=== PATIENT | male | born 1950 | race Two or more races ===

== ENCOUNTER → 2016-05-18 | Outpatient (CLI) | payer OTHER ==
[2016-05-18 12:36] LABS: Basophils # (auto) 0 uL; Basophils % (auto) 0.4 % (0.0-2.0); Eosinophils # (auto) 0.2 uL; Eosinophils % (auto) 3.2 % (0.0-7.0); Hemoglobin 15.7 g/dL (13.5-17.5); Lymphocytes # (auto) 1.6 uL; Lymphocytes % (auto) 21.7 % (10.0-50.0); Mean Corpuscular Hgb Conc. 32.8 g/dL (32.0-36.0); Mean Corpuscular Volume 88.5 fL (80.0-100.0); Mean Platelet Volume 8.4 fL (7.4-10.4); Monocytes # (auto) 0.5 uL; Monocytes % (auto) 6.5 % (0.0-12.0); Neutrophils # (auto) 4.9 uL; Neutrophils % (auto) 68.2 % (37.0-80.0); Platelet Count (auto) 224 10^3/uL (140-450); White Blood Cell 7.2 10^3/uL (4.4-10.8)
[2016-05-18 12:53] LABS: BUN/Creatinine Ratio 19.1; Bilirubin, Total 0.4 mg/dL (0.2-1.0); Calcium 9.1 mg/dL (8.5-10.1); Potassium 3.7 mmol/L (3.5-5.1); Total Protein 8.1 g/dL (6.4-8.2)
== END | disposition home or self-care (01) ==
LOC: LAB 11:40
PROVIDERS: ATTEND Internal Medicine
DX: E11.51 Type 2 diabetes mellitus with diabetic peripheral angiopathy without gangrene (principal); I10 Essential (primary) hypertension
CPT/HCPCS: 36415; 80053; 82607; 83036; 84153; 85025; G0434

== ENCOUNTER → 2017-03-15 | Outpatient (CLI) | payer OTHER ==
[2017-03-15 09:45] LABS: Basophils # (auto) 0.1 uL; Basophils % (auto) 1.4 % (0.0-2.0); Eosinophils # (auto) 0.2 uL; Eosinophils % (auto) 3.6 % (0.0-7.0); Hematocrit 49.3 % (41.0-53.0); Hemoglobin 17.1 g/dL (13.5-17.5); Lymphocytes # (auto) 1.4 uL; Lymphocytes % (auto) 24.3 % (10.0-50.0); Mean Corpuscular Hemoglobin 30.7 pg (28.0-32.0); Mean Corpuscular Hgb Conc. 34.8 g/dL (32.0-36.0); Mean Corpuscular Volume 88.2 fL (80.0-100.0); Monocytes # (auto) 0.4 uL; Monocytes % (auto) 7.9 % (0.0-12.0); Neutrophils # (auto) 3.5 uL; Neutrophils % (auto) 62.8 % (37.0-80.0); Nucleated Red Blood Cells % 0.1 %; Platelet Count (auto) 192 10^3/uL (140-450); Red Blood Cells 5.59 10^6/uL (4.5-5.90); White Blood Cell 5.6 10^3/uL (4.4-10.8)
[2017-03-15 10:09] LABS: Albumin 4.1 g/dL (3.4-5.0); BUN/Creatinine Ratio 22.2; Bilirubin, Total 0.5 mg/dL (0.2-1.0); CRP High Sensitivity 0.3 mg/dL (< 0.3); Calcium 9.2 mg/dL (8.5-10.1); Potassium 3.5 mmol/L (3.5-5.1); Total Protein 8.5 g/dL (6.4-8.2)
== END | disposition home or self-care (01) ==
LOC: LAB 09:23
PROVIDERS: ATTEND Internal Medicine
DX: E11.40 Type 2 diabetes mellitus with diabetic neuropathy, unspecified (principal)
CPT/HCPCS: 36415; 80053; 80061; 83036; 84439; 84443; 85025; 85652; 86141

== ENCOUNTER → 2017-06-11 | Outpatient (CLI) | payer OTHER ==
[~2017-06-11] MED LIST: AMLO5TAB2 PO; ASPI81TA27 PO; ATOR40TA52 PO; CILO100T PO; CLON0.1T PO; GABA300C10 PO; INSLISPI SC; INSU1INJ5 SC; LISI-285 PO
== END | disposition home or self-care (01) ==
LOC: LAB 08:51
PROVIDERS: ATTEND Internal Medicine
DX: I73.9 Peripheral vascular disease, unspecified (principal)
CPT/HCPCS: 36415; 82565; 84520

== ENCOUNTER → 2017-07-24 | Outpatient (CLI) | payer OTHER ==
[~2017-07-24] VITALS: Ht 152.4 cm; Wt 90.7 kg
[~2017-07-24] MED LIST changes: +ADENOSINE 76 MG in GIVE UN-DILUTED 0 ML IV ONE
[2017-07-24 10:20] VITALS: BP 173/90
== END | disposition home or self-care (01) ==
LOC: NM WEST 08:10
PROVIDERS: ATTEND Internal Medicine
DX: I73.9 Peripheral vascular disease, unspecified (principal)
CPT/HCPCS: 78452; 93017; A9500; J0153

== ENCOUNTER → 2017-07-31 | Outpatient (CLI) | payer OTHER | END | disposition home or self-care (01) | LOC: XYW 08:39 | PROVIDERS: ATTEND Internal Medicine | DX: I73.9 Peripheral vascular disease, unspecified (principal) | CPT/HCPCS: 93306 ==

== ENCOUNTER → 2017-08-16 | Outpatient (CLI) | payer OTHER ==
[~2017-08-16] MED LIST changes: -ADENOSINE 76 MG in GIVE UN-DILUTED 0 ML IV ONE
[2017-08-16 10:42] LABS: Basophils # (auto) 0.1 uL; Basophils % (auto) 1.3 % (0.0-2.0); Eosinophils # (auto) 0.3 uL; Eosinophils % (auto) 3.8 % (0.0-7.0); Hematocrit 46.6 % (41.0-53.0); Hemoglobin 15.9 g/dL (13.5-17.5); Lymphocytes # (auto) 1.5 uL; Lymphocytes % (auto) 20.6 % (10.0-50.0); Mean Corpuscular Hemoglobin 30.7 pg (28.0-32.0); Mean Corpuscular Hgb Conc. 34.2 g/dL (32.0-36.0); Mean Corpuscular Volume 89.8 fL (80.0-100.0); Monocytes # (auto) 0.5 uL; Monocytes % (auto) 7.5 % (0.0-12.0); Neutrophils # (auto) 4.8 uL; Neutrophils % (auto) 66.8 % (37.0-80.0); Nucleated Red Blood Cells % 0.1 %; Platelet Count (auto) 219 10^3/uL (140-450); Red Blood Cells 5.19 10^6/uL (4.5-5.90); Red Cell Distribution Width 14.4 % (11.8-14.3); White Blood Cell 7.2 10^3/uL (4.4-10.8)
[2017-08-16 11:45] LABS: INR 0.91 (0.9-1.15); Prothrombin Time 9.9 sec (9.37-12.3)
[2017-08-16 12:13] LABS: Albumin 4.3 g/dL (3.4-5.0); BUN/Creatinine Ratio 18.7; Bilirubin, Total 0.4 mg/dL (0.2-1.0); Calcium 9.4 mg/dL (8.5-10.1); Potassium 4.3 mmol/L (3.5-5.1); Total Protein 8.2 g/dL (6.4-8.2)
== END | disposition home or self-care (01) ==
LOC: LAB 09:58
PROVIDERS: ATTEND Internal Medicine
DX: Z01.812 Encounter for preprocedural laboratory examination (principal); R07.89 Other chest pain; E11.9 Type 2 diabetes mellitus without complications; I10 Essential (primary) hypertension; E78.5 Hyperlipidemia, unspecified
CPT/HCPCS: 36415; 80053; 85025; 85610; 85730

== ENCOUNTER → 2017-09-19 | Outpatient (CLI) | payer OTHER ==
[~2017-09-19] MED LIST changes: +AMI200T PO; +AMLO10TA2 PO; -AMLO5TAB2 PO; -CLON0.1T PO; +DOCU100C8 PO; +FURO40TA4 PO; +GLIP-115 PO; -INSLISPI SC; +INSU100I2 SC; -LISI-285 PO; +MET25T PO; +METF500T PO; +PEN400T PO; +POTA20TA53 PO; +TRAM50TA2 PO
[2017-09-19 13:40] LABS: Basophils # (auto) 0.1 uL; Basophils % (auto) 1.1 % (0.0-2.0); Eosinophils # (auto) 0.4 uL; Eosinophils % (auto) 5.4 % (0.0-7.0); Hematocrit 35.9 % (41.0-53.0); Lymphocytes # (auto) 1.2 uL; Lymphocytes % (auto) 14.9 % (10.0-50.0); Mean Corpuscular Hemoglobin 30.1 pg (28.0-32.0); Mean Corpuscular Hgb Conc. 33.4 g/dL (32.0-36.0); Mean Corpuscular Volume 90.1 fL (80.0-100.0); Monocytes # (auto) 0.8 uL; Monocytes % (auto) 9.6 % (0.0-12.0); Neutrophils # (auto) 5.4 uL; Platelet Count (auto) 214 10^3/uL (140-450); Red Blood Cells 3.98 10^6/uL (4.5-5.90); Red Cell Distribution Width 14.9 % (11.8-14.3); White Blood Cell 7.9 10^3/uL (4.4-10.8)
[2017-09-19 14:10] LABS: Albumin 3.6 g/dL (3.4-5.0); BUN/Creatinine Ratio 19.5; Bilirubin, Total 0.2 mg/dL (0.2-1.0); Calcium 8.8 mg/dL (8.5-10.1); Potassium 3.7 mmol/L (3.5-5.1); Total Protein 7.6 g/dL (6.4-8.2)
== END | disposition home or self-care (01) ==
LOC: LAB 13:23
PROVIDERS: ATTEND Thoracic Surgery (Cardiothoracic Vascular Surgery)
DX: I25.10 Atherosclerotic heart disease of native coronary artery without angina pectoris (principal); E11.22 Type 2 diabetes mellitus with diabetic chronic kidney disease; I12.9 Hypertensive chronic kidney disease with stage 1 through stage 4 chronic kidney disease, or unspecified chronic kidney disease; N18.2 Chronic kidney disease, stage 2 (mild); Z95.1 Presence of aortocoronary bypass graft
CPT/HCPCS: 36415; 80053; 85025

== ENCOUNTER → 2018-06-20 | Outpatient (CLI) | payer OTHER ==
[~2018-06-20] MED LIST changes: +AMLO10TA12 PO; -AMLO10TA2 PO; -FURO40TA4 PO
[2018-06-20 10:26] LABS: Basophils # (auto) 0.1 uL; Eosinophils # (auto) 0.2 uL; Eosinophils % (auto) 3.7 % (0.0-7.0); Hematocrit 47.8 % (41.0-53.0); Hemoglobin 16.5 g/dL (13.5-17.5); Lymphocytes # (auto) 1.4 uL; Lymphocytes % (auto) 21.8 % (10.0-50.0); Mean Corpuscular Hemoglobin 30.1 pg (28.0-32.0); Mean Corpuscular Hgb Conc. 34.5 g/dL (32.0-36.0); Monocytes # (auto) 0.5 uL; Monocytes % (auto) 7.7 % (0.0-12.0); Neutrophils # (auto) 4.2 uL; Neutrophils % (auto) 65.8 % (37.0-80.0); Platelet Count (auto) 194 10^3/uL (140-450); Red Blood Cells 5.49 10^6/uL (4.5-5.90); Red Cell Distribution Width 14.3 % (11.8-14.3); White Blood Cell 6.4 10^3/uL (4.4-10.8)
[2018-06-20 11:20] LABS: Calcium 8.8 mg/dL (8.5-10.1); Potassium 3.6 mmol/L (3.5-5.1)
[2018-06-20 11:25] LABS: Albumin 3.7 g/dL (3.4-5.0); BUN/Creatinine Ratio 17.8; Bilirubin, Total 0.5 mg/dL (0.2-1.0); Total Protein 7.9 g/dL (6.4-8.2)
[2018-06-20 13:17] LABS: Free T4 (Free Thyroxine) 1.35 ng/dL (0.89-1.76); Prostate Specific Antigen 0.81 ng/mL (0.0-4.0)
== END | disposition home or self-care (01) ==
LOC: LAB 08:45
PROVIDERS: ATTEND Internal Medicine
DX: N40.0 Benign prostatic hyperplasia without lower urinary tract symptoms (principal); E11.21 Type 2 diabetes mellitus with diabetic nephropathy; D64.9 Anemia, unspecified
CPT/HCPCS: 36415; 80053; 82270; 82607; 83036; 83540; 84153; 84439; 84443; 85025

== ENCOUNTER → 2018-06-24 | Outpatient (CLI) | payer OTHER ==
[~2018-06-24] MED LIST changes: +AMIO200T33 PO; +GLIP-116 PO; +LISI-646 PO
[2018-06-24 10:15] LABS: Basophils # (auto) 0 uL; Basophils % (auto) 0.6 % (0.0-2.0); Eosinophils # (auto) 0.2 uL; Eosinophils % (auto) 3.9 % (0.0-7.0); Hematocrit 48.2 % (41.0-53.0); Hemoglobin 16.4 g/dL (13.5-17.5); Lymphocytes % (auto) 16.7 % (10.0-50.0); Mean Corpuscular Volume 88.3 fL (80.0-100.0); Monocytes # (auto) 0.4 uL; Monocytes % (auto) 6.6 % (0.0-12.0); Neutrophils # (auto) 4.2 uL; Neutrophils % (auto) 72.2 % (37.0-80.0); Platelet Count (auto) 192 10^3/uL (140-450); Red Blood Cells 5.46 10^6/uL (4.5-5.90); Red Cell Distribution Width 14.2 % (11.8-14.3); White Blood Cell 5.9 10^3/uL (4.4-10.8)
[2018-06-24 10:28] LABS: INR 0.93 (0.9-1.15); Partial Thromboplastin Time 26.4 sec (23.78-33.04)
[2018-06-24 11:19] LABS: Albumin 3.8 g/dL (3.4-5.0); BUN/Creatinine Ratio 17.9; Bilirubin, Total 0.5 mg/dL (0.2-1.0); Calcium 9.2 mg/dL (8.5-10.1); Total Protein 7.8 g/dL (6.4-8.2)
== END | disposition home or self-care (01) ==
LOC: LAB 09:53
PROVIDERS: ATTEND Internal Medicine
DX: Z01.812 Encounter for preprocedural laboratory examination (principal)
CPT/HCPCS: 36415; 80053; 85025; 85610; 85730

== ENCOUNTER 2018-06-27 07:54 | Inpatient (IN) | payer OTHER ==
[~2018-06-27] VITALS: Ht 177.8 cm; Wt 82.7 kg
[~2018-06-27 07:54] MED LIST changes: -AMI200T PO; -AMLO10TA12 PO; -CILO100T PO; -DOCU100C8 PO; -GLIP-115 PO; -INSU100I2 SC; -INSU1INJ5 SC; -MET25T PO; -PEN400T PO; -POTA20TA53 PO; -TRAM50TA2 PO
[2018-06-27] MEDS ORDERED: ANGIOMAX 250 MG VIAL IV ONE ×4 (08:12→13:45)
[2018-06-27] MEDS ORDERED: fentaNYL CITRATE 100 MCG/2 ML VL ONE ×2 (08:13→09:46)
[2018-06-27] MEDS ORDERED: MIDAZOLAM HCL 1MG/1ML-2 ML VIAL ONE ×2 (08:13→09:46)
[2018-06-27] MEDS ORDERED: SODIUM CHL 0.9% 50 ML ONE ×4 (08:13→13:45)
[2018-06-27] MEDS ORDERED: IOHEXOL 350 MG/ML 100ML IJ ONE ×3 (08:15→09:11)
[2018-06-27] MEDS ORDERED: LIDOCAINE 2%HCL (LOCAL ANESTH.) INJ 20ML MDV ONE ×2 (08:16→11:40)
[2018-06-27] MEDS ORDERED: hydrALAZINE HCL 20 MG/ML VL ONE (11:06)
[2018-06-27] MEDS ORDERED: IODIXANOL 320MG/ML 100ML BTL IV ONE (11:44)
[2018-06-27] MEDS ORDERED: HYDROmorphone HCL 2 MG/ML VL ONE (11:57)
[2018-06-27] MEDS ORDERED: VERAPAMIL 2.5MG/ML INJ 2ML VIAL IV ONE (11:59)
[2018-06-27] MEDS ORDERED: CLOPIDOGREL 300 MG TAB ONE (13:43)
[2018-06-27] MEDS ORDERED: ASPirin 81 mg TAB ONE (13:43)
[2018-06-27] MEDS ORDERED: ONDANSETRON HCL 4 MG/2 ML VIAL ONE (14:25)
[2018-06-27] MEDS ORDERED: DEXTROSE (50%) 50ML SYRG IV PRN (15:30)
[2018-06-27] MEDS ORDERED: ACETAMINOPHEN 500 MG TAB PO PRN (15:30)
[2018-06-27] MEDS ORDERED: HYDROcodone-ACET 5/325MG TAB PO PRN (15:30)
[2018-06-27] MEDS ORDERED: ONDANSETRON HCL 4 MG/2 ML VIAL IV PRN (15:30)
--- NOTE | 2018-06-27 15:47 | NUR ---
Received report from Flight Data Technician that patient is allowed to sit up when patient is transferred to Room [facility], allowed to stand up and walk as toletated at 6:30 pm today. Addendum: 06/27/18 at 1715 by Raven Kirkland RN as tolerated
[2018-06-27 16:00] VITALS: BP 162/79
[2018-06-27 16:20] VITALS: BP 162/79
--- NOTE | 2018-06-27 16:20 | NUR ---
Med Surg admit from Technical Solutions Consultant PHILIPCHILO VALERA admitted to Med Surg unit after SBAR received. Patient oriented to Raven Jefferson RN, unit, room, bed, and unit policies regarding patient care and visiting hours.Patient placed on standby bedside oxygen, weighed by bed scale and encouraged to call if he needs something. All questions and concerns addressed, patient verbalized understanding. Family member at bedside. Note: Surgical site on right groin clean, dry and intact. Dressing covered with gauze and self-adherent wrap on left ankle clean, dry and intact. Technical Solutions Consultant EL Palencia said if left ankle gets soaked with blood, changed the dressing but not too tight, patient is allowed to sit up and eat.
[2018-06-27] MEDS: ACCU-CHEK COMFORT CURVE STRIP VI SCH ×2 (17:29→21:38)
[2018-06-27] MEDS: InsuLIN REG 1unit/0.01ml Soln (100units/ml) SC SCH ×2 (17:30→21:38)
[2018-06-27] MEDS: glipiZIDE 5 MG TAB PO SCH (17:43)
--- NOTE | 2018-06-27 17:45 | NUR ---
Patient stated he had a little bit of nausea. Patient refused Zofran, stated he's okay. Zofran wasted at the medication room.
--- NOTE | 2018-06-27 18:34 | NUR ---
Dr. Pandya came over, made aware that patient has elevated BP = 162/79, Heart Rate = 83. Dr. Pandya ordered Catapres 0.2 mg Q4 PRN SBP >160.
[2018-06-27] MEDS ORDERED: cloNIDine HCL 0.1 MG TAB PO PRN (18:45)
--- NOTE | 2018-06-27 20:00 | NUR ---
OPENING NOTE RECEIVED REPORT FROM DAYSHIFT RN. ASSUMING ROLE OF CARE OF PATIENT AT THIS TIME. PATIENT SHOWING NO SIGN OF DISTRESS, SHORTNESS OF BREATH, AND PATIENT DENIES ANY PAIN AT THIS TIME. PATIENT'S DRESSINGS INSPECTED AND SHOWING NO DRAINAGE. DRESSING AROUND ANKLE SHOWED NO SIGNS OF SWELLING AT THIS TIME. PATIENT ORIENTED TO PLAN OF CARE FOR THE NIGHT. PATIENT VERBALIZED UNDERSTANDING. BED LOWERED, CALL LIGHT WITHIN REACH, AND PATIENT WILL BE ROUNDED ON EVERY HOUR AND NEEDED.
[2018-06-27] MEDS: GABAPENTIN 300 MG CAP PO SCH (21:37)
[2018-06-27 22:00] VITALS: BP 150/77
[2018-06-27] MEDS ORDERED: ATORVASTATIN 20 MG TAB PO SCH (22:00)
[2018-06-28 05:00] VITALS: BP 137/49
[2018-06-28] MEDS: GABAPENTIN 300 MG CAP PO SCH ×2 (06:01→13:52)
[2018-06-28] MEDS: glipiZIDE 5 MG TAB PO SCH ×2 (06:02→17:35)
[2018-06-28] MEDS: ACCU-CHEK COMFORT CURVE STRIP VI SCH ×3 (06:07→17:00)
[2018-06-28] MEDS: InsuLIN REG 1unit/0.01ml Soln (100units/ml) SC SCH ×3 (06:08→17:00)
--- NOTE | 2018-06-28 08:00 | NUR ---
Patient sitting in bed, awake, oriented x4. No acute distress noted.
[2018-06-28 09:00] VITALS: BP 157/77
[2018-06-28] MEDS ORDERED: AMIODARONE HCL 200 MG TAB PO SCH (10:00)
[2018-06-28] MEDS ORDERED: LISINOPRIL 20 MG TAB PO SCH (10:00)
[2018-06-28] MEDS ORDERED: ASPirin-EC 81 mg tab PO SCH (10:00)
[2018-06-28] MEDS ORDERED: CLOPIDOGREL BISULFATE 75 MG TAB PO SCH (10:00)
--- NOTE | 2018-06-28 10:20 | NUR ---
Dr. Trejo came over. made aware that patient had lower extremity angiography yesterday as per Dr. Pandya.
[2018-06-28 12:31] VITALS: BP 166/83
--- NOTE | 2018-06-28 12:45 | NUR ---
BP = 166/83, Heart Rate = 85. Catapres 0.2 mg PO PRN given as ordered for SBP>160.
--- NOTE | 2018-06-28 13:20 | NUR ---
Dr. Pandya (for Cardiology) called. ordered patient okay to go home, resume home medications. Dr. Pandya made aware Dr. Trejo said she will see the patient.
--- NOTE | 2018-06-28 13:26 | NUR ---
Paged Dr. Trejo.
--- NOTE | 2018-06-28 13:28 | NUR ---
Dr. Trejo called back. made aware Dr. Pandya called that patient is okay to go home today. Dr. Trejo said she will come over to see the patient and she will put in discharge orders. Patient made aware.
--- NOTE | 2018-06-28 13:50 | NUR ---
BP = 135/72, Heart rate = 78.
--- NOTE | 2018-06-28 16:43 | NUR ---
Dr. Trejo at bedside. to discharge the patient on Plavix, hold the Metformin for the next 48 hours.
[2018-06-28 17:17] VITALS: BP 153/91
--- NOTE | 2018-06-28 17:50 | NUR ---
Dr. Trejo called back. ordered to discharge the patient.
--- NOTE | 2018-06-28 18:05 | NUR ---
Discharge instructions given as ordered. Encourage to follow up with PMD as instructed. All questions and concerns addressed. Patient verbalized understanding. Medication reconciliation form completed and copy given to patient. IV removed with catheter intact, pressure dressing applied. Patient taken to vehicle via wheelchair with all personal belongings, accompanied by staff and family member. No distress noted at time of departure.
== END 2018-06-28 18:05 | disposition home or self-care (01) | DRG 253 ==
LOC: CATH 07:54 → EAST 17:03
PROVIDERS: ADMIT Internal Medicine; ATTEND Internal Medicine
PROC: 047L36Z Dilation of Left Femoral Artery with Three Drug-eluting Intraluminal Devices, Percutaneous Approach (ICD-10-PCS; principal; 2018-06-27)
PROC: B41G1ZZ Fluoroscopy of Left Lower Extremity Arteries using Low Osmolar Contrast (ICD-10-PCS; 2018-06-27)
PROC: B41F1ZZ Fluoroscopy of Right Lower Extremity Arteries using Low Osmolar Contrast (ICD-10-PCS; 2018-06-27)
DX: E11.51 Type 2 diabetes mellitus with diabetic peripheral angiopathy without gangrene (principal); I70.92 Chronic total occlusion of artery of the extremities; I70.202 Unspecified atherosclerosis of native arteries of extremities, left leg; Z87.891 Personal history of nicotine dependence; Z82.49 Family history of ischemic heart disease and other diseases of the circulatory system; Z95.1 Presence of aortocoronary bypass graft; I10 Essential (primary) hypertension
CPT/HCPCS: 37226; 75716; 82962; 99152; A6257; C1781; G0378; J1815; J2250; J2405; Q9967

== ENCOUNTER → 2018-08-12 | Outpatient (CLI) | payer OTHER ==
[~2018-08-12] MED LIST changes: -AMIO200T33 PO; +AMLO5TAB13 PO; +CLOP75TA41 PO
[2018-08-12 11:46] LABS: Basophils # (auto) 0 uL; Basophils % (auto) 0.7 % (0.0-2.0); Eosinophils # (auto) 0.2 uL; Eosinophils % (auto) 3.8 % (0.0-7.0); Hematocrit 45.5 % (41.0-53.0); Hemoglobin 15.1 g/dL (13.5-17.5); Lymphocytes # (auto) 1.2 uL; Lymphocytes % (auto) 19.5 % (10.0-50.0); Mean Corpuscular Hemoglobin 29.5 pg (28.0-32.0); Mean Corpuscular Hgb Conc. 33.3 g/dL (32.0-36.0); Mean Corpuscular Volume 88.8 fL (80.0-100.0); Monocytes # (auto) 0.4 uL; Monocytes % (auto) 6.3 % (0.0-12.0); Neutrophils # (auto) 4.3 uL; Neutrophils % (auto) 69.7 % (37.0-80.0); Nucleated Red Blood Cells % 0.1 %; Platelet Count (auto) 208 10^3/uL (140-450); Red Blood Cells 5.12 10^6/uL (4.5-5.90); White Blood Cell 6.1 10^3/uL (4.4-10.8)
[2018-08-12 12:02] LABS: INR 0.92 (0.9-1.15); Partial Thromboplastin Time 26.2 sec (23.78-33.04); Prothrombin Time 9.9 sec (9.27-12.13)
[2018-08-12 13:01] LABS: Albumin 3.6 g/dL (3.4-5.0); BUN/Creatinine Ratio 21.7; Calcium 9.1 mg/dL (8.5-10.1); Potassium 4.2 mmol/L (3.5-5.1)
[2018-08-12 13:04] LABS: Bilirubin, Total 0.4 mg/dL (0.2-1.0); Total Protein 7.7 g/dL (6.4-8.2)
== END | disposition home or self-care (01) ==
LOC: LAB 11:11
PROVIDERS: ATTEND Internal Medicine
DX: Z01.812 Encounter for preprocedural laboratory examination (principal)
CPT/HCPCS: 36415; 80053; 85025; 85610; 85730

== ENCOUNTER 2018-08-15 07:50 | Day surgery (SDC) | payer OTHER ==
[~2018-08-15] VITALS: Ht 177.8 cm; Wt 86.2 kg
[2018-08-15] MEDS ORDERED: IOHEXOL 350 MG/ML 100ML IJ ONE (08:08)
[2018-08-15] MEDS ORDERED: LIDOCAINE 2%HCL (LOCAL ANESTH.) INJ 20ML MDV ONE ×2 (08:08→09:44)
[2018-08-15] MEDS ORDERED: ANGIOMAX 250 MG VIAL IV ONE ×2 (09:15→10:03)
[2018-08-15] MEDS ORDERED: VERAPAMIL 2.5MG/ML INJ 2ML VIAL IV ONE (09:15)
[2018-08-15] MEDS ORDERED: diphenhdrAMINE HCL 50 MG/1 ML VL ONE (09:15)
[2018-08-15] MEDS ORDERED: fentaNYL CITRATE 100 MCG/2 ML VL ONE ×2 (09:16→09:48)
[2018-08-15] MEDS ORDERED: ONDANSETRON HCL 4 MG/2 ML VIAL ONE ×2 (09:16→11:15)
[2018-08-15] MEDS ORDERED: SODIUM CHL 0.9% 50 ML ONE ×2 (09:16→10:03)
[2018-08-15] MEDS ORDERED: MIDAZOLAM HCL 1MG/1ML-2 ML VIAL ONE ×2 (09:16→09:48)
[2018-08-15] MEDS ORDERED: cloNIDine HCL 0.1 MG TAB ONE ×2 (09:27→09:52)
[2018-08-15] MEDS ORDERED: hydrALAZINE HCL 20 MG/ML VL ONE (09:59)
[2018-08-15] MEDS ORDERED: PROMETHAZINE HCL 25 MG/ML 1ML ONE (11:37)
[2018-08-15] MEDS ORDERED: PROMETHAZINE HCL 25 MG/ML 1ML IV ONE (11:45)
== END 2018-08-15 13:50 | disposition home or self-care (01) ==
LOC: CATH 07:50
PROVIDERS: ATTEND Internal Medicine
DX: I70.92 Chronic total occlusion of artery of the extremities (principal); E11.51 Type 2 diabetes mellitus with diabetic peripheral angiopathy without gangrene; I10 Essential (primary) hypertension; E78.1 Pure hyperglyceridemia; Z68.27 Body mass index [BMI] 27.0-27.9, adult; Z79.82 Long term (current) use of aspirin; Z79.84 Long term (current) use of oral hypoglycemic drugs; Z79.899 Other long term (current) drug therapy; Z87.891 Personal history of nicotine dependence; Z82.49 Family history of ischemic heart disease and other diseases of the circulatory system; Z95.1 Presence of aortocoronary bypass graft
CPT/HCPCS: 36247; 75716; A6257; C1760; C1769; C1887; C1894; J0360; J0583; J1200; J1644; J2250; J2405; J2550; J3010; J7030; Q9967; 99152; 99153

== ENCOUNTER → 2018-09-18 | Outpatient (CLI) | payer OTHER ==
[2018-09-18 10:34] LABS: Cholesterol 185 mg/dL (< 200); HDL Cholesterol 42 mg/dL (40-59); LDL Cholesterol 128 mg/dL (< 100); Triglycerides 136 mg/dL (< 150)
== END | disposition home or self-care (01) ==
LOC: LAB 09:20
PROVIDERS: ATTEND Internal Medicine
DX: E11.9 Type 2 diabetes mellitus without complications (principal); E78.5 Hyperlipidemia, unspecified
CPT/HCPCS: 36415; 80061; 83036

== ENCOUNTER → 2018-12-23 | Outpatient (CLI) | payer OTHER ==
[~2018-12-23] MED LIST changes: -AMLO5TAB13 PO; +AMLO5TAB15 PO; +ASPI-404 PO; -ASPI81TA27 PO; -GLIP-116 PO; +GLIP10TA9 PO
== END | disposition home or self-care (01) ==
LOC: LAB 10:26
PROVIDERS: ATTEND Internal Medicine
DX: E78.5 Hyperlipidemia, unspecified (principal); E11.22 Type 2 diabetes mellitus with diabetic chronic kidney disease; N18.9 Chronic kidney disease, unspecified
CPT/HCPCS: 36415; 83036; 83721

== ENCOUNTER → 2019-03-06 | Outpatient (CLI) | payer OTHER ==
[2019-03-06 11:48] LABS: Basophils # (auto) 0.1 uL; Basophils % (auto) 0.9 % (0.0-2.0); Eosinophils # (auto) 0.3 uL; Eosinophils % (auto) 4.2 % (0.0-7.0); Hematocrit 41.1 % (41.0-53.0); Hemoglobin 13.9 g/dL (13.5-17.5); Lymphocytes # (auto) 1.1 uL; Lymphocytes % (auto) 14.6 % (10.0-50.0); Mean Corpuscular Hgb Conc. 33.7 g/dL (32.0-36.0); Monocytes # (auto) 0.5 uL; Monocytes % (auto) 7.2 % (0.0-12.0); Neutrophils # (auto) 5.3 uL; Neutrophils % (auto) 73.1 % (37.0-80.0); Nucleated Red Blood Cells % 0.1 %; Platelet Count (auto) 219 10^3/uL (140-450); Red Blood Cells 4.62 10^6/uL (4.5-5.90); Red Cell Distribution Width 14.8 % (11.8-14.3); White Blood Cell 7.2 10^3/uL (4.4-10.8)
[2019-03-06 12:44] LABS: Albumin 4.2 g/dL (3.4-5.0); BUN/Creatinine Ratio 24.7; CRP High Sensitivity 0.12 mg/dL (< 0.3); Calcium 8.4 mg/dL (8.5-10.1); Potassium 3.7 mmol/L (3.5-5.1)
[2019-03-06 12:46] LABS: Bilirubin, Total 0.6 mg/dL (0.2-1.0); Total Protein 7.8 g/dL (6.4-8.2)
== END | disposition home or self-care (01) ==
LOC: LAB 11:32
PROVIDERS: ATTEND Internal Medicine
DX: E11.9 Type 2 diabetes mellitus without complications (principal); M86.9 Osteomyelitis, unspecified
CPT/HCPCS: 36415; 80053; 85025; 85652; 86141

== ENCOUNTER → 2019-04-02 | Outpatient (CLI) | payer OTHER ==
[~2019-04-02] MED LIST changes: +IOHEXOL 350 MG/ML 100ML IJ ONE
== END | disposition home or self-care (01) ==
LOC: LAB 10:48
PROVIDERS: ATTEND Surgery
DX: R09.89 Other specified symptoms and signs involving the circulatory and respiratory systems (principal)
CPT/HCPCS: 36415; 82565; 84520; Q9967

== ENCOUNTER → 2019-04-20 | Outpatient (CLI) | payer OTHER ==
[~2019-04-20] MED LIST changes: +CILO100T PO; -IOHEXOL 350 MG/ML 100ML IJ ONE
[2019-04-20 08:13] LABS: Basophils # (auto) 0.1 uL; Basophils % (auto) 0.9 % (0.0-2.0); Eosinophils # (auto) 0.4 uL; Eosinophils % (auto) 5.3 % (0.0-7.0); Hematocrit 39.2 % (41.0-53.0); Hemoglobin 13.3 g/dL (13.5-17.5); Lymphocytes # (auto) 1.1 uL; Lymphocytes % (auto) 16.4 % (10.0-50.0); Mean Corpuscular Hemoglobin 30.5 pg (28.0-32.0); Mean Corpuscular Volume 89.6 fL (80.0-100.0); Monocytes # (auto) 0.5 uL; Monocytes % (auto) 7.4 % (0.0-12.0); Neutrophils # (auto) 4.8 uL; Platelet Count (auto) 223 10^3/uL (140-450); Red Blood Cells 4.38 10^6/uL (4.5-5.90); Red Cell Distribution Width 14.7 % (11.8-14.3); White Blood Cell 6.9 10^3/uL (4.4-10.8)
[2019-04-20 08:41] LABS: INR 0.96 (0.9-1.15); Partial Thromboplastin Time 26.5 sec (23.64-32.05)
[2019-04-20 11:09] LABS: Potassium 4.4 mmol/L (3.5-5.1)
[2019-04-20 11:24] LABS: Albumin 3.9 g/dL (3.4-5.0); BUN/Creatinine Ratio 21.1; Bilirubin, Total 0.3 mg/dL (0.2-1.0); Calcium 8.8 mg/dL (8.5-10.1); Total Protein 7.2 g/dL (6.4-8.2)
== END | disposition home or self-care (01) ==
LOC: LAB 07:38
PROVIDERS: ATTEND Internal Medicine
DX: Z01.818 Encounter for other preprocedural examination (principal); E11.22 Type 2 diabetes mellitus with diabetic chronic kidney disease; I12.9 Hypertensive chronic kidney disease with stage 1 through stage 4 chronic kidney disease, or unspecified chronic kidney disease; N18.9 Chronic kidney disease, unspecified
CPT/HCPCS: 36415; 80053; 83036; 83721; 85025; 85610; 85730

== ENCOUNTER 2019-04-21 06:52 | Inpatient (IN) | payer OTHER ==
[~2019-04-21] VITALS: Ht 177.8 cm; Wt 85.3 kg
[~2019-04-21 06:52] MED LIST changes: -CILO100T PO
[2019-04-21] MEDS ORDERED: SODIUM CHL 0.9% 50 ML ONE ×4 (09:14→14:44)
[2019-04-21] MEDS ORDERED: ANGIOMAX 250 MG VIAL IV ONE ×4 (09:14→14:44)
[2019-04-21] MEDS ORDERED: MIDAZOLAM HCL 1MG/1ML-2 ML VIAL ONE ×2 (09:14→11:54)
[2019-04-21] MEDS ORDERED: fentaNYL CITRATE 100 MCG/2 ML VL ONE ×4 (09:14→14:42)
[2019-04-21] MEDS ORDERED: IOHEXOL 350 MG/ML 100ML IJ ONE (09:15)
[2019-04-21] MEDS ORDERED: LIDOCAINE 2%HCL (LOCAL ANESTH.) INJ 20ML MDV ONE ×2 (09:15→09:46)
[2019-04-21] MEDS ORDERED: IODIXANOL 320MG/ML 100ML BTL IV ONE ×3 (09:28→14:27)
[2019-04-21] MEDS ORDERED: diphenhdrAMINE HCL 50 MG/1 ML VL ONE (09:55)
[2019-04-21] MEDS ORDERED: hydrALAZINE HCL 20 MG/ML VL ONE (10:49)
[2019-04-21] MEDS ORDERED: ONDANSETRON HCL 4 MG/2 ML VIAL ONE (14:56)
[2019-04-21] MEDS ORDERED: DEXTROSE (50%) 50ML SYRG IV PRN (15:30)
[2019-04-21] MEDS ORDERED: HYDROmorphone HCL 2 MG/ML VL IV PRN (15:30)
[2019-04-21] MEDS ORDERED: ONDANSETRON HCL 4 MG/2 ML VIAL IV PRN (15:30)
[2019-04-21] MEDS ORDERED: NITROGLYCERIN 0.4 MG SL TAB SL PRN (15:30)
[2019-04-21] MEDS ORDERED: MORPHINE SULF INJ 2 MG/ML SYRINGE 1ML IV PRN (15:30)
[2019-04-21] MEDS: SODIUM CHLORIDE 0.9% 1,000 ML IV SCH (15:58)
[2019-04-21] MEDS: InsuLIN REG 1unit/0.01ml Soln (100units/ml) SC SCH ×2 (16:54→21:45)
[2019-04-21] MEDS: ACCU-CHEK COMFORT CURVE STRIP VI SCH ×2 (16:55→21:45)
[2019-04-21 17:00] VITALS: BP 142/76
--- NOTE | 2019-04-21 17:30 | NUR ---
Received reports from Kaila GALLEGOS Office Clinician, S/P RLE Angiogram performed by Dr. Coleman under moderate sedation. Patient is alert and oriented, not in respiratory distress, no complaints of pain. Oriented to floor policy. Bed alarm on and side rails up x2. Patient maintained on bedrest. Urinal at bedside. Will continue to monitor.
[2019-04-21 18:00] VITALS: BP 142/76
[2019-04-21] MEDS ORDERED: amLODIPine BESYLATE 5 MG TAB PO SCH (18:00)
--- NOTE | 2019-04-21 20:00 | NUR ---
Opening Shift Note Assumed care of patient, awake and alert. No S/S of distress/SOB or pain. Patient's incisions inspected and assessed. Patient's dressing is clean dry and intact. Instructed on POC and to call for assist PRN, will continue to monitor for changes Q1hr and PRN.
[2019-04-21] MEDS ORDERED: CILO100T PO (20:21)
[2019-04-21] MEDS ORDERED: AMLO5TAB15 PO (20:21)
[2019-04-21] MEDS: LISINOPRIL 20 MG TAB PO SCH (21:44)
[2019-04-21] MEDS: GABAPENTIN 300 MG CAP PO SCH (21:44)
[2019-04-21 22:00] VITALS: BP 118/67
[2019-04-22] MEDS: SODIUM CHLORIDE 0.9% 1,000 ML IV SCH (01:30)
[2019-04-22] MEDS: GABAPENTIN 300 MG CAP PO SCH ×2 (05:21→13:57)
[2019-04-22 05:25] VITALS: BP 162/77
[2019-04-22 05:48] VITALS: BP 156/81
--- NOTE | 2019-04-22 05:48 | NUR ---
BP rechecked INITIAL BP WAS 162/77. BP RETAKEN AND SHOWS A BP OF 156/81. PATIENT SHOWING NO SIGN OF DISTRESS, SHORTNESS OF BREATH, AND PATIENT DENIES ANY PAIN AT THIS TIME.
[2019-04-22 06:22] LABS: Basophils # (auto) 0.1 uL; Basophils % (auto) 0.7 % (0.0-2.0); Eosinophils # (auto) 0.1 uL; Eosinophils % (auto) 1.6 % (0.0-7.0); Hematocrit 36.6 % (41.0-53.0); Hemoglobin 12.6 g/dL (13.5-17.5); Lymphocytes # (auto) 1.1 uL; Lymphocytes % (auto) 13.1 % (10.0-50.0); Mean Corpuscular Hgb Conc. 34.5 g/dL (32.0-36.0); Mean Corpuscular Volume 89.9 fL (80.0-100.0); Monocytes # (auto) 0.7 uL; Monocytes % (auto) 8.5 % (0.0-12.0); Neutrophils # (auto) 6.4 uL; Neutrophils % (auto) 76.1 % (37.0-80.0); Platelet Count (auto) 214 10^3/uL (140-450); Red Blood Cells 4.07 10^6/uL (4.5-5.90); Red Cell Distribution Width 15.1 % (11.8-14.3); White Blood Cell 8.4 10^3/uL (4.4-10.8)
[2019-04-22] MEDS: ACCU-CHEK COMFORT CURVE STRIP VI SCH ×2 (06:51→11:25)
[2019-04-22] MEDS: InsuLIN REG 1unit/0.01ml Soln (100units/ml) SC SCH ×2 (06:51→11:26)
--- NOTE | 2019-04-22 08:00 | NUR ---
Opening Shift Note Assumed care of patient, awake and alert. No S/S of distress/SOB or pain. Instructed on POC and to call for assist PRN, will continue to monitor for changes Q1hr and PRN.
[2019-04-22 09:00] VITALS: BP 162/81
[2019-04-22] MEDS: LISINOPRIL 20 MG TAB PO SCH (09:40)
[2019-04-22] MEDS ORDERED: CLOPIDOGREL BISULFATE 75 MG TAB PO SCH (10:00)
[2019-04-22] MEDS ORDERED: ASPirin-EC 81 mg tab PO SCH (10:00)
[2019-04-22] MEDS ORDERED: ATORVASTATIN 20 MG TAB PO SCH (10:00)
[2019-04-22 12:52] LABS: BUN/Creatinine Ratio 16.5; Calcium 8.6 mg/dL (8.5-10.1); Potassium 4.4 mmol/L (3.5-5.1)
[2019-04-22 14:47] VITALS: BP 150/75
--- NOTE | 2019-04-22 15:12 | NUR ---
Discharge instructions given as ordered. Encourage to follow up with PMD Dr. Trejo on 04-24-19 at 3:45pm as instructed. All questions and concerns addressed. Patient verbalized understanding. Medication reconciliation form completed and copy given to patient. IV removed with catheter intact, pressure dressing applied. Telemetry unit returned to ICU. Patient taken to vehicle via wheelchair with all personal belongings, accompanied by staff and family member. No distress noted at time of departure.
== END 2019-04-22 13:10 | disposition home or self-care (01) | DRG 253 ==
LOC: CATH 06:52 → TELE-CENTR 17:27
PROVIDERS: ADMIT Radiology Diagnostic Radiology; ATTEND Internal Medicine
PROC: B41F1ZZ Fluoroscopy of Right Lower Extremity Arteries using Low Osmolar Contrast (ICD-10-PCS; principal; 2019-04-21)
PROC: 047K3DZ Dilation of Right Femoral Artery with Intraluminal Device, Percutaneous Approach (ICD-10-PCS; 2019-04-21)
PROC: 047M3ZZ Dilation of Right Popliteal Artery, Percutaneous Approach (ICD-10-PCS; 2019-04-21)
DX: E11.51 Type 2 diabetes mellitus with diabetic peripheral angiopathy without gangrene (principal); I70.92 Chronic total occlusion of artery of the extremities; I70.201 Unspecified atherosclerosis of native arteries of extremities, right leg; I25.10 Atherosclerotic heart disease of native coronary artery without angina pectoris; E66.9 Obesity, unspecified; I12.9 Hypertensive chronic kidney disease with stage 1 through stage 4 chronic kidney disease, or unspecified chronic kidney disease; N18.9 Chronic kidney disease, unspecified; E11.22 Type 2 diabetes mellitus with diabetic chronic kidney disease; E78.5 Hyperlipidemia, unspecified; E11.40 Type 2 diabetes mellitus with diabetic neuropathy, unspecified; Z79.02 Long term (current) use of antithrombotics/antiplatelets; Z95.1 Presence of aortocoronary bypass graft; Z68.27 Body mass index [BMI] 27.0-27.9, adult; Z98.62 Peripheral vascular angioplasty status; Z79.84 Long term (current) use of oral hypoglycemic drugs; Z79.899 Other long term (current) drug therapy
CPT/HCPCS: 36415; 37224; 37226; 71045; 75710; 76942; 80048; 82962; 83036; 84702; 85025; 93005; 99152; 99153; A4565; C1725; C1781; G0378; J1815; J2250; J2405; Q9967

== ENCOUNTER → 2019-04-28 | Outpatient (CLI) | payer OTHER ==
[~2019-04-28] MED LIST changes: +CILO100T PO
[2019-05-04 10:06] LABS: Potassium 3.6 mmol/L (3.5-5.1)
== END | disposition home or self-care (01) ==
LOC: LAB 10:35
PROVIDERS: ATTEND Internal Medicine
DX: E11.22 Type 2 diabetes mellitus with diabetic chronic kidney disease (principal); E11.51 Type 2 diabetes mellitus with diabetic peripheral angiopathy without gangrene; N18.3 Chronic kidney disease, stage 3 (moderate)
CPT/HCPCS: 36415; 80048

== ENCOUNTER → 2019-09-14 | Outpatient (CLI) | payer OTHER ==
[~2019-09-14] MED LIST changes: -ASPI-404 PO; +ASPI-543 PO
[2019-09-14 08:50] LABS: Cholesterol 188 mg/dL (< 200); HDL Cholesterol 32 mg/dL (40-59); LDL Cholesterol 125 mg/dL (< 100); Triglycerides 151 mg/dL (< 150)
== END | disposition home or self-care (01) ==
LOC: LAB 07:16
PROVIDERS: ATTEND Internal Medicine
DX: E11.21 Type 2 diabetes mellitus with diabetic nephropathy (principal); E78.5 Hyperlipidemia, unspecified
CPT/HCPCS: 36415; 80061; 82043; 83036

== ENCOUNTER → 2019-11-12 | Outpatient (CLI) | payer OTHER ==
[2019-11-12 12:45] LABS: Basophils # (auto) 0.1 10 ^3/uL (0-0.2); Basophils % (auto) 1.1 % (0.0-2.0); Eosinophils # (auto) 0.4 10 ^3/uL (0-0.8); Eosinophils % (auto) 6.1 % (0.0-7.0); Hematocrit 37.9 % (41.0-53.0); Hemoglobin 12.8 g/dL (13.5-17.5); Lymphocytes # (auto) 0.9 10 ^3/uL (0.4-5.4); Lymphocytes % (auto) 15.6 % (10.0-50.0); Mean Corpuscular Hemoglobin 30.5 pg (28.0-32.0); Mean Corpuscular Hgb Conc. 33.7 g/dL (32.0-36.0); Mean Corpuscular Volume 90.6 fL (80.0-100.0); Monocytes # (auto) 0.5 10 ^3/uL (0-1.3); Monocytes % (auto) 8.3 % (0.0-12.0); Neutrophils # (auto) 4.2 10 ^3/uL (1.6-8.6); Neutrophils % (auto) 68.9 % (37.0-80.0); Platelet Count (auto) 222 10^3/uL (140-450); Red Blood Cells 4.19 10^6/uL (4.5-5.90); Red Cell Distribution Width 15.4 % (11.8-14.3); White Blood Cell 6.1 10^3/uL (4.4-10.8)
[2019-11-12 14:26] LABS: Albumin 3.6 g/dL (3.4-5.0); Calcium 8.7 mg/dL (8.5-10.1); Magnesium 2.6 mg/dL (1.6-2.6); Potassium 4.3 mmol/L (3.5-5.1)
[2019-11-12 14:31] LABS: BUN/Creatinine Ratio 23.2; Bilirubin, Total 0.2 mg/dL (0.2-1.0); Total Protein 7.5 g/dL (6.4-8.2); Uric Acid 7.5 mg/dL (3.5-7.2)
== END | disposition home or self-care (01) ==
LOC: LAB 12:11
PROVIDERS: ATTEND Internal Medicine
DX: E11.51 Type 2 diabetes mellitus with diabetic peripheral angiopathy without gangrene (principal); R25.2 Cramp and spasm
CPT/HCPCS: 36415; 80053; 82550; 83036; 83735; 84550; 85025; 85652

== ENCOUNTER → 2020-03-02 | Outpatient (CLI) | payer OTHER ==
[2020-03-02 07:59] LABS: Basophils # (auto) 0.1 10 ^3/uL (0-0.2); Basophils % (auto) 0.8 % (0.0-2.0); Eosinophils # (auto) 0.3 10 ^3/uL (0-0.8); Eosinophils % (auto) 4.9 % (0.0-7.0); Hematocrit 42.9 % (41.0-53.0); Hemoglobin 14.6 g/dL (13.5-17.5); Lymphocytes # (auto) 1.2 10 ^3/uL (0.4-5.4); Mean Corpuscular Hemoglobin 30.5 pg (28.0-32.0); Mean Corpuscular Hgb Conc. 33.9 g/dL (32.0-36.0); Mean Corpuscular Volume 89.8 fL (80.0-100.0); Monocytes # (auto) 0.6 10 ^3/uL (0-1.3); Monocytes % (auto) 8.7 % (0.0-12.0); Neutrophils # (auto) 4.8 10 ^3/uL (1.6-8.6); Neutrophils % (auto) 68.6 % (37.0-80.0); Platelet Count (auto) 239 10^3/uL (140-450); Red Blood Cells 4.78 10^6/uL (4.5-5.90); Red Cell Distribution Width 14.5 % (11.8-14.3)
[2020-03-02 08:00] LABS: Urine Bacteria NONE SEEN /hpf (None Seen); Urine Blood TRACE /uL (Negative); Urine Hyaline Cast FEW /lpf (0 - 2); Urine Specific Gravity 1.014 (1.001-1.035); Urine WBC 1 /hpf (0 - 3)
[2020-03-02 08:24] LABS: Calcium 9.3 mg/dL (8.5-10.1); Potassium 4.5 mmol/L (3.5-5.1)
[2020-03-02 08:28] LABS: BUN/Creatinine Ratio 21.8; Bilirubin, Total 0.5 mg/dL (0.2-1.0); Total Protein 7.8 g/dL (6.4-8.2)
[2020-03-02 08:32] LABS: Free T4 (Free Thyroxine) 1.02 ng/dL (0.89-1.76); Prostate Specific Antigen 1.17 ng/mL (0.0-4.0)
== END | disposition home or self-care (01) ==
LOC: LAB 07:21
PROVIDERS: ATTEND Internal Medicine
DX: I10 Essential (primary) hypertension (principal); E11.59 Type 2 diabetes mellitus with other circulatory complications; R35.1 Nocturia
CPT/HCPCS: 36415; 80053; 80061; 81001; 82043; 82607; 83036; 84153; 84439; 84443; 85025; 85652

== ENCOUNTER → 2020-05-05 | Outpatient (CLI) | payer OTHER | END | disposition home or self-care (01) | LOC: LAB 10:23 | PROVIDERS: ATTEND Nurse Practitioner Family | DX: U07.1 COVID-19 (principal) | CPT/HCPCS: C9803; U0003 ==

== ENCOUNTER → 2020-10-14 | Outpatient (CLI) | payer OTHER ==
[~2020-10-14] MED LIST changes: +AMLO-489 PO; -AMLO5TAB15 PO; -CLOP75TA41 PO; +CLOP75TA70 PO; -LISI-646 PO; +LISI20TA28 PO
[2020-10-14 09:00] LABS: Albumin 3.7 g/dL (3.4-5.0); Calcium 9.3 mg/dL (8.5-10.1); Potassium 4.3 mmol/L (3.5-5.1)
[2020-10-14 09:03] LABS: BUN/Creatinine Ratio 22.6; Bilirubin, Total 0.3 mg/dL (0.2-1.0); Total Protein 7.7 g/dL (6.4-8.2)
== END | disposition home or self-care (01) ==
LOC: LAB 08:21
PROVIDERS: ATTEND Internal Medicine
DX: I10 Essential (primary) hypertension (principal); I73.9 Peripheral vascular disease, unspecified; I25.10 Atherosclerotic heart disease of native coronary artery without angina pectoris; E11.9 Type 2 diabetes mellitus without complications
CPT/HCPCS: 36415; 80053; 80061; 82270; 83036

== ENCOUNTER → 2021-02-03 | Outpatient (CLI) | payer OTHER ==
[2021-02-03 13:46] LABS: Basophils # (auto) 0 10 ^3/uL (0-0.2); Basophils % (auto) 0.3 % (0.0-2.0); Eosinophils # (auto) 0 10 ^3/uL (0-0.8); Eosinophils % (auto) 0.1 % (0.0-7.0); Hematocrit 40.9 % (41.0-53.0); Hemoglobin 13.9 g/dL (13.5-17.5); Lymphocytes # (auto) 0.8 10 ^3/uL (0.4-5.4); Mean Corpuscular Hemoglobin 30.4 pg (28.0-32.0); Mean Corpuscular Volume 89.4 fL (80.0-100.0); Monocytes # (auto) 1.3 10 ^3/uL (0-1.3); Monocytes % (auto) 8.3 % (0.0-12.0); Neutrophils # (auto) 13.2 10 ^3/uL (1.6-8.6); Neutrophils % (auto) 86.3 % (37.0-80.0); Red Blood Cells 4.57 10^6/uL (4.5-5.90); Red Cell Distribution Width 14.4 % (11.8-14.3); White Blood Cell 15.3 10^3/uL (4.4-10.8)
[2021-02-03 15:16] LABS: Albumin 3.7 g/dL (3.4-5.0); Calcium 9.8 mg/dL (8.5-10.1); Potassium 4.3 mmol/L (3.5-5.1)
[2021-02-03 15:20] LABS: BUN/Creatinine Ratio 18.3; Bilirubin, Total 0.7 mg/dL (0.2-1.0); Total Protein 8.4 g/dL (6.4-8.2)
== END | disposition home or self-care (01) ==
LOC: LAB 13:21
PROVIDERS: ATTEND Internal Medicine
DX: N41.9 Inflammatory disease of prostate, unspecified (principal)
CPT/HCPCS: 36415; 80053; 85025; 85652; 87086

== ENCOUNTER → 2021-07-19 | Outpatient (CLI) | payer OTHER ==
[2021-07-19 11:27] LABS: Potassium 4.4 mmol/L (3.5-5.1)
[2021-07-19 11:36] LABS: Albumin 3.6 g/dL (3.4-5.0); BUN/Creatinine Ratio 25.8; Bilirubin, Total 0.3 mg/dL (0.2-1.0); Total Protein 7.5 g/dL (6.4-8.2)
== END | disposition home or self-care (01) ==
LOC: LAB 09:26
PROVIDERS: ATTEND Internal Medicine
DX: E11.9 Type 2 diabetes mellitus without complications (principal); I10 Essential (primary) hypertension
CPT/HCPCS: 36415; 80053; 82043; 83036; 83721

== ENCOUNTER → 2021-07-25 | Outpatient (CLI) | payer OTHER | END | disposition home or self-care (01) | LOC: XY 09:36 | PROVIDERS: ATTEND Internal Medicine | DX: I25.118 Atherosclerotic heart disease of native coronary artery with other forms of angina pectoris (principal); I65.29 Occlusion and stenosis of unspecified carotid artery | CPT/HCPCS: 93886 ==

== ENCOUNTER → 2022-02-12 | Outpatient (CLI) | payer OTHER ==
[2022-02-12 11:52] LABS: Basophils # (auto) 0.1 10 ^3/uL (0-0.2); Basophils % (auto) 0.9 % (0.0-2.0); Eosinophils # (auto) 0.4 10 ^3/uL (0-0.8); Eosinophils % (auto) 5.9 % (0.0-7.0); Hematocrit 41.3 % (41.0-53.0); Hemoglobin 13.7 g/dL (13.5-17.5); Lymphocytes # (auto) 1.2 10 ^3/uL (0.4-5.4); Lymphocytes % (auto) 19.8 % (10.0-50.0); Mean Corpuscular Hemoglobin 29.1 pg (28.0-32.0); Mean Corpuscular Hgb Conc. 33.1 g/dL (32.0-36.0); Mean Corpuscular Volume 88.1 fL (80.0-100.0); Monocytes # (auto) 0.5 10 ^3/uL (0-1.3); Monocytes % (auto) 7.7 % (0.0-12.0); Neutrophils % (auto) 65.7 % (37.0-80.0); Red Blood Cells 4.69 10^6/uL (4.5-5.90); Red Cell Distribution Width 13.9 % (11.8-14.3); White Blood Cell 6.2 10^3/uL (4.4-10.8)
[2022-02-12 12:14] LABS: Urine Bacteria NONE SEEN /hpf (None Seen); Urine Blood TRACE /uL (Negative); Urine Specific Gravity 1.017 (1.001-1.035); Urine WBC 1 /hpf (0 - 3)
[2022-02-12 12:35] LABS: Albumin 3.8 g/dL (3.4-5.0); BUN/Creatinine Ratio 24.2; Potassium 4.6 mmol/L (3.5-5.1); Uric Acid 5.8 mg/dL (3.5-7.2)
[2022-02-12 12:41] LABS: Bilirubin, Total 0.4 mg/dL (0.2-1.0); Total Protein 7.2 g/dL (6.4-8.2)
[2022-02-12 12:51] LABS: Free T4 (Free Thyroxine) 1.11 ng/dL (0.89-1.76); Prostate Specific Antigen 2.14 ng/mL (0.0-4.0)
== END | disposition home or self-care (01) ==
LOC: LAB 11:23
PROVIDERS: ATTEND Internal Medicine
DX: E11.9 Type 2 diabetes mellitus without complications (principal); I10 Essential (primary) hypertension; I73.9 Peripheral vascular disease, unspecified
CPT/HCPCS: 36415; 80053; 80061; 81001; 82043; 82570; 82607; 83036; 83970; 84153; 84439; 84443; 84550; 85025; 85652

== ENCOUNTER → 2022-04-30 | Outpatient (CLI) | payer OTHER | END | disposition home or self-care (01) | LOC: LAB 08:36 | PROVIDERS: ATTEND Internal Medicine | DX: Z12.11 Encounter for screening for malignant neoplasm of colon (principal) | CPT/HCPCS: 82270 ==

== ENCOUNTER → 2022-08-20 | Outpatient (CLI) | payer OTHER | END | disposition home or self-care (01) | LOC: XYW 09:36 | DX: I08.3 Combined rheumatic disorders of mitral, aortic and tricuspid valves (principal); I25.810 Atherosclerosis of coronary artery bypass graft(s) without angina pectoris | CPT/HCPCS: 93306 ==

== ENCOUNTER → 2022-09-03 | Outpatient (CLI) | payer OTHER ==
[~2022-09-03] MED LIST changes: +REGADENOSON 0.4 MG/5 ML SYRG IV ONE
[2022-09-03 09:53] VITALS: BP 155/85
== END | disposition home or self-care (01) ==
LOC: XYW 09:05
DX: I25.810 Atherosclerosis of coronary artery bypass graft(s) without angina pectoris (principal); I73.9 Peripheral vascular disease, unspecified; D68.69 Other thrombophilia; E11.42 Type 2 diabetes mellitus with diabetic polyneuropathy; Z95.1 Presence of aortocoronary bypass graft; Z95.5 Presence of coronary angioplasty implant and graft; Z95.820 Peripheral vascular angioplasty status with implants and grafts
CPT/HCPCS: 78452; 93017; A9500; J2785

== ENCOUNTER → 2022-10-05 | Outpatient (CLI) | payer OTHER ==
[~2022-10-05] MED LIST changes: -REGADENOSON 0.4 MG/5 ML SYRG IV ONE
[2022-10-05 11:01] LABS: Basophils # (auto) 0.1 10 ^3/uL (0-0.2); Basophils % (auto) 1.4 % (0.0-2.0); Eosinophils # (auto) 0.3 10 ^3/uL (0-0.8); Eosinophils % (auto) 5.1 % (0.0-7.0); Hematocrit 40.1 % (41.0-53.0); Hemoglobin 13.2 g/dL (13.5-17.5); Lymphocytes # (auto) 1.3 10 ^3/uL (0.4-5.4); Lymphocytes % (auto) 20.3 % (10.0-50.0); Mean Corpuscular Hemoglobin 29.3 pg (28.0-32.0); Mean Corpuscular Hgb Conc. 32.9 g/dL (32.0-36.0); Mean Corpuscular Volume 89.1 fL (80.0-100.0); Monocytes # (auto) 0.5 10 ^3/uL (0-1.3); Monocytes % (auto) 7.7 % (0.0-12.0); Neutrophils # (auto) 4.2 10 ^3/uL (1.6-8.6); Neutrophils % (auto) 65.5 % (37.0-80.0); Nucleated Red Blood Cells % 0.1 %; Red Cell Distribution Width 14.9 % (11.8-14.3); White Blood Cell 6.3 10^3/uL (4.4-10.8)
[2022-10-05 11:25] LABS: INR 0.95 (0.9-1.15); Partial Thromboplastin Time 27.3 sec (24.6-33.4)
[2022-10-05 11:31] LABS: Albumin 3.9 g/dL (3.4-5.0); Calcium 8.7 mg/dL (8.5-10.1); Potassium 4.1 mmol/L (3.5-5.1); Uric Acid 6.3 mg/dL (3.5-7.2)
[2022-10-05 11:36] LABS: BUN/Creatinine Ratio 21.2 (10.0-20.0); Bilirubin, Total 0.4 mg/dL (0.2-1.0); Total Protein 7.6 g/dL (6.4-8.2)
== END | disposition home or self-care (01) ==
LOC: LAB 10:50
PROVIDERS: ATTEND Internal Medicine
DX: I12.9 Hypertensive chronic kidney disease with stage 1 through stage 4 chronic kidney disease, or unspecified chronic kidney disease (principal); E11.22 Type 2 diabetes mellitus with diabetic chronic kidney disease; N18.30 Chronic kidney disease, stage 3 unspecified
CPT/HCPCS: 36415; 80053; 80061; 83036; 84550; 85025; 85610; 85730

== ENCOUNTER → 2023-05-03 | Outpatient (CLI) | payer OTHER ==
[~2023-05-03] MED LIST changes: -AMLO-489 PO; +AMLO1TAB22 PO; +CHLO25TA2 PO; -CILO100T PO; +GABA-1250 PO; -GABA300C10 PO; +HYDR-4297 PO; -LISI20TA28 PO; +LISI20TA56 PO; +LISI40TA16 PO; +METF-371 PO; -METF500T PO; +METO-289 PO; +PROM1SOL2 PO; +TAMS0.4C36 PO
[2023-05-03 07:51] LABS: Basophils # (auto) 0.1 10 ^3/uL (0-0.2); Basophils % (auto) 1.1 % (0.0-2.0); Eosinophils # (auto) 0.3 10 ^3/uL (0-0.8); Eosinophils % (auto) 4.3 % (0.0-7.0); Hematocrit 37.8 % (41.0-53.0); Hemoglobin 12.5 g/dL (13.5-17.5); Lymphocytes % (auto) 15.3 % (10.0-50.0); Mean Corpuscular Hemoglobin 29.9 pg (28.0-32.0); Mean Corpuscular Volume 90.5 fL (80.0-100.0); Monocytes # (auto) 0.5 10 ^3/uL (0-1.3); Monocytes % (auto) 7.5 % (0.0-12.0); Neutrophils # (auto) 4.8 10 ^3/uL (1.6-8.6); Neutrophils % (auto) 71.8 % (37.0-80.0); Nucleated Red Blood Cells % 0.1 %; Red Blood Cells 4.17 10^6/uL (4.5-5.90); Red Cell Distribution Width 14.4 % (11.8-14.3); White Blood Cell 6.7 10^3/uL (4.4-10.8)
[2023-05-03 08:16] LABS: Chloride 109 mmol/L (98-107); Potassium 4.7 mmol/L (3.5-5.1); Sodium 141 mmol/L (136-145)
[2023-05-03 08:17] LABS: Anion Gap 10 (5-15); Carbon Dioxide 22 mmol/L (20-30)
[2023-05-03 08:18] LABS: Calcium 9.3 mg/dL (8.5-10.1)
[2023-05-03 08:22] LABS: BUN/Creatinine Ratio 13.1 (10.0-20.0); Blood Urea Nitrogen 20 mg/dL (9-23); Glucose 181 mg/dL (74-106)
[2023-05-03 08:53] LABS: Prostate Specific Antigen 0.91 ng/mL (0.0-4.0)
[2023-05-03 08:59] LABS: Free T4 (Free Thyroxine) 0.95 ng/dL (0.89-1.76)
== END | disposition home or self-care (01) ==
LOC: LAB 07:35
PROVIDERS: ATTEND Internal Medicine
DX: I12.9 Hypertensive chronic kidney disease with stage 1 through stage 4 chronic kidney disease, or unspecified chronic kidney disease (principal); E11.22 Type 2 diabetes mellitus with diabetic chronic kidney disease; N18.30 Chronic kidney disease, stage 3 unspecified
CPT/HCPCS: 36415; 80048; 82088; 82384; 82607; 83036; 84153; 84439; 84443; 85025

== ENCOUNTER → 2023-07-25 | Outpatient (CLI) | payer OTHER ==
[2023-07-25 10:22] LABS: Basophils # (auto) 0.1 10 ^3/uL (0-0.2); Basophils % (auto) 0.8 % (0.0-2.0); Eosinophils # (auto) 0.2 10 ^3/uL (0-0.8); Eosinophils % (auto) 3.7 % (0.0-7.0); Hematocrit 37.1 % (41.0-53.0); Hemoglobin 12.4 g/dL (13.5-17.5); Lymphocytes % (auto) 14.9 % (10.0-50.0); Mean Corpuscular Hemoglobin 29.2 pg (28.0-32.0); Mean Corpuscular Hgb Conc. 33.3 g/dL (32.0-36.0); Mean Corpuscular Volume 87.7 fL (80.0-100.0); Monocytes # (auto) 0.5 10 ^3/uL (0-1.3); Monocytes % (auto) 7.9 % (0.0-12.0); Neutrophils # (auto) 4.8 10 ^3/uL (1.6-8.6); Neutrophils % (auto) 72.7 % (37.0-80.0); Nucleated Red Blood Cells % 0.1 %; Red Blood Cells 4.23 10^6/uL (4.5-5.90); Red Cell Distribution Width 14.8 % (11.8-14.3); White Blood Cell 6.6 10^3/uL (4.4-10.8)
[2023-07-25 10:51] LABS: Alanine Aminotransferase 20 U/L (7-40); Albumin 4.4 g/dL (3.2-4.8); Alkaline Phosphatase 81 U/L (46-116); Anion Gap 7 (5-15); Aspartate Aminotransferase 16 U/L (13-40); BUN/Creatinine Ratio 16.7 (10.0-20.0); Bilirubin, Total 0.4 mg/dL (0.2-1.0); Blood Urea Nitrogen 25 mg/dL (9-23); Calcium 9.4 mg/dL (8.5-10.1); Carbon Dioxide 24 mmol/L (20-30); Chloride 109 mmol/L (98-107); Cholesterol 110 mg/dL (< 200); Glucose 144 mg/dL (74-106); HDL Cholesterol 29 mg/dL (40-59); LDL Cholesterol 66 mg/dL (< 100); Potassium 4.7 mmol/L (3.5-5.1); Sodium 140 mmol/L (136-145); Total Protein 6.8 g/dL (5.7-8.2); Triglycerides 87 mg/dL (< 150)
[2023-07-25 11:02] LABS: % Iron Saturation 16.6 % (20-55)
[2023-07-25 11:31] LABS: Uric Acid 6.4 mg/dL (3.7-9.2)
== END | disposition home or self-care (01) ==
LOC: LAB 09:42
PROVIDERS: ATTEND Internal Medicine
DX: E13.40 Other specified diabetes mellitus with diabetic neuropathy, unspecified (principal); I10 Essential (primary) hypertension
CPT/HCPCS: 36415; 80053; 80061; 83036; 83540; 83550; 83970; 84550; 85025

== ENCOUNTER 2024-04-16 19:58 | Inpatient (IN) | payer OTHER ==
[~2024-04-16] VITALS: Ht 177.8 cm; Wt 73.1 kg
[2024-04-16] MEDS: HEPARIN DRIP/D5W 100UNITS/ML 250 ML IV SCH (00:42)
[2024-04-16] MEDS: HEPARIN SODIUM (PORCINE) 5000 UNITS/ML 1ML VIAL IV ONE (00:45)
[2024-04-16] MEDS: SODIUM CHLORIDE 0.9% 1,000 ML IV SCH (00:45)
[~2024-04-16 19:58] MED LIST changes: +AMLO1TAB23 PO; +ATOR80TA PO; -HYDR-4297 PO; +HYDR100T10 PO; +HYDR50TA47 PO; -TAMS0.4C36 PO; +TAMS0.4C39 PO
[2024-04-16] MEDS: ALBUTEROL SULF 2.5 MG/0.5ML(0.5%) NEB SOLN NEB ONE (20:49)
[2024-04-16] MEDS: IPRATROPIUM BROM 0.5 MG/2.5ML INH SOL NEB ONE (20:49)
[2024-04-16 21:12] LABS: Basophils # (auto) 0.1 10 ^3/uL (0-0.2); Basophils % (auto) 0.5 % (0.0-2.0); Eosinophils # (auto) 0 10 ^3/uL (0-0.8); Eosinophils % (auto) 0.1 % (0.0-7.0); Hematocrit 34.7 % (41.0-53.0); Hemoglobin 11.2 g/dL (13.5-17.5); Lymphocytes # (auto) 0.3 10 ^3/uL (0.4-5.4); Lymphocytes % (auto) 3.1 % (10.0-50.0); Mean Corpuscular Hemoglobin 29.7 pg (28.0-32.0); Mean Corpuscular Hgb Conc. 32.2 g/dL (32.0-36.0); Mean Corpuscular Volume 92.2 fL (80.0-100.0); Monocytes # (auto) 0.5 10 ^3/uL (0-1.3); Monocytes % (auto) 4.3 % (0.0-12.0); Neutrophils # (auto) 10.3 10 ^3/uL (1.6-8.6); Platelet Count (auto) 237 10^3/uL (140-450); Red Blood Cells 3.76 10^6/uL (4.5-5.90); Red Cell Distribution Width 14.8 % (11.8-14.3); White Blood Cell 11.2 10^3/uL (4.4-10.8)
[2024-04-16 21:32] LABS: Alanine Aminotransferase 23 U/L (7-40); Albumin 4.6 g/dL (3.2-4.8); Alkaline Phosphatase 96 U/L (46-116); Anion Gap 16 (5-15); BUN/Creatinine Ratio 21.5 (10.0-20.0); Bilirubin, Total 0.6 mg/dL (0.2-1.0); Calcium 9.6 mg/dL (8.7-10.4); Potassium 4.3 mmol/L (3.5-5.1); Sodium 142 mmol/L (136-145)
--- NOTE | 2024-04-16 21:32 | ED.PDOC ---
SOB-HPI HPI Comments 74-year-old male who came to ER for shortness of breath. Patient states for the past 3 days he has been having flu-like symptoms including, runny nose, dry nonproductive cough, generalized weakness, fatigability and shortness of breath. Noted also to be nauseated. Denies any acute chest pains. Patient was given Z ofran and albuterol Atrovent nebulization by EMS prior to coming to the ER. Patient was said to be saturating 83% on room air and was 95% on 6 lpm canula. He does have history of hypertension, diabetes, status post CABG 2017 Chief Complaint: Shortness of Breath Time Seen by MD: 21:32 Reviewed notes: Nurses Notes Information Source: Patient Mode of Arrival: Ambulatory Severity: Moderate Timing: Hours Duration: Since onset Context: At Rest PE Risk Factors: None History of: None Prehospital treatment: Breathing Tx, Treatment Modifying Factors: Nothing Associated Signs and Symptoms: Cough, Nasal Congestion Quality: Tightness If cough with SOB: Non-Productive Review of Systems: REVIEW OF SYSTEMS: No fever, (+)chills, or fatigue HEENT: No sore throat, no earache, no congestion, no neck pain. Cardiac: No chest pain. No palpitations. Lungs: (+)shortness of breath and cough. GI: No nausea, no vomiting, no diarrhea, no constipation, no abdominal pain : No dysuria, frequency, or urgency. No hematuria. Musculoskeletal: No joint pain , no joint swelling, no extremity edema. Skin: No rash, no itching. Neuro: No headache, no dizziness, (+) weakness Vital Signs Vital Signs Date Time Temp Pulse Resp B/P (MAP) Pulse Ox O2 Delivery O2 Flow Rate FiO2 04/16/24 20:50 16 97 Nasal Cannula* 4 36 04/16/24 20:25 106 04/16/24 19:58 98.0 168/110 (129) Physical Exam General: Awake, alert and oriented. No acute distress. Skin: Skin in warm, dry and intact. Appropriate color for ethnicity. Nailbeds pink with no cyanosis. HEENT: Nasal cannula in place. The head is normocephalic and atraumatic. Conjunctivae are clear without exudates or hemorrhage. Sclera is non-icteric. EOM are intact. No signs of nystagmus. Eyelids are normal in appearance without swelling or lesions. Oral mucosa is pink and moist Neck: The neck is supple with normal range of motion. No JVD. Cardiac: Heart rate and rhythm are normal. No murmurs, gallops, or rubs are auscultated. Respiratory: No signs of respiratory distress. Lung sounds are clear in all lobes bilaterally without rales, ronchi, or wheezes. Abdominal: Abdomen is soft, non-tender without distention. Bowel sounds are present and normoactive in all four quadrants. Extremities: Upper and lower extremities are atraumatic in appearance without deformity or edema. Neurological: The patient is awake, alert and oriented to person, place, and time with normal speech. Speech is clear. There is no facial asymmetry. Psychiatric: Appropriate mood and affect. Good judgement and insight. No visual or auditory hallucinations. Past Medical History PAST MEDICAL HISTORY: DM, High Lipids, HTN Surgical History: CABG Family History Family History: Reviewed,noncontributory to illness Social History Smoker: Cigarettes, Less Than 1 Pack/Day Alcohol: Denies ETOH Use Drugs: Denies Drug Use Lives In: Home EKG EKG : Pulse Rate (adult): 118 Cardiac Rhythm: ST Hypertrophy: LVH ST: Ant Comments Anterior ST Elevation, Prolonged QT interval, no STEMI EKG EKG : Pulse Rate (adult): 106 Cardiac Rhythm: Afib Hypertrophy: LVH Comments , no STEMI Was a procedure done? Was a procedure done?: No Differential Dx Differential Diagnosis: Asthma, Bronchitis, CHF, COPD, Myocardial infarction, Pneumonia, Respiratory Distress, URI X-Ray, Labs, Meds, VS Vital Signs Date Time Temp Pulse Resp B/P (MAP) Pulse Ox O2 Delivery O2 Flow Rate FiO2 04/16/24 20:50 16 97 Nasal Cannula* 4 36 04/16/24 20:25 106 04/16/24 19:58 98.0 117 20 168/110 (129) 96 Lab Test 04/16/24 23:46 04/16/24 21:31 04/16/24 20:50 Range/Units Troponin I High Sensitivity 2181 *H 718 *H 414 *H </=54 ng/L White Blood Count 11.2 H 4.4-10.8 10^3/uL Red Blood Count 3.76 L 4.5-5.90 10^6/uL Hemoglobin 11.2 L 13.5-17.5 g/dL Hematocrit 34.7 L 41.0-53.0 % Mean Corpuscular Volume 92.2 80.0-100.0 fL Mean Corpuscular Hemoglobin 29.7 28.0-32.0 pg Mean Corpuscular Hemoglobin Concent 32.2 32.0-36.0 g/dL Red Cell Distribution Width 14.8 H 11.8-14.3 % Platelet Count 237 140-450 10^3/uL Mean Platelet Volume 8.2 6.9-10.8 fL Neutrophils (%) (Auto) 92.0 H 37.0-80.0 % Lymphocytes (%) (Auto) 3.1 L 10.0-50.0 % Monocytes (%) (Auto) 4.3 0.0-12.0 % Eosinophils (%) (Auto) 0.1 0.0-7.0 % Basophils (%) (Auto) 0.5 0.0-2.0 % Neutrophils # (Auto) 10.3 H 1.6-8.6 10 ^3/uL Lymphocytes # (Auto) 0.3 L 0.4-5.4 10 ^3/uL Monocytes # (Auto) 0.5 0-1.3 10 ^3/uL Eosinophils # (Auto) 0 0-0.8 10 ^3/uL Basophils # (Auto) 0.1 0-0.2 10 ^3/uL Nucleated Red Blood Cells 0.0 % Prothrombin Time 11.0 9.3-11.8 sec Prothrombin Time INR 1.04 0.9-1.15 Activated Partial Thromboplast Time 26.6 24.5-34.5 SEC Sodium Level 142 136-145 mmol/L Potassium Level 4.3 3.5-5.1 mmol/L Chloride Level 110 H 98-107 mmol/L Carbon Dioxide Level 16 L 20-31 mmol/L Anion Gap 16 H 5-15 Blood Urea Nitrogen 38 H 9-23 mg/dL Creatinine 1.77 H 0.700-1.30 mg/dL Glomerular Filtration Rate Calc 40 >90 mL/min BUN/Creatinine Ratio 21.5 H 10.0-20.0 Serum Glucose 308 H 74-106 mg/dL Calcium Level 9.6 8.7-10.4 mg/dL Total Bilirubin 0.6 0.2-1.0 mg/dL Aspartate Amino Transferase (AST) 12 L 13-40 U/L Alanine Aminotransferase (ALT) 23 7-40 U/L Alkaline Phosphatase 96 46-116 U/L B-Type Natriuretic Peptide 643.24 0-100 pg/mL Total Protein 7.6 5.7-8.2 g/dL Albumin 4.6 3.2-4.8 g/dL Current Medications Medications (Trade) Dose Ordered Sig/Lulu Route Start Time Stop Time Status Last Admin Albuterol (Ventolin Medneb) 2.5 mg ONCE ONCE NEB 04/16/24 20:30 04/16/24 20:31 DC 04/16/24 20:49 Ipratropium [place] (Atrovent Medneb) 0.5 mg ONCE ONCE NEB 04/16/24 20:30 04/16/24 20:31 DC 04/16/24 20:49 Heparin Sodium (Porcine) 4,000 units ONCE ONCE IV 04/16/24 22:30 04/16/24 22:31 DC 04/16/24 00:45 Heparin Sodium/ Dextrose 250 ml @ 10.08 mls/ hr Q24H IV 04/16/24 22:30 04/16/24 00:42 Aspirin 324 mg ONCE ONCE PO 04/16/24 22:30 04/16/24 22:31 DC 04/17/24 01:22 Sodium Chloride 1,000 ml @ 60 mls/hr [id number] IV 04/16/24 23:45 04/16/24 00:45 Time of 1ST Reevaluation: 21:25 Reevaluation 1ST: Unchanged Patient Education/Counseling: Diagnosis, Treatment Family Education/Counseling: No Family Present Departure 1 Departure Time of Disposition: 02:54 Impression: Primary Impression: NSTEMI (non-ST elevated myocardial infarction) Additional Impressions: Dyspnea Hyperglycemia CHF (congestive heart failure) Disposition: ADMITTED INPATIENT Condition: Stable Comments 74-year-old male with history of CABG presented with severe shortness of breath. Troponins elevated and increasing. EKG showed nonspecific ST changes, no ST elevations concerning for STEMI. Case was discussed with cardiology who recommended no cardiac catheterization at this time. Patient was started on heparin, heparin drip, aspirin. He remained stable during the ED observation. Patient admitted for further treatment, evaluation and monitoring. Extensive evaluation was performed to identify or rule out: (See differential diagnosis section) The following tests were ordered, and results were reviewed by me: (See diagnostic results section) The following test were independently interpreted by me: EKG, chest [id number] congestion I reviewed and agreed with the following test results read by other providers: Chest x-ray I reviewed the following notes from the pt's past medical encounters: (None available at this time) Additional information was gathered from interviewing the following independent historians: N/A Discussion of management or test interpretation with external physician/other qualified health health care analyst: at 00:55, EKG interpretation is no STEMI. He recommends no emergent cardiac catheterization at this time. Addressed one or more chronic illnesses with severe exacerbation, progression, or side effects of treatment: Coronary artery disease, diabetes mellitus acute hyperglycemia, an acute or chronic illness that poses a threat to life or bodily function: Acute coronary syndrome, hypoxia Decision regarding hospitalization or escalation of hospital level of care: Risk and benefits of admission for further treatment of patient's condition was considered. Due to patient's current clinical condition, high risk of decline and poor outcome if discharged and need for further inpatient management and monitoring, patient will be admitted to the hospital. Drug therapy requiring intensive monitoring for toxicity: IV insulin Decision regarding elective major surgery with identified patient or procedure risk factors: Emergent cardiac catheterization was considered however patient does not meet criteria at this time per cardiology Critical Care Note Critical Care Time?: Yes (35 min-critical care time only) Critical care comment: Hyperglycemia, NSTEMI, dyspnea with hypoxia Total critical care time: Approximately 35 minutes Due to a high probability of clinically significant, life threatening deterioration, the patient required my highest level of preparedness to intervene emergently and I personally spent this critical care time directly and personally managing the patient. This critical care time included obtaining a history; examining the patient; pulse oximetry; ordering and review of studies; arranging urgent treatment with development of a management plan; evaluation of patient's response to treatment; frequent reassessment; and, discussions with other providers. This critical care time was performed to assess and manage the high probability of imminent, life-threatening deterioration that could result in multi-organ failure. It was exclusive of separately billable procedures and treating other patients and teaching time. Please see my other sections and the rest of the note for further information on patient assessment and treatment. Stability Stability form required: No Heart Score Heart Score: Heart Score Response (Comments) Value History Moderate Suspicious 1 EKG Repolarization Disturb 1 Age >65 2 Risk Factors >3 or Hx ASHD 2 Troponin >3 x's Normal limit 2 Total 8 I personally scribed for DIANNE REHMAN MD ([email or web address]) on 04/16/24 at 21:32. Electronically submitted by Tarun Jackson ([email or web address]). I personally scribed for DIANNE REHMAN MD ([email or web address]) on 04/16/24 at 21:33. Electronically submitted by Tarun Jackson ([email or web address]). I personally scribed for DIANNE REHMAN MD ([email or web address]) on 04/16/24 at 21:44. Electronically submitted by Tarun Jackson ([email or web address]). I personally scribed for DIANNE REHMAN MD (DVMINCH) on 04/17/24 at 00:12. Electronically submitted by Tarun Jackson ([email or web address]). I personally scribed for DIANNE REHMAN MD ([email or web address]) on 04/17/24 at 00:14. Electronically submitted by Tarun Jackson ([email or web address]). I personally scribed for DIANNE REHMAN MD (DVMINCH) on 04/17/24 at 00:53. Electronically submitted by Tarun Jackson ([email or web address]). I personally scribed for DIANNE REHMAN MD (DVMINCH) on 04/17/24 at 00:54. Electronically submitted by Tarun Jackson ([email or web address]). DIANNE REHMAN MD Apr 16, 2024 21:32
[2024-04-16 21:33] LABS: Aspartate Aminotransferase 12 U/L (13-40); Blood Urea Nitrogen 38 mg/dL (9-23); Carbon Dioxide 16 mmol/L (20-31); Chloride 110 mmol/L (98-107); Glucose 308 mg/dL (74-106); Total Protein 7.6 g/dL (5.7-8.2)
[2024-04-16 23:12] LABS: INR 1.04 (0.9-1.15); Partial Thromboplastin Time 26.6 SEC (24.5-34.5)
[2024-04-16] MEDS ORDERED: ACETAMINOPHEN 325 MG TAB PO PRN (23:45)
[2024-04-16] MEDS ORDERED: MORPHINE SULFATE INJ 2 MG/ml SYRG IV PRN (23:45)
[2024-04-16] MEDS ORDERED: NITROGLYCERIN 0.4 MG SL TAB SL PRN (23:45)
--- NOTE | 2024-04-16 23:51 | DVH ---
CHEST RADIOGRAPH Indication: cp Technique: Single frontal view of the chest was obtained COMPARISON: CHEST PORTABLE on DOS: 04/21/19 FINDINGS: Lines and Tubes: None Lungs: Clear Pleura: No effusion. No pneumothorax. Cardiomediastinal contours: Unremarkable Bones: Unremarkable IMPRESSION: 1. No acute disease.
[2024-04-17] VITALS (12 sets, daily range): BP systolic 140–150; BP diastolic 79–84; PULSE 90–133; RESP 11–48; TEMP 97.7–98.8; O2SAT 6–98
[2024-04-17 01:08] LABS: Base Excess -8.1 mmol/L (-2.0-3.0)
[2024-04-17] MEDS: FUROSEMIDE 40 MG/4 ML VIAL IV ONE ×2 (01:21→14:45)
[2024-04-17] MEDS: ASPirin 81 mg TAB PO ONE (01:22)
[2024-04-17] MEDS: InsuLIN REG 1unit/0.01ml Soln (100units/ml) IV ONE (01:22)
[2024-04-17] MEDS: IOHEXOL 350 MG/ML 100ML IJ ONE (02:17)
--- NOTE | 2024-04-17 02:17 | DVHHPRES ---
History of Present Illness Resident Creating Document: NOE HORVATH RESIDENT Reason for Visit: Shortness of breath History of Present Illness 74-year-old male patient with past medical history of coronary artery disease status post CABG in 2019, diabetes mellitus, hypertension, chronic kidney disease, hyperlipidemia and tobacco and marijuana use. The patient presented to the hospital with 3 day history of worsening shortness of breath associated with flu-like symptoms, including a runny nose, dry nonproductive cough, generalized weakness, fatigue nausea and vomiting. He denies chest pain but reports that the shortness of breaths is exacerbated by physical activity and lying flat. Upon arrival at the emergency department, the patient was hypoxemic with oxygen saturation of 82% on room air, which improved with supplemental oxygen. He was mildly tachycardic heart rate on 110 beats per minute and hyperglycemic glucose 308 mg/dL. Initial evaluation showed an elevated troponin level 414 that trended up significantly to 2181, consistent with non ST elevation myocardial infarction. CBC revealed mild leukocytosis , and creatinine elevation at 1.77 indicating acute on chronic kidney dysfunction. Chest x-ray was unremarkable, EKG showed no acute ST segment elevation or ischemic changes. The patient received initial management with albuterol, Atrovent nebulization and ondansetron for nausea. Review of Systems Review of Systems Constitutional: Patient reports generalized weakness, shortness of breath and fatigue over the past 3 days. He denies fever or chills at this moment Eyes: No: Pain, Vision change, Conjunctivae inflammation, Eyelid inflammation, Other, Redness ENT: No: Ear pain, Ear discharge, Nose pain, Nose discharge, Nose congestion, Mouth pain, Mouth swelling, Throat pain, Throat swelling, Other Respiratory: Reports shortness of breaths, worse with activity and lying flat. Cardiovascular: Patient denies chest pain, palpitations, or syncope. tachycardia noted in the emergency room Gastrointestinal: Reports nausea and episode of vomiting but no Abdominal Pain, Diarrhea, Constipation, Melena, Hematochezia, Other Musculoskeletal: No: other, neck pain, shoulder pain, arm pain, back pain, hand pain, leg pain, foot pain Neurological:; No: Weakness, Numbness, Incoordination, Change in speech, Confusion, Seizures Allergies: Coded Allergies: NO KNOWN ALLERGIES (Unverified , 04/17/19) Medications Current Medications Medications Dose Ordered Sig/Lulu Route Start Time Stop Time Status Last Admin Dose Admin Heparin Sodium/ Dextrose 250 ml @ 10.08 mls/ hr Q24H IV 04/16/24 22:30 04/16/24 00:42 10.08 MLS/HR Sodium Chloride 1,000 ml @ 60 mls/hr [id number] IV 04/16/24 23:45 04/16/24 00:45 60 MLS/HR Acetaminophen 650 mg Q6HP PRN PO 04/16/24 23:45 Morphine Sulfate 2 mg Q4HPRN PRN IV 04/16/24 23:45 Nitroglycerin 0.4 mg Q5MINP PRN SL 04/16/24 23:45 Morphine Sulfate 2 mg Q30M PRN IV 04/16/24 23:45 Exam Vital Signs Vital Signs Date Time Temp Pulse Resp B/P (MAP) Pulse Ox O2 Delivery O2 Flow Rate FiO2 04/17/24 01:21 117/57 04/17/24 01:13 121 11 93 Nasal Cannula* 3 32 04/17/24 00:50 98.9 98.9 Exam Examination General Appearance: Alert but appeared fatigued and mildly dyspneic Respiratory: Wheezing bilaterally and crackles bilaterally Cardiovascular: Regular rate and rhythm no murmurs, rubs or gallops. Peripheral pulses present and symmetric Abdominal: Normal bowel sounds Extremities: No cyanosis, No edema, Normal pulses, No tenderness/swelling Skin: No rashes, No breakdown Neuro: Normal gait, Normal speech, Strength at 5/5 X4 ext, Normal tone, Sensation intact, Cranial nerves 3-12 NL, Reflexes 2+ Psych/Mental Status: Mental status NL, Mood NL Labs/Xrays Labs Test 04/17/24 01:00 04/17/24 00:59 04/16/24 23:46 04/16/24 20:50 Range/Units Blood Gas Specimen Type Arterial Blood Gas Sample Site Right radial Blood Gas Patient Temperature 37.0 Arterial Blood Date Drawn [id number] Arterial Blood pH 7.382 7.350-7.450 Arterial Blood Partial Pressure CO2 26.9 L 35.0-48.0 mmHg Arterial Blood Partial Pressure O2 61.5 L 83.0-108.0 mmHg Arterial Blood HCO3 15.6 L 21.0-28.0 mmol/L Arterial Blood Oxygen Saturation 91.3 L 94.0-98.0 % Arterial Blood Base Excess -8.1 L -2.0-3.0 mmol/L Arterial Blood Oxyhemoglobin 90.3 L 94.0-98.0 % Arterial Blood Carboxyhemoglobin 0.7 0.5-1.5 % Arterial Blood Methemoglobin 0.4 0.0-1.5 % Rui Test Yes Blood Gas Total Hemoglobin 11.10 L 13.5-17.5 g/dL Blood Gas Liter Flow 3.00 Blood Gas Modality Nasal cannula FiO2 % 32.0 POC Glucose 302 H 70-106 mg/dl Troponin I High Sensitivity 2181 *H </=54 ng/L White Blood Count 11.2 H 4.4-10.8 10^3/uL Red Blood Count 3.76 L 4.5-5.90 10^6/uL Hemoglobin 11.2 L 13.5-17.5 g/dL Hematocrit 34.7 L 41.0-53.0 % Mean Corpuscular Volume 92.2 80.0-100.0 fL Mean Corpuscular Hemoglobin 29.7 28.0-32.0 pg Mean Corpuscular Hemoglobin Concent 32.2 32.0-36.0 g/dL Red Cell Distribution Width 14.8 H 11.8-14.3 % Platelet Count 237 140-450 10^3/uL Mean Platelet Volume 8.2 6.9-10.8 fL Neutrophils (%) (Auto) 92.0 H 37.0-80.0 % Lymphocytes (%) (Auto) 3.1 L 10.0-50.0 % Monocytes (%) (Auto) 4.3 0.0-12.0 % Eosinophils (%) (Auto) 0.1 0.0-7.0 % Basophils (%) (Auto) 0.5 0.0-2.0 % Neutrophils # (Auto) 10.3 H 1.6-8.6 10 ^3/uL Lymphocytes # (Auto) 0.3 L 0.4-5.4 10 ^3/uL Monocytes # (Auto) 0.5 0-1.3 10 ^3/uL Eosinophils # (Auto) 0 0-0.8 10 ^3/uL Basophils # (Auto) 0.1 0-0.2 10 ^3/uL Nucleated Red Blood Cells 0.0 % Prothrombin Time 11.0 9.3-11.8 sec Prothrombin Time INR 1.04 0.9-1.15 Activated Partial Thromboplast Time 26.6 24.5-34.5 SEC Sodium Level 142 136-145 mmol/L Potassium Level 4.3 3.5-5.1 mmol/L Chloride Level 110 H 98-107 mmol/L Carbon Dioxide Level 16 L 20-31 mmol/L Anion Gap 16 H 5-15 Blood Urea Nitrogen 38 H 9-23 mg/dL Creatinine 1.77 H 0.700-1.30 mg/dL Glomerular Filtration Rate Calc 40 >90 mL/min BUN/Creatinine Ratio 21.5 H 10.0-20.0 Serum Glucose 308 H 74-106 mg/dL Calcium Level 9.6 8.7-10.4 mg/dL Total Bilirubin 0.6 0.2-1.0 mg/dL Aspartate Amino Transferase (AST) 12 L 13-40 U/L Alanine Aminotransferase (ALT) 23 7-40 U/L Alkaline Phosphatase 96 46-116 U/L B-Type Natriuretic Peptide 643.24 0-100 pg/mL Total Protein 7.6 5.7-8.2 g/dL Albumin 4.6 3.2-4.8 g/dL Assessment/Plan Assessment/Plan #Non ST-elevation myocardial infarction based on clinical presentation and troponin elevation likely due to possible supply demand mismatch secondary to acute hypoxemic respiratory failure/or infection -Admitted to telemetry -Supplemental oxygen -Aspirin -Heparin -Nitroglycerin --High-intensity statin -Cardiology consult -Consider empiric antibiotics -COVID -Influenza #Acute hypoxemic respiratory failure likely multifactorial due to pulmonary embolism/ COPD exacerbation ? Viral/bacterial(Gram-positive/Gram-negative) Pneumonia ? #Right lower lobe segmental pulmonary embolism. #Small bilateral pleural effusions and Pulmonary edema likely CHF exacerbation #Mediastinal lymphadenopathy likely due to pneumonia? -Echocardiogram -Cardiology consult --Med neb inhaled -Empiric antibiotics with azithromycin and ceftriaxone -PT /PTT -Thromboplastin time -DVT bilateral lower extremities ultrasound #Prerenal Acute kidney injury likely due to VMN -Monitor renal function -normal saline 0.9% IV #Type 2 diabetes with hyperglycemia -Hemoglobin A1c #Tobacco abuse #Marijuana abuse -Counseling for smoking cessation -Offer nicotine patches Case discussed with Dr. Guzman Goals of care discussed with the patient for 42 minutes Code status: Full code Plan discussed with: Patient My Orders Orders - NOE HORVATH RESIDENT Procedure Category Date Status Time Admit ADMIT 04/16/24 Transmitted 23:44 Allergies CHRISTINE 04/16/24 In Process 23:44 Code Status CODE 04/16/24 Transmitted 23:44 Sodium Chloride 0.9% PHA 04/16/24 In Process 23:45 Oxygen Per Hour RT 04/16/24 Transmitted 23:44 Complete Blood Count LAB 04/17/24 Logged 04:00 Comprehensive LAB 04/17/24 Logged Metabolic Panel 04:00 Npo (Nothing By DIET 04/17/24 Transmitted Mouth) Diet Breakfast Echo 2d Mode Cardiac US 04/16/24 Logged DOP 23:44 Acetaminophen Tablet PHA 04/16/24 In Process (Tylenol Tablet) 23:45 Morphine Sulfate PHA 04/16/24 In Process Injection 23:45 Nitroglycerin PHA 04/16/24 In Process Sublingual (Ntrostat 23:45 Morphine Sulfate PHA 04/16/24 In Process Injection 23:45 Oxygen By Nasal RT 04/16/24 Transmitted Cannula 23:44 Notify Md Of Changes [facility] 04/16/24 In Process From Base 23:44 Caving Guide For [facility] 04/16/24 In Process 24 Hours 23:44 Emergency Dysrhythmia [facility] 04/16/24 In Process Protocol 23:44 Rhythm Strips Once [facility] 04/16/24 In Process Every Shift 23:44 Thyroid Stimulating LAB 04/16/24 Logged Hormone 23:53 Hemoglobin A1c LAB 04/16/24 Logged 23:53 Drug Screen LAB 04/17/24 Logged 00:06 Lipid Panel LAB 04/17/24 Logged 04:00 Date of Service: Apr 17, 2024 Billing Provider: CLARA GUZMAN MD Common Visit Codes: 57121-IBIFZOQ INP/OBS CARE (HIGH) Secondary Visit Codes: 84232-[id number] CARE PLAN 30 MINUTES NOE HORVATH RESIDENT Apr 17, 2024 02:17 CLARA GUZMAN MD Apr 17, 2024 19:34
[2024-04-17] MEDS: SODIUM CHLORIDE 0.9% 1,000 ML IV ONE (03:45)
[2024-04-17] MEDS: dilTIAZem 25 MG/5 ML VIAL IV ONE (04:13)
--- NOTE | 2024-04-17 04:15 | DVH ---
INDICATION: CP r/o TECHNIQUE: Multidetector CTA of the chest was performed of the chest with 100 cc of intravenous contr ast. PULMONARY ANGIOGRAPHY PROTOCOL was utilized using a bolus-tracking technique centered on the kary n pulmonary artery. Coronal and sagittal multiplanar and MIP reformats were performed. Radiation Dose Information: CT Dose: CTDI volume is 24.2 mGy. Dose-length product is 982.6 mGy*cm The dose indicators for CT are the volume Computed Tomography (CT) Dose Index (CTDIvol) and the Dose Length Product (DLP), and are measured in units of mGy and mGy-cm, respectively. These indicators are not patient dose, but values generated from the CT scanner acquisition factors. The report includes radiation exposure data for exposures received during this examination. Comparison: Chest radiograph performed on 04/16/2024. Findings: Pulmonary artery: Normal caliber of the pulmonary artery. There is a filling defect in a right lowe r lobe segmental branch of the pulmonary artery consistent with pulmonary embolism. Lower neck: Normal thyroid. Lungs: Bilateral interlobular septal thickening. Diffuse bilateral opacities. Pleura: Small bilateral pleural effusions. No pneumothorax. Central airways: Patent. Heart/Vascular Structures: Cardiomegaly. No pericardial effusion. There are coronary artery calcific ations.. RV to LV ratio measures 0.8. Normal caliber and enhancement of the aorta. Lymph Nodes: Multiple mediastinal lymph nodes measuring up to 1.5 cm. Musculoskeletal: No acute osseous abnormality. Upper abdomen: Limited portions of the upper abdomen are unremarkable. IMPRESSION: 1. Right lower lobe segmental pulmonary embolism. No CT evidence of right heart strain. 2. Small bilateral pleural effusions. Pulmonary edema. Cardiomegaly. Correlation for congestive hear t failure is recommended. 3. Mediastinal lymphadenopathy which may be reactive.
[2024-04-17 05:15] LABS: Basophils # (auto) 0.1 10 ^3/uL (0-0.2); Basophils % (auto) 0.5 % (0.0-2.0); Eosinophils # (auto) 0 10 ^3/uL (0-0.8); Eosinophils % (auto) 0.1 % (0.0-7.0); Hematocrit 32.3 % (41.0-53.0); Hemoglobin 10.6 g/dL (13.5-17.5); Lymphocytes # (auto) 0.5 10 ^3/uL (0.4-5.4); Lymphocytes % (auto) 5.2 % (10.0-50.0); Mean Corpuscular Hemoglobin 30.2 pg (28.0-32.0); Mean Corpuscular Hgb Conc. 32.7 g/dL (32.0-36.0); Mean Corpuscular Volume 92.2 fL (80.0-100.0); Monocytes % (auto) 9.2 % (0.0-12.0); Platelet Count (auto) 214 10^3/uL (140-450); Red Cell Distribution Width 14.9 % (11.8-14.3); White Blood Cell 10.5 10^3/uL (4.4-10.8)
[2024-04-17 05:32] LABS: Alanine Aminotransferase 21 U/L (7-40); Albumin 4.4 g/dL (3.2-4.8); Alkaline Phosphatase 89 U/L (46-116); Anion Gap 13 (5-15); Aspartate Aminotransferase 35 U/L (13-40); BUN/Creatinine Ratio 18.4 (10.0-20.0); Calcium 9.2 mg/dL (8.7-10.4); Cholesterol 124 mg/dL (< 200); LDL Cholesterol 72 mg/dL (< 100); Potassium 4.4 mmol/L (3.5-5.1); Sodium 140 mmol/L (136-145); Triglycerides 141 mg/dL (< 150)
[2024-04-17 05:33] LABS: Bilirubin, Total 0.5 mg/dL (0.2-1.0); Total Protein 7.2 g/dL (5.7-8.2)
[2024-04-17 05:33] LABS: COVID19 ANTIGEN SOFIA FIA NEGATIVE (NEGATIVE); Rapid Influenza A Negative (Negative); Rapid Influenza B Negative (Negative)
[2024-04-17] MEDS: ATORVASTATIN 20 MG TAB PO ONE (05:45)
[2024-04-17] MEDS: cefTRIAXone 1GM/50ML D5W 50 ML IV ONE (05:47)
[2024-04-17 05:57] LABS: Blood Urea Nitrogen 36 mg/dL (9-23); Carbon Dioxide 16 mmol/L (20-31); Chloride 111 mmol/L (98-107); Glucose 228 mg/dL (74-106); HDL Cholesterol 32 mg/dL (40-59)
[2024-04-17] MEDS: AZITHROMYCIN 500MG/ 250ML 250 ML IV ONE (06:37)
--- NOTE | 2024-04-17 09:16 | DVH ---
Bilateral lower extremity venous duplex Clinical History: PULMONARY EMBOLISM Comparison: None Technique: Duplex Doppler evaluation of the deep venous systems of both lower extremities from the common femora l veins to the popliteal veins including color Doppler and spectral/pulsed waveform analysis was perf ormed. Findings: RIGHT SIDE: The common femoral vein demonstrates appropriate compressibility and waveform variability. There is compressibility/patency of the great saphenous vein at the proximal thigh. The femoral vein demonstrates appropriate compressibility and waveform variability. The deep femoral vein demonstrates appropriate compressibility and waveform variability. The popliteal vein demonstrates appropriate compressibility and waveform variability. There is normal compressibility at the tibioperoneal trunk. LEFT SIDE: The common femoral vein demonstrates appropriate compressibility and waveform variability. There is compressibility/patency of the great saphenous vein at the proximal thigh. The femoral vein demonstrates appropriate compressibility and waveform variability. The deep femoral vein demonstrates appropriate compressibility and waveform variability. The popliteal vein demonstrates appropriate compressibility and waveform variability. There is normal compressibility at the tibioperoneal trunk. Impression: No right or left femoropopliteal venous thrombosis.
[2024-04-17 11:29] LABS: INR 1.06 (0.9-1.15); Partial Thromboplastin Time 38.2 SEC (24.5-34.5); Prothrombin Time 11.2 sec (9.3-11.8)
[2024-04-17] MEDS: HEPARIN DRIP/D5W 100UNITS/ML 250 ML IV SCH (11:35)
[2024-04-17] MEDS: MORPHINE SULFATE INJ 2 MG/ml SYRG IV PRN (12:14)
--- NOTE | 2024-04-17 12:41 | ECG ---
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
--- NOTE | 2024-04-17 13:16 | ECG ---
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
--- NOTE | 2024-04-17 13:16 | ECG ---
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
--- NOTE | 2024-04-17 14:56 | DVHINCON2 ---
Date Seen: Apr 17, 2024 Referring Physician MD Chet Reason for Consultation Heart palpitations History of Present Illness This is a 74-year-old male who presented to the emergency room via EMS with a chief complaint of shortness of breath for three days. Patient and at bedside reports progressive shortness of breath associated with PND, PADGETT, a nonproductive cough, and cardiac palpitations. Denies chest pain, dizziness, or syncopal events. He was found with an oxygen saturation level of 83% on room air for which he was placed on O2 via NC at 6 liters/minute and administered a breathing treatment en route to the hospital. Further emergency room workup revealed a right lower lobe segmental pulmonary embolism with no evidence of right heart strain for which the patient was initiated on a heparin drip per PE protocol. A 12 lead electrocardiogram revealed a sinus tachycardia rhythm with nonspecific inferolateral ST changes and suggestive of left ventricular hypertrophy. Troponin levels are trending up with latest >2,000 ng/L. Denies following up with a primary pilot boat operator in the outpatient setting. Significant medical history includes severe coronary artery disease with high-grade left main stenosis status post triple-vessel coronary artery bypass graft on 08/26/2017, peripheral vascular disease status post CARDIOLOGY CLINICAL CONSULTANT including one ELLIOT to the left SFA on 06/27/2018 and attempted aperture of the right SFA, hypertension, dyslipidemia, peripheral neuropathy, benign prostatic hyperplasia, chronic kidney disease, and current tobacco use. Of note, the patient underwent a cardiac catheterization and coronary angiogram without catheter based intervention given patent grafts on 10/25/2022. Past Medical History Past medical history reviewed. No other significant than mentioned above. Past Surgical History Status post triple-vessel coronary artery bypass graft on 08/26/2017 Status post [employer]OR [employer] including one ELLIOT to the left SFA on 06/27/2018 Family History: Ischemic heart disease Family History Family history reviewed. Social History Denies the use of illicit drugs & alcohol. Admits to tobacco use. Allergies: Coded Allergies: NO KNOWN ALLERGIES (Unverified , 04/17/19) Home Meds Reported Medications Tamsulosin Hcl (Tamsulosin Hcl) 0.4 Mg Cap, 0.4 MG PO QPM 10/23/22 Metoprolol Succinate (Metoprolol Succinate Er) 50 Mg Tab, 50 MG PO DAILY 10/23/22 Promethazine-Dm (Promethazine Hydrochlorid 6.25-15 mg/5Ml) 1 Allison Allison, 5 ML PO Q6HP, ML 10/23/22 Chlorthalidone (Chlorthalidone) 25 Mg Tab, 25 MG PO DAILY 10/23/22 Hydralazine Hcl (Hydralazine Hcl) 50 Mg Tab, 50 MG PO TID 10/23/22 Metformin Hydrochloride (Metformin Hcl) 850 Mg Tab, 850 MG PO BID 10/23/22 Lisinopril (Lisinopril) 40 Mg Tab, 40 MG PO DAILY@BREAKFAST 10/23/22 Amlodipine Besylate (Amlodipine Besylate) 5 Mg Tab, 10 MG PO DAILY for 30 Days, MG 04/21/19 Clopidogrel Bisulfate (CLOPIDOGREL) 75 Mg Tab, 75 MG PO DAILY for 30 Days, MG 08/12/18 Lisinopril (Lisinopril) 20 Mg Tab, 20 MG PO HS for 30 Days, MG 06/24/18 Glipizide (Glipizide) 10 Mg Tab, 10 MG PO BID for 30 Days, MG 06/24/18 Gabapentin (Gabapentin) 300 Mg Cap, 300 MG PO TID for 30 Days, MG 08/16/17 Atorvastatin Calcium (ATORVASTATIN CALCIUM) 40 Mg Tab, 2 TAB PO DAILY, #30 TAB 5 Refills 08/16/17 Aspirin (Aspir-Low) 81 Mg Tab, 81 MG PO DAILY for 30 Days, MG 08/16/17 Home Meds Home medications reviewed. Current Medications Current Medications Medications (Trade) Dose Ordered Sig/Lulu Route PRN Reason Start Time Stop Time Status Last Admin Heparin Sodium/ Dextrose 250 ml @ 10.08 mls/ hr Q24H IV 04/16/24 22:30 04/17/24 11:38 DC 04/16/24 00:42 Sodium Chloride 1,000 ml @ 60 mls/hr [id number] IV 04/16/24 23:45 04/17/24 05:39 DC 04/16/24 00:45 Acetaminophen (Tylenol Tablet) 650 mg Q6HP PRN PO PAIN SCALE 1-3 OR TEMP>100.4 04/16/24 23:45 Morphine Sulfate 2 mg Q4HPRN PRN IV SEVERE PAIN (7-10 PAIN SCALE) 04/16/24 23:45 04/17/24 12:14 Nitroglycerin (Ntrostat Sublingual) 0.4 mg Q5MINP PRN SL FOR CHEST PAIN 04/16/24 23:45 Morphine Sulfate 2 mg Q30M PRN IV FOR CHEST PAIN 04/16/24 23:45 Atorvastatin Calcium (Lipitor) 80 mg HS PO 04/17/24 22:00 Azithromycin 250 ml @ 125 mls/hr DAILY IV 04/18/24 10:00 Ceftriaxone Sodium 50 ml @ 100 mls/hr DAILY@09 IV 04/18/24 09:00 Tamsulosin HCl (Flomax) 0.4 mg QPM PO 04/17/24 18:00 Heparin Sodium/ Dextrose 250 ml @ 12 mls/hr [id number] IV 04/17/24 11:45 04/17/24 11:35 Review of Systems Constitutional: No symptom reported Ears, Nose, & Throat: No symptom reported Eyes: No symptom reported Neurological: No symptoms reported Pulmonary/Respiratory: SOB, PADGETT, PND, orthopnea Cardiovascular: No symptom reported Gastrointestinal: No symptom reported Genitourinary: No symptom reported Musculoskeletal: No symptom reported Skin: No symptom reported Psychiatric: No symptom reported Endocrine: No symptom reported Hemotologic/Lymphatic: No symptom reported Vital Signs Vital Signs Date Time Temp Pulse Resp B/P (MAP) Pulse Ox O2 Delivery O2 Flow Rate FiO2 04/17/24 12:44 122 22 133/79 04/17/24 12:00 91 04/17/24 08:00 98.8 98.8 04/17/24 08:00 Nasal Cannula* 4 36 Physical Exam General Appearance: Found on tripod position. O2 via simple mask. Vaqfnrxi-wc-kleqag distress with associated shortness of breath Head Exam: Normal inspection Neck Exam: Normal inspection. Non-tender. Normal alignment Pulmonary/Respiratory: Chest non-tender. Severe crackles to bilateral breath sounds Cardiovascular/Chest: Regular rate and rhythm. S1, S2. Sinus rhythm with nonspecific inferolateral ST segment changes suggestive of LVH. No murmurs. No JVD. Peripheral Pulses: 2+ Radial (R). 2+ Radial (L). 2+ Pedal (R). 2+ Pedal (L) Abdominal Exam: Normal bowel sounds. Soft. Nontender. No hepatospenomegaly. No masses Ankle Exam: Positive ankle edema Lower extremities: Positive lower extremity edema Neuro/Mental Status: A&O x3. Coherent Thoughts/Psych: Normal thought pattern. Fatigue Appearance: Otwpioyb-zt-xlrwdt distress with a associated shortness of breath Skin Exam: Normal inspection. Normal color. Warm. Dry Labs/Diagnostic Data Labs Test 04/17/24 10:03 04/17/24 04:54 04/17/24 01:00 04/17/24 00:59 Range/Units Prothrombin Time 11.2 9.3-11.8 sec Prothrombin Time INR 1.06 0.9-1.15 Activated Partial Thromboplast Time 38.2 H 24.5-34.5 SEC D-Dimer, Quantitative 0.50 H 0.0-0.49 mg/L FEU White Blood Count 10.5 4.4-10.8 10^3/uL Red Blood Count 3.50 L 4.5-5.90 10^6/uL Hemoglobin 10.6 L 13.5-17.5 g/dL Hematocrit 32.3 L 41.0-53.0 % Mean Corpuscular Volume 92.2 80.0-100.0 fL Mean Corpuscular Hemoglobin 30.2 28.0-32.0 pg Mean Corpuscular Hemoglobin Concent 32.7 32.0-36.0 g/dL Red Cell Distribution Width 14.9 H 11.8-14.3 % Platelet Count 214 140-450 10^3/uL Mean Platelet Volume 8.2 6.9-10.8 fL Neutrophils (%) (Auto) 85.0 H 37.0-80.0 % Lymphocytes (%) (Auto) 5.2 L 10.0-50.0 % Monocytes (%) (Auto) 9.2 0.0-12.0 % Eosinophils (%) (Auto) 0.1 0.0-7.0 % Basophils (%) (Auto) 0.5 0.0-2.0 % Neutrophils # (Auto) 9.0 H 1.6-8.6 10 ^3/uL Lymphocytes # (Auto) 0.5 0.4-5.4 10 ^3/uL Monocytes # (Auto) 1.0 0-1.3 10 ^3/uL Eosinophils # (Auto) 0 0-0.8 10 ^3/uL Basophils # (Auto) 0.1 0-0.2 10 ^3/uL Nucleated Red Blood Cells 0.0 % Sodium Level 140 136-145 mmol/L Potassium Level 4.4 3.5-5.1 mmol/L Chloride Level 111 H 98-107 mmol/L Carbon Dioxide Level 16 L 20-31 mmol/L Anion Gap 13 5-15 Blood Urea Nitrogen 36 H 9-23 mg/dL Creatinine 1.96 H 0.700-1.30 mg/dL Glomerular Filtration Rate Calc 36 >90 mL/min BUN/Creatinine Ratio 18.4 10.0-20.0 Serum Glucose 228 H 74-106 mg/dL Hemoglobin A1c 7.1 H <5.7 % A1C Calcium Level 9.2 8.7-10.4 mg/dL Total Bilirubin 0.5 0.2-1.0 mg/dL Aspartate Amino Transferase (AST) 35 13-40 U/L Alanine Aminotransferase (ALT) 21 7-40 U/L Alkaline Phosphatase 89 46-116 U/L Total Protein 7.2 5.7-8.2 g/dL Albumin 4.4 3.2-4.8 g/dL Triglycerides Level 141 < 150 mg/dL Cholesterol Level 124 < 200 mg/dL LDL Cholesterol 72 < 100 mg/dL HDL Cholesterol 32 L 40-59 mg/dL Thyroid Stimulating Hormone (TSH) 2.11 0.55-4.78 uIU/mL Blood Gas Specimen Type Arterial Blood Gas Sample Site Right radial Blood Gas Patient Temperature 37.0 Arterial Blood Date Drawn Arterial Blood pH 7.382 7.350-7.450 Arterial Blood Partial Pressure CO2 26.9 L 35.0-48.0 mmHg Arterial Blood Partial Pressure O2 61.5 L 83.0-108.0 mmHg Arterial Blood HCO3 15.6 L 21.0-28.0 mmol/L Arterial Blood Oxygen Saturation 91.3 L 94.0-98.0 % Arterial Blood Base Excess -8.1 L -2.0-3.0 mmol/L Arterial Blood Oxyhemoglobin 90.3 L 94.0-98.0 % Arterial Blood Carboxyhemoglobin 0.7 0.5-1.5 % Arterial Blood Methemoglobin 0.4 0.0-1.5 % Rui Test Yes Blood Gas Total Hemoglobin 11.10 L 13.5-17.5 g/dL Blood Gas Liter Flow 3.00 Blood Gas Modality Nasal cannula FiO2 % 32.0 POC Glucose 302 H 70-106 mg/dl Test 04/16/24 23:46 04/16/24 20:50 04/16/24 03:45 Range/Units Troponin I High Sensitivity 2181 *H </=54 ng/L B-Type Natriuretic Peptide 643.24 0-100 pg/mL Influenza Type A Antigen Negative Negative Influenza Type B Antigen Negative Negative SARS-CoV-2 Antigen (Rapid) Negative NEGATIVE Assessment Non ST elevation myocardial infarction Acute on chronic decompensated HFrEF, NYHA Class IV, newly diagnosed RLL segmental pulmonary embolism with no evidence of right-heart strain Severe coronary artery disease status post triple-vessel CABG, 2017 Rule out progressive coronary artery disease Bilateral pleural effusions, small Lower extremity DVT ruled out Severe PVD status post left SFA ELLIOT x 1 Hypertension Dyslipidemia Vhr-mkwwgtx-tflnkyazq diabetes mellitus Acute kidney injury Tobacco use Plan/Recommendation We will continue the following plan/recommendations (Dr. Esparza): * Echocardiogram revealed EF 25% * There is anterior anteroseptal anteroapical inferolateral wall severe hypokinesia. Normal right ventricular size and dimension. Normal right ventricular systolic function. Moderately elevated right ventricular systolic pressure 49 mm of mercury. Moderately dilated right and left atria. Aortic valve is thickened and sclerotic. No significant stenosis but mild regurgitation was noted. Mitral valve is thickened there is sfkw-bh-bhccbwih mitral valve regurgitation. There is mild tricuspid valve regurgitation. The pulmonary valve is grossly normal. No pericardial effusion. * Continue heparin drip per pharmacy protocol * Preload and afterload reduction. Initiate Lasix drip * Strict I&Os. Daily weight. Maintain fluid restrictions * GDMT for CHF as tolerated. BB for now given ANDREA * Single-antiplatelet therapy (Plavix) and lipid-lowering agent * Pulmonology and Nephrology consultations * Serial troponin and BNP levels The patient with a newly diagnosed cardiomyopathy including a severely diminished LV function compared to previous transthoracic echocardiogram revealing LVEF of 65% on 2022 may qualify for a cardiac catheterization once clinically stable and with optimal renal function. In the meantime, continue oxygen support as well a preload reduction. He does not qualify for a pulmonary thrombectomy at this time. Most of his clinical presentation is secondary to an acute CHF exacerbation. We will continue to monitor closely. Thank you for allowing us to participate in this patient's care. Please call if you have any questions or concerns. Critical care time: 50 min. This medical document was created using an electronic medical record system with voice recognition software and computerized dictation system. Although this document has been carefully reviewed, there might still be some phonetic and typographical errors. Occ asional wrong-word or ``sound-alike substitutions may have occurred due to the inherent limitations of voice recognition software. These areas are purely typographical due to imperfections of the software programs and do not reflect any compromise in the patient's medical care. Please read the chart carefully and recognize, using context, where these substitutions have occurred. Plan discussed with: Patient, Other NYHA Physical activity limitations: Class4(Severe)discomfort Date of Service: Apr 17, 2024 Billing Provider: PAVEL ESPARZA MD Cardiology Common Codes: 96081-[id number] CARE 30-74 MIN GEN [facility] Apr 17, 2024 14:56
--- NOTE | 2024-04-17 16:22 | DVHSR ---
APPROVED REPORT EXAM: Two-dimensional and M-mode echocardiogram with Doppler and color Doppler. Blood Pressure: 115/70 mmHg INDICATION Cardiac delineation RISK FACTORS Height: 70, Weight: 185 DIMENSIONS LVDd5.5 (3.8-5.7cm)LA (2D)4.5 (1.9-4.0cm)Aortic Root3.6 (2.0-3.7cm) LVDs4.9 (2.5-4.0cm)LA (MM) (1.9-4.0cm)Aortic Cusp Exc0.7 (1.5-2.0cm) EF (%) 25.0 (55-70%)Rt. Atrium (1.9-4.0cm)Asc. Aorta cm IVSd1.1 (0.7-1.1cm)RV (D) (1.8-2.4cm) PWd1.3 (0.7-1.1cm) Mitral Valve MitralMitral Stenosis E wave1.15m/sMV Mean GR.3mmHg A wavem/sMV Peak GR.98mmHg E/A ratio0.02D MVAcm2 Aortic Valve Aortic ValveAortic Stenosis V10.62m/Naina Mean GR.4mmHg V21.56m/Naina Peak GR.10mmHg LVOT Diameter2.5 (1.8-2.4cm)Doppler AVA1.95cm2 Pulmonic Valve V20.84m/s Tricuspid Valve TR Velocity2.99m/s [id number] Other Information Technically limited study due to body habitus. Patient sitting straight up due to beathing. Conclusion Severely dilated left ventricle. Severely reduced left ventricular systolic function with estimated ejection fraction 25%. There is anterior anteroseptal anteroapical inferolateral wall severe hypokin esia. Normal right ventricular size and dimension. Normal right ventricular systolic function. Moderately elevated right ventricular systolic pressure 49 mm of mercury. Moderately dilated right and left atria. Aortic valve is thickened and sclerotic. No significant stenosis but mild regurgitation was noted. Mitral valve is thickened there is lvtp-ej-yoarpdic mitral valve regurgitation. There is mild tricuspid valve regurgitation. The pulmonary valve is grossly normal. No pericardial effusion. But there is biatrial pleural effusion.
[2024-04-17 16:32] LABS: Base Excess -8.7 mmol/L (-2.0-3.0)
[2024-04-17] MEDS: FUROSEMIDE INJECTION 100 MG in SODIUM CHL 0.9% 100 ML IV SCH (16:50)
[2024-04-17] MEDS: TAMSULOSIN HYDROCHLORIDE 0.4 MG CAP PO SCH (17:58)
[2024-04-17] MEDS: CLOPIDOGREL BISULFATE 75 MG TAB PO ONE (17:58)
[2024-04-17] MEDS: hydrALAZINE HCL 20 MG/ML VL IV PRN (18:09)
[2024-04-17] MEDS ORDERED: DEXTROSE (50%) 50ML SYRG IV PRN (18:30)
[2024-04-17] MEDS ORDERED: LABETALOL HCL 20 MG/4 ML VL IV PRN (18:30)
--- NOTE | 2024-04-17 18:33 | DVHPN2 ---
Subjective Seen and examined at bedside, patient is short of breath, needing BIPAP. EF 25%. Changes from previous H/P or p: No Changes Objective Vitals Vital Signs Date Time Temp Pulse Resp B/P (MAP) Pulse Ox O2 Delivery O2 Flow Rate FiO2 04/17/24 18:09 152/92 04/17/24 15:10 127 93 Facial BiPAP Mask 45 04/17/24 14:40 97.7 17 97.7 04/17/24 14:03 6 Intake/Output Intake and Output 04/17/24 07:00 Intake Total 260 ml Balance 260 ml Intake IV Total 260 ml Exam Gen: in bed in mild distress Cvs: Tachycardic Resp: Creps Abd: Soft, NT, BS+ Healthcare Interpreter: AAO x 4 Medications Current Medications Medications Dose Ordered Sig/Lulu Route Start Time Stop Time Status Last Admin Dose Admin Acetaminophen 650 mg Q6HP PRN PO 04/16/24 23:45 Morphine Sulfate 2 mg Q4HPRN PRN IV 04/16/24 23:45 04/17/24 12:14 2 MG Nitroglycerin 0.4 mg Q5MINP PRN SL 04/16/24 23:45 Morphine Sulfate 2 mg Q30M PRN IV 04/16/24 23:45 Atorvastatin Calcium 80 mg HS PO 04/17/24 22:00 Azithromycin 250 ml @ 125 mls/hr DAILY IV 04/18/24 10:00 Ceftriaxone Sodium 50 ml @ 100 mls/hr DAILY@09 IV 04/18/24 09:00 Tamsulosin HCl 0.4 mg QPM PO 04/17/24 18:00 04/17/24 17:58 0.4 MG Heparin Sodium/ Dextrose 250 ml @ 12 mls/hr [id number] IV 04/17/24 11:45 04/17/24 11:35 12 MLS/HR Furosemide 100 mg/ Sodium Chloride 110 ml @ 11 mls/hr Q10H IV 04/17/24 15:00 04/17/24 16:50 11 MLS/HR Carvedilol 3.125 mg Q12HR PO 04/17/24 22:00 Clopidogrel Bisulfate 75 mg DAILY PO 04/18/24 10:00 Labetalol HCl 10 mg Q2HPRN PRN IV 04/17/24 18:30 UNV Albuterol 2.5 mg Q6HPRN PRN NEB 04/17/24 18:30 UNV Levalbuterol HCl 1.25 mg Q6HR NEB 04/18/24 00:00 UNV Diagnostic Test (Pha) 1 strip ACHS 04/17/24 22:00 UNV Insulin Human Regular ACHS SC 04/17/24 22:00 UNV Dextrose 50 ml UD PRN IV 04/17/24 18:30 UNV Laboratory Results Laboratory Tests 04/17/24 04:54 Chemistry Test 04/16/24 20:50 04/17/24 04:54 Albumin 4.6 g/dL (3.2-4.8) 4.4 g/dL (3.2-4.8) Calcium Level 9.6 mg/dL (8.7-10.4) 9.2 mg/dL (8.7-10.4) Total Protein 7.6 g/dL (5.7-8.2) 7.2 g/dL (5.7-8.2) Coagulation Test 04/16/24 20:50 04/17/24 10:03 Prothrombin Time 11.0 sec (9.3-11.8) 11.2 sec (9.3-11.8) Prothrombin Time INR 1.04 (0.9-1.15) 1.06 (0.9-1.15) Activated Partial Thromboplast Time 26.6 SEC (24.5-34.5) 38.2 SEC (24.5-34.5) H D-Dimer, Quantitative 0.50 mg/L FEU (0.0-0.49) H Lipid panel Test 04/17/24 04:54 Cholesterol Level 124 mg/dL (< 200) HDL Cholesterol 32 mg/dL (40-59) L Triglycerides Level 141 mg/dL (< 150) Cardiac Markers Test 04/16/24 20:50 B-Type Natriuretic Peptide 643.24 pg/mL (0-100) LFT Test 04/16/24 20:50 04/17/24 04:54 Alanine Aminotransferase (ALT) 23 U/L (7-40) 21 U/L (7-40) Alkaline Phosphatase 96 U/L (46-116) 89 U/L (46-116) Aspartate Amino Transferase (AST) 12 U/L (13-40) L 35 U/L (13-40) Total Bilirubin 0.6 mg/dL (0.2-1.0) 0.5 mg/dL (0.2-1.0) HgA1c, TSH Test 04/17/24 04:54 Hemoglobin A1c 7.1 % A1C (<5.7) H Thyroid Stimulating Hormone (TSH) 2.11 uIU/mL (0.55-4.78) Blood Gas Results Test 04/17/24 01:00 04/17/24 16:18 Arterial Blood pH 7.382 (7.350-7.450) 7.377 (7.350-7.450) FiO2 % 32.0 45.0 Assessment/Plan Assessment/Plan Non ST elevation myocardial infarction Acute on chronic decompensated HFrEF, NYHA Class IV, newly diagnosed RLL segmental pulmonary embolism with no evidence of right-heart strain Severe coronary artery disease status post triple-vessel CABG, 2017 Rule out progressive coronary artery disease Bilateral pleural effusions, small Lower extremity DVT ruled out Severe PVD status post left SFA ELLIOT x 1 Hypertension Dyslipidemia Jsj-zfekaug-koxxpoiza diabetes mellitus A1c 7.1 Acute kidney injury due to ATN Tobacco use Plan: Lasix IV Drip BIPAP Duoneb Inh Abx Critical care time 90 mins. d/w Spouse updated on the patients poor condition Plan discussed with: Patient, Daughter My Orders Orders - CLARA GUZMAN MD Procedure Category Date Status Time Labetalol Hcl PHA 04/17/24 Logged (Labetalol Hcl) 18:30 Albuterol Medneb PHA 04/17/24 Logged (Ventolin Medneb) 18:30 Levalbuterol Hcl PHA 04/18/24 Logged (Xopenex Medneb) 00:00 Glucose Blood PHA 04/17/24 Logged (Accu-Chek Comfort 22:00 Insulin R (Human) PHA 04/17/24 Logged (Insulin R) 22:00 Dextrose 50% Syringe PHA 04/17/24 Logged 18:30 Urinalysis LAB 04/17/24 Transmitted 18:29 Urine Sodium LAB 04/17/24 Transmitted 18:29 Urine Creatinine LAB 04/17/24 Transmitted 18:29 Osmolality Urine LAB 04/17/24 Transmitted 18:29 Insert Baumann Catheter CHRISTINE 04/17/24 Transmitted 18:29 Date of Service: Apr 17, 2024 Billing Provider: CLARA GUZMAN MD Common Visit Codes: [id number] CARE 30-74 MIN CLARA GUZMAN MD Apr 17, 2024 18:33
[2024-04-17 20:08] LABS: INR 1.05 (0.9-1.15); Partial Thromboplastin Time 45.8 SEC (24.5-34.5); Prothrombin Time 11.1 sec (9.3-11.8)
[2024-04-17] MEDS: ATORVASTATIN 20 MG TAB PO SCH (22:00)
[2024-04-17] MEDS: CARVEDILOL 3.125 MG TAB PO SCH (22:00)
[2024-04-17] MEDS: ACCU-CHEK COMFORT CURVE STRIP VI SCH (22:15)
[2024-04-17] MEDS: InsuLIN REG 1unit/0.01ml Soln (100units/ml) SC SCH (22:19)
[2024-04-18] VITALS (109 sets, daily range): BP systolic 66–128; BP diastolic 37–103; PULSE 63–130; RESP 18–43; TEMP 98.2–99.5; O2SAT 89–100
[2024-04-18 00:06] LABS: Base Excess -11.6 mmol/L (-2.0-3.0)
[2024-04-18] MEDS: LEVALBUTEROL HCL 1.25 MG/3 ML NEB NEB SCH (00:07)
[2024-04-18 00:08] LABS: Urine Bacteria None Seen /hpf (None Seen)
[2024-04-18] MEDS: FUROSEMIDE INJECTION 100 MG in SODIUM CHL 0.9% 100 ML IV SCH (00:15)
[2024-04-18] MEDS: ROCURONIUM 10MG/ML 10ML VIAL IV ONE ×2 (00:31→00:56)
[2024-04-18] MEDS: ETOMIDATE (2MG/ML) 20ML VIAL IV ONE ×2 (00:31→01:13)
[2024-04-18] MEDS: PROPOFOL 100 ML IV ONE (00:38)
[2024-04-18] MEDS: NOREPINEPHRINE 8 MG/250ML KIT 250 ML IV ONE (00:38)
[2024-04-18] MEDS: fentaNYL Drip 2500mCg/250mlNS 250 ML IV ONE (00:38)
[2024-04-18] MEDS ORDERED: ROCURONIUM 10MG/ML 10ML VIAL IV ONE (00:45)
[2024-04-18 00:55] LABS: Urine Blood 3+ /uL (Negative); Urine Budding Yeast OCCASIONAL /hpf (None Seen); Urine Clarity Turbid (Clear); Urine Color Yellow (Yellow); Urine Protein, UAD 2+ (Negative); Urine Specific Gravity 1.037 (1.001-1.035); Urine Squamous Epithelial Cell FEW /hpf (<5); Urine Urobilinogen Normal (Negative); Urine WBC 12 /hpf (0 - 3); Urine pH 5.5 (5.0-9.0)
[2024-04-18] MEDS: PROPOFOL 100 ML IV SCH (01:00)
[2024-04-18] MEDS: fentaNYL Drip 2500mCg/250mlNS 250 ML IV SCH (01:00)
[2024-04-18 01:29] LABS: Amphetamine Screen, Urine Neg (NEGATIVE); Barbiturate Scree,Urine Neg (NEGATIVE); Benzodiazephine Screen, Urine Neg (NEGATIVE); Cocaine Screen, Urine Neg (NEGATIVE)
[2024-04-18 01:30] LABS: Cannabinoid Screen, Urine Pos (NEGATIVE); Opiate Scree,Urine Neg (NEGATIVE); Phencyclidine Screen, Urine Neg (NEGATIVE)
[2024-04-18] MEDS: NOREPINEPHRINE 8 MG/250ML KIT 250 ML IV SCH (01:30)
[2024-04-18 01:31] LABS: Creatinine, Urine 158.36 mg/dL (30.0-125.0)
[2024-04-18 02:08] LABS: INR 1.07 (0.9-1.15); Partial Thromboplastin Time 31.4 SEC (24.5-34.5); Prothrombin Time 11.3 sec (9.3-11.8)
--- NOTE | 2024-04-18 02:39 | DVHNC2 ---
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) Indication: Hypotension Room prepared for procedure: Yes Miner Operator performed hand hygien: Yes Maximal sterile barrier precau: Mask/Eye shield, Sterile gown, Cap, Sterlie gloves, Large sterlie drape Skin Preparation: Chlorhexidine gluconate Skin preparation completely dr: Yes Insertion site: Right, Internal jugular Central line catheter type: Nfh-jolutdls-lqd dialysis Number of lumens: 3 Post Assessment: Chest X-Ray, Proper placement Intubation Indication: Respiratory Insufficiency Prep: Preoxygenation (with BIPAP) Medicated with: Other (etomidate and succinylcholine) Intubation Approach: Orotracheal Intubation size: cm (8) Notes NORM ENCISO RESIDENT NICOLASA DONIS MD Date of Service: Apr 18, 2024 Billing Provider: NICOLASA DONIS MD Common Visit Codes: PROCEDURE ONLY Procedure Codes: [id number], [id number] NON-TUNNEL CV CATH NORM ENCISO RESIDENT Apr 18, 2024 02:39
[2024-04-18 03:17] LABS: Base Excess -8.8 mmol/L (-2.0-3.0)
[2024-04-18 03:55] LABS: Anion Gap 12 (5-15); Basophils # (auto) 0 10 ^3/uL (0-0.2); Basophils % (auto) 0.1 % (0.0-2.0); Carbon Dioxide 20 mmol/L (20-31); Eosinophils # (auto) 0 10 ^3/uL (0-0.8); Hematocrit 28.8 % (41.0-53.0); Hemoglobin 9.5 g/dL (13.5-17.5); Lymphocytes # (auto) 0.6 10 ^3/uL (0.4-5.4); Lymphocytes % (auto) 4.6 % (10.0-50.0); Mean Corpuscular Hgb Conc. 32.8 g/dL (32.0-36.0); Mean Corpuscular Volume 91.5 fL (80.0-100.0); Monocytes # (auto) 1.4 10 ^3/uL (0-1.3); Monocytes % (auto) 10.9 % (0.0-12.0); Neutrophils # (auto) 11.2 10 ^3/uL (1.6-8.6); Neutrophils % (auto) 84.4 % (37.0-80.0); Platelet Count (auto) 238 10^3/uL (140-450); Potassium 4.9 mmol/L (3.5-5.1); Red Blood Cells 3.15 10^6/uL (4.5-5.90); Red Cell Distribution Width 14.8 % (11.8-14.3); Sodium 140 mmol/L (136-145); White Blood Cell 13.3 10^3/uL (4.4-10.8)
[2024-04-18 03:56] LABS: Calcium 9.1 mg/dL (8.7-10.4)
[2024-04-18 04:01] LABS: BUN/Creatinine Ratio 16.3 (10.0-20.0); Magnesium 2.4 mg/dL (1.6-2.6)
[2024-04-18 04:14] LABS: Blood Urea Nitrogen 60 mg/dL (9-23); Chloride 108 mmol/L (98-107); Glucose 292 mg/dL (74-106)
--- NOTE | 2024-04-18 04:22 | DVH ---
CHEST RADIOGRAPH Indication: INTUBATION Technique: Single frontal view of the chest was obtained Comparison: XY CHEST XRAY 1 VIEW on DOS: 04/16/24, CHEST PORTABLE on DOS: 04/21/19 IMPRESSION: The cardiomediastinal silhouette is enlarged, similar to prior examination, with median sternotomy wi res. Endotracheal tube has been placed with tip at the level of the clavicles approximately 5 cm from the mark. Right IJ catheter tip in the region of the superior vena cava. Moderate bilateral patchy interstitial and alveolar airspace opacities have increased. Possible small bilateral pleural effusions. No pneumothorax.
[2024-04-18] MEDS: HEPARIN SODIUM (PORCINE) 5000 UNITS/ML 1ML VIAL IV ONE (06:38)
[2024-04-18 08:33] LABS: Base Excess -8.1 mmol/L (-2.0-3.0)
[2024-04-18] MEDS: AZITHROMYCIN 500MG/ 250ML 250 ML IV SCH (09:02)
[2024-04-18] MEDS: cefTRIAXone 1GM/50ML D5W 50 ML IV SCH (09:02)
[2024-04-18] MEDS: CLOPIDOGREL BISULFATE 75 MG TAB PO SCH (09:03)
--- NOTE | 2024-04-18 09:51 | DVHPN2 ---
Consult Progress Note Subjective Other Systems: Currently intubated and sedated Objective vital signs Vital Sign Date Time Temp Pulse Resp B/P (MAP) Pulse Ox O2 Delivery O2 Flow Rate FiO2 04/18/24 09:37 40 04/18/24 09:09 80 103/50 04/18/24 09:05 24 100 04/18/24 06:00 Mechanical Ventilator+ 04/17/24 21:00 98.8 98.8 04/17/24 14:03 6 Total Intake and Output 04/17/24 04/17/24 04/18/24 14:59 22:59 06:59 Intake Total 324 ml 11 ml 252.296 ml Output Total 400 ml 50 ml Balance 324 ml -389 ml 202.296 ml medications Current Medications Medications Dose Ordered Sig/Lulu Route Start Time Stop Time Status Last Admin Dose Admin Acetaminophen 650 mg Q6HP PRN PO 04/16/24 23:45 Morphine Sulfate 2 mg Q4HPRN PRN IV 04/16/24 23:45 04/17/24 12:14 2 MG Nitroglycerin 0.4 mg Q5MINP PRN SL 04/16/24 23:45 Morphine Sulfate 2 mg Q30M PRN IV 04/16/24 23:45 Atorvastatin Calcium 80 mg HS PO 04/17/24 22:00 Azithromycin 250 ml @ 125 mls/hr DAILY IV 04/18/24 10:00 04/18/24 09:02 125 MLS/HR Ceftriaxone Sodium 50 ml @ 100 mls/hr DAILY@09 IV 04/18/24 09:00 04/18/24 09:02 100 MLS/HR Tamsulosin HCl 0.4 mg QPM PO 04/17/24 18:00 04/17/24 17:58 0.4 MG Heparin Sodium/ Dextrose 250 ml @ 14 mls/hr [id number] IV 04/17/24 11:45 04/18/24 01:00 14 MLS/HR Carvedilol 3.125 mg Q12HR PO 04/17/24 22:00 04/18/24 09:09 3.125 MG Clopidogrel Bisulfate 75 mg DAILY PO 04/18/24 10:00 04/18/24 09:03 75 MG Labetalol HCl 10 mg Q2HPRN PRN IV 04/17/24 18:30 Albuterol 2.5 mg Q6HPRN PRN NEB 04/17/24 18:30 Levalbuterol HCl 1.25 mg Q6HR NEB 04/18/24 00:00 04/18/24 06:00 1.25 MG Diagnostic Test (Pha) 1 strip ACHS 04/17/24 22:00 04/18/24 06:41 1 STRIP Insulin Human Regular ACHS SC 04/17/24 22:00 04/18/24 06:44 6 UNITS Dextrose 50 ml UD PRN IV 04/17/24 18:30 Furosemide 100 mg/ Sodium Chloride 110 ml @ 11 mls/hr Q10H IV 04/18/24 00:15 Propofol 100 ml @ 2.568 mls/ hr Q24H IV 04/18/24 00:45 04/18/24 06:20 20.544 MLS/HR Fentanyl Citrate 250 ml @ 2.5 mls/hr Q24H IV 04/18/24 00:45 04/18/24 01:00 2.5 MLS/HR Norepinephrine Bitartrate 250 ml @ 3.75 mls/hr Q24H IV 04/18/24 00:45 04/18/24 01:30 3.75 MLS/HR Examination: LUNGS:Abnormal (rales, rhonchi), CVS:Abnormal (Repeat EKG reviewed and shows sinus rhythm at 76 bpm, PACs, lateral ST and T wave abnormality unchagned from previous EKG.), NEURO:Abnormal (sedated) laboratory and microbiology Laboratory Tests 04/18/24 03:22 Test 04/18/24 03:22 Range/Units Serum Glucose 292 H 74-106 mg/dL Problem List/Assessment/Plan Problem List/Assessment/Plan Assessment Non ST elevation myocardial infarction Acute on chronic decompensated HFrEF, NYHA Class IV, newly diagnosed RLL segmental pulmonary embolism with no evidence of right-heart strain Severe coronary artery disease status post triple-vessel CABG, 2018 Rule out progressive coronary artery disease Bilateral pleural effusions, small Lower extremity DVT ruled out Severe PVD status post left SFA ELLIOT x 1 Hypertension Dyslipidemia [id number] diabetes mellitus Acute kidney injury Tobacco use Plan/Recommendation We will continue the following plan/recommendations (Dr. Huitron): * Echocardiogram revealed EF 25% * There is anterior anteroseptal anteroapical inferolateral wall severe hypokinesia. Normal right ventricular size and dimension. Normal right ventricular systolic function. Moderately elevated right ventricular systolic pressure 49 mm of mercury. Moderately dilated right and left atria. Aortic valve is thickened and sclerotic. No significant stenosis but mild regurgitation was noted. Mitral valve is thickened there is [id number] mitral valve regurgitation. There is mild tricuspid valve regurgitation. The pulmonary valve is grossly normal. No pericardial effusion. * Continue heparin drip per pharmacy protocol * Preload and afterload reduction. Lasix drip never started, Diuresis per nephrology. * Strict I&Os. Daily weight. Maintain fluid restrictions * GDMT for CHF as tolerated. BB for now given ANDREA * Single-antiplatelet therapy (Plavix) and lipid-lowering agent * Pulmonology and Nephrology consultations * Serial troponin and BNP levels The patient with a newly diagnosed cardiomyopathy including a severely diminished LV function compared to previous transthoracic echocardiogram revealing LVEF of 65% on 2022 may qualify for a cardiac catheterization once clinically stable and with optimal renal function. He does not qualify for a pulmonary thrombectomy at this time. Most of his clinical presentation is secondary to an acute CHF exacerbation. Appreciate nephrology input for diuresis. Patient continues to be on Levophed for blood pressure support. [place] [id number] this morning. Follow-up EKG negative for acute ST abnormality or changes. Continue with medical management. Condition remains critical We will continue to monitor closely. Thank you for allowing us to participate in this patient's care. Please call if you have any questions or concerns. Critical care time: 45 min. This medical document was created using an electronic medical record system with voice recognition software and computerized dictation system. Although this document has been carefully reviewed, there might still be some phonetic and typographical errors. Occasional wrong-word or ``sound-alike substitutions may have occurred due to the inherent limitations of voice recognition software. These areas are purely typographical due to imperfections of the software programs and do not reflect any compromise in the patient's medical care. Please read the chart carefully and recognize, using context, where these substitutions have occurred. Plan discussed with: Patient, Other (EL Barton at bedside) Date of Service: Apr 18, 2024 Billing Provider: PAVEL HUITRON MD Common Visit Codes: [id number] INP/OBS CARE(HIGH), [id number] CARE 30-74 MIN ASHLYN PORRAS [facility] Apr 18, 2024 09:51
[2024-04-18 10:38] LABS: Base Excess -8.2 mmol/L (-2.0-3.0)
[2024-04-18] MEDS: VASOPRESSIN 20 UNITS in SODIUM CHL 0.9% 99 ML IV SCH (11:45)
[2024-04-18] MEDS: PHENYLEPHRINE IV 250 ML IV SCH (11:45)
--- NOTE | 2024-04-18 13:04 | DVHINCON2 ---
Date of service: Apr 18, 2024 Referring Physician Jayleen CALVILLO Reason for Consultation ANDREA History of Present Illness Mr. Lakhani is a 74-year-old male with known history of chronic kidney disease, baseline creatinine the mid 1 range, diabetes, hypertension, coronary artery disease who presented for several day history of progressive shortness of breath. His clinical course has been notable for diagnosis of acute pulmonary embolism. He has been treated with systemic anticoagulation. He has required intubation, mechanical ventilation for respiratory failure and is seen in the intensive care unit. Urine volumes have been oliguric. Serum creatinine has trended to the 3 range. All the history was obtained to the chart. Past Medical History CKD stage IIIb Diabetes Hypertension Coronary artery disease Past Surgical History coronary artery bypass graft Allergies: Coded Allergies: NO KNOWN ALLERGIES (Unverified , 04/17/19) Home Meds Reported Medications Tamsulosin Hcl (Tamsulosin Hcl) 0.4 Mg Cap, 0.4 MG PO QPM 10/23/22 Metoprolol Succinate (Metoprolol Succinate Er) 50 Mg Tab, 50 MG PO DAILY 10/23/22 Promethazine-Dm (Promethazine Hydrochlorid 6.25-15 mg/5Ml) 1 Allison Allison, 5 ML PO Q6HP, ML 10/23/22 Chlorthalidone (Chlorthalidone) 25 Mg Tab, 25 MG PO DAILY 10/23/22 Hydralazine Hcl (Hydralazine Hcl) 50 Mg Tab, 50 MG PO TID 10/23/22 Metformin Hydrochloride (Metformin Hcl) 850 Mg Tab, 850 MG PO BID 10/23/22 Lisinopril (Lisinopril) 40 Mg Tab, 40 MG PO DAILY@BREAKFAST 10/23/22 Amlodipine Besylate (Amlodipine Besylate) 5 Mg Tab, 10 MG PO DAILY for 30 Days, MG 04/21/19 Clopidogrel Bisulfate (CLOPIDOGREL) 75 Mg Tab, 75 MG PO DAILY for 30 Days, MG 08/12/18 Lisinopril (Lisinopril) 20 Mg Tab, 20 MG PO HS for 30 Days, MG 06/24/18 Glipizide (Glipizide) 10 Mg Tab, 10 MG PO BID for 30 Days, MG 06/24/18 Gabapentin (Gabapentin) 300 Mg Cap, 300 MG PO TID for 30 Days, MG 08/16/17 Atorvastatin Calcium (ATORVASTATIN CALCIUM) 40 Mg Tab, 2 TAB PO DAILY, #30 TAB 5 Refills 08/16/17 Aspirin (Aspir-Low) 81 Mg Tab, 81 MG PO DAILY for 30 Days, MG 08/16/17 Current Medications Current Medications Medications (Trade) Dose Ordered Sig/Lulu Route PRN Reason Start Time Stop Time Status Last Admin Atorvastatin Calcium (Lipitor) 80 mg HS PO 04/17/24 22:00 Azithromycin 250 ml @ 125 mls/hr DAILY IV 04/18/24 10:00 04/18/24 09:02 Ceftriaxone Sodium 50 ml @ 100 mls/hr DAILY@09 IV 04/18/24 09:00 04/18/24 09:02 Tamsulosin HCl (Flomax) 0.4 mg QPM PO 04/17/24 18:00 04/17/24 17:58 Furosemide 100 mg/ Sodium Chloride 110 ml @ 11 mls/hr Q10H IV 04/17/24 15:00 04/18/24 00:03 DC 04/17/24 16:50 Carvedilol (Coreg Tablet) 3.125 mg Q12HR PO 04/17/24 22:00 04/18/24 09:09 Hydralazine HCl (Apresoline Injection) 10 mg Q6HP PRN IV SBP>150 04/17/24 15:00 04/17/24 18:29 DC 04/17/24 18:09 Clopidogrel Bisulfate (Plavix) 75 mg DAILY PO 04/18/24 10:00 04/18/24 09:03 Labetalol HCl (Labetalol HCl) 10 mg Q2HPRN PRN IV SBP>150 04/17/24 18:30 Albuterol (Ventolin Medneb) 2.5 mg Q6HPRN PRN NEB SHORTNESS OF BREATH 04/17/24 18:30 Levalbuterol HCl (Xopenex Medneb) 1.25 mg Q6HR NEB 04/18/24 00:00 04/18/24 06:00 Diagnostic Test (Pha) (Accu-Chek Comfort Curve T) 1 strip ACHS 04/17/24 22:00 04/18/24 11:06 Insulin Human Regular (InsuLIN R) ACHS SC 04/17/24 22:00 04/18/24 11:07 Dextrose 50 ml UD PRN IV Blood Sugar LESS THAN 60 04/17/24 18:30 Furosemide 100 mg/ Sodium Chloride 110 ml @ 11 mls/hr Q10H IV 04/18/24 00:15 Propofol 100 ml @ 2.568 mls/ hr Q24H IV 04/18/24 00:45 04/18/24 10:00 Fentanyl Citrate 250 ml @ 2.5 mls/hr Q24H IV 04/18/24 00:45 04/18/24 01:00 Norepinephrine Bitartrate 250 ml @ 3.75 mls/hr Q24H IV 04/18/24 00:45 04/18/24 10:00 Methylprednisolone Sodium Succinate (Solu Medrol) 125 mg Q8HR IV 04/18/24 14:00 04/20/24 06:01 Phenylephrine HCl 250 ml @ 30 mls/hr Q8H20M IV 04/18/24 11:45 Vasopressin 20 units/Sodium Chloride 100 ml @ 9 mls/hr Q11H7M IV 04/18/24 11:45 Norepinephrine Bitartrate 32 mg/ Sodium Chloride 250 ml @ 0.938 mls/ hr Q24H IV 04/18/24 11:45 Family History: Ischemic heart disease Review of Systems unable to be obtained due to patient's critical status H&P Exam Vital Signs/I&O Vital Sign Date Time Temp Pulse Resp B/P (MAP) Pulse Ox O2 Delivery O2 Flow Rate FiO2 04/18/24 12:15 70 24 98/52 (67) 99 04/18/24 12:00 Mechanical Ventilator+ 40 40 04/18/24 12:00 99.1 99.1 04/18/24 08:00 40 Intake and Output 04/17/24 04/18/24 19:00 07:00 Intake Total 314 ml 330.840 ml Output Total 400 ml 50 ml Balance -86 ml 280.840 ml Intake Oral 0 ml IV Total 314 ml 330.840 ml Output Urine Total 400 ml 50 ml Physical Exam gen: intubated heent: + ett, nc lungs: occasional rhonchi cvs: no rub abd: soft ext: trace dependent edema skin: no rash neuro: sedated Labs/Diagnostic Data Labs/Diagnostic Data Laboratory Tests Test 04/18/24 11:00 04/18/24 10:28 04/18/24 08:04 04/18/24 06:42 Range/Units POC Glucose 188 H 262 H 70-106 mg/dl Blood Gas Specimen Type Arterial Arterial Blood Gas Sample Site Right radial Right radial Blood Gas Patient Temperature 37.0 37.0 Arterial Blood Date Drawn [id number] Arterial Blood pH 7.291 L 7.323 L 7.350-7.450 Arterial Blood Partial Pressure CO2 37.5 33.5 L 35.0-48.0 mmHg Arterial Blood Partial Pressure O2 70.7 L 127.8 H 83.0-108.0 mmHg Arterial Blood HCO3 17.7 L 17.0 L 21.0-28.0 mmol/L Arterial Blood Oxygen Saturation 92.4 L 98.0 94.0-98.0 % Arterial Blood Base Excess -8.2 L -8.1 L -2.0-3.0 mmol/L Arterial Blood Oxyhemoglobin 91.8 L 97.4 94.0-98.0 % Arterial Blood Carboxyhemoglobin 0.3 L 0.3 L 0.5-1.5 % Arterial Blood Methemoglobin 0.4 0.3 0.0-1.5 % Rui Test Modified Modified Blood Gas Total Hemoglobin 10.40 L 11.50 L 13.5-17.5 g/dL Blood Gas Set Respiration Rate 24.0 24.0 Blood Gas Modality Vent - ac Vent - ac Blood Gas Spontaneous Rate 24 24 FiO2 % 40.0 70.0 Blood Gas Tidal Volume 550.0 550.0 Blood Gas Inspiratory Pressure 32.0 32.0 Blood Gas PEEP or CPAP 6.0 6.0 Bl Gas Inspiratory/Expiratory Ratio 1:1.7 1:1.7 Specimen Drawn By rosa zhang Test 04/18/24 03:22 04/18/24 02:14 04/18/24 01:42 04/17/24 23:49 Range/Units White Blood Count 13.3 #H 4.4-10.8 10^3/uL Red Blood Count 3.15 L 4.5-5.90 10^6/uL Hemoglobin 9.5 L 13.5-17.5 g/dL Hematocrit 28.8 #L 41.0-53.0 % Mean Corpuscular Volume 91.5 80.0-100.0 fL Mean Corpuscular Hemoglobin 30.0 28.0-32.0 pg Mean Corpuscular Hemoglobin Concent 32.8 32.0-36.0 g/dL Red Cell Distribution Width 14.8 H 11.8-14.3 % Platelet Count 238 140-450 10^3/uL Mean Platelet Volume 8.2 6.9-10.8 fL Neutrophils (%) (Auto) 84.4 H 37.0-80.0 % Lymphocytes (%) (Auto) 4.6 L 10.0-50.0 % Monocytes (%) (Auto) 10.9 0.0-12.0 % Eosinophils (%) (Auto) 0.0 0.0-7.0 % Basophils (%) (Auto) 0.1 0.0-2.0 % Neutrophils # (Auto) 11.2 H 1.6-8.6 10 ^3/uL Lymphocytes # (Auto) 0.6 0.4-5.4 10 ^3/uL Monocytes # (Auto) 1.4 H 0-1.3 10 ^3/uL Eosinophils # (Auto) 0 0-0.8 10 ^3/uL Basophils # (Auto) 0 0-0.2 10 ^3/uL Nucleated Red Blood Cells 0.0 % Sodium Level 140 136-145 mmol/L Potassium Level 4.9 3.5-5.1 mmol/L Chloride Level 108 H 98-107 mmol/L Carbon Dioxide Level 20 20-31 mmol/L Anion Gap 12 5-15 Blood Urea Nitrogen 60 #H 9-23 mg/dL Creatinine 3.67 H 0.700-1.30 mg/dL Glomerular Filtration Rate Calc 17 >90 mL/min BUN/Creatinine Ratio 16.3 10.0-20.0 Serum Glucose 292 H 74-106 mg/dL Calcium Level 9.1 8.7-10.4 mg/dL Magnesium Level 2.4 1.6-2.6 mg/dL Troponin I High Sensitivity > 06041 *H </=54 ng/L B-Type Natriuretic Peptide 2214.26 0-100 pg/mL Blood Gas Specimen Type Arterial Blood Gas Sample Site Left radial Blood Gas Patient Temperature 37.0 Arterial Blood Date Drawn Arterial Blood pH 7.288 L 7.350-7.450 Arterial Blood Partial Pressure CO2 36.3 35.0-48.0 mmHg Arterial Blood Partial Pressure O2 122.7 H 83.0-108.0 mmHg Arterial Blood HCO3 17.0 L 21.0-28.0 mmol/L Arterial Blood Oxygen Saturation 97.5 94.0-98.0 % Arterial Blood Base Excess -8.8 L -2.0-3.0 mmol/L Arterial Blood Oxyhemoglobin 96.9 94.0-98.0 % Arterial Blood Carboxyhemoglobin 0.2 L 0.5-1.5 % Arterial Blood Methemoglobin 0.4 0.0-1.5 % Rui Test Modified Blood Gas Total Hemoglobin 10.30 L 13.5-17.5 g/dL Blood Gas Set Respiration Rate 24.0 Blood Gas Modality Vent - ac Blood Gas Spontaneous Rate 24 FiO2 % 100.0 Blood Gas Tidal Volume 550.0 Blood Gas PEEP or CPAP 6.0 Prothrombin Time 11.3 9.3-11.8 sec Prothrombin Time INR 1.07 0.9-1.15 Activated Partial Thromboplast Time 31.4 24.5-34.5 SEC Urine Color Yellow Yellow Urine Clarity Turbid H Clear Urine pH 5.5 5.0-9.0 Urine Specific [place] 1.037 H 1.001-1.035 Urine Protein 2+ H Negative Urine Ketones Trace Negative Urine Blood 3+ H Negative /uL Urine Nitrite Negative Negative Urine Bilirubin Negative Negative Urine Urobilinogen Normal Negative mg/dL Urine Leukocyte Esterase Negative Negative /uL Urine RBC 138 0 - 3 /hpf Urine WBC 12 0 - 3 /hpf Urine Squamous Epithelial Cells Few <5 /hpf Urine Bacteria None seen None Seen /hpf Urine Yeast (Budding) Occasional None Seen /hpf Urine Osmolality 380 mOsm/kg Urine Creatinine 158.36 H 30.0-125.0 mg/dL Urine Sodium 34 L 40-220 mmol/L Urine Glucose 1+ H Normal mg/dL Urine Opiates Screen Neg NEGATIVE Urine Fentanyl Screen Neg NEGATIVE Urine Barbiturates Screen Neg NEGATIVE Urine Phencyclidine Screen Neg NEGATIVE Urine Amphetamines Screen Neg NEGATIVE Urine Benzodiazepines Screen Neg NEGATIVE Urine Cocaine Screen Neg NEGATIVE Urine Cannabinoids Screen Pos NEGATIVE Test 04/17/24 22:40 04/17/24 22:13 04/17/24 18:24 04/17/24 16:18 Range/Units Blood Gas Specimen Type Arterial Arterial Blood Gas Sample Site Left radial Right radial Blood Gas Patient Temperature 37.0 37.0 Arterial Blood Date Drawn [id number] Arterial Blood pH 7.301 L 7.377 7.350-7.450 Arterial Blood Partial Pressure CO2 27.7 L 26.2 L 35.0-48.0 mmHg Arterial Blood Partial Pressure O2 75.3 L 65.4 L 83.0-108.0 mmHg Arterial Blood HCO3 13.4 L 15.0 L 21.0-28.0 mmol/L Arterial Blood Oxygen Saturation 92.3 L 91.4 L 94.0-98.0 % Arterial Blood Base Excess -11.6 L -8.7 L -2.0-3.0 mmol/L Arterial Blood Oxyhemoglobin 91.7 L 90.6 L 94.0-98.0 % Arterial Blood Carboxyhemoglobin 0.5 0.6 0.5-1.5 % Arterial Blood Methemoglobin 0.2 0.3 0.0-1.5 % Rui Test Modified Yes Blood Gas Total Hemoglobin 11.10 L 10.80 L 13.5-17.5 g/dL Blood Gas Set Respiration Rate 12.0 12.0 Blood Gas Modality Mask - bipap Mask - bipap Blood Gas Spontaneous Rate 42 FiO2 % 100.0 45.0 Blood Gas EPAP 8 8 Blood Gas IPAP 16 16 POC Glucose 351 H 70-106 mg/dl Prothrombin Time 11.1 9.3-11.8 sec Prothrombin Time INR 1.05 0.9-1.15 Activated Partial Thromboplast Time 45.8 H 24.5-34.5 SEC Test 04/17/24 10:03 04/17/24 04:54 04/17/24 01:00 04/17/24 00:59 Range/Units Prothrombin Time 11.2 9.3-11.8 sec Prothrombin Time INR 1.06 0.9-1.15 Activated Partial Thromboplast Time 38.2 H 24.5-34.5 SEC D-Dimer, Quantitative 0.50 H 0.0-0.49 mg/L FEU White Blood Count 10.5 4.4-10.8 10^3/uL Red Blood Count 3.50 L 4.5-5.90 10^6/uL Hemoglobin 10.6 L 13.5-17.5 g/dL Hematocrit 32.3 L 41.0-53.0 % Mean Corpuscular Volume 92.2 80.0-100.0 fL Mean Corpuscular Hemoglobin 30.2 28.0-32.0 pg Mean Corpuscular Hemoglobin Concent 32.7 32.0-36.0 g/dL Red Cell Distribution Width 14.9 H 11.8-14.3 % Platelet Count 214 140-450 10^3/uL Mean Platelet Volume 8.2 6.9-10.8 fL Neutrophils (%) (Auto) 85.0 H 37.0-80.0 % Lymphocytes (%) (Auto) 5.2 L 10.0-50.0 % Monocytes (%) (Auto) 9.2 0.0-12.0 % Eosinophils (%) (Auto) 0.1 0.0-7.0 % Basophils (%) (Auto) 0.5 0.0-2.0 % Neutrophils # (Auto) 9.0 H 1.6-8.6 10 ^3/uL Lymphocytes # (Auto) 0.5 0.4-5.4 10 ^3/uL Monocytes # (Auto) 1.0 0-1.3 10 ^3/uL Eosinophils # (Auto) 0 0-0.8 10 ^3/uL Basophils # (Auto) 0.1 0-0.2 10 ^3/uL Nucleated Red Blood Cells 0.0 % Sodium Level 140 136-145 mmol/L Potassium Level 4.4 3.5-5.1 mmol/L Chloride Level 111 H 98-107 mmol/L Carbon Dioxide Level 16 L 20-31 mmol/L Anion Gap 13 5-15 Blood Urea Nitrogen 36 H 9-23 mg/dL Creatinine 1.96 H 0.700-1.30 mg/dL Glomerular Filtration Rate Calc 36 >90 mL/min BUN/Creatinine Ratio 18.4 10.0-20.0 Serum Glucose 228 H 74-106 mg/dL Hemoglobin A1c 7.1 H <5.7 % A1C Calcium Level 9.2 8.7-10.4 mg/dL Total Bilirubin 0.5 0.2-1.0 mg/dL Aspartate Amino Transferase (AST) 35 13-40 U/L Alanine Aminotransferase (ALT) 21 7-40 U/L Alkaline Phosphatase 89 46-116 U/L Total Protein 7.2 5.7-8.2 g/dL Albumin 4.4 3.2-4.8 g/dL Triglycerides Level 141 < 150 mg/dL Cholesterol Level 124 < 200 mg/dL LDL Cholesterol 72 < 100 mg/dL HDL Cholesterol 32 L 40-59 mg/dL Thyroid Stimulating Hormone (TSH) 2.11 0.55-4.78 uIU/mL Blood Gas Specimen Type Arterial Blood Gas Sample Site Right radial Blood Gas Patient Temperature 37.0 Arterial Blood Date Drawn Arterial Blood pH 7.382 7.350-7.450 Arterial Blood Partial Pressure CO2 26.9 L 35.0-48.0 mmHg Arterial Blood Partial Pressure O2 61.5 L 83.0-108.0 mmHg Arterial Blood HCO3 15.6 L 21.0-28.0 mmol/L Arterial Blood Oxygen Saturation 91.3 L 94.0-98.0 % Arterial Blood Base Excess -8.1 L -2.0-3.0 mmol/L Arterial Blood Oxyhemoglobin 90.3 L 94.0-98.0 % Arterial Blood Carboxyhemoglobin 0.7 0.5-1.5 % Arterial Blood Methemoglobin 0.4 0.0-1.5 % Rui Test Yes Blood Gas Total Hemoglobin 11.10 L 13.5-17.5 g/dL Blood Gas Liter Flow 3.00 Blood Gas Modality Nasal cannula FiO2 % 32.0 POC Glucose 302 H 70-106 mg/dl Test 04/16/24 23:46 04/16/24 21:31 04/16/24 20:50 04/16/24 03:45 Range/Units Troponin I High Sensitivity 2181 *H 718 *H 414 *H </=54 ng/L White Blood Count 11.2 H 4.4-10.8 10^3/uL Red Blood Count 3.76 L 4.5-5.90 10^6/uL Hemoglobin 11.2 L 13.5-17.5 g/dL Hematocrit 34.7 L 41.0-53.0 % Mean Corpuscular Volume 92.2 80.0-100.0 fL Mean Corpuscular Hemoglobin 29.7 28.0-32.0 pg Mean Corpuscular Hemoglobin Concent 32.2 32.0-36.0 g/dL Red Cell Distribution Width 14.8 H 11.8-14.3 % Platelet Count 237 140-450 10^3/uL Mean Platelet Volume 8.2 6.9-10.8 fL Neutrophils (%) (Auto) 92.0 H 37.0-80.0 % Lymphocytes (%) (Auto) 3.1 L 10.0-50.0 % Monocytes (%) (Auto) 4.3 0.0-12.0 % Eosinophils (%) (Auto) 0.1 0.0-7.0 % Basophils (%) (Auto) 0.5 0.0-2.0 % Neutrophils # (Auto) 10.3 H 1.6-8.6 10 ^3/uL Lymphocytes # (Auto) 0.3 L 0.4-5.4 10 ^3/uL Monocytes # (Auto) 0.5 0-1.3 10 ^3/uL Eosinophils # (Auto) 0 0-0.8 10 ^3/uL Basophils # (Auto) 0.1 0-0.2 10 ^3/uL Nucleated Red Blood Cells 0.0 % Prothrombin Time 11.0 9.3-11.8 sec Prothrombin Time INR 1.04 0.9-1.15 Activated Partial Thromboplast Time 26.6 24.5-34.5 SEC Sodium Level 142 136-145 mmol/L Potassium Level 4.3 3.5-5.1 mmol/L Chloride Level 110 H 98-107 mmol/L Carbon Dioxide Level 16 L 20-31 mmol/L Anion Gap 16 H 5-15 Blood Urea Nitrogen 38 H 9-23 mg/dL Creatinine 1.77 H 0.700-1.30 mg/dL Glomerular Filtration Rate Calc 40 >90 mL/min BUN/Creatinine Ratio 21.5 H 10.0-20.0 Serum Glucose 308 H 74-106 mg/dL Calcium Level 9.6 8.7-10.4 mg/dL Total Bilirubin 0.6 0.2-1.0 mg/dL Aspartate Amino Transferase (AST) 12 L 13-40 U/L Alanine Aminotransferase (ALT) 23 7-40 U/L Alkaline Phosphatase 96 46-116 U/L B-Type Natriuretic Peptide 643.24 0-100 pg/mL Total Protein 7.6 5.7-8.2 g/dL Albumin 4.6 3.2-4.8 g/dL Influenza Type A Antigen Negative Negative Influenza Type B Antigen Negative Negative SARS-CoV-2 Antigen (Rapid) Negative NEGATIVE Assessment IMP: 1) Hemodynamically mediated ANDREA/ Ischemic ATN + contrast nephropathy 2) CKD IIIb 3) Acute PE 4) Acute hypoxemic resp failure 5) elevated troponin 6) Hx of CAD REC: - will check urine Na - trial of high dose loop diuretic to augment urine volumes, may not be efficacious if patient with dense ATN - Strict I's and O's, serial chemistry panels, we will continue to follow closely along with you. Thank you for the consultation. Plan discussed with: KAROLINA Chaudhry MD Apr 18, 2024 13:04
[2024-04-18] MEDS: methylPREDNISolone SOD SUCC 125 MG/2 ML VL IV SCH (13:35)
[2024-04-18 13:47] LABS: INR 1.13 (0.9-1.15); Prothrombin Time 11.9 sec (9.3-11.8)
[2024-04-18 14:00] LABS: Partial Thromboplastin Time 133.8 SEC (24.5-34.5)
[2024-04-18] MEDS: HEPARIN DRIP/D5W 100UNITS/ML 250 ML IV SCH ×2 (15:06→23:33)
--- NOTE | 2024-04-18 16:25 | DVHPN2 ---
Subjective in bed intubated and sedated multiple pressors Changes from previous H/P or p: No Changes Objective Vitals Vital Signs Date Time Temp Pulse Resp B/P (MAP) Pulse Ox O2 Delivery O2 Flow Rate FiO2 04/18/24 16:15 88 24 100/53 (69) 94 04/18/24 16:00 Mechanical Ventilator+ 40 40 04/18/24 16:00 99.4 99.4 04/18/24 08:00 40 Intake/Output Intake and Output 04/18/24 05:00 Intake Total 522.752 ml Output Total 400 ml Balance 122.752 ml IV Total 522.752 ml Output Urine Total 400 ml Medications Current Medications Medications Dose Ordered Sig/Lulu Route Start Time Stop Time Status Last Admin Dose Admin Acetaminophen 650 mg Q6HP PRN PO 04/16/24 23:45 Morphine Sulfate 2 mg Q4HPRN PRN IV 04/16/24 23:45 04/17/24 12:14 2 MG Nitroglycerin 0.4 mg Q5MINP PRN SL 04/16/24 23:45 Morphine Sulfate 2 mg Q30M PRN IV 04/16/24 23:45 Atorvastatin Calcium 80 mg HS PO 04/17/24 22:00 Azithromycin 250 ml @ 125 mls/hr DAILY IV 04/18/24 10:00 04/18/24 09:02 125 MLS/HR Ceftriaxone Sodium 50 ml @ 100 mls/hr DAILY@09 IV 04/18/24 09:00 04/18/24 09:02 100 MLS/HR Tamsulosin HCl 0.4 mg QPM PO 04/17/24 18:00 04/17/24 17:58 0.4 MG Carvedilol 3.125 mg Q12HR PO 04/17/24 22:00 04/18/24 09:09 3.125 MG Clopidogrel Bisulfate 75 mg DAILY PO 04/18/24 10:00 04/18/24 09:03 75 MG Labetalol HCl 10 mg Q2HPRN PRN IV 04/17/24 18:30 Albuterol 2.5 mg Q6HPRN PRN NEB 04/17/24 18:30 Levalbuterol HCl 1.25 mg Q6HR NEB 04/18/24 00:00 04/18/24 12:00 1.25 MG Diagnostic Test (Pha) 1 strip ACHS 12/6/24 22:00 04/18/24 11:06 1 STRIP Insulin Human Regular ACHS SC 04/17/24 22:00 04/18/24 11:07 3 UNITS Dextrose 50 ml UD PRN IV 04/17/24 18:30 Furosemide 100 mg/ Sodium Chloride 110 ml @ 11 mls/hr Q10H IV 04/18/24 00:15 Propofol 100 ml @ 2.568 mls/ hr Q24H IV 04/18/24 00:45 04/18/24 16:05 15.408 MLS/HR Fentanyl Citrate 250 ml @ 2.5 mls/hr Q24H IV 04/18/24 00:45 04/18/24 01:00 2.5 MLS/HR Norepinephrine Bitartrate 250 ml @ 3.75 mls/hr Q24H IV 04/18/24 00:45 04/18/24 14:53 48.75 MLS/HR Methylprednisolone Sodium Succinate 125 mg Q8HR IV 04/18/24 14:00 04/20/24 06:01 04/18/24 13:35 125 MG Phenylephrine HCl 250 ml @ 30 mls/hr Q8H20M IV 04/18/24 11:45 Vasopressin 20 units/Sodium Chloride 100 ml @ 9 mls/hr Q11H7M IV 04/18/24 11:45 Norepinephrine Bitartrate 32 mg/ Sodium Chloride 250 ml @ 0.938 mls/ hr Q24H IV 04/18/24 11:45 Heparin Sodium/ Dextrose 250 ml @ 14 mls/hr [id number] IV 04/18/24 15:15 04/18/24 15:06 14 MLS/HR Laboratory Results Laboratory Tests 04/18/24 03:22 Chemistry Test 04/18/24 03:22 Calcium Level 9.1 mg/dL (8.7-10.4) Magnesium Level 2.4 mg/dL (1.6-2.6) Coagulation Test 04/17/24 18:24 04/18/24 01:42 04/18/24 12:53 Prothrombin Time 11.1 sec (9.3-11.8) 11.3 sec (9.3-11.8) 11.9 sec (9.3-11.8) H Prothrombin Time INR 1.05 (0.9-1.15) 1.07 (0.9-1.15) 1.13 (0.9-1.15) Activated Partial Thromboplast Time 45.8 SEC (24.5-34.5) H 31.4 SEC (24.5-34.5) 133.8 SEC (24.5-34.5) *H Cardiac Markers Test 04/18/24 03:22 B-Type Natriuretic Peptide 2214.26 pg/mL (0-100) Urinalysis Test 04/17/24 23:49 Urine Color Yellow (Yellow) Urine Clarity Turbid (Clear) H Urine pH 5.5 (5.0-9.0) Urine Specific [place] 1.037 (1.001-1.035) Urine Protein 2+ (Negative) H Urine Ketones Trace (Negative) Urine Blood 3+ /uL (Negative) H Urine Nitrite Negative (Negative) Urine Bilirubin Negative (Negative) Urine Urobilinogen Normal mg/dL (Negative) Urine Leukocyte Esterase Negative /uL (Negative) Urine RBC 138 /hpf (0 - 3) Urine WBC 12 /hpf (0 - 3) Urine Squamous Epithelial Cells Few /hpf (<5) Urine Bacteria None seen /hpf (None Seen) Urine Yeast (Budding) Occasional /hpf (None Urine Osmolality 380 mOsm/kg Urine Creatinine 158.36 mg/dL (30.0-125.0) H Urine Sodium 34 mmol/L (40-220) L Urine Glucose 1+ mg/dL (Normal) H Blood Gas Results Test 04/17/24 22:40 04/18/24 02:14 04/18/24 08:04 04/18/24 10:28 Arterial Blood pH 7.301 (7.350-7.450) 7.288 (7.350-7.450) 7.323 (7.350-7.450) 7.291 (7.350-7.450) FiO2 % 100.0 100.0 70.0 40.0 Microbiology Microbiology Date/Time Source Procedure Growth Status 04/18/24 01:00 Nose MRSA Screen - Final Complete 04/17/24 13:00 Blood Blood Culture - Preliminary NO GROWTH AFTER 24 HOURS OF INCUBATION. Resulted Assessment/Plan Assessment/Plan Non ST elevation myocardial infarction Acute on chronic decompensated HFrEF, NYHA Class IV, newly diagnosed RLL segmental pulmonary embolism with no evidence of right-heart strain Severe coronary artery disease status post triple-vessel CABG, 2018 Rule out progressive coronary artery disease Bilateral pleural effusions, small Lower extremity DVT ruled out Severe PVD status post left SFA ELLIOT x 1 Hypertension Dyslipidemia [id number] diabetes mellitus A1c 7.1 Acute kidney injury due to ATN Tobacco use Plan: Lasix IV Drip continue mechanical ventilation Hep drip Levophed and markell today, vasopressin if remains hypotensive Abx Critical care time 90 mins. Plan discussed with: Other (nurse) My Orders Orders - ADARSH GOMEZ MD Procedure Category Date Status Time Communication Order ORDERS 04/18/24 Transmitted 11:39 Phenylephrine Iv PHA 04/18/24 In Process (Phenylephrine/Ns) 11:45 Sodium Chl 0.9% PHA 04/18/24 In Process (So... W/Vasopressin 11:45 Sodium Chl 0.9% PHA 04/18/24 In Process (Ns... 11:45 Date of Service: Apr 18, 2024 Billing Provider: ADARSH GOMEZ MD Common Visit Codes: [id number] CARE 30-74 MIN ADARSH GOMEZ MD Apr 18, 2024 16:25
[2024-04-18 22:08] LABS: INR 1.11 (0.9-1.15); Prothrombin Time 11.7 sec (9.3-11.8)
--- NOTE | 2024-04-18 22:13 | DVHINCON2 ---
Date of service: Apr 18, 2024 Referring Physician Korina Thakkar MD Reason for Consultation Acute hypoxic respiratory failure requiring mechanical ventilator. History of Present Illness 74-year-old man with past medical history of coronary artery disease status post CABG in 2019, diabetes mellitus, hypertension, chronic kidney disease, hyperlipidemia and tobacco and marijuana use who presented to the hospital on 04/17/24 with 3 day history of worsening shortness of breath associated with flu- like symptoms, including a runny nose, dry nonproductive cough, generalized weakness, fatigue nausea and vomiting. He denied chest pain. Shortness of breath was exacerbated by physical activity and lying flat. In the ED, he was hypoxemic with oxygen saturation of 82% on room air, which improved with supplem ental oxygen. He was mildly tachycardic, heart rate 110 beats per minute and hyperglycemic w/ glucose 308 mg/dL. Initial evaluation showed an elevated troponin level 414 that trended up significantly to 2181, consistent with non ST elevation myocardial infarction. CBC revealed mild leukocytosis, and creatinine elevation at 1.77 indicating acute on chronic kidney dysfunction. Chest x-ray was unremarkable, EKG showed no acute ST segment elevation or ischemic changes. The patient received initial management with albuterol, Atrovent nebulization and ondansetron for nausea. He was admitted for further care and pulmonary consultation is requested for evaluation and management of acute hypoxic respiratory failure requiring mechanical ventilator. Review of Systems: 14-point review of systems negative unless otherwise noted above. Past Medical History: Coronary artery disease status post CABG in 2019, diabetes mellitus, hypertension, chronic kidney disease, hyperlipidemia and tobacco and marijuana use. Past Surgical History: CABG in 2019 Medications: Reviewed. Allergies: No known drug allergies. Family History: Ischemic heart disease. Social History: Smoker. No alcohol use. Admits to marijuana use. Family History: Ischemic heart disease Allergies: Coded Allergies: NO KNOWN ALLERGIES (Unverified , 04/17/19) Home Meds Reported Medications Hydralazine Hcl (Hydralazine Hcl) 100 Mg Tab, 1 TAB PO TID for 90 Days, #270 04/20/24 Amlodipine Besylate (Amlodipine Besylate) 10 Mg Tab, 1 TAB PO DAILY for 90 Days, #90 04/20/24 Atorvastatin Calcium (Lipitor) 80 Mg Tab, 1 TAB PO DAILY for 90 Days, #90 04/20/24 Tamsulosin Hcl (Tamsulosin Hcl) 0.4 Mg Cap, 1 TAB PO DAILY for 90 Days, #90 10/23/22 Metoprolol Succinate (Metoprolol Succinate Er) 50 Mg Tab, 50 MG PO DAILY 10/23/22 Chlorthalidone (Chlorthalidone) 25 Mg Tab, 1 TAB PO DAILY for 90 Days, #90 10/23/22 Metformin Hydrochloride (Metformin Hcl) 850 Mg Tab, 1 TAB PO BID for 90 Days, #180 10/23/22 Clopidogrel Bisulfate (CLOPIDOGREL) 75 Mg Tab, 1 TAB PO DAILY for 90 Days, #90 08/12/18 Lisinopril (Lisinopril) 20 Mg Tab, 1 TAB PO BID for 90 Days, #180 06/24/18 Glipizide (Glipizide) 10 Mg Tab, 1 TAB PO BID for 90 Days, #180 06/24/18 Gabapentin (Gabapentin) 300 Mg Cap, 1 TAB PO TID for 90 Days, #270 08/16/17 Aspirin (Aspir-Low) 81 Mg Tab, 81 MG PO DAILY for 30 Days, MG 08/16/17 Discontinued Reported Medications Hydralazine Hcl (Hydralazine Hcl) 50 Mg Tab, 50 MG PO TID 10/23/22 Amlodipine Besylate (Amlodipine Besylate) 5 Mg Tab, 10 MG PO DAILY for 30 Days, MG 04/21/19 Atorvastatin Calcium (ATORVASTATIN CALCIUM) 40 Mg Tab, 2 TAB PO DAILY, #30 TAB 5 Refills 08/16/17 Current Medications Current Medications Medications (Trade) Dose Ordered Sig/Lulu Route PRN Reason Start Time Stop Time Status Last Admin Azithromycin 250 ml @ 125 mls/hr DAILY IV 04/18/24 10:00 04/18/24 09:02 Ceftriaxone Sodium 50 ml @ 100 mls/hr DAILY@09 IV 04/18/24 09:00 04/18/24 09:02 Clopidogrel Bisulfate (Plavix) 75 mg DAILY PO 04/18/24 10:00 04/18/24 09:03 Levalbuterol HCl (Xopenex Medneb) 1.25 mg Q6HR NEB 04/18/24 00:00 04/18/24 18:15 Furosemide 100 mg/ Sodium Chloride 110 ml @ 11 mls/hr Q10H IV 04/18/24 00:15 Propofol 100 ml @ 2.568 mls/ hr Q24H IV 04/18/24 00:45 04/18/24 16:05 Fentanyl Citrate 250 ml @ 2.5 mls/hr Q24H IV 04/18/24 00:45 04/18/24 01:00 Norepinephrine Bitartrate 250 ml @ 3.75 mls/hr Q24H IV 04/18/24 00:45 04/18/24 14:53 Methylprednisolone Sodium Succinate (Solu Medrol) 125 mg Q8HR IV 04/18/24 14:00 04/20/24 06:01 04/18/24 13:35 Phenylephrine HCl 250 ml @ 30 mls/hr Q8H20M IV 04/18/24 11:45 Vasopressin 20 units/Sodium Chloride 100 ml @ 9 mls/hr Q11H7M IV 04/18/24 11:45 Norepinephrine Bitartrate 32 mg/ Sodium Chloride 250 ml @ 0.938 mls/ hr Q24H IV 04/18/24 11:45 Heparin Sodium/ Dextrose 250 ml @ 14 mls/hr [id number] IV 04/18/24 15:15 04/18/24 15:06 Vital Signs Vital Signs Date Time Temp Pulse Resp B/P (MAP) Pulse Ox O2 Delivery O2 Flow Rate FiO2 04/18/24 21:00 110/61 04/18/24 20:02 83 24 97 40 04/18/24 20:00 Mechanical Ventilator+ 04/18/24 16:00 99.4 99.4 04/18/24 08:00 40 Physical Exam Gen.: Patient lying in bed in medical ICU. Sedated, intubated on mechanical ventilator. Head: Normocephalic, atraumatic. Eyes: PERRLA. Ears: Normal external anatomy. Throat: Endotracheal tube and orogastric tube in place. Neck: Supple, trachea midline. Chest: Transmitted breath sounds bilaterally. Decreased air entry bilaterally. No wheezing. Bibasilar crackles. Cardiovascular: Positive S1, positive S2. Regular rate and rhythm. Abdomen: Positive bowel sounds in all 4 quadrants. Soft, nontender, nondistended. : Baumann in place. Normal external genitalia. Rectal: Deferred. Skin: Warm, dry. Intact. Extremities: 2+ radial pulses bilaterally. No lower extremity edema. Neuro: Sedated. Labs/Diagnostic Data Labs Test 04/18/24 21:11 04/18/24 16:42 04/18/24 10:28 04/18/24 03:22 Range/Units POC Glucose 142 H 70-106 mg/dl Blood Gas Specimen Type Arterial Blood Gas Sample Site Right radial Blood Gas Patient Temperature 37.0 Arterial Blood Date Drawn [id number] Arterial Blood pH 7.291 L 7.350-7.450 Arterial Blood Partial Pressure CO2 37.5 35.0-48.0 mmHg Arterial Blood Partial Pressure O2 70.7 L 83.0-108.0 mmHg Arterial Blood HCO3 17.7 L 21.0-28.0 mmol/L Arterial Blood Oxygen Saturation 92.4 L 94.0-98.0 % Arterial Blood Base Excess -8.2 L -2.0-3.0 mmol/L Arterial Blood Oxyhemoglobin 91.8 L 94.0-98.0 % Arterial Blood Carboxyhemoglobin 0.3 L 0.5-1.5 % Arterial Blood Methemoglobin 0.4 0.0-1.5 % Rui Test Modified Blood Gas Total Hemoglobin 10.40 L 13.5-17.5 g/dL Blood Gas Set Respiration Rate 24.0 Blood Gas Modality Vent - ac Blood Gas Spontaneous Rate 24 FiO2 % 40.0 Blood Gas Tidal Volume 550.0 Blood Gas Inspiratory Pressure 32.0 Blood Gas PEEP or CPAP 6.0 Bl Gas Inspiratory/Expiratory Ratio 1:1.7 Specimen Drawn By rosa zhang White Blood Count 13.3 #H 4.4-10.8 10^3/uL Red Blood Count 3.15 L 4.5-5.90 10^6/uL Hemoglobin 9.5 L 13.5-17.5 g/dL Hematocrit 28.8 #L 41.0-53.0 % Mean Corpuscular Volume 91.5 80.0-100.0 fL Mean Corpuscular Hemoglobin 30.0 28.0-32.0 pg Mean Corpuscular Hemoglobin Concent 32.8 32.0-36.0 g/dL Red Cell Distribution Width 14.8 H 11.8-14.3 % Platelet Count 238 140-450 10^3/uL Mean Platelet Volume 8.2 6.9-10.8 fL Neutrophils (%) (Auto) 84.4 H 37.0-80.0 % Lymphocytes (%) (Auto) 4.6 L 10.0-50.0 % Monocytes (%) (Auto) 10.9 0.0-12.0 % Eosinophils (%) (Auto) 0.0 0.0-7.0 % Basophils (%) (Auto) 0.1 0.0-2.0 % Neutrophils # (Auto) 11.2 H 1.6-8.6 10 ^3/uL Lymphocytes # (Auto) 0.6 0.4-5.4 10 ^3/uL Monocytes # (Auto) 1.4 H 0-1.3 10 ^3/uL Eosinophils # (Auto) 0 0-0.8 10 ^3/uL Basophils # (Auto) 0 0-0.2 10 ^3/uL Nucleated Red Blood Cells 0.0 % Sodium Level 140 136-145 mmol/L Potassium Level 4.9 3.5-5.1 mmol/L Chloride Level 108 H 98-107 mmol/L Carbon Dioxide Level 20 20-31 mmol/L Anion Gap 12 5-15 Blood Urea Nitrogen 60 #H 9-23 mg/dL Creatinine 3.67 H 0.700-1.30 mg/dL Glomerular Filtration Rate Calc 17 >90 mL/min BUN/Creatinine Ratio 16.3 10.0-20.0 Serum Glucose 292 H 74-106 mg/dL Calcium Level 9.1 8.7-10.4 mg/dL Magnesium Level 2.4 1.6-2.6 mg/dL Troponin I High Sensitivity > 48961 *H </=54 ng/L B-Type Natriuretic Peptide 2214.26 0-100 pg/mL Test 04/17/24 23:49 04/17/24 22:40 04/17/24 10:03 04/17/24 04:54 Range/Units Urine Color Yellow Yellow Urine Clarity Turbid H Clear Urine pH 5.5 5.0-9.0 Urine Specific [place] 1.037 H 1.001-1.035 Urine Protein 2+ H Negative Urine Ketones Trace Negative Urine Blood 3+ H Negative /uL Urine Nitrite Negative Negative Urine Bilirubin Negative Negative Urine Urobilinogen Normal Negative mg/dL Urine Leukocyte Esterase Negative Negative /uL Urine RBC 138 0 - 3 /hpf Urine WBC 12 0 - 3 /hpf Urine Squamous Epithelial Cells Few <5 /hpf Urine Bacteria None seen None Seen /hpf Urine Yeast (Budding) Occasional None Seen /hpf Urine Osmolality 380 mOsm/kg Urine Creatinine 158.36 H 30.0-125.0 mg/dL Urine Sodium 34 L 40-220 mmol/L Urine Glucose 1+ H Normal mg/dL Urine Opiates Screen Neg NEGATIVE Urine Fentanyl Screen Neg NEGATIVE Urine Barbiturates Screen Neg NEGATIVE Urine Phencyclidine Screen Neg NEGATIVE Urine Amphetamines Screen Neg NEGATIVE Urine Benzodiazepines Screen Neg NEGATIVE Urine Cocaine Screen Neg NEGATIVE Urine Cannabinoids Screen Pos NEGATIVE Blood Gas EPAP 8 Blood Gas IPAP 16 D-Dimer, Quantitative 0.50 H 0.0-0.49 mg/L FEU Hemoglobin A1c 7.1 H <5.7 % A1C Total Bilirubin 0.5 0.2-1.0 mg/dL Aspartate Amino Transferase (AST) 35 13-40 U/L Alanine Aminotransferase (ALT) 21 7-40 U/L Alkaline Phosphatase 89 46-116 U/L Total Protein 7.2 5.7-8.2 g/dL Albumin 4.4 3.2-4.8 g/dL Triglycerides Level 141 < 150 mg/dL Cholesterol Level 124 < 200 mg/dL LDL Cholesterol 72 < 100 mg/dL HDL Cholesterol 32 L 40-59 mg/dL Thyroid Stimulating Hormone (TSH) 2.11 0.55-4.78 uIU/mL Test 04/17/24 01:00 04/16/24 03:45 Range/Units Blood Gas Liter Flow 3.00 Influenza Type A Antigen Negative Negative Influenza Type B Antigen Negative Negative SARS-CoV-2 Antigen (Rapid) Negative NEGATIVE Microbiology Date/Time Source Procedure Growth Status 04/18/24 01:00 Nose MRSA Screen - Final Complete 04/17/24 13:00 Blood Blood Culture - Preliminary NO GROWTH AFTER 24 HOURS OF INCUBATION. Resulted Assessment Impression: Acute hypoxic respiratory failure On mechanical ventilator Non-ST elevation myocardial infarction Elevated troponin Acute kidney injury DM type II w/ hyperglycemia Nicotine dependence Marijuana abuse Pleural effusion Atelectasis Plan: s/p intubation on mechanical ventilator. CXR image and report reviewed. Devices in place. Moderate patchy bilateral opacities. Increased alveolar opacities. Possible small bilateral pleural effusions. No pneumothorax. ABG reviewed, notable for acidemia. On AC mode; RR 24, VT 550, PEEP 6, FiO2 40%. Titrate FIO2 to keep O2 saturation above 90%. VAP bundle. Daily ABG and CXR while intubated Sedate for ventilator synchrony - on Fentanyl, Propofol. Elevated troponin - 25,000. Continue bronchodilators. Possible BOOP - start stress dose steroids Continue antibiotics. F/u cultures. Leukocytosis - monitor WBC. On pressors (Levophed) for hemodynamic support Titrate to keep mean arterial pressure greater than 65 mmHg. Monitor renal function - elevated creatinine Monitor electrolytes. Supplement as necessary. Monitor ins and outs. Maintain euvolemia. GI prophylaxis. DVT prophylaxis. Prognosis: Poor given patient's multiple co-morbidities. Condition: Critical Rest of plan per hospitalist and other consultants. A total of 35 minutes of critical care time was spent reviewing the patient record, examining the patient, making a diagnostic and therapeutic plan, discussing this plan with the medical personnel, following up on diagnostic studies and following the patient for clinical stability excluding any and all procedures. At least 50% of this time was spent in direct, [id number] contact. Thank you Dr. Korina Thakkar MD, for allowing me to participate in this patient's care. Further recommendations will depend on the patient's clinical course. Please do not hesitate to contact me if you have any questions or concerns. This medical document was created using an electronic medical record system with [employer] dictation system. Although these documentations are being carefully reviewed, there may still be some phonetic and typographical changes. The errors are purely typographical, due to imperfection on the software [employer], and do not reflect any compromise in the patient's medical care. Plan discussed with: Patient, Spouse, Daughter, Other (EL Barton/MD Thakkar) NING GORE MD Apr 18, 2024 22:13
[2024-04-18] MEDS: NOREPINEPHRINE BITARTRATE 32 MG in SODIUM CHL 0.9% 218 ML IV SCH (22:35)
[2024-04-19] VITALS (104 sets, daily range): BP systolic 81–143; BP diastolic 42–71; PULSE 58–89; RESP 21–26; TEMP 97.9–98.3; O2SAT 93–100
[2024-04-19 00:36] LABS: Basophils # (auto) 0 10 ^3/uL (0-0.2); Eosinophils # (auto) 0 10 ^3/uL (0-0.8); Lymphocytes # (auto) 0.4 10 ^3/uL (0.4-5.4); Neutrophils % (auto) 94.3 % (37.0-80.0)
[2024-04-19 00:38] LABS: Basophils % (auto) 0.2 % (0.0-2.0); Hematocrit 25.5 % (41.0-53.0); Hemoglobin 8.4 g/dL (13.5-17.5); Mean Corpuscular Volume 90.8 fL (80.0-100.0); Monocytes # (auto) 0.3 10 ^3/uL (0-1.3); Monocytes % (auto) 2.5 % (0.0-12.0); Neutrophils # (auto) 12.3 10 ^3/uL (1.6-8.6); Platelet Count (auto) 179 10^3/uL (140-450); Red Blood Cells 2.81 10^6/uL (4.5-5.90); Red Cell Distribution Width 15.1 % (11.8-14.3); White Blood Cell 13.1 10^3/uL (4.4-10.8)
[2024-04-19 00:56] LABS: Alanine Aminotransferase 33 U/L (7-40); Albumin 3.9 g/dL (3.2-4.8); Alkaline Phosphatase 76 U/L (46-116); Anion Gap 12 (5-15); BUN/Creatinine Ratio 13.6 (10.0-20.0); Bilirubin, Total 0.3 mg/dL (0.2-1.0); Chloride 107 mmol/L (98-107); Sodium 137 mmol/L (136-145); Total Protein 6.2 g/dL (5.7-8.2)
[2024-04-19 00:59] LABS: Aspartate Aminotransferase 115 U/L (13-40); Blood Urea Nitrogen 70 mg/dL (9-23); Calcium 8.4 mg/dL (8.7-10.4); Carbon Dioxide 18 mmol/L (20-31); Glucose 232 mg/dL (74-106); Potassium 5.3 mmol/L (3.5-5.1)
--- NOTE | 2024-04-19 06:10 | DVH ---
CHEST RADIOGRAPH Indication: intubated Technique: Single frontal view of the chest was obtained Comparison: XY CHEST PORTABLE on DOS: 04/18/24, XY CHEST XRAY 1 VIEW on DOS: 04/16/24, CHEST PORTABLE o n DOS: 04/21/19, XY CHEST PORTABLE on DOS: 04/18/24 FINDINGS: The cardiomediastinal silhouette is enlarged, similar to prior examination, with median sternotomy wi res. Endotracheal tube has been placed with tip at the level of the clavicles approximately 5 cm from the mark. Right IJ catheter tip in the region of the superior vena cava. Moderate bilateral patchy interstitial and alveolar airspace opacities have increased. Possible small bilateral pleural effusions. No pneumothorax. IMPRESSION: The cardiomediastinal silhouette is enlarged, similar to prior examination, with median sternotomy wi res. Endotracheal tube has been placed with tip at the level of the clavicles approximately 5 cm from the mark. Right IJ catheter tip in the region of the superior vena cava. Moderate bilateral patchy interstitial and alveolar airspace opacities have increased. Possible small bilateral pleural effusions. No pneumothorax.
[2024-04-19] MEDS: SODIUM ZIRCONIUM CYCL 10 GM PAK PO ONE (06:19)
[2024-04-19 06:43] LABS: Base Excess -12.8 mmol/L (-2.0-3.0)
[2024-04-19 07:43] LABS: INR 1.13 (0.9-1.15); Partial Thromboplastin Time 35.6 SEC (24.5-34.5); Prothrombin Time 11.9 sec (9.3-11.8)
[2024-04-19] MEDS: SODIUM BICARB 8.4% 50Meq/50ml SYR Vial IV ONE ×2 (10:28→11:07)
--- NOTE | 2024-04-19 10:55 | DVHPN2 ---
Consult Progress Note Subjective Other Systems: sedated and intubated Objective vital signs Vital Sign Date Time Temp Pulse Resp B/P (MAP) Pulse Ox O2 Delivery O2 Flow Rate FiO2 04/19/24 10:00 40 04/19/24 10:00 71 04/19/24 10:00 24 96 Mechanical Ventilator+ 04/19/24 10:00 101/50 (67) 04/19/24 08:00 98.3 98.3 04/18/24 08:00 40 Total Intake and Output 04/18/24 04/18/24 04/19/24 15:00 23:00 07:00 Intake Total 997.194 ml 633.994 ml 425.073 ml Output Total 40 ml 40 ml Balance 997.194 ml 593.994 ml 385.073 ml medications Current Medications Medications Dose Ordered Sig/Lulu Route Start Time Stop Time Status Last Admin Dose Admin Acetaminophen 650 mg Q6HP PRN PO 04/16/24 23:45 Morphine Sulfate 2 mg Q4HPRN PRN IV 04/16/24 23:45 04/17/24 12:14 2 MG Nitroglycerin 0.4 mg Q5MINP PRN SL 04/16/24 23:45 Morphine Sulfate 2 mg Q30M PRN IV 04/16/24 23:45 Atorvastatin Calcium 80 mg HS PO 04/17/24 22:00 04/18/24 22:22 80 MG Azithromycin 250 ml @ 125 mls/hr DAILY IV 04/18/24 10:00 04/19/24 08:26 125 MLS/HR Ceftriaxone Sodium 50 ml @ 100 mls/hr DAILY@09 IV 04/18/24 09:00 04/19/24 08:26 100 MLS/HR Tamsulosin HCl 0.4 mg QPM PO 04/17/24 18:00 04/18/24 16:57 0.4 MG Carvedilol 3.125 mg Q12HR PO 04/17/24 22:00 04/19/24 08:27 3.125 MG Clopidogrel Bisulfate 75 mg DAILY PO 04/18/24 10:00 04/19/24 08:27 75 MG Labetalol HCl 10 mg Q2HPRN PRN IV 04/17/24 18:30 Albuterol 2.5 mg Q6HPRN PRN NEB 04/17/24 18:30 Levalbuterol HCl 1.25 mg Q6HR NEB 04/18/24 00:00 04/19/24 06:00 1.25 MG Diagnostic Test (Pha) 1 strip ACHS 04/17/24 22:00 04/19/24 05:57 1 STRIP Insulin Human Regular ACHS SC 04/17/24 22:00 04/19/24 06:01 8 UNITS Dextrose 50 ml UD PRN IV 04/17/24 18:30 Furosemide 100 mg/ Sodium Chloride 110 ml @ 11 mls/hr Q10H IV 04/18/24 00:15 Propofol 100 ml @ 2.568 mls/ hr Q24H IV 04/18/24 00:45 04/19/24 04:09 12.84 MLS/HR Fentanyl Citrate 250 ml @ 2.5 mls/hr Q24H IV 04/18/24 00:45 04/19/24 03:59 12.5 MLS/HR Methylprednisolone Sodium Succinate 125 mg Q8HR IV 04/18/24 14:00 04/20/24 06:01 04/19/24 05:56 125 MG Phenylephrine HCl 250 ml @ 30 mls/hr Q8H20M IV 04/18/24 11:45 Vasopressin 20 units/Sodium Chloride 100 ml @ 9 mls/hr Q11H7M IV 04/18/24 11:45 04/19/24 08:12 9 MLS/HR Norepinephrine Bitartrate 32 mg/ Sodium Chloride 250 ml @ 0.938 mls/ hr Q24H IV 04/18/24 11:45 04/18/24 22:35 6.563 MLS/HR Heparin Sodium/ Dextrose 250 ml @ 11 mls/hr [id number] IV 04/18/24 23:30 04/19/24 08:16 11 MLS/HR Examination: LUNGS:Abnormal (intubated), NEURO:Abnormal (sedated) laboratory and microbiology Laboratory Tests 04/19/24 00:17 Test 04/19/24 00:17 Range/Units Serum Glucose 232 H 74-106 mg/dL Problem List/Assessment/Plan Problem List/Assessment/Plan Assessment Non ST elevation myocardial infarction Acute on chronic decompensated HFrEF, NYHA Class IV, newly diagnosed RLL segmental pulmonary embolism with no evidence of right-heart strain Severe coronary artery disease status post triple-vessel CABG, 2018 Rule out progressive coronary artery disease Bilateral pleural effusions, small Lower extremity DVT ruled out Severe PVD status post left SFA ELLIOT x 1 Hypertension Dyslipidemia Hbv-wmpsxhp-pcesreous diabetes mellitus Acute kidney injury Tobacco use Plan/Recommendation We will continue the following plan/recommendations (Dr. Huitron): * Echocardiogram revealed EF 25% * There is anterior anteroseptal anteroapical inferolateral wall severe hypokinesia. Normal right ventricular size and dimension. Normal right ventricular systolic function. Moderately elevated right ventricular systolic pressure 49 mm of mercury. Moderately dilated right and left atria. Aortic valve is thickened and sclerotic. No significant stenosis but mild regurgitation was noted. Mitral valve is thickened there is [id number] mitral valve regurgitation. There is mild tricuspid valve regurgitation. The pulmonary valve is grossly normal. No pericardial effusion. * Continue heparin drip per pharmacy protocol * Preload and afterload reduction. Lasix drip never started, Diuresis per nephrology. * Strict I&Os. Daily weight. Maintain fluid restrictions * GDMT for CHF as tolerated. BB for now given ANDREA * Single-antiplatelet therapy (Plavix) and lipid-lowering agent * Pulmonology and Nephrology consultations * Serial troponin and BNP levels The patient with a newly diagnosed cardiomyopathy including a severely diminished LV function compared to previous transthoracic echocardiogram revealing LVEF of 65% on 2022 may qualify for a cardiac catheterization once clinically stable and with optimal renal function. He does not qualify for a pulmonary thrombectomy at this time. Most of his clinical presentation is secondary to an acute CHF exacerbation. Appreciate nephrology input for diuresis. Patient continues to be on Levophed for blood pressure support. [place]rop[place] [id number] not a candidate for ischemic workup at this time. Continue supportive care. Repeat EKG negative for acute ST abnormality or changes. Condition remains critical We will continue to monitor closely. Thank you for allowing us to participate in this patient's care. Please call if you have any questions or concerns. Critical care time: 45 min. This medical document was created using an electronic medical record system with voice recognition software and computerized dictation system. Although this document has been carefully reviewed, there might still be some phonetic and typographical errors. Occasional wrong-word or ``sound-alike substitutions may have occurred due to the inherent limitations of voice recognition software. These areas are purely typographical due to imperfections of the software programs and do not reflect any compromise in the patient's medical care. Please read the chart carefully and recognize, using context, where these substitutions have occurred. Plan discussed with: Patient, Other (Bedside RN sruthi) Date of Service: Apr 19, 2024 Billing Provider: PAVEL HUITRON MD Common Visit Codes: [id number] INP/OBS CARE(HIGH), [id number] CARE 30-[address] [facility] Apr 19, 2024 10:55
--- NOTE | 2024-04-19 14:18 | MEDREC ---
[facility] Intervention Section I FOR[facility] Intervention: Review courses of therapy (DUE TO PROLONG (QTc > 500) PLEASE CONSIDER SWITCHING AZITHROMYCIN TO DOXYCYLINE)) BEKAH WERNER PHARMACIST Apr 19, 2024 14:18
[2024-04-19 15:41] LABS: INR 1.11 (0.9-1.15); Partial Thromboplastin Time 69.2 SEC (24.5-34.5); Prothrombin Time 11.7 sec (9.3-11.8)
--- NOTE | 2024-04-19 16:51 | DVHPN2 ---
Progress Note - Dictate Date Seen: Apr 19, 2024 Medical Necessity Reason Pt with a Central, PICC or Fol: Yes The following are medically ne: Mack Catheter Reason for mack catheter: Strict I&O Subjective Patient's sister at bedside who traveled from [place]. Urine volumes for patient remained oliguric vital signs Vital Sign Date Time Temp Pulse Resp B/P (MAP) Pulse Ox O2 Delivery O2 Flow Rate FiO2 04/19/24 16:15 106/55 04/19/24 16:00 40 04/19/24 16:00 24 96 Mechanical Ventilator+ 04/19/24 16:00 61 04/19/24 12:00 98.1 98.1 04/18/24 08:00 40 Total Intake and Output 04/18/24 04/18/24 04/19/24 15:00 23:00 07:00 Intake Total 997.194 ml 633.994 ml 425.073 ml Output Total 40 ml 40 ml Balance 997.194 ml 593.994 ml 385.073 ml medications Current Medications Medications Dose Ordered Sig/Lulu Route Start Time Stop Time Status Last Admin Dose Admin Acetaminophen 650 mg Q6HP PRN PO 04/16/24 23:45 Morphine Sulfate 2 mg Q4HPRN PRN IV 04/16/24 23:45 04/17/24 12:14 2 MG Nitroglycerin 0.4 mg Q5MINP PRN SL 04/16/24 23:45 Morphine Sulfate 2 mg Q30M PRN IV 04/16/24 23:45 Atorvastatin Calcium 80 mg HS PO 04/17/24 22:00 04/18/24 22:22 80 MG Azithromycin 250 ml @ 125 mls/hr DAILY IV 04/18/24 10:00 04/19/24 08:26 125 MLS/HR Ceftriaxone Sodium 50 ml @ 100 mls/hr DAILY@09 IV 04/18/24 09:00 04/19/24 08:26 100 MLS/HR Tamsulosin HCl 0.4 mg QPM PO 04/17/24 18:00 04/19/24 15:33 0.4 MG Carvedilol 3.125 mg Q12HR PO 04/17/24 22:00 Hold 04/19/24 08:27 3.125 MG Clopidogrel Bisulfate 75 mg DAILY PO 04/18/24 10:00 04/19/24 08:27 75 MG Labetalol HCl 10 mg Q2HPRN PRN IV 04/17/24 18:30 Albuterol 2.5 mg Q6HPRN PRN NEB 04/17/24 18:30 Levalbuterol HCl 1.25 mg Q6HR NEB 04/18/24 00:00 04/19/24 11:56 1.25 MG Diagnostic Test (Pha) 1 strip ACHS 04/17/24 22:00 04/19/24 15:33 1 STRIP Insulin Human Regular ACHS SC 04/17/24 22:00 04/19/24 15:42 8 UNITS Dextrose 50 ml UD PRN IV 04/17/24 18:30 Furosemide 100 mg/ Sodium Chloride 110 ml @ 11 mls/hr Q10H IV 04/18/24 00:15 Propofol 100 ml @ 2.568 mls/ hr Q24H IV 04/18/24 00:45 04/19/24 11:01 10.272 MLS/HR Fentanyl Citrate 250 ml @ 2.5 mls/hr Q24H IV 04/18/24 00:45 04/19/24 03:59 12.5 MLS/HR Methylprednisolone Sodium Succinate 125 mg Q8HR IV 04/18/24 14:00 04/20/24 06:01 04/19/24 12:27 125 MG Phenylephrine HCl 250 ml @ 30 mls/hr Q8H20M IV 04/18/24 11:45 Vasopressin 20 units/Sodium Chloride 100 ml @ 9 mls/hr Q11H7M IV 04/18/24 11:45 04/19/24 16:15 9 MLS/HR Norepinephrine Bitartrate 32 mg/ Sodium Chloride 250 ml @ 0.938 mls/ hr Q24H IV 04/18/24 11:45 04/18/24 22:35 6.563 MLS/HR Heparin Sodium/ Dextrose 250 ml @ 11 mls/hr [id number] IV 04/18/24 23:30 04/19/24 08:16 11 MLS/HR objective gen: Intubated and sedated lungs: occasional rhonchi cvs: no rub ext: + edema laboratory and microbiology Laboratory Tests 04/19/24 00:17 Test 04/19/24 00:17 Range/Units Serum Glucose 232 H 74-106 mg/dL Assessment/Plan IMP: 1) Hemodynamically mediated ANDREA/ Ischemic ATN + contrast nephropathy - worsening 2) CKD IIIb 3) Acute PE 4) Acute hypoxemic resp failure 5) elevated troponin 6) Hx of CAD REC: - dialysis 04/20 for solute removal - discussed with patient's family was at bedside. Plan discussed with: Other KAROLINA THAPA MD Apr 19, 2024 16:51
[2024-04-19 18:51] LABS: Base Excess -6.5 mmol/L (-2.0-3.0)
[2024-04-19 19:34] LABS: INR 1.08 (0.9-1.15); Partial Thromboplastin Time 69.2 SEC (24.5-34.5); Prothrombin Time 11.4 sec (9.3-11.8)
--- NOTE | 2024-04-19 20:01 | DVHPN2 ---
Progress Note - Dictate Date Seen: Apr 19, 2024 Medical Necessity Reason Pt with a Central, PICC or Fol: Yes The following are medically ne: Mack Catheter Reason for mack catheter: Strict I&O Subjective Patient seen and examined at bedside. Sedated, intubated on mechanical ventilator. Overnight events reviewed. vital signs Vital Sign Date Time Temp Pulse Resp B/P (MAP) Pulse Ox O2 Delivery O2 Flow Rate FiO2 04/19/24 18:45 70 24 112/64 (80) 96 04/19/24 18:30 40 04/19/24 18:00 Mechanical Ventilator+ 04/19/24 16:00 97.9 97.9 04/18/24 08:00 40 Total Intake and Output 04/18/24 04/18/24 04/19/24 15:00 23:00 07:00 Intake Total 997.194 ml 633.994 ml 425.073 ml Output Total 40 ml 40 ml Balance 997.194 ml 593.994 ml 385.073 ml medications Current Medications Medications Dose Ordered Sig/Lulu Route Start Time Stop Time Status Last Admin Dose Admin Acetaminophen 650 mg Q6HP PRN PO 04/16/24 23:45 Morphine Sulfate 2 mg Q4HPRN PRN IV 04/16/24 23:45 04/17/24 12:14 2 MG Nitroglycerin 0.4 mg Q5MINP PRN SL 04/16/24 23:45 Morphine Sulfate 2 mg Q30M PRN IV 04/16/24 23:45 Atorvastatin Calcium 80 mg HS PO 04/17/24 22:00 04/18/24 22:22 80 MG Azithromycin 250 ml @ 125 mls/hr DAILY IV 04/18/24 10:00 04/19/24 08:26 125 MLS/HR Ceftriaxone Sodium 50 ml @ 100 mls/hr DAILY@09 IV 04/18/24 09:00 04/19/24 08:26 100 MLS/HR Tamsulosin HCl 0.4 mg QPM PO 04/17/24 18:00 04/19/24 15:33 0.4 MG Carvedilol 3.125 mg Q12HR PO 04/17/24 22:00 Hold 04/19/24 08:27 3.125 MG Clopidogrel Bisulfate 75 mg DAILY PO 04/18/24 10:00 04/19/24 08:27 75 MG Labetalol HCl 10 mg Q2HPRN PRN IV 04/17/24 18:30 Albuterol 2.5 mg Q6HPRN PRN NEB 04/17/24 18:30 Levalbuterol HCl 1.25 mg Q6HR NEB 04/18/24 00:00 04/19/24 18:52 1.25 MG Diagnostic Test (Pha) 1 strip ACHS 04/17/24 22:00 04/19/24 15:33 1 STRIP Insulin Human Regular ACHS SC 04/17/24 22:00 04/19/24 15:42 8 UNITS Dextrose 50 ml UD PRN IV 04/17/24 18:30 Furosemide 100 mg/ Sodium Chloride 110 ml @ 11 mls/hr Q10H IV 04/18/24 00:15 Propofol 100 ml @ 2.568 mls/ hr Q24H IV 04/18/24 00:45 04/19/24 18:52 10.272 MLS/HR Fentanyl Citrate 250 ml @ 2.5 mls/hr Q24H IV 04/18/24 00:45 04/19/24 18:55 12.5 MLS/HR Methylprednisolone Sodium Succinate 125 mg Q8HR IV 04/18/24 14:00 04/20/24 06:01 04/19/24 12:27 125 MG Phenylephrine HCl 250 ml @ 30 mls/hr Q8H20M IV 04/18/24 11:45 Vasopressin 20 units/Sodium Chloride 100 ml @ 9 mls/hr Q11H7M IV 04/18/24 11:45 04/19/24 16:15 9 MLS/HR Norepinephrine Bitartrate 32 mg/ Sodium Chloride 250 ml @ 0.938 mls/ hr Q24H IV 04/18/24 11:45 04/18/24 22:35 6.563 MLS/HR Heparin Sodium/ Dextrose 250 ml @ 11 mls/hr [id number] IV 04/18/24 23:30 04/19/24 08:16 11 MLS/HR objective Gen.: Patient lying in bed in medical ICU. Sedated, intubated on mechanical ventilator. Head: Normocephalic, atraumatic. Eyes: PERRLA. Ears: Normal external anatomy. Throat: Endotracheal tube and orogastric tube in place. Neck: Supple, trachea midline. Chest: Transmitted breath sounds bilaterally. Decreased air entry bilaterally. No wheezing. Bibasilar crackles. Cardiovascular: Positive S1, positive S2. Regular rate and rhythm. Abdomen: Positive bowel sounds in all 4 quadrants. Soft, nontender, nondistended. : Mack in place. Normal external genitalia. Rectal: Deferred. Skin: Warm, dry. Intact. Extremities: 2+ radial pulses bilaterally. No lower extremity edema. Neuro: Sedated. laboratory and microbiology Laboratory Tests 04/19/24 00:17 Test 04/19/24 00:17 Range/Units Serum Glucose 232 H 74-106 mg/dL Assessment/Plan Impression: Acute hypoxic respiratory failure On mechanical ventilator Non-ST elevation myocardial infarction Elevated troponin Acute kidney injury DM type II w/ hyperglycemia Nicotine dependence Marijuana abuse Events: Remains on vent support On AC mode; RR 24, VT 550, PEEP 6, FiO2 40%. ABG reviewed, notable for acidemia d/t metabolic acidosis S/p 2 amps bicarb. Sedated on Fentanyl, Propofol. On multiple pressors for hemodynamic support On Levophed 14 mcg/min, vasopressin 0.03 units/hr. Titrate to keep mean arterial pressure greater than 65 mmHg. Hyperkalemia - hyperkalemia cocktail given. CXR demonstrates devices in place. Moderate bilateral patchy interstitial opacities, increased. Possible bilateral small pleural effusions. Continue abx Continue IV steroids Blood cultures show no growth x48 hours. Elevated creatinine Monitor renal function. Monitor electrolytes. Supplement as necessary. F/u Nephrology recommendations Hemoglobin of 8.4 g/dL, trending down. Monitor hemoglobin Transfuse if less than 7.0 g/dL. WBC of 13.1 K. Labs and imaging reviewed. Rest of plan as noted below. Plan: s/p intubation on mechanical ventilator. On AC mode; RR 24, VT 550, PEEP 6, FiO2 40%. Titrate FIO2 to keep O2 saturation above 90%. VAP bundle. Daily ABG and CXR while intubated Sedate for ventilator synchrony - on Fentanyl, Propofol. Elevated troponin - 25,000. Continue bronchodilators. Possible BOOP - start stress dose steroids Continue antibiotics. F/u cultures. Leukocytosis - monitor WBC. On multiple pressors for hemodynamic support Titrate to keep mean arterial pressure greater than 65 mmHg. Monitor renal function - elevated creatinine Monitor electrolytes. Supplement as necessary. Monitor ins and outs. Maintain euvolemia. GI prophylaxis. DVT prophylaxis. Prognosis: Poor given patient's multiple co-morbidities. Condition: Critical Rest of plan per hospitalist and other consultants. A total of 35 minutes of critical care time was spent reviewing the patient record, examining the patient, making a diagnostic and therapeutic plan, discussing this plan with the medical personnel, following up on diagnostic studies and following the patient for clinical stability excluding any and all procedures. At least 50% of this time was spent in direct, [id number] contact. Thank you Dr. Korina Thakkar MD, for allowing me to participate in this patient's care. Further recommendations will depend on the patient's clinical course. Please do not hesitate to contact me if you have any questions or concerns. This medical document was created using an electronic medical record system with [employer] dictation system. Although these documentations are being carefully reviewed, there may still be some phonetic and typographical changes. The errors are purely typographical, due to imperfection on the software program, and do not reflect any compromise in the patient's medical care. Plan discussed with: Other (EL Barton) Critical Care Time(min): 35 NING GORE MD Apr 19, 2024 20:01
--- NOTE | 2024-04-19 20:59 | DVHPN2 ---
Subjective in bed intubated and sedated multiple pressors Changes from previous H/P or p: No Changes Objective Vitals Vital Signs Date Time Temp Pulse Resp B/P (MAP) Pulse Ox O2 Delivery O2 Flow Rate FiO2 04/19/24 18:45 70 24 112/64 (80) 96 04/19/24 18:30 40 04/19/24 18:00 Mechanical Ventilator+ 04/19/24 16:00 97.9 97.9 04/18/24 08:00 40 Intake/Output Intake and Output 04/19/24 05:00 Intake Total 2026.419 ml Output Total 90 ml Balance 1936.419 ml Intake Oral 30 ml IV Total 1996.419 ml Output Urine Total 90 ml Medications Current Medications Medications Dose Ordered Sig/Lulu Route Start Time Stop Time Status Last Admin Dose Admin Acetaminophen 650 mg Q6HP PRN PO 04/16/24 23:45 Morphine Sulfate 2 mg Q4HPRN PRN IV 04/16/24 23:45 04/17/24 12:14 2 MG Nitroglycerin 0.4 mg Q5MINP PRN SL 04/16/24 23:45 Morphine Sulfate 2 mg Q30M PRN IV 04/16/24 23:45 Atorvastatin Calcium 80 mg HS PO 04/17/24 22:00 04/18/24 22:22 80 MG Azithromycin 250 ml @ 125 mls/hr DAILY IV 04/18/24 10:00 04/19/24 08:26 125 MLS/HR Ceftriaxone Sodium 50 ml @ 100 mls/hr DAILY@09 IV 04/18/24 09:00 04/19/24 08:26 100 MLS/HR Tamsulosin HCl 0.4 mg QPM PO 04/17/24 18:00 04/19/24 15:33 0.4 MG Carvedilol 3.125 mg Q12HR PO 04/17/24 22:00 Hold 04/19/24 08:27 3.125 MG Clopidogrel Bisulfate 75 mg DAILY PO 04/18/24 10:00 04/19/24 08:27 75 MG Labetalol HCl 10 mg Q2HPRN PRN IV 04/17/24 18:30 Albuterol 2.5 mg Q6HPRN PRN NEB 04/17/24 18:30 Levalbuterol HCl 1.25 mg Q6HR NEB 04/18/24 00:00 04/19/24 18:52 1.25 MG Diagnostic Test (Pha) 1 strip ACHS 04/17/24 22:00 04/19/24 15:33 1 STRIP Insulin Human Regular ACHS SC 04/17/24 22:00 04/19/24 15:42 8 UNITS Dextrose 50 ml UD PRN IV 04/17/24 18:30 Furosemide 100 mg/ Sodium Chloride 110 ml @ 11 mls/hr Q10H IV 04/18/24 00:15 Propofol 100 ml @ 2.568 mls/ hr Q24H IV 04/18/24 00:45 04/19/24 18:52 10.272 MLS/HR Fentanyl Citrate 250 ml @ 2.5 mls/hr Q24H IV 04/18/24 00:45 04/19/24 18:55 12.5 MLS/HR Methylprednisolone Sodium Succinate 125 mg Q8HR IV 04/18/24 14:00 04/20/24 06:01 04/19/24 12:27 125 MG Phenylephrine HCl 250 ml @ 30 mls/hr Q8H20M IV 04/18/24 11:45 Vasopressin 20 units/Sodium Chloride 100 ml @ 9 mls/hr Q11H7M IV 04/18/24 11:45 04/19/24 16:15 9 MLS/HR Norepinephrine Bitartrate 32 mg/ Sodium Chloride 250 ml @ 0.938 mls/ hr Q24H IV 04/18/24 11:45 04/18/24 22:35 6.563 MLS/HR Heparin Sodium/ Dextrose 250 ml @ 11 mls/hr [id number] IV 04/18/24 23:30 04/19/24 08:16 11 MLS/HR Laboratory Results Laboratory Tests 04/19/24 00:17 Chemistry Test 04/19/24 00:17 Albumin 3.9 g/dL (3.2-4.8) Calcium Level 8.4 mg/dL (8.7-10.4) L Total Protein 6.2 g/dL (5.7-8.2) Coagulation Test 04/18/24 21:11 04/19/24 07:05 04/19/24 15:03 04/19/24 19:00 Prothrombin Time 11.7 sec (9.3-11.8) 11.9 sec (9.3-11.8) H 11.7 sec (9.3-11.8) 11.4 sec (9.3-11.8) Prothrombin Time INR 1.11 (0.9-1.15) 1.13 (0.9-1.15) 1.11 (0.9-1.15) 1.08 (0.9-1.15) Activated Partial Thromboplast Time 91.0 SEC (24.5-34.5) *H 35.6 SEC (24.5-34.5) H 69.2 SEC (24.5-34.5) H 69.2 SEC (24.5-34.5) H LFT Test 04/19/24 00:17 Alanine Aminotransferase (ALT) 33 U/L (7-40) Alkaline Phosphatase 76 U/L (46-116) Aspartate Amino Transferase (AST) 115 U/L (13-40) H Total Bilirubin 0.3 mg/dL (0.2-1.0) Urinalysis Test 04/17/24 23:49 Urine Color Yellow (Yellow) Urine Clarity Turbid (Clear) H Urine pH 5.5 (5.0-9.0) Urine Specific [place] 1.037 (1.001-1.035) Urine Protein 2+ (Negative) H Urine Ketones Trace (Negative) Urine Blood 3+ /uL (Negative) H Urine Nitrite Negative (Negative) Urine Bilirubin Negative (Negative) Urine Urobilinogen Normal mg/dL (Negative) Urine Leukocyte Esterase Negative /uL (Negative) Urine RBC 138 /hpf (0 - 3) Urine WBC 12 /hpf (0 - 3) Urine Squamous Epithelial Cells Few /hpf (<5) Urine Bacteria None seen /hpf (None Seen) Urine Yeast (Budding) Occasional /hpf (None Urine Osmolality 380 mOsm/kg Urine Creatinine 158.36 mg/dL (30.0-125.0) H Urine Sodium 34 mmol/L (40-220) L Urine Glucose 1+ mg/dL (Normal) H Blood Gas Results Test 04/19/24 06:32 04/19/24 18:37 Arterial Blood pH 7.247 (7.350-7.450) 7.389 (7.350-7.450) FiO2 % 40.0 40.0 Microbiology Microbiology Date/Time Source Procedure Growth Status 04/18/24 01:00 Nose MRSA Screen - Final Complete 04/17/24 13:00 Blood Blood Culture - Preliminary NO GROWTH AFTER 48 HOURS OF INCUBATION. Resulted 04/17/24 01:05 Sputum Gram Stain - Final Resulted 04/17/24 01:05 Sputum Respiratory Culture - Preliminary Resulted Assessment/Plan Assessment/Plan Non ST elevation myocardial infarction Acute on chronic decompensated HFrEF, NYHA Class IV, newly diagnosed RLL segmental pulmonary embolism with no evidence of right-heart strain Severe coronary artery disease status post triple-vessel CABG, 2018 Rule out progressive coronary artery disease Bilateral pleural effusions, small Lower extremity DVT ruled out Severe PVD status post left SFA ELLIOT x 1 Hypertension Dyslipidemia Pze-afuidwc-[id number] diabetes mellitus A1c 7.1 Acute kidney injury due to ATN Tobacco use Plan: Lasix IV Drip continue mechanical ventilation Hep drip Levophed and markell today, vasopressin if remains hypotensive Abx Critical care time 90 mins. Plan discussed with: Other (nurse) My Orders Orders - ADARSH GOMEZ MD Procedure Category Date Status Time Chest Portable XY 04/19/24 Resulted 04:00 Date of Service: Apr 19, 2024 Billing Provider: ADARSH GOMEZ MD Common Visit Codes: [id number] CARE 30-74 MIN ADARSH GOMEZ MD Apr 19, 2024 20:59
[2024-04-19 22:38] LABS: INR 1.08 (0.9-1.15); Prothrombin Time 11.4 sec (9.3-11.8)
[2024-04-19 22:45] LABS: Partial Thromboplastin Time 83.1 SEC (24.5-34.5)
[2024-04-20] VITALS (103 sets, daily range): BP systolic 81–142; BP diastolic 32–71; PULSE 53–168; RESP 21–26; TEMP 97.7–98.4; O2SAT 93–100
[2024-04-20 04:39] LABS: Basophils # (auto) 0 10 ^3/uL (0-0.2); Eosinophils # (auto) 0 10 ^3/uL (0-0.8); Hematocrit 24.9 % (41.0-53.0); Hemoglobin 8.5 g/dL (13.5-17.5); Lymphocytes # (auto) 0.3 10 ^3/uL (0.4-5.4); Lymphocytes % (auto) 2.7 % (10.0-50.0); Mean Corpuscular Hemoglobin 30.9 pg (28.0-32.0); Mean Corpuscular Hgb Conc. 34.2 g/dL (32.0-36.0); Mean Corpuscular Volume 90.4 fL (80.0-100.0); Monocytes # (auto) 0.6 10 ^3/uL (0-1.3); Monocytes % (auto) 5.1 % (0.0-12.0); Neutrophils # (auto) 11.4 10 ^3/uL (1.6-8.6); Neutrophils % (auto) 92.2 % (37.0-80.0); Nucleated Red Blood Cells % 0.2 %; Platelet Count (auto) 184 10^3/uL (140-450); Red Blood Cells 2.75 10^6/uL (4.5-5.90); Red Cell Distribution Width 14.8 % (11.8-14.3); White Blood Cell 12.3 10^3/uL (4.4-10.8)
[2024-04-20 05:06] LABS: Alanine Aminotransferase 40 U/L (7-40); Alkaline Phosphatase 84 U/L (46-116); Anion Gap 17 (5-15); BUN/Creatinine Ratio 16.8 (10.0-20.0); Bilirubin, Total 0.4 mg/dL (0.2-1.0); Chloride 102 mmol/L (98-107); Potassium 4.8 mmol/L (3.5-5.1); Sodium 137 mmol/L (136-145); Total Protein 6.2 g/dL (5.7-8.2)
[2024-04-20 05:12] LABS: Aspartate Aminotransferase 51 U/L (13-40); Blood Urea Nitrogen 95 mg/dL (9-23); Calcium 8.3 mg/dL (8.7-10.4); Carbon Dioxide 18 mmol/L (20-31); Glucose 354 mg/dL (74-106)
[2024-04-20 05:35] LABS: Albumin 3.7 g/dL (3.2-4.8)
[2024-04-20 05:59] LABS: INR 1.07 (0.9-1.15); Partial Thromboplastin Time 49.9 SEC (24.5-34.5); Prothrombin Time 11.3 sec (9.3-11.8)
[2024-04-20 07:52] LABS: Base Excess -7.1 mmol/L (-2.0-3.0)
[2024-04-20 09:42] LABS: Hepatitis B Surface Antigen Negative (Negative)
[2024-04-20 10:02] LABS: Hepatitis B Core IgM Negative (Negative)
[2024-04-20 10:03] LABS: Hepatitis A Ab IgM Negative; Hepatitis C Antibody Negative (Negative)
--- NOTE | 2024-04-20 10:16 | DVHPNRES ---
Progress Note Date Seen: Apr 20, 2024 Resident Creating Document: ANTONETTE NEWELL RESIDENT Medical Necessity Reason Pt with a Central, PICC or Fol: Yes The following are medically ne: Central Line, Mack Catheter Reason for mack catheter: Strict I&O Subjective Review of Systems Compliant for admission: 74-year-old male with past medical history of coronary artery disease status post CABG in 2019, diabetes mellitus, hypertension, chronic kidney disease, hyperlipidemia and tobacco and marijuana use, who presented to the emergency room via EMS with a chief complaint of shortness of breath for three days. Patient and at bedside reports progressive shortness of breath associated with PND, PADGETT, a nonproductive cough, and cardiac palpitations. Denies chest pain, dizziness, or syncopal events. He was found with an oxygen saturation level of 83% on room air for which he was placed on O2 via NC at 6 liters/minute and administered a breathing treatment en route to the hospital. Further emergency room workup revealed a right lower lobe segmental pulmonary embolism with no evidence of right heart strain for which the patient was initiated on a heparin drip per PE protocol. A 12 lead electrocardiogram revealed a sinus tachycardia rhythm with nonspecific inferolateral ST changes and suggestive of left ventricular hypertrophy. Troponin levels are trending up with latest >2,000 ng/L. Denies following up with a primary custodian supervisor in the outpatient setting. Significant medical history includes severe coronary artery disease with high-grade left main stenosis status post triple-vessel coronary artery bypass graft on 08/26/2017, peripheral vascular disease status post [employer] including one ELLIOT to the left SFA on 06/27/2018 and attempted aperture of the right SFA, hypertension, dyslipidemia, peripheral neuropathy, benign prostatic hyperplasia, chronic kidney disease, and current tobacco use. the patient underwent a cardiac catheterization and coronary angiogram without catheter based intervention given patent grafts on 10/25/2022. Patient was intubated on 04/18/2024, Patient is seen and examined at bedside,Sedated, intubated on mechanical ventilator. Overnight events reviewed Objective vital signs Vital Sign Date Time Temp Pulse Resp B/P (MAP) Pulse Ox O2 Delivery O2 Flow Rate FiO2 04/20/24 10:00 24 100 Mechanical Ventilator+ 40 40 04/20/24 10:00 65 118/67 (84) 04/20/24 08:00 97.7 97.7 04/18/24 08:00 40 Total Intake and Output 04/19/24 04/19/24 04/20/24 15:00 23:00 07:00 Intake Total 703.793 ml 571.567 ml 454.95 ml Output Total 60 ml 300 ml Balance 703.793 ml 511.567 ml 154.95 ml medications Current Medications Medications Dose Ordered Sig/Lulu Route Start Time Stop Time Status Last Admin Dose Admin Acetaminophen 650 mg Q6HP PRN PO 04/16/24 23:45 Morphine Sulfate 2 mg Q4HPRN PRN IV 04/16/24 23:45 04/17/24 12:14 2 MG Nitroglycerin 0.4 mg Q5MINP PRN SL 04/16/24 23:45 Morphine Sulfate 2 mg Q30M PRN IV 04/16/24 23:45 Atorvastatin Calcium 80 mg HS PO 04/17/24 22:00 04/19/24 23:05 80 MG Azithromycin 250 ml @ 125 mls/hr DAILY IV 04/18/24 10:00 04/19/24 08:26 125 MLS/HR Ceftriaxone Sodium 50 ml @ 100 mls/hr DAILY@09 IV 04/18/24 09:00 04/20/24 08:39 100 MLS/HR Tamsulosin HCl 0.4 mg QPM PO 04/17/24 18:00 04/19/24 15:33 0.4 MG Carvedilol 3.125 mg Q12HR PO 04/17/24 22:00 Hold 04/19/24 08:27 3.125 MG Clopidogrel Bisulfate 75 mg DAILY PO 04/18/24 10:00 04/20/24 08:45 75 MG Labetalol HCl 10 mg Q2HPRN PRN IV 04/17/24 18:30 Albuterol 2.5 mg Q6HPRN PRN NEB 04/17/24 18:30 Levalbuterol HCl 1.25 mg Q6HR NEB 04/18/24 00:00 04/20/24 06:13 1.25 MG Furosemide 100 mg/ Sodium Chloride 110 ml @ 11 mls/hr Q10H IV 04/18/24 00:15 Propofol 100 ml @ 2.568 mls/ hr Q24H IV 04/18/24 00:45 04/20/24 08:22 15.408 MLS/HR Fentanyl Citrate 250 ml @ 2.5 mls/hr Q24H IV 04/18/24 00:45 04/19/24 18:55 12.5 MLS/HR Phenylephrine HCl 250 ml @ 30 mls/hr Q8H20M IV 04/18/24 11:45 Vasopressin 20 units/Sodium Chloride 100 ml @ 9 mls/hr Q11H7M IV 04/18/24 11:45 04/19/24 16:15 9 MLS/HR Norepinephrine Bitartrate 32 mg/ Sodium Chloride 250 ml @ 0.938 mls/ hr Q24H IV 04/18/24 11:45 04/18/24 22:35 6.563 MLS/HR Heparin Sodium/ Dextrose 250 ml @ 11 mls/hr [id number] IV 04/18/24 23:30 04/19/24 08:16 11 MLS/HR Diagnostic Test (Pha) 1 strip Q6HR 04/20/24 00:00 04/20/24 05:22 1 STRIP Insulin Human Regular Q6HR SC 04/20/24 00:00 04/20/24 05:25 8 UNITS Dextrose 50 ml UD PRN IV 04/20/24 00:00 Examination Patient lying in bed, under sedoanalgesia due to mechanical ventilation General: RASS -3, afebrile, mucosae are moist Cardiovascular: Normal S1 and S2. No murmurs, gallops or rubs Respiratory: Mechanically assisted ventilation, equal bilateral airway entree. Clear lung sounds on auscultation,Bibasilar crackles. Abdomen: Soft, nontender, no organomegaly, normal bowel sounds MSK/skin: Mobilization of limbs cannot be evaluated. Skin is dry and warm Neurological: Orientation cannot be assessed. No apparent motor no sensitive deficits. Pupils are isocoric and reactive laboratory and microbiology Laboratory Tests 04/20/24 03:57 Test 04/20/24 03:57 Range/Units Serum Glucose 354 #H 74-106 mg/dL Microbiology Date/Time Source Procedure Growth Status 04/18/24 01:00 Nose MRSA Screen - Final Complete 04/17/24 13:00 Blood Blood Culture - Preliminary NO GROWTH AFTER 48 HOURS OF INCUBATION. Resulted 04/17/24 01:05 Sputum Gram Stain - Final Resulted 04/17/24 01:05 Sputum Respiratory Culture - Preliminary Resulted Problem List/Assessment/Plan Problem List/Assessment/Plan Neurology : - patient is sedated Cardiovascular : # Non ST elevation myocardial infarction # Acute on chronic decompensated HFrEF, NYHA Class IV, newly diagnosed # Echo on 04/18/2024 shows: Severely dilated left ventricle. Severely reduced left ventricular systolic function with estimated ejection fraction 25%. There is anterior anteroseptal anteroapical inferolateral wall severe hypokinesia. # Severe coronary artery disease status post triple-vessel CABG, 2018 # Lower extremity DVT ruled out # Severe PVD status post left SFA ELLIOT x 1 # Hypertension # Dyslipidemia - cardiology on board - discontinue Lipitor for now - discontinue Plavix for now - patient is on heparin drip Respiratory : # Septic shock due to pneumonia # Acute hypoxic respiratory failure secondary to possible pneumonia - patient is on mechanical ventilation with FiO2 30%, PEEP: 6, F 24, Vt 550 # Possible community-acquired pneumonia Gm +/- bacterial pneumonia - continue antibiotic, Rocephin and azithromycin # RLL segmental pulmonary embolism with no evidence of right-heart strain # Bilateral pleural effusions, small - continue heparin drip for pulmonary embolism Genitourinary : # ANDREA on CKD # Acute kidney injury due to ATN -nephrology on board Infectious Disease : # Septic shock due to pneumonia # possible community-acquired pneumonia gm+/- bacterial - patient is on pressor - continue IV antibiotics Endocrine : Gpc-chvqbzx-zklfulinn diabetes mellitus -HbA1c 7.1 - Continue ISS - monitor blood glucose Hematology : - leukocytosis due to septic shock - follow up morning labs Nutrition : Glucerna Lines: Endotracheal tube: 04/18/2024 Right IG central line: 04/18/2024 Mack catheter: 04/18/2024 Left IG Pipo catheter: 04/20/2024 Drips : Fentanyl 200 Versed 5 Propofol 0 NE 4 Vasopressin 0.03 Prophylaxis for PUD : Protonix 40 mg IV daily Prophylaxis for DVT: Patient is on heparin drip Critical Care time spent 81 minutes including patient care, chart review and updating family, excluding procedure. Full code Case discussed with Dr. Nash Plan discussed with: Spouse, Daughter, Other Date of Service: Apr 20, 2024 Billing Provider: ADRIA NASH MD Common Visit Codes: [id number] CARE 30-74 MIN, [id number] CARE-EACH +30MIN ANTONETTE NEWELL RESIDENT Apr 20, 2024 10:16 ADRIA NASH MD Apr 21, 2024 15:27
--- NOTE | 2024-04-20 11:23 | DVH ---
CHEST RADIOGRAPH Indication: DIALYSIS CATHETER INSERTION Technique: Single frontal view of the chest was obtained Comparison: XY CHEST PORTABLE on DOS: 04/19/24, XY CHEST PORTABLE on DOS: 04/18/24, XY CHEST XRAY 1 VIE W on DOS: 04/16/24, CHEST PORTABLE on DOS: 04/21/19 FINDINGS: Lines and Tubes: Interval placement of left internal jugular central venous catheter with tip project ing superior vena cava. Other lines and tubes unchanged. Lungs: Diffuse interstitial opacities. Pleura: Possible trace effusion. The right costophrenic angle field of view. No pneumothorax. Cardiomediastinal contours: Cardiomegaly. Bones: No acute osseous abnormality. IMPRESSION: Interval placement of left internal jugular central venous catheter with tip projecting superior vena cava. Other lines and tubes unchanged.
[2024-04-20 12:13] LABS: INR 1.03 (0.9-1.15); Partial Thromboplastin Time 50.1 SEC (24.5-34.5); Prothrombin Time 10.9 sec (9.3-11.8)
[2024-04-20] MEDS: SODIUM CHL 0.9% 1000 ML BAG XX ONE (13:20)
--- NOTE | 2024-04-20 14:38 | DVHPN2 ---
Progress Note Date Seen: Apr 20, 2024 Resident Creating Document: ELIEL MYERS RESIDENT Medical Necessity Reason Pt with a Central, PICC or Fol: Yes The following are medically ne: Central Line, Mack Catheter Reason for mack catheter: Strict I&O Subjective Review of Systems Patient seen and examined in ICU. Currently intubated. On heparin drip. Requiring wound vasopressors. Continuously worsening urine output, remained patient oliguric. Underwent Pipo dialysis catheter insertion and left IJ. Objective vital signs Vital Sign Date Time Temp Pulse Resp B/P (MAP) Pulse Ox O2 Delivery O2 Flow Rate FiO2 04/20/24 12:45 70 24 96/53 (67) 97 04/20/24 12:18 30 04/20/24 12:00 97.9 97.9 04/20/24 12:00 Mechanical Ventilator+ 04/18/24 08:00 40 Total Intake and Output 04/19/24 04/19/24 04/20/24 15:00 23:00 07:00 Intake Total 703.793 ml 571.567 ml 508.171 ml Output Total 60 ml 300 ml Balance 703.793 ml 511.567 ml 208.171 ml medications Current Medications Medications Dose Ordered Sig/Lulu Route Start Time Stop Time Status Last Admin Dose Admin Acetaminophen 650 mg Q6HP PRN PO 04/16/24 23:45 Morphine Sulfate 2 mg Q4HPRN PRN IV 04/16/24 23:45 04/17/24 12:14 2 MG Nitroglycerin 0.4 mg Q5MINP PRN SL 04/16/24 23:45 Morphine Sulfate 2 mg Q30M PRN IV 04/16/24 23:45 Atorvastatin Calcium 80 mg HS PO 04/17/24 22:00 04/19/24 23:05 80 MG Azithromycin 250 ml @ 125 mls/hr DAILY IV 04/18/24 10:00 04/20/24 10:30 125 MLS/HR Ceftriaxone Sodium 50 ml @ 100 mls/hr DAILY@09 IV 04/18/24 09:00 04/20/24 08:39 100 MLS/HR Tamsulosin HCl 0.4 mg QPM PO 04/17/24 18:00 04/19/24 15:33 0.4 MG Carvedilol 3.125 mg Q12HR PO 04/17/24 22:00 Hold 04/19/24 08:27 3.125 MG Clopidogrel Bisulfate 75 mg DAILY PO 04/18/24 10:00 04/20/24 08:45 75 MG Labetalol HCl 10 mg Q2HPRN PRN IV 04/17/24 18:30 Albuterol 2.5 mg Q6HPRN PRN NEB 04/17/24 18:30 Levalbuterol HCl 1.25 mg Q6HR NEB 04/18/24 00:00 04/20/24 12:18 1.25 MG Furosemide 100 mg/ Sodium Chloride 110 ml @ 11 mls/hr Q10H IV 04/18/24 00:15 Propofol 100 ml @ 2.568 mls/ hr Q24H IV 04/18/24 00:45 04/20/24 08:22 15.408 MLS/HR Fentanyl Citrate 250 ml @ 2.5 mls/hr Q24H IV 04/18/24 00:45 04/20/24 12:00 20 MLS/HR Phenylephrine HCl 250 ml @ 30 mls/hr Q8H20M IV 04/18/24 11:45 Vasopressin 20 units/Sodium Chloride 100 ml @ 9 mls/hr Q11H7M IV 04/18/24 11:45 04/19/24 16:15 9 MLS/HR Norepinephrine Bitartrate 32 mg/ Sodium Chloride 250 ml @ 0.938 mls/ hr Q24H IV 04/18/24 11:45 04/18/24 22:35 6.563 MLS/HR Heparin Sodium/ Dextrose 250 ml @ 11 mls/hr [id number] IV 04/18/24 23:30 04/19/24 08:16 11 MLS/HR Diagnostic Test (Pha) 1 strip Q6HR 04/20/24 00:00 04/20/24 11:56 1 STRIP Insulin Human Regular Q6HR SC 04/20/24 00:00 04/20/24 12:06 10 UNITS Dextrose 50 ml UD PRN IV 04/20/24 00:00 Examination General Appearance: Intubated and sedated. Head Exam: Normal inspection Neck Exam: Normal inspection. Non-tender. Normal alignment Pulmonary/Respiratory: Chest non-tender. Clear bilateral breath sounds Cardiovascular/Chest: Regular rate and rhythm. No murmurs. No JVD. Peripheral Pulses: 2+ Radial (R). 2+ Radial (L). 2+ Pedal (R). 2+ Pedal (L) Abdominal Exam: Normal bowel sounds. Soft. Nontender. No hepatospenomegaly. No masses Ankle Exam: Negative ankle edema Lower extremities: 1 + lower extremity edema laboratory and microbiology Laboratory Tests 04/20/24 03:57 Test 04/20/24 03:57 Range/Units Serum Glucose 354 #H 74-106 mg/dL Microbiology Date/Time Source Procedure Growth Status 04/18/24 01:00 Nose MRSA Screen - Final Complete 04/17/24 13:00 Blood Blood Culture - Preliminary NO GROWTH AFTER 72 HOURS OF INCUBATION. Resulted 04/17/24 01:05 Sputum Gram Stain - Final Resulted 04/17/24 01:05 Sputum Respiratory Culture - Preliminary Resulted Problem List/Assessment/Plan Problem List/Assessment/Plan ANDREA likely ischemic ATN in setting of shock CKD stage IIIB Acute PE Acute hypoxic respiratory failure NSTEMI History of coronary artery disease Plan/recommendation Dr Sabillon -Plan for hemodialysis to remove solute. Underwent Pipo dialysis catheter insertion. -currently on vasopressor, target map greater than 65. -Regular Monitoring: Ensure frequent monitoring of blood pressure, electrolyte levels, and fluid balance. -avoid nephrotoxic drugs or contrast -rest of the plan per primary care team; ICU Addendum Patient seen and examined, plan discussed with resident. Agree with above, we will follow closely Plan discussed with: Other (RN) ELIEL MYERS Apr 20, 2024 14:38 ANN-MARIE SABILLON MD Apr 20, 2024 21:38
[2024-04-20] MEDS ORDERED: DEXTROSE (50%) 50ML SYRG IV PRN ×2 (14:45)
[2024-04-20] MEDS: MIDAZOLAM DRIP 50 mg/50mL 50 ML IV SCH (15:23)
[2024-04-20] MEDS: PANTOPRAZOLE 40 MG/10 ML VIAL INJ IV ONE (15:38)
[2024-04-20] MEDS: ACCU-CHEK COMFORT CURVE STRIP VI SCH ×2 (15:38)
[2024-04-20] MEDS: InsuLIN REG 1unit/0.01ml Soln (100units/ml) SC SCH ×2 (15:53)
[2024-04-20] MEDS ORDERED: Glucerna 1.2 Cal 1Liter BOTTLE GT SCH (16:45)
[2024-04-20 20:20] LABS: INR 1.04 (0.9-1.15); Partial Thromboplastin Time 61.6 SEC (24.5-34.5)
[2024-04-20] MEDS: PIPERACILLIN-TAZOB 2.25GM 50 ML IV SCH (20:59)
[2024-04-20 23:18] LABS: INR 1.03 (0.9-1.15); Partial Thromboplastin Time 50.8 SEC (24.5-34.5); Prothrombin Time 10.9 sec (9.3-11.8)
[2024-04-21] VITALS (107 sets, daily range): BP systolic 92–119; BP diastolic 47–60; PULSE 51–69; RESP 24; TEMP 97.6–98.1; O2SAT 97–100
[2024-04-21 03:59] LABS: Basophils # (auto) 0 10 ^3/uL (0-0.2); Eosinophils # (auto) 0 10 ^3/uL (0-0.8); Lymphocytes # (auto) 0.3 10 ^3/uL (0.4-5.4); Monocytes # (auto) 0.6 10 ^3/uL (0-1.3)
[2024-04-21 04:01] LABS: Hematocrit 23.5 % (41.0-53.0); Lymphocytes % (auto) 3.5 % (10.0-50.0); Mean Corpuscular Hemoglobin 30.2 pg (28.0-32.0); Mean Corpuscular Hgb Conc. 34.1 g/dL (32.0-36.0); Mean Corpuscular Volume 88.5 fL (80.0-100.0); Monocytes % (auto) 5.9 % (0.0-12.0); Neutrophils # (auto) 8.9 10 ^3/uL (1.6-8.6); Neutrophils % (auto) 90.6 % (37.0-80.0); Nucleated Red Blood Cells % 0.9 %; Platelet Count (auto) 162 10^3/uL (140-450); Red Blood Cells 2.65 10^6/uL (4.5-5.90); Red Cell Distribution Width 14.4 % (11.8-14.3); White Blood Cell 9.8 10^3/uL (4.4-10.8)
[2024-04-21 04:10] LABS: INR 1.03 (0.9-1.15); Partial Thromboplastin Time 56.7 SEC (24.5-34.5); Prothrombin Time 10.9 sec (9.3-11.8)
[2024-04-21] MEDS: ALBUTEROL SULF 2.5 MG/0.5ML(0.5%) NEB SOLN NEB PRN (06:28)
--- NOTE | 2024-04-21 09:08 | DVH ---
CLINICAL INFORMATION: 74 years old, Male; INTUBATED. TECHNIQUE: Single AP portable chest radiograph was obtained. COMPARISON: XY CHEST XRAY 1 VIEW on DOS: 04/20/24, XY CHEST PORTABLE on DOS: 04/19/24, XY CHEST PORTABL E on DOS: 04/18/24 FINDINGS: Stable satisfactory positioning of the endotracheal tube, left internal jugular central venous cathet er, and right internal jugular central venous catheter. Bilateral airspace opacities are stable. No p neumothorax. No other significant interval change IMPRESSION: No significant interval change as detailed above.
[2024-04-21 09:19] LABS: Alanine Aminotransferase 31 U/L (7-40); Albumin 3.5 g/dL (3.2-4.8); Alkaline Phosphatase 79 U/L (46-116); Anion Gap 10 (5-15); Aspartate Aminotransferase 27 U/L (13-40); BUN/Creatinine Ratio 20.2 (10.0-20.0); Bilirubin, Total 0.5 mg/dL (0.2-1.0); Carbon Dioxide 24 mmol/L (20-31); Chloride 105 mmol/L (98-107); Potassium 4.2 mmol/L (3.5-5.1); Sodium 139 mmol/L (136-145); Total Protein 5.9 g/dL (5.7-8.2)
[2024-04-21 09:20] LABS: Blood Urea Nitrogen 78 mg/dL (9-23); Calcium 8.2 mg/dL (8.7-10.4); Glucose 167 mg/dL (74-106)
[2024-04-21] MEDS: PANTOPRAZOLE 40 MG/10 ML VIAL INJ IV SCH (09:35)
--- NOTE | 2024-04-21 10:01 | DVHPN2 ---
Consult Progress Note Date Seen: Apr 21, 2024 Subjective Other Systems: No overnight cardiac events reported Objective vital signs Vital Sign Date Time Temp Pulse Resp B/P (MAP) Pulse Ox O2 Delivery O2 Flow Rate FiO2 04/21/24 09:06 106/58 04/21/24 08:26 59 24 99 30 04/21/24 06:00 Mechanical Ventilator+ 04/20/24 20:00 98.4 98.4 Total Intake and Output 04/20/24 04/20/24 04/21/24 15:00 23:00 07:00 Intake Total 676.884 ml 323.639 ml 343.2 ml Output Total 300 ml 500 ml Balance 676.884 ml 23.639 ml -156.8 ml medications Current Medications Medications Dose Ordered Sig/Lulu Route Start Time Stop Time Status Last Admin Dose Admin Acetaminophen 650 mg Q6HP PRN PO 04/16/24 23:45 Nitroglycerin 0.4 mg Q5MINP PRN SL 04/16/24 23:45 Morphine Sulfate 2 mg Q30M PRN IV 04/16/24 23:45 Albuterol 2.5 mg Q6HPRN PRN NEB 04/17/24 18:30 04/21/24 06:28 2.5 MG Levalbuterol HCl 1.25 mg Q6HR NEB 04/18/24 00:00 04/21/24 06:28 1.25 MG Propofol 100 ml @ 2.568 mls/ hr Q24H IV 04/18/24 00:45 04/20/24 08:22 15.408 MLS/HR Fentanyl Citrate 250 ml @ 2.5 mls/hr Q24H IV 04/18/24 00:45 04/20/24 23:03 20 MLS/HR Phenylephrine HCl 250 ml @ 30 mls/hr Q8H20M IV 04/18/24 11:45 Norepinephrine Bitartrate 32 mg/ Sodium Chloride 250 ml @ 0.938 mls/ hr Q24H IV 04/18/24 11:45 04/20/24 16:11 2.813 MLS/HR Heparin Sodium/ Dextrose 250 ml @ 11 mls/hr [id number] IV 04/18/24 23:30 04/21/24 04:16 11 MLS/HR Diagnostic Test (Pha) 1 strip IQ4HR 04/20/24 16:00 04/21/24 08:00 1 STRIP Insulin Human Regular IQ4HR SC 04/20/24 16:00 04/21/24 08:56 3 UNITS Dextrose 50 ml UD PRN IV 04/20/24 14:45 Midazolam HCl 50 ml @ 1 mls/hr Q24H IV 04/20/24 14:45 04/21/24 09:06 3 MLS/HR Pantoprazole Sodium 40 mg DAILY IV 04/21/24 10:00 04/21/24 09:35 40 MG Piperacillin Sod/ Tazobactam Sod 50 ml @ 12.5 mls/hr Q12HR IV 04/20/24 22:00 04/21/24 09:35 12.5 MLS/HR Enteral Nutritional Formula 1,000 ml 30ML/HR GT 04/20/24 16:45 Cancel Enteral Nutritional Formula 1,000 ml 30ML/HR GT 04/21/24 08:45 Examination: GENERAL:Abnormal, LUNGS:Abnormal (Bilateral rales), CVS:Normal (A- fib, controlled rate), NEURO:Abnormal (Chemically sedated) laboratory and microbiology Laboratory Tests 04/21/24 08:35 04/21/24 03:30 Test 04/21/24 08:35 Range/Units Serum Glucose 167 #H 74-106 mg/dL Problem List/Assessment/Plan Problem List/Assessment/Plan Non ST elevation myocardial infarction Acute on chronic decompensated HFrEF, NYHA Class IV, newly diagnosed RLL segmental pulmonary embolism with no evidence of right-heart strain Severe coronary artery disease status post triple-vessel CABG, 2017 Rule out progressive coronary artery disease Bilateral pleural effusions, small Lower extremity DVT ruled out Severe PVD status post left SFA ELLIOT x 1 Hypertension Dyslipidemia Izk-scaqgxc-otlxrdwko diabetes mellitus Acute kidney injury Tobacco use Plan/Recommendation (Dr. Huitron) * Echocardiogram revealed EF 25% * There is anterior anteroseptal anteroapical inferolateral wall severe hypokinesia. Normal right ventricular size and dimension. Normal right ventricular systolic function. Moderately elevated right ventricular systolic pressure 49 mm of mercury. Moderately dilated right and left atria. Aortic valve is thickened and sclerotic. No significant stenosis but mild regurgitation was noted. Mitral valve is thickened there is huhe-jy-mmyygtyb mitral valve regurgitation. There is mild tricuspid valve regurgitation. The pulmonary valve is grossly normal. No pericardial effusion. * Vasopressors as needed for hemodynamic support * Continue heparin drip per pharmacy protocol. Monitor H&H closely. Obtain T&S and SOB * Preload and afterload reduction. HD per nephrology. * Strict I&Os. Daily weight. Maintain fluid restrictions * Initiate GDMT for CHF as tolerated when off vasopressors * Single-antiplatelet therapy (Plavix) and lipid-lowering agent * Pulmonology and Nephrology consultations The patient with a newly diagnosed cardiomyopathy including a severely diminished LV function compared to previous transthoracic echocardiogram revealing LVEF of 65% on 2022 may qualify for a cardiac catheterization once clinically stable and with optimal renal function. Troponin elevated greater [place] [address] not a candidate for ischemic workup at this time. Continue supportive care. Repeat EKG negative for acute ST abnormality or changes. Condition remains critical We will continue to monitor closely. Thank you for allowing us to participate in this patient's care. Please call if you have any questions or concerns. Critical care time: 30 min. This medical document was created using an electronic medical record system with voice recognition software and computerized dictation system. Although this document has been carefully reviewed, there might still be some phonetic and typographical errors. Occasional wrong-word or ``sound-alike substitutions may have occurred due to the inherent limitations of voice recognition software. These areas are purely typographical due to imperfections of the software programs and do not reflect any compromise in the patient's medical care. Please read the chart carefully and recognize, using context, where these substitutions have occurred. Plan discussed with: Other Date of Service: Apr 21, 2024 Billing Provider: PAVEL HUITRON MD Cardiology Common Codes: [id number] CARE 30-74 MIN GEN HENAO PULPER Apr 21, 2024 10:01
[2024-04-21 11:07] LABS: Base Excess -2.9 mmol/L (-2.0-3.0)
--- NOTE | 2024-04-21 12:21 | DVHNC2 ---
Central Line Insertion site: Left, Internal jugular Central line catheter type: Dialysis non-tunneled Number of lumens: 2 Notes ULTRASOUND-GUIDED LEFT INTERNAL JUGULAR CENTRAL VENOUS CANNULATION for Pipo (Large Bore) Catheter placement CPT Codes: 07769 (ultrasound guidance) 65130 (insertion of non-tunneled centrally inserted central venous catheter) 85480 (CXR interpretation) DATE: 04/20/2024 Time: 0930 am Time out: 0925 am. PHYSICIAN: Jose Rafael Viramontes Assisted: Dr Haywood PGY 2 Supervising physician: Dr Thakkar PREOPERATIVE DIAGNOSIS: Acute renal failure, requiring hemodialysis POSTOPERATIVE DIAGNOSIS: Acute renal failure, requiring hemodialysis PROCEDURE PERFORMED: Limited Ultrasound-guided LEFT internal jugular large-bore central line (Pipo) placement. ANESTHESIA: 2 mL of 1% lidocaine plain. ESTIMATED BLOOD LOSS: less than 5 mL. SPECIMENS: None. COMPLICATIONS: None. INDICATIONS FOR PROCEDURE: The patient is in need of large bore IV access for hemodialysis due to acute renal failure DESCRIPTION OF PROCEDURE IN DETAIL: The patient was lying in the Trendelenburg position with head turned 30 degrees away from the insertion site. The skin was thoroughly sponged with chlorhexidine and allowed to dry. All persons involved were shielded with hair nets, face masks and sterile gowns. With sterile-gloved hands the LEFT neck area was draped with the large disposable sterile field provided in the pre-manufactured kit. The skin and subcutaneous tissues superficial to the LEFT internal jugular vein were anesthetized with 2 mL of 1% lidocaine. The LEFT internal jugular vein was identified on ultrasound from the angle of the mandible down into the supraclavicular fossa using the linear ultrasound probe in the transverse orientation. The carotid artery was identified and avoided utilizing color-flow. The internal jugular vein was then placed in the center of the ultrasound field and compressed for patency. A movement artifact was identified as the needle was advanced through the skin and advanced toward the vessel. A real time hyperechoic signal revealed visualization of vascular needle entry into the lumen as blood was noted to flashback in the syringe. The needle was then held in place while the guide wire was advanced. The needle was then removed. Direct visualization of guide wire location within the vein was noted on ultrasound indicating proper placement and was documented in the electronic medical record chart. A skin dilator was advanced over the guidewire and removed. A larger bore skin dilator was advanced over the guidewire and removed. The double-lumen Pipo catheter was then advanced over the guide wire into proper position. The guide wire was removed and discarded. The ports were aspirated which showed good blood return and then carefully flushed with normal saline. Heparin 1.2 mL were placed into each port. The catheter was stabilized and sutured to the skin with 2-0 Prolene at 2 anchor points. A sterile bio-patch and dressing was placed over the catheter, including the insertion site. The patient tolerated the procedure well. A chest x-ray was ordered for position confirmation. I reviewed the image immediately after it was taken at bedside. Post-procedure chest x-ray demonstrates the Pipo catheter line in the superior vena and no evidence of any pneumothorax. An image print out of the guidewire within the lumen of the LEFT internal jugular vein accompanies the chart. Date of Service: Apr 20, 2024 Billing Provider: CLARA THAKKAR MD Common Visit Codes: PROCEDURE ONLY Procedure Codes: [id number] NON-TUNNEL CV CATH JOSE RAFAEL VIRAMONTES RESIDENT Apr 21, 2024 12:21 CLARA THAKKAR MD Apr 23, 2024 08:17
--- NOTE | 2024-04-21 12:25 | DVHPNRES ---
Progress Note Date Seen: Apr 21, 2024 Resident Creating Document: ANTONETTE NEWELL RESIDENT Medical Necessity Reason Pt with a Central, PICC or Fol: Yes The following are medically ne: Central Line, Mack Catheter Reason for mack catheter: Strict I&O Subjective Review of Systems Chief Compliant for admission: 74-year-old male with past medical history of coronary artery disease status post CABG in 2019, diabetes mellitus, hypertension, chronic kidney disease, hyperlipidemia and tobacco and marijuana use, who presented to the emergency room via EMS with a chief complaint of shortness of breath for three days. Patient and at bedside reports progressive shortness of breath associated with PND, PADGETT, a nonproductive cough, and cardiac palpitations. Denies chest pain, dizziness, or syncopal events. He was found with an oxygen saturation level of 83% on room air for which he was placed on O2 via NC at 6 liters/minute and administered a breathing treatment en route to the hospital. Further emergency room workup revealed a right lower lobe segmental pulmonary embolism with no evidence of right heart strain for which the patient was initiated on a heparin drip per PE protocol. A 12 lead electrocardiogram revealed a sinus tachycardia rhythm with nonspecific inferolateral ST changes and suggestive of left ventricular hypertrophy. Troponin levels are trending up with latest >2,000 ng/L. Denies following up with a primary crop farmers in the outpatient setting. Significant medical history includes severe coronary artery disease with high-grade left main stenosis status post triple-vessel coronary artery bypass graft on 08/26/2017, peripheral vascular disease status post LINING SCRUBBER including one ELLIOT to the left SFA on 06/27/2018 and attempted aperture of the right SFA, hypertension, dyslipidemia, peripheral neuropathy, benign prostatic hyperplasia, chronic kidney disease, and current tobacco use. the patient underwent a cardiac catheterization and coronary angiogram without catheter based intervention given patent grafts on 10/25/2022. Patient was intubated on 04/18/2024, Patient is seen and examined at bedside,Sedated, intubated on mechanical ventilator. Overnight events reviewed. Dialysis tomorrow for solute clearance Urine output slowly getting better. Objective vital signs Vital Sign Date Time Temp Pulse Resp B/P (MAP) Pulse Ox O2 Delivery O2 Flow Rate FiO2 04/21/24 10:15 57 24 101/55 (70) 100 04/21/24 10:13 30 04/21/24 10:00 Mechanical Ventilator+ 04/21/24 08:00 97.6 97.6 Total Intake and Output 04/20/24 04/20/24 04/21/24 15:00 23:00 07:00 Intake Total 676.884 ml 323.639 ml 363.7 ml Output Total 300 ml 500 ml Balance 676.884 ml 23.639 ml -136.3 ml medications Current Medications Medications Dose Ordered Sig/Lulu Route Start Time Stop Time Status Last Admin Dose Admin Acetaminophen 650 mg Q6HP PRN PO 04/16/24 23:45 Nitroglycerin 0.4 mg Q5MINP PRN SL 04/16/24 23:45 Morphine Sulfate 2 mg Q30M PRN IV 04/16/24 23:45 Albuterol 2.5 mg Q6HPRN PRN NEB 04/17/24 18:30 04/21/24 06:28 2.5 MG Levalbuterol HCl 1.25 mg Q6HR NEB 04/18/24 00:00 04/21/24 06:28 1.25 MG Propofol 100 ml @ 2.568 mls/ hr Q24H IV 04/18/24 00:45 04/20/24 08:22 15.408 MLS/HR Fentanyl Citrate 250 ml @ 2.5 mls/hr Q24H IV 04/18/24 00:45 04/20/24 23:03 20 MLS/HR Phenylephrine HCl 250 ml @ 30 mls/hr Q8H20M IV 04/18/24 11:45 Norepinephrine Bitartrate 32 mg/ Sodium Chloride 250 ml @ 0.938 mls/ hr Q24H IV 04/18/24 11:45 04/20/24 16:11 2.813 MLS/HR Heparin Sodium/ Dextrose 250 ml @ 11 mls/hr [id number] IV 04/18/24 23:30 04/21/24 04:16 11 MLS/HR Diagnostic Test (Pha) 1 strip IQ4HR 04/20/24 16:00 04/21/24 11:31 1 STRIP Insulin Human Regular IQ4HR SC 04/20/24 16:00 04/21/24 11:31 3 UNITS Dextrose 50 ml UD PRN IV 04/20/24 14:45 Midazolam HCl 50 ml @ 1 mls/hr Q24H IV 04/20/24 14:45 04/21/24 09:06 3 MLS/HR Pantoprazole Sodium 40 mg DAILY IV 04/21/24 10:00 04/21/24 09:35 40 MG Piperacillin Sod/ Tazobactam Sod 50 ml @ 12.5 mls/hr Q12HR IV 04/20/24 22:00 04/21/24 09:35 12.5 MLS/HR Enteral Nutritional Formula 1,000 ml 30ML/HR GT 04/20/24 16:45 Cancel Enteral Nutritional Formula 1,000 ml 30ML/HR GT 04/21/24 08:45 Examination Patient lying in bed, under sedoanalgesia due to mechanical ventilation General: RASS -3, afebrile, mucosae are moist Cardiovascular: Normal S1 and S2. No murmurs, gallops or rubs Respiratory: Mechanically assisted ventilation, equal bilateral airway entree. Clear lung sounds on auscultation,Bibasilar crackles. Abdomen: Soft, nontender, no organomegaly, normal bowel sounds MSK/skin: Mobilization of limbs cannot be evaluated. Skin is dry and warm Neurological: Orientation cannot be assessed. No apparent motor no sensitive deficits. Pupils are isocoric and reactive laboratory and microbiology Laboratory Tests 04/21/24 08:35 04/21/24 03:30 Test 04/21/24 08:35 Range/Units Serum Glucose 167 #H 74-106 mg/dL Microbiology Date/Time Source Procedure Growth Status 04/18/24 01:00 Nose MRSA Screen - Final Complete 04/17/24 13:00 Blood Blood Culture - Preliminary NO GROWTH AFTER 72 HOURS OF INCUBATION. Resulted 04/17/24 01:05 Sputum Gram Stain - Final Complete 04/17/24 01:05 Respiratory Culture - Final Streptococcus Group F Complete Problem List/Assessment/Plan Problem List/Assessment/Plan Neurology : - patient is sedated Cardiovascular : # Non ST elevation myocardial infarction # Acute on chronic decompensated HFrEF, NYHA Class IV, newly diagnosed # Echo on 04/18/2024 shows: Severely dilated left ventricle. Severely reduced left ventricular systolic function with estimated ejection fraction 25%. There is anterior anteroseptal anteroapical inferolateral wall severe hypokinesia. # Severe coronary artery disease status post triple-vessel CABG, 2018 # Lower extremity DVT ruled out # Severe PVD status post left SFA ELLIOT x 1 # Hypertension # Dyslipidemia - cardiology on board - discontinue Lipitor for now - discontinue Plavix for now - patient is on heparin drip Respiratory : # Septic shock due to pneumonia # Acute hypoxic respiratory failure secondary to possible pneumonia - patient is on mechanical ventilation with FiO2 30%, PEEP: 6, F 24, Vt 550 # Possible community-acquired pneumonia Gm +/- bacterial pneumonia - continue antibiotic, Zosyn # RLL segmental pulmonary embolism with no evidence of right-heart strain # Bilateral pleural effusions, small - continue heparin drip for pulmonary embolism Genitourinary : # ANDREA on CKD # Acute kidney injury due to ATN # ANDREA likely ischemic ATN in setting of shock # CKD stage IIIB -nephrology on board - Started Lasix 60 mg I/V daily. Infectious Disease : # Septic shock due to pneumonia # possible community-acquired pneumonia gm+/- bacterial - patient is on pressor - continue IV antibiotics Endocrine : Sko-hnfgvtt-kdvmyxmuh diabetes mellitus -HbA1c 7.1 - Continue ISS - monitor blood glucose Hematology : - leukocytosis due to septic shock - follow up morning labs Nutrition : Glucerna Lines: Endotracheal tube: 04/18/2024 Right IG central line: 04/18/2024 Mack catheter: 04/18/2024 Left IG Pipo catheter: 04/20/2024 Drips : Fentanyl 100 Versed 3 Propofol 0 NE 0 Vasopressin 0 Prophylaxis for PUD : Protonix 40 mg IV daily Prophylaxis for DVT: Patient is on heparin drip Critical Care time spent 81 minutes including patient care, chart review and updating family, excluding procedure. Full code Case discussed with Dr. Nash Plan discussed with: Daughter, Other (RN) My Orders My Orders Orders - ANTONETTE NEWELL RESIDENT Procedure Category Date Status Time Piperacillin-Tazob PHA 04/20/24 In Process 2.25gm (Zosyn 2.25gm) 22:00 Abg W/ Co-Ox RT 04/21/24 Logged 09:19 Dietary Evaluation Review Comments: current TF is providing adequate amount of protein and energy to pt. Need to continue monitor the nepro support vs updated lab values, d/t his ckd-3b status and not on HD. Expected Outcomes/Goals: meeting pt's estimated needs for both protein and energy at 75% or higher. Date of Service: Apr 21, 2024 Billing Provider: ADRIA NASH MD Common Visit Codes: [id number] CARE 30-74 MIN, [id number] CARE-EACH +30MIN ANTONETTE NEWELL RESIDENT Apr 21, 2024 12:25 ADRIA NASH MD Apr 22, 2024 10:57
--- NOTE | 2024-04-21 12:29 | DVHPN2 ---
Progress Note Date Seen: Apr 21, 2024 Resident Creating Document: ELIEL MYERS RESIDENT Medical Necessity Reason Pt with a Central, PICC or Fol: Yes The following are medically ne: Central Line, Mack Catheter Reason for mack catheter: Strict I&O Subjective Review of Systems Patient seen and examined in ICU. Currently off vasopressor. Intubated. On minimal oxygen requirement at 30%. Underwent hemodialysis yesterday with ultrafiltration, no IV fluid removed. Objective vital signs Vital Sign Date Time Temp Pulse Resp B/P (MAP) Pulse Ox O2 Delivery O2 Flow Rate FiO2 04/21/24 10:15 57 24 101/55 (70) 100 04/21/24 10:13 30 04/21/24 10:00 Mechanical Ventilator+ 04/21/24 08:00 97.6 97.6 Total Intake and Output 04/20/24 04/20/24 04/21/24 15:00 23:00 07:00 Intake Total 676.884 ml 323.639 ml 363.7 ml Output Total 300 ml 500 ml Balance 676.884 ml 23.639 ml -136.3 ml medications Current Medications Medications Dose Ordered Sig/Lulu Route Start Time Stop Time Status Last Admin Dose Admin Acetaminophen 650 mg Q6HP PRN PO 04/16/24 23:45 Nitroglycerin 0.4 mg Q5MINP PRN SL 04/16/24 23:45 Morphine Sulfate 2 mg Q30M PRN IV 04/16/24 23:45 Albuterol 2.5 mg Q6HPRN PRN NEB 04/17/24 18:30 04/21/24 06:28 2.5 MG Levalbuterol HCl 1.25 mg Q6HR NEB 04/18/24 00:00 04/21/24 06:28 1.25 MG Propofol 100 ml @ 2.568 mls/ hr Q24H IV 04/18/24 00:45 04/20/24 08:22 15.408 MLS/HR Fentanyl Citrate 250 ml @ 2.5 mls/hr Q24H IV 04/18/24 00:45 04/20/24 23:03 20 MLS/HR Phenylephrine HCl 250 ml @ 30 mls/hr Q8H20M IV 04/18/24 11:45 Norepinephrine Bitartrate 32 mg/ Sodium Chloride 250 ml @ 0.938 mls/ hr Q24H IV 04/18/24 11:45 04/20/24 16:11 2.813 MLS/HR Heparin Sodium/ Dextrose 250 ml @ 11 mls/hr [id number] IV 04/18/24 23:30 04/21/24 04:16 11 MLS/HR Diagnostic Test (Pha) 1 strip IQ4HR 04/20/24 16:00 04/21/24 11:31 1 STRIP Insulin Human Regular IQ4HR SC 04/20/24 16:00 04/21/24 11:31 3 UNITS Dextrose 50 ml UD PRN IV 04/20/24 14:45 Midazolam HCl 50 ml @ 1 mls/hr Q24H IV 04/20/24 14:45 04/21/24 09:06 3 MLS/HR Pantoprazole Sodium 40 mg DAILY IV 04/21/24 10:00 04/21/24 09:35 40 MG Piperacillin Sod/ Tazobactam Sod 50 ml @ 12.5 mls/hr Q12HR IV 04/20/24 22:00 04/21/24 09:35 12.5 MLS/HR Enteral Nutritional Formula 1,000 ml 30ML/HR GT 04/20/24 16:45 Cancel Enteral Nutritional Formula 1,000 ml 30ML/HR GT 04/21/24 08:45 Examination General Appearance: Intubated and sedated. Head Exam: Normal inspection Neck Exam: Normal inspection. Non-tender. Normal alignment Pulmonary/Respiratory: Chest non-tender. Clear bilateral breath sounds Cardiovascular/Chest: Regular rate and rhythm. No murmurs. No JVD. Peripheral Pulses: 2+ Radial (R). 2+ Radial (L). 2+ Pedal (R). 2+ Pedal (L) Abdominal Exam: Normal bowel sounds. Soft. Nontender. No hepatospenomegaly. No masses Ankle Exam: Negative ankle edema Lower extremities: 1 + lower extremity edema laboratory and microbiology Laboratory Tests 04/21/24 08:35 04/21/24 03:30 Test 04/21/24 08:35 Range/Units Serum Glucose 167 #H 74-106 mg/dL Microbiology Date/Time Source Procedure Growth Status 04/18/24 01:00 Nose MRSA Screen - Final Complete 04/17/24 13:00 Blood Blood Culture - Preliminary NO GROWTH AFTER 72 HOURS OF INCUBATION. Resulted 04/17/24 01:05 Sputum Gram Stain - Final Complete 04/17/24 01:05 Respiratory Culture - Final Streptococcus Group F Complete Problem List/Assessment/Plan Problem List/Assessment/Plan ANDREA likely ischemic ATN in setting of shock CKD stage IIIB Acute PE Acute hypoxic respiratory failure NSTEMI History of coronary artery disease Plan/recommendation Dr Sabillon -last dialysis on 04/20/2024. Plan for Dialysis tomorrow. -off vasopressor, on heparin, on mechanical ventilation. -Regular Monitoring: Ensure frequent monitoring of blood pressure, electrolyte levels, and fluid balance. -avoid nephrotoxic drugs or contrast -rest of the plan per primary care team; ICU Addendum Patient seen and examined, plan discussed with resident. Agree with above, we will follow closely Dialysis tomorrow for solute clearance Urine output slowly getting better Plan discussed with: Other My Orders My Orders Orders - ELIEL MYERS Procedure Category Date Status Time Abg W/ Co-Ox RT 04/21/24 Logged 07:00 Nutritional PHA 04/21/24 In Process Supplements (Nepro 08:45 Dietary Evaluation Review Comments: current TF is providing adequate amount of protein and energy to pt. Need to continue monitor the nepro support vs updated lab values, d/t his ckd-3b status and not on HD. Expected Outcomes/Goals: meeting pt's estimated needs for both protein and energy at 75% or higher. Critical Care Time (mins): 36 ELIEL MYERS Apr 21, 2024 12:29 ANN-MARIE SABILLON MD Apr 21, 2024 20:51
[2024-04-21] MEDS: FUROSEMIDE 100 MG/10ML VIAL IV ONE (16:20)
[2024-04-21] MEDS: PIPERACILLIN-TAZOB 2.25GM 50 ML IV SCH (18:23)
[2024-04-22] VITALS (108 sets, daily range): BP systolic 95–148; BP diastolic 43–91; PULSE 53–91; RESP 19–25; TEMP 97.6–98.9; O2SAT 97–100
[2024-04-22 03:52] LABS: Basophils # (auto) 0 10 ^3/uL (0-0.2); Eosinophils # (auto) 0 10 ^3/uL (0-0.8); Hemoglobin 7.4 g/dL (13.5-17.5); Lymphocytes # (auto) 0.5 10 ^3/uL (0.4-5.4); Neutrophils % (auto) 85.4 % (37.0-80.0)
[2024-04-22 03:56] LABS: Hematocrit 21.9 % (41.0-53.0); Lymphocytes % (auto) 6.1 % (10.0-50.0); Mean Corpuscular Hemoglobin 30.1 pg (28.0-32.0); Mean Corpuscular Hgb Conc. 33.9 g/dL (32.0-36.0); Mean Corpuscular Volume 88.8 fL (80.0-100.0); Monocytes # (auto) 0.7 10 ^3/uL (0-1.3); Monocytes % (auto) 8.5 % (0.0-12.0); Neutrophils # (auto) 7.3 10 ^3/uL (1.6-8.6); Nucleated Red Blood Cells % 0.6 %; Platelet Count (auto) 138 10^3/uL (140-450); Red Blood Cells 2.47 10^6/uL (4.5-5.90); Red Cell Distribution Width 14.4 % (11.8-14.3); White Blood Cell 8.5 10^3/uL (4.4-10.8)
[2024-04-22 04:03] LABS: INR 1.06 (0.9-1.15); Partial Thromboplastin Time 41.9 SEC (24.5-34.5); Prothrombin Time 11.2 sec (9.3-11.8)
[2024-04-22 04:05] LABS: Alanine Aminotransferase 31 U/L (7-40); Albumin 3.4 g/dL (3.2-4.8); Alkaline Phosphatase 80 U/L (46-116); Anion Gap 12 (5-15); Aspartate Aminotransferase 22 U/L (13-40); BUN/Creatinine Ratio 25.6 (10.0-20.0); Carbon Dioxide 25 mmol/L (20-31); Chloride 105 mmol/L (98-107); Potassium 4.3 mmol/L (3.5-5.1); Sodium 142 mmol/L (136-145)
[2024-04-22 04:06] LABS: Bilirubin, Total 0.5 mg/dL (0.2-1.0)
[2024-04-22] MEDS: HEPARIN DRIP/D5W 100UNITS/ML 250 ML IV SCH ×2 (04:24→12:00)
[2024-04-22 04:25] LABS: Blood Urea Nitrogen 89 mg/dL (9-23); Glucose 239 mg/dL (74-106); Total Protein 5.2 g/dL (5.7-8.2)
--- NOTE | 2024-04-22 04:57 | DVH ---
CHEST RADIOGRAPH Indication: intubated Technique: Single frontal view of the chest was obtained COMPARISON: XY CHEST PORTABLE on DOS: 04/21/24, XY CHEST XRAY 1 VIEW on DOS: 04/20/24, XY CHEST PORTAB LE on DOS: 04/19/24 FINDINGS: Lines and Tubes: Endotracheal tube, enteric catheter, right and left central venous catheter is in sa tisfactory position. Median sternotomy. Lungs: Multifocal airspace disease. Pleura: No effusion. No pneumothorax. Cardiomediastinal contours: Cardiomegaly Bones: Unremarkable IMPRESSION: Lines and tubes in satisfactory position. No significant interval change.
[2024-04-22 08:27] LABS: Base Excess -1.5 mmol/L (-2.0-3.0)
--- NOTE | 2024-04-22 09:07 | DVHPNRES ---
Progress Note Date Seen: Apr 22, 2024 Resident Creating Document: ANTONETTE NEWELL RESIDENT Medical Necessity Reason Pt with a Central, PICC or Fol: Yes The following are medically ne: Central Line, Mack Catheter Reason for mack catheter: Strict I&O Subjective Review of Systems Chief Compliant for admission: 74-year-old male with past medical history of coronary artery disease status post CABG in 2019, diabetes mellitus, hypertension, chronic kidney disease, hyperlipidemia and tobacco and marijuana use, who presented to the emergency room via EMS with a chief complaint of shortness of breath for three days. Patient and at bedside reports progressive shortness of breath associated with PND, PADGETT, a nonproductive cough, and cardiac palpitations. Denies chest pain, dizziness, or syncopal events. He was found with an oxygen saturation level of 83% on room air for which he was placed on O2 via NC at 6 liters/minute and administered a breathing treatment en route to the hospital. Further emergency room workup revealed a right lower lobe segmental pulmonary embolism with no evidence of right heart strain for which the patient was initiated on a heparin drip per PE protocol. A 12 lead electrocardiogram revealed a sinus tachycardia rhythm with nonspecific inferolateral ST changes and suggestive of left ventricular hypertrophy. Troponin levels are trending up with latest >2,000 ng/L. Denies following up with a primary cashier in the outpatient setting. Significant medical history includes severe coronary artery disease with high-grade left main stenosis status post triple-vessel coronary artery bypass graft on 08/26/2017, peripheral vascular disease status post RAW SCALES OPERATOR including one ELLIOT to the left SFA on 06/27/2018 and attempted aperture of the right SFA, hypertension, dyslipidemia, peripheral neuropathy, benign prostatic hyperplasia, chronic kidney disease, and current tobacco use. the patient underwent a cardiac catheterization and coronary angiogram without catheter based intervention given patent grafts on 10/25/2022. Patient was intubated on 04/18/2024, Patient is seen and examined at bedside,Sedated, intubated on mechanical ventilator. Overnight events reviewed. Objective vital signs Vital Sign Date Time Temp Pulse Resp B/P (MAP) Pulse Ox O2 Delivery O2 Flow Rate FiO2 04/22/24 07:53 62 24 95/43 (60) 99 30 04/22/24 06:00 Mechanical Ventilator+ 04/22/24 04:00 98.3 98.3 Total Intake and Output 04/21/24 04/21/24 04/22/24 15:00 23:00 07:00 Intake Total 220.0 ml 401.0 ml 682.0 ml Output Total 800 ml 2000 ml Balance 220.0 ml -399.0 ml -1318.0 ml medications Current Medications Medications Dose Ordered Sig/Lulu Route Start Time Stop Time Status Last Admin Dose Admin Acetaminophen 650 mg Q6HP PRN PO 04/16/24 23:45 Nitroglycerin 0.4 mg Q5MINP PRN SL 04/16/24 23:45 Morphine Sulfate 2 mg Q30M PRN IV 04/16/24 23:45 Albuterol 2.5 mg Q6HPRN PRN NEB 04/17/24 18:30 04/21/24 06:28 2.5 MG Levalbuterol HCl 1.25 mg Q6HR NEB 04/18/24 00:00 04/22/24 06:05 1.25 MG Propofol 100 ml @ 2.568 mls/ hr Q24H IV 04/18/24 00:45 04/20/24 08:22 15.408 MLS/HR Fentanyl Citrate 250 ml @ 2.5 mls/hr Q24H IV 04/18/24 00:45 04/21/24 17:22 10 MLS/HR Norepinephrine Bitartrate 32 mg/ Sodium Chloride 250 ml @ 0.938 mls/ hr Q24H IV 04/18/24 11:45 04/20/24 16:11 2.813 MLS/HR Diagnostic Test (Pha) 1 strip IQ4HR 04/20/24 16:00 04/22/24 08:00 1 STRIP Insulin Human Regular IQ4HR SC 04/20/24 16:00 04/22/24 08:36 9 UNITS Dextrose 50 ml UD PRN IV 04/20/24 14:45 Midazolam HCl 50 ml @ 1 mls/hr Q24H IV 04/20/24 14:45 04/21/24 23:04 3 MLS/HR Pantoprazole Sodium 40 mg DAILY IV 04/21/24 10:00 04/21/24 09:35 40 MG Enteral Nutritional Formula 1,000 ml 30ML/HR GT 04/20/24 16:45 Cancel Enteral Nutritional Formula 1,000 ml 30ML/HR GT 12/10/24 08:45 Furosemide 60 mg DAILY IV 04/22/24 10:00 Piperacillin Sod/ Tazobactam Sod 50 ml @ 12.5 mls/hr Q8H IV 04/21/24 18:00 04/22/24 01:57 12.5 MLS/HR Heparin Sodium/ Dextrose 250 ml @ 13 mls/hr [id number] IV 04/22/24 04:15 04/22/24 04:24 13 MLS/HR Examination Patient lying in bed, under sedoanalgesia due to mechanical ventilation General: RASS -3, afebrile, mucosae are moist Cardiovascular: Normal S1 and S2. No murmurs, gallops or rubs Respiratory: Mechanically assisted ventilation, equal bilateral airway entree. Clear lung sounds on auscultation,Bibasilar crackles. Abdomen: Soft, nontender, no organomegaly, normal bowel sounds MSK/skin: Mobilization of limbs cannot be evaluated. Skin is dry and warm Neurological: Orientation cannot be assessed. No apparent motor no sensitive deficits. Pupils are isocoric and reactive laboratory and microbiology Laboratory Tests 04/22/24 03:08 Test 04/22/24 03:08 Range/Units Serum Glucose 239 H 74-106 mg/dL Microbiology Date/Time Source Procedure Growth Status 04/18/24 01:00 Nose MRSA Screen - Final Complete 04/17/24 13:00 Blood Blood Culture - Preliminary NO GROWTH AFTER 72 HOURS OF INCUBATION. Resulted 04/17/24 01:05 Sputum Gram Stain - Final Complete 04/17/24 01:05 Respiratory Culture - Final Streptococcus Group F Complete Problem List/Assessment/Plan Problem List/Assessment/Plan Neurology : - patient is sedated Cardiovascular : # Non ST elevation myocardial infarction # Acute on chronic decompensated HFrEF, NYHA Class IV, newly diagnosed # Echo on 04/18/2024 shows: Severely dilated left ventricle. Severely reduced left ventricular systolic function with estimated ejection fraction 25%. There is anterior anteroseptal anteroapical inferolateral wall severe hypokinesia. # Severe coronary artery disease status post triple-vessel CABG, 2018 # Lower extremity DVT ruled out # Severe PVD status post left SFA ELLIOT x 1 # Hypertension # Dyslipidemia - cardiology on board - discontinue Lipitor for now - discontinue Plavix for now - patient is on heparin drip Respiratory : # Septic shock due to pneumonia # Acute hypoxic respiratory failure secondary to possible pneumonia - patient is on mechanical ventilation with FiO2 30%, PEEP: 6, F 24, Vt 550 # Possible community-acquired pneumonia Gm +/- bacterial pneumonia - continue antibiotic, Zosyn # RLL segmental pulmonary embolism with no evidence of right-heart strain # Bilateral pleural effusions, small - continue heparin drip for pulmonary embolism Genitourinary : # ANDREA on CKD # Acute kidney injury due to ATN # ANDREA likely ischemic ATN in setting of shock # CKD stage IIIB -nephrology on board -continue Lasix 60 mg I/V daily. - HD today Infectious Disease : # Septic shock due to pneumonia # possible community-acquired pneumonia gm+/- bacterial - patient is on pressor - continue IV antibiotics Endocrine : Yzz-jyxmjld-kzdzmxbpv diabetes mellitus -HbA1c 7.1 - Continue ISS - monitor blood glucose Hematology : - leukocytosis due to septic shock - follow up morning labs Nutrition : Glucerna Lines: Endotracheal tube: 04/18/2024 Right IG central line: 04/18/2024 Mack catheter: 04/18/2024 Left IG Pipo catheter: 04/20/2024 Drips : Fentanyl 75 Versed 3 Propofol 0 NE 0 Vasopressin 0 [id number] Prophylaxis for PUD : Protonix 40 mg IV daily Prophylaxis for DVT: Patient is on heparin drip Possible CPAP trial tomorrow. Critical Care time spent 82 minutes including patient care, chart review and updating family, excluding procedure. Full code Case discussed with Dr. Nash Plan discussed with: Spouse (RN), Daughter, Other My Orders My Orders Orders - ANTONETTE NEWELL RESIDENT Procedure Category Date Status Time Abg W/ Co-Ox RT 04/21/24 Logged 09:19 Chest Xray 1 View XY 04/22/24 Resulted 04:00 Abg W/ Co-Ox RT 04/22/24 Logged 04:00 Piperacillin-Tazob PHA 04/21/24 In Process 2.25gm (Zosyn 2.25gm) 18:00 Dietary Evaluation Review Comments: current TF is providing adequate amount of protein and energy to pt. Need to continue monitor the nepro support vs updated lab values, d/t his ckd-3b status and not on HD. Expected Outcomes/Goals: meeting pt's estimated needs for both protein and energy at 75% or higher. Date of Service: Apr 22, 2024 Billing Provider: ADRIA NASH MD Common Visit Codes: [id number] CARE 30-74 MIN, [id number] CARE-EACH +30MIN ANTONETTE NEWELL RESIDENT Apr 22, 2024 09:07 ADRIA NASH MD Apr 23, 2024 11:17
--- NOTE | 2024-04-22 10:01 | DVHPN2 ---
Consult Progress Note Date Seen: Apr 22, 2024 Subjective Other Systems: No overnight cardiac events reported. HD at bedside Objective vital signs Vital Sign Date Time Temp Pulse Resp B/P (MAP) Pulse Ox O2 Delivery O2 Flow Rate FiO2 04/22/24 09:30 64 24 113/53 (73) 99 04/22/24 08:00 30 04/22/24 08:00 98.9 98.9 04/22/24 08:00 Mechanical Ventilator+ Total Intake and Output 04/21/24 04/21/24 04/22/24 15:00 23:00 07:00 Intake Total 220.0 ml 401.0 ml 682.0 ml Output Total 800 ml 2000 ml Balance 220.0 ml -399.0 ml -1318.0 ml medications Current Medications Medications Dose Ordered Sig/Lulu Route Start Time Stop Time Status Last Admin Dose Admin Acetaminophen 650 mg Q6HP PRN PO 04/16/24 23:45 Nitroglycerin 0.4 mg Q5MINP PRN SL 04/16/24 23:45 Morphine Sulfate 2 mg Q30M PRN IV 04/16/24 23:45 Albuterol 2.5 mg Q6HPRN PRN NEB 04/17/24 18:30 04/21/24 06:28 2.5 MG Levalbuterol HCl 1.25 mg Q6HR NEB 04/18/24 00:00 04/22/24 06:05 1.25 MG Propofol 100 ml @ 2.568 mls/ hr Q24H IV 04/18/24 00:45 04/20/24 08:22 15.408 MLS/HR Fentanyl Citrate 250 ml @ 2.5 mls/hr Q24H IV 04/18/24 00:45 04/21/24 17:22 10 MLS/HR Norepinephrine Bitartrate 32 mg/ Sodium Chloride 250 ml @ 0.938 mls/ hr Q24H IV 04/18/24 11:45 04/20/24 16:11 2.813 MLS/HR Diagnostic Test (Pha) 1 strip IQ4HR 04/20/24 16:00 04/22/24 08:00 1 STRIP Insulin Human Regular IQ4HR SC 04/20/24 16:00 04/22/24 08:36 9 UNITS Dextrose 50 ml UD PRN IV 04/20/24 14:45 Midazolam HCl 50 ml @ 1 mls/hr Q24H IV 04/20/24 14:45 04/21/24 23:04 3 MLS/HR Pantoprazole Sodium 40 mg DAILY IV 04/21/24 10:00 04/21/24 09:35 40 MG Enteral Nutritional Formula 1,000 ml 30ML/HR GT 04/20/24 16:45 Cancel Enteral Nutritional Formula 1,000 ml 30ML/HR GT 04/21/24 08:45 Furosemide 60 mg DAILY IV 04/22/24 10:00 Piperacillin Sod/ Tazobactam Sod 50 ml @ 12.5 mls/hr Q8H IV 04/21/24 18:00 04/22/24 01:57 12.5 MLS/HR Heparin Sodium/ Dextrose 250 ml @ 13 mls/hr [id number] IV 04/22/24 04:15 04/22/24 04:24 13 MLS/HR Examination: LUNGS:Abnormal (Mechanically ventilated 30% FiO2 PEEP 6.0), CVS:Normal (Off pressors, NSR), NEURO:Normal (Chemically sedated) laboratory and microbiology Laboratory Tests 04/22/24 03:08 Test 04/22/24 03:08 Range/Units Serum Glucose 239 H 74-106 mg/dL Problem List/Assessment/Plan Problem List/Assessment/Plan Non ST elevation myocardial infarction Acute on chronic decompensated HFrEF, NYHA Class IV, newly diagnosed RLL segmental pulmonary embolism with no evidence of right-heart strain Severe coronary artery disease status post triple-vessel CABG, 2017 Rule out progressive coronary artery disease Bilateral pleural effusions, small Lower extremity DVT ruled out Severe PVD status post left SFA ELLIOT x 1 Hypertension Dyslipidemia Lqk-bdfamzf-fdhddrfsf diabetes mellitus Acute kidney injury Tobacco use Plan/Recommendation (Dr. Huitron) * Echocardiogram revealed EF 25% * There is anterior anteroseptal anteroapical inferolateral wall severe hypokinesia. Normal right ventricular size and dimension. Normal right ventricular systolic function. Moderately elevated right ventricular systolic pressure 49 mm of mercury. Moderately dilated right and left atria. Aortic valve is thickened and sclerotic. No significant stenosis but mild regurgitation was noted. Mitral valve is thickened there is [id number] mitral valve regurgitation. There is mild tricuspid valve regurgitation. The pulmonary valve is grossly normal. No pericardial effusion. * Vasopressors as needed for hemodynamic support * Continue heparin drip per pharmacy protocol. Monitor H&H closely. Obtain T&S and SOB * Preload and afterload reduction. HD per nephrology. * Strict I&Os. Daily weight. Maintain fluid restrictions * Initiate GDMT for CHF as tolerated when off vasopressors * Single-antiplatelet therapy (Plavix) and lipid-lowering agent * Pulmonology and Nephrology consultations * Agree with PRBCs transfusion, monitor H&H closely The patient with a newly diagnosed cardiomyopathy including a severely diminished LV function compared to previous transthoracic echocardiogram revealing LVEF of 65% on 2022 may qualify for a cardiac catheterization once clinically stable and with optimal renal function. Troponin elevated greater [place] [id number] not a candidate for ischemic workup at this time. Continue supportive care. Repeat EKG negative for acute ST abnormality or changes. Condition remains critical We will continue to monitor closely. Thank you for allowing us to participate in this patient's care. Please call if you have any questions or concerns. Critical care time: 30 min. This medical document was created using an electronic medical record system with voice recognition software and computerized dictation system. Although this document has been carefully reviewed, there might still be some phonetic and typographical errors. Occasional wrong-word or ``sound-alike substitutions may have occurred due to the inherent limitations of voice recognition software. These areas are purely typographical due to imperfections of the software programs and do not reflect any compromise in the patient's medical care. Please read the chart carefully and recognize, using context, where these substitutions have occurred. Plan discussed with: Other Dietary Evaluation Review Comments: current TF is providing adequate amount of protein and energy to pt. Need to continue monitor the nepro support vs updated lab values, d/t his ckd-3b status and not on HD. Expected Outcomes/Goals: meeting pt's estimated needs for both protein and energy at 75% or higher. Date of Service: Apr 22, 2024 Billing Provider: PAVEL HUITRON MD Cardiology Common Codes: 31880-PMGBAOZY CARE 30-74 MIN GEN HENAO [facility] Apr 22, 2024 10:01
[2024-04-22 10:47] LABS: INR 1.03 (0.9-1.15); Partial Thromboplastin Time 38.6 SEC (24.5-34.5); Prothrombin Time 10.9 sec (9.3-11.8)
--- NOTE | 2024-04-22 12:20 | DVHPN2 ---
Progress Note Date Seen: Apr 22, 2024 Resident Creating Document: ELIEL MYERS RESIDENT Medical Necessity Reason Pt with a Central, PICC or Fol: Yes The following are medically ne: Central Line, Mack Catheter Reason for mack catheter: Strict I&O Subjective Review of Systems Patient seen and examined in ICU. Currently intubated. Off vasopressors. Possible hemodialysis today. Objective vital signs Vital Sign Date Time Temp Pulse Resp B/P (MAP) Pulse Ox O2 Delivery O2 Flow Rate FiO2 04/22/24 11:16 98.0 65 24 123/58 98.0 04/22/24 10:45 100 04/22/24 10:07 30 04/22/24 10:00 Mechanical Ventilator+ Total Intake and Output 04/21/24 04/21/24 04/22/24 15:00 23:00 07:00 Intake Total 220.0 ml 401.0 ml 682.0 ml Output Total 800 ml 2000 ml Balance 220.0 ml -399.0 ml -1318.0 ml medications Current Medications Medications Dose Ordered Sig/Lulu Route Start Time Stop Time Status Last Admin Dose Admin Acetaminophen 650 mg Q6HP PRN PO 04/16/24 23:45 Nitroglycerin 0.4 mg Q5MINP PRN SL 04/16/24 23:45 Morphine Sulfate 2 mg Q30M PRN IV 04/16/24 23:45 Albuterol 2.5 mg Q6HPRN PRN NEB 04/17/24 18:30 04/21/24 06:28 2.5 MG Levalbuterol HCl 1.25 mg Q6HR NEB 04/18/24 00:00 04/22/24 12:05 1.25 MG Propofol 100 ml @ 2.568 mls/ hr Q24H IV 04/18/24 00:45 04/20/24 08:22 15.408 MLS/HR Fentanyl Citrate 250 ml @ 2.5 mls/hr Q24H IV 04/18/24 00:45 04/21/24 17:22 10 MLS/HR Norepinephrine Bitartrate 32 mg/ Sodium Chloride 250 ml @ 0.938 mls/ hr Q24H IV 04/18/24 11:45 04/20/24 16:11 2.813 MLS/HR Diagnostic Test (Pha) 1 strip IQ4HR 04/20/24 16:00 04/22/24 08:00 1 STRIP Insulin Human Regular IQ4HR SC 04/20/24 16:00 04/22/24 08:36 9 UNITS Dextrose 50 ml UD PRN IV 04/20/24 14:45 Midazolam HCl 50 ml @ 1 mls/hr Q24H IV 04/20/24 14:45 04/21/24 23:04 3 MLS/HR Pantoprazole Sodium 40 mg DAILY IV 04/21/24 10:00 04/21/24 09:35 40 MG Enteral Nutritional Formula 1,000 ml 30ML/HR GT 04/20/24 16:45 Cancel Enteral Nutritional Formula 1,000 ml 30ML/HR GT 04/21/24 08:45 Furosemide 60 mg DAILY IV 04/22/24 10:00 Piperacillin Sod/ Tazobactam Sod 50 ml @ 12.5 mls/hr Q8H IV 04/21/24 18:00 04/22/24 01:57 12.5 MLS/HR Heparin Sodium/ Dextrose 250 ml @ 15 mls/hr [id number] IV 04/22/24 12:00 Examination General Appearance: Intubated and sedated. Head Exam: Normal inspection Neck Exam: Normal inspection. Non-tender. Normal alignment Pulmonary/Respiratory: Chest non-tender. Clear bilateral breath sounds Cardiovascular/Chest: Regular rate and rhythm. No murmurs. No JVD. Peripheral Pulses: 2+ Radial (R). 2+ Radial (L). 2+ Pedal (R). 2+ Pedal (L) Abdominal Exam: Normal bowel sounds. Soft. Nontender. No hepatospenomegaly. No masses Ankle Exam: Negative ankle edema Lower extremities: 1 + lower extremity edema laboratory and microbiology Laboratory Tests 04/22/24 03:08 Test 04/22/24 03:08 Range/Units Serum Glucose 239 H 74-106 mg/dL Microbiology Date/Time Source Procedure Growth Status 04/18/24 01:00 Nose MRSA Screen - Final Complete 04/17/24 13:00 Blood Blood Culture - Preliminary NO GROWTH AFTER 72 HOURS OF INCUBATION. Resulted 04/17/24 01:05 Sputum Gram Stain - Final Complete 04/17/24 01:05 Respiratory Culture - Final Streptococcus Group F Complete Problem List/Assessment/Plan Problem List/Assessment/Plan ANDREA likely ischemic ATN in setting of shock CKD stage IIIB Acute PE Acute hypoxic respiratory failure NSTEMI History of coronary artery disease Plan/recommendation Dr Sabillon -last dialysis on 04/20/2024. Plan for Dialysis today for solute clearance. -off vasopressor, on heparin, on mechanical ventilation. -Regular Monitoring: Ensure frequent monitoring of blood pressure, electrolyte levels, and fluid balance. -avoid nephrotoxic drugs or contrast -rest of the plan per primary care team; ICU Addendum Patient seen and examined, plan discussed with resident. Agree with above, we will follow closely Plan discussed with: Other Dietary Evaluation Review Comments: current TF is providing adequate amount of protein and energy to pt. Need to continue monitor the nepro support vs updated lab values, d/t his ckd-3b status and not on HD. Expected Outcomes/Goals: meeting pt's estimated needs for both protein and energy at 75% or higher. ELIEL MYERS RESIDENT Apr 22, 2024 12:20 ANN-MARIE SABILLON MD Apr 22, 2024 18:52
[2024-04-22] MEDS: FUROSEMIDE 100 MG/10ML VIAL IV SCH (13:16)
[2024-04-22] MEDS: AMIODARONE BOLUS KIT 100 ML IV ONE (16:56)
[2024-04-22] MEDS: AMIODARONE 450mg/250ml AE 250 ML IV SCH ×2 (17:02→22:30)
[2024-04-22 19:11] LABS: INR 1.07 (0.9-1.15); Partial Thromboplastin Time 52.7 SEC (24.5-34.5); Prothrombin Time 11.3 sec (9.3-11.8)
[2024-04-23] VITALS (107 sets, daily range): BP systolic 85–173; BP diastolic 40–106; PULSE 68–151; RESP 24; TEMP 98.4–100.2; O2SAT 93–100
[2024-04-23 01:22] LABS: INR 1.08 (0.9-1.15); Partial Thromboplastin Time 56.8 SEC (24.5-34.5); Prothrombin Time 11.4 sec (9.3-11.8)
[2024-04-23 04:20] LABS: Basophils # (auto) 0 10 ^3/uL (0-0.2); Basophils % (auto) 0.1 % (0.0-2.0); Eosinophils # (auto) 0.1 10 ^3/uL (0-0.8); Eosinophils % (auto) 0.6 % (0.0-7.0); Hematocrit 28.7 % (41.0-53.0); Hemoglobin 9.7 g/dL (13.5-17.5); Lymphocytes # (auto) 0.6 10 ^3/uL (0.4-5.4); Mean Corpuscular Hemoglobin 30.1 pg (28.0-32.0); Mean Corpuscular Hgb Conc. 33.6 g/dL (32.0-36.0); Mean Corpuscular Volume 89.5 fL (80.0-100.0); Monocytes # (auto) 0.9 10 ^3/uL (0-1.3); Monocytes % (auto) 9.9 % (0.0-12.0); Neutrophils # (auto) 7.4 10 ^3/uL (1.6-8.6); Neutrophils % (auto) 82.4 % (37.0-80.0); Nucleated Red Blood Cells % 0.4 %; Platelet Count (auto) 136 10^3/uL (140-450); Red Blood Cells 3.21 10^6/uL (4.5-5.90); Red Cell Distribution Width 14.3 % (11.8-14.3); White Blood Cell 8.9 10^3/uL (4.4-10.8)
[2024-04-23 04:24] LABS: Anion Gap 10 (5-15); Carbon Dioxide 30 mmol/L (20-31); Chloride 102 mmol/L (98-107); Potassium 3.7 mmol/L (3.5-5.1); Sodium 142 mmol/L (136-145)
[2024-04-23 04:30] LABS: BUN/Creatinine Ratio 20.9 (10.0-20.0)
[2024-04-23 04:39] LABS: Blood Urea Nitrogen 45 mg/dL (9-23); Glucose 273 mg/dL (74-106)
[2024-04-23 08:25] LABS: Base Excess 3.1 mmol/L (-2.0-3.0)
[2024-04-23 09:36] LABS: INR 1.08 (0.9-1.15); Prothrombin Time 11.4 sec (9.3-11.8)
--- NOTE | 2024-04-23 10:02 | DVH ---
CHEST RADIOGRAPH Indication: intubated Technique: Single frontal view of the chest was obtained Comparison: XY CHEST XRAY 1 VIEW on DOS: 04/22/24, XY CHEST PORTABLE on DOS: 04/21/24, XY CHEST XRAY 1 VIEW on DOS: 04/20/24, XY CHEST PORTABLE on DOS: 04/19/24, XY CHEST PORTABLE on DOS: 04/18/24, XY CHES T XRAY 1 VIEW on DOS: 04/22/24 FINDINGS: Lines and Tubes: Endotracheal tube, enteric catheter, right and left central venous catheter is in sa tisfactory position. Median sternotomy. Lungs: Multifocal airspace disease. Pleura: No effusion. No pneumothorax. Cardiomediastinal contours: Cardiomegaly Bones: Unremarkable IMPRESSION: 1. Lines and tubes in satisfactory position. No significant interval change.
[2024-04-23] MEDS ORDERED: DEXTROSE (50%) 50ML SYRG IV PRN (11:15)
--- NOTE | 2024-04-23 11:28 | DVHPN2 ---
Progress Note Date Seen: Apr 23, 2024 Medical Necessity Reason Pt with a Central, PICC or Fol: Yes The following are medically ne: Central Line, Mack Catheter Reason for mack catheter: Strict I&O Subjective Patient reports: Other ( patient remains intubated) Review of Systems: Deferred Objective vital signs Vital Sign Date Time Temp Pulse Resp B/P (MAP) Pulse Ox O2 Delivery O2 Flow Rate FiO2 04/23/24 10:30 147/68 04/23/24 10:16 73 24 98 30 04/23/24 10:00 Mechanical Ventilator+ 04/23/24 04:00 98.4 98.4 Total Intake and Output 04/22/24 04/22/24 04/23/24 15:00 23:00 07:00 Intake Total 485.5 ml 602 ml 605.0 ml Output Total 2000 ml 1250 ml Balance 485.5 ml -1398 ml -645.0 ml medications Current Medications Medications Dose Ordered Sig/Lulu Route Start Time Stop Time Status Last Admin Dose Admin Acetaminophen 650 mg Q6HP PRN PO 04/16/24 23:45 Nitroglycerin 0.4 mg Q5MINP PRN SL 04/16/24 23:45 Morphine Sulfate 2 mg Q30M PRN IV 04/16/24 23:45 Albuterol 2.5 mg Q6HPRN PRN NEB 04/17/24 18:30 04/21/24 06:28 2.5 MG Levalbuterol HCl 1.25 mg Q6HR NEB 04/18/24 00:00 04/23/24 06:15 1.25 MG Propofol 100 ml @ 2.568 mls/ hr Q24H IV 04/18/24 00:45 04/20/24 08:22 15.408 MLS/HR Fentanyl Citrate 250 ml @ 2.5 mls/hr Q24H IV 04/18/24 00:45 04/22/24 17:10 15 MLS/HR Norepinephrine Bitartrate 32 mg/ Sodium Chloride 250 ml @ 0.938 mls/ hr Q24H IV 04/18/24 11:45 04/20/24 16:11 2.813 MLS/HR Dextrose 50 ml UD PRN IV 04/20/24 14:45 Midazolam HCl 50 ml @ 1 mls/hr Q24H IV 04/20/24 14:45 04/23/24 05:50 5 MLS/HR Pantoprazole Sodium 40 mg DAILY IV 04/21/24 10:00 04/23/24 09:29 40 MG Enteral Nutritional Formula 1,000 ml 30ML/HR GT 04/20/24 16:45 Cancel Enteral Nutritional Formula 1,000 ml 30ML/HR GT 04/21/24 08:45 Furosemide 60 mg DAILY IV 04/22/24 10:00 04/23/24 09:30 60 MG Piperacillin Sod/ Tazobactam Sod 50 ml @ 12.5 mls/hr Q8H IV 04/21/24 18:00 04/23/24 09:30 12.5 MLS/HR Heparin Sodium/ Dextrose 250 ml @ 15 mls/hr [id number] IV 04/22/24 12:00 04/22/24 22:31 15 MLS/HR Amiodarone HCl 250 ml @ 16.667 mls/ hr Q15H IV 04/22/24 22:30 Dexmedetomidine HCl 400 mcg/ Dextrose 100 ml @ 4.3 mls/hr [id number] IV 04/22/24 19:15 Insulin Glargine 20 units HS SC 04/23/24 22:00 UNV Diagnostic Test (Pha) 1 strip Q6HR 04/23/24 12:00 UNV Insulin Human Regular Q6HR SC 04/23/24 12:00 UNV Dextrose 50 ml UD PRN IV 04/23/24 11:15 UNV Examination: GENERAL:Abnormal, LUNGS:Abnormal, MSK:Abnormal (No edema), NEURO:Abnormal laboratory and microbiology Laboratory Tests 04/23/24 03:27 Test 04/23/24 03:27 Range/Units Serum Glucose 273 H 74-106 mg/dL Microbiology Date/Time Source Procedure Growth Status 04/18/24 01:00 Nose MRSA Screen - Final Complete 04/17/24 13:00 Blood Blood Culture - Final NO GROWTH AFTER 5 DAYS OF INCUBATION. Complete 04/17/24 01:05 Sputum Gram Stain - Final Complete 04/17/24 01:05 Respiratory Culture - Final Streptococcus Group F Complete Problem List/Assessment/Plan Problem List/Assessment/Plan ANDREA likely ischemic ATN in setting of shock needing dialysis CKD stage IIIB Acute PE Acute hypoxic respiratory failure NSTEMI History of coronary artery disease Plan/recommendation Urine output has gotten better significantly we will hold dialysis for the next 48 hours monitor renal function and urine output -last dialysis on 04/22/2024. Remains on heparin drip Plan discussed with: Other Dietary Evaluation Review Comments: current TF is providing adequate amount of protein and energy to pt. Need to continue monitor the nepro support vs updated lab values, d/t his ckd-3b status and not on HD. Expected Outcomes/Goals: meeting pt's estimated needs for both protein and energy at 75% or higher. ANN-MARIE SABILLON MD Apr 23, 2024 11:28
--- NOTE | 2024-04-23 12:04 | MEDREC ---
FORMERLY [facility] Intervention Section I FORMERLY [facility] Intervention: Deescalate AB based on CS (THE FINAL BLOOD CULTURE SHOWED NO GROWTH THE FINAL SPUTUM CULTURE RESULTED IN STREPTOCOCCUS GROUP F. PLEASE CONSIDER DE-ESCALATING ANTIBIOTIC BASED ON CULTURE RESULT), Review courses of therapy (DUE TO PROLONG (QTc > 500) PLEASE CONSIDER SWITCHING AZITHROMYCIN TO DOXYCYLINE)) ELYSE TIDWELL Apr 23, 2024 12:04
[2024-04-23] MEDS: ACCU-CHEK COMFORT CURVE STRIP VI SCH (12:15)
[2024-04-23] MEDS: InsuLIN REG 1unit/0.01ml Soln (100units/ml) SC SCH (12:18)
--- NOTE | 2024-04-23 16:35 | DVHPN2 ---
Consult Progress Note Subjective Other Systems: Patient remains chemically sedated and mechanically ventilated Patient going into atrial fibrillation on night monitor Objective vital signs Vital Sign Date Time Temp Pulse Resp B/P (MAP) Pulse Ox O2 Delivery O2 Flow Rate FiO2 04/23/24 15:06 131/62 04/23/24 15:00 89 97 04/23/24 14:00 30 04/23/24 14:00 24 Mechanical Ventilator+ 04/23/24 04:00 98.4 98.4 Total Intake and Output 04/22/24 04/22/24 04/23/24 15:00 23:00 07:00 Intake Total 485.5 ml 602 ml 605.0 ml Output Total 2000 ml 1250 ml Balance 485.5 ml -1398 ml -645.0 ml medications Current Medications Medications Dose Ordered Sig/Lulu Route Start Time Stop Time Status Last Admin Dose Admin Acetaminophen 650 mg Q6HP PRN PO 04/16/24 23:45 Nitroglycerin 0.4 mg Q5MINP PRN SL 04/16/24 23:45 Morphine Sulfate 2 mg Q30M PRN IV 04/16/24 23:45 Albuterol 2.5 mg Q6HPRN PRN NEB 04/17/24 18:30 04/21/24 06:28 2.5 MG Levalbuterol HCl 1.25 mg Q6HR NEB 04/18/24 00:00 04/23/24 11:29 1.25 MG Propofol 100 ml @ 2.568 mls/ hr Q24H IV 04/18/24 00:45 04/20/24 08:22 15.408 MLS/HR Fentanyl Citrate 250 ml @ 2.5 mls/hr Q24H IV 04/18/24 00:45 04/23/24 15:07 15 MLS/HR Norepinephrine Bitartrate 32 mg/ Sodium Chloride 250 ml @ 0.938 mls/ hr Q24H IV 04/18/24 11:45 04/20/24 16:11 2.813 MLS/HR Midazolam HCl 50 ml @ 1 mls/hr Q24H IV 04/20/24 14:45 04/23/24 15:06 8 MLS/HR Pantoprazole Sodium 40 mg DAILY IV 04/21/24 10:00 04/23/24 09:29 40 MG Enteral Nutritional Formula 1,000 ml 30ML/HR GT 04/20/24 16:45 Cancel Enteral Nutritional Formula 1,000 ml 30ML/HR GT 04/21/24 08:45 Furosemide 60 mg DAILY IV 04/22/24 10:00 04/23/24 09:30 60 MG Piperacillin Sod/ Tazobactam Sod 50 ml @ 12.5 mls/hr Q8H IV 04/21/24 18:00 04/23/24 09:30 12.5 MLS/HR Heparin Sodium/ Dextrose 250 ml @ 15 mls/hr [id number] IV 04/22/24 12:00 04/23/24 15:11 15 MLS/HR Amiodarone HCl 250 ml @ 16.667 mls/ hr Q15H IV 04/22/24 22:30 04/23/24 11:15 16.667 MLS/HR Dexmedetomidine HCl 400 mcg/ Dextrose 100 ml @ 4.3 mls/hr [id number] IV 04/22/24 19:15 Insulin Glargine 20 units HS SC 04/23/24 22:00 Diagnostic Test (Pha) 1 strip Q6HR 04/23/24 12:00 04/23/24 12:15 1 STRIP Insulin Human Regular Q6HR SC 04/23/24 12:00 04/23/24 12:18 9 UNITS Dextrose 50 ml UD PRN IV 04/23/24 11:15 Examination: GENERAL:Abnormal, LUNGS:Abnormal (Mechanically ventilated), CVS:Abnormal (Atrial fibrillation with uncontrolled rate), NEURO:Abnormal (Chemically sedated) laboratory and microbiology Laboratory Tests 04/23/24 03:27 Test 04/23/24 03:27 Range/Units Serum Glucose 273 H 74-106 mg/dL Problem List/Assessment/Plan Problem List/Assessment/Plan Non ST elevation myocardial infarction Acute on chronic decompensated HFrEF, NYHA Class IV, newly diagnosed RLL segmental pulmonary embolism with no evidence of right-heart strain Severe coronary artery disease status post triple-vessel CABG, 2017 Rule out progressive coronary artery disease Atrial fibrillation with rapid ventricular response, new onset Bilateral pleural effusions, small Lower extremity DVT ruled out Severe PVD status post left SFA ELLIOT x 1 Hypertension Dyslipidemia Qho-ovyvkkk-bhuhmzpcq diabetes mellitus Acute kidney injury Tobacco use Plan/Recommendation (Dr. Huitron) * Echocardiogram revealed EF 25% * There is anterior anteroseptal anteroapical inferolateral wall severe hypokinesia. Normal right ventricular size and dimension. Normal right ventricular systolic function. Moderately elevated right ventricular systolic pressure 49 mm of mercury. Moderately dilated right and left atria. Aortic valve is thickened and sclerotic. No significant stenosis but mild regurgitation was noted. Mitral valve is thickened there is [id number] mitral valve regurgitation. There is mild tricuspid valve regurgitation. The pulmonary valve is grossly normal. No pericardial effusion. * Vasopressors as needed for hemodynamic support * [id number] VASc score: 5 points, HAS-BLED: 2 points * Antiarrhythmic agent, amiodarone * Consider beta maranda for rate control as tolerated * Patient currently on heparin drip; transition to NOAC when appropriate * Continue heparin drip per pharmacy protocol. Monitor H&H closely. Obtain T&S and SOB * Preload and afterload reduction. HD per nephrology. * Strict I&Os. Daily weight. Maintain fluid restrictions * Initiate GDMT for CHF as tolerated when off vasopressors * Single-antiplatelet therapy (Plavix) and lipid-lowering agent The patient with a newly diagnosed cardiomyopathy including a severely diminished LV function compared to previous transthoracic echocardiogram revealing LVEF of 65% on 2022 may qualify for a cardiac catheterization once clinically stable and with optimal renal function. [place] [id number] not a candidate for ischemic workup at this time. Condition remains critical. We will continue to monitor closely. Thank you for allowing us to participate in this patient's care. Please call if you have any questions or concerns. Critical care time: 30 min. This medical document was created using an electronic medical record system with voice recognition software and computerized dictation system. Although this document has been carefully reviewed, there might still be some phonetic and typographical errors. Occasional wrong-word or ``sound-alike substitutions may have occurred due to the inherent limitations of voice recognition software. These areas are purely typographical due to imperfections of the software programs and do not reflect any compromise in the patient's medical care. Please read the chart carefully and recognize, using context, where these substitutions have occurred. Plan discussed with: Other (Bedside RN) Dietary Evaluation Review Comments: current TF is providing adequate amount of protein and energy to pt. Need to continue monitor the nepro support vs updated lab values, d/t his ckd-3b status and not on HD. Expected Outcomes/Goals: meeting pt's estimated needs for both protein and energy at 75% or higher. Date of Service: Apr 23, 2024 Billing Provider: PAVEL HUITRON MD Common Visit Codes: 70203-[id number] CARE 30-74 MIN JOANIE BURK BUS ANALYST Apr 23, 2024 16:35
--- NOTE | 2024-04-23 17:19 | DVH ---
CHEST RADIOGRAPH Indication: reposition of ETube Technique: Single frontal view of the chest was obtained Comparison: XY CHEST XRAY 1 VIEW on DOS: 04/23/24, XY CHEST XRAY 1 VIEW on DOS: 04/22/24, XY CHEST PO RTABLE on DOS: 04/21/24 FINDINGS: Lines and Tubes: Right IJ approach central venous catheter terminating over the mid SVC. Left IJ keerthi medrano central venous catheter terminating over the mid SVC. Enteric tube is noted with side port slig htly below the GE junction. Lungs: Left lower lung zone consolidation with diffuse interstitial opacities. Pleura: No effusion. No pneumothorax. Cardiomediastinal contours: Unremarkable midline sternotomy wires surgical clips are noted consistent with prior history of CABG. Bones: No acute osseous abnormality. IMPRESSION: There appears to be interval retraction of the enteric tube with side port at the GE junction. Recomm end advancing about 5 cm for more optimal positioning. Bilateral IJ approach central venous catheters are in satisfactory position. Relatively unchanged bilateral lung opacities.
--- NOTE | 2024-04-23 17:46 | DVHPNRES ---
Progress Note Date Seen: Apr 23, 2024 Resident Creating Document: ANTONETTE NEWELL RESIDENT Medical Necessity Reason Pt with a Central, PICC or Fol: Yes The following are medically ne: Central Line, Mack Catheter Reason for mack catheter: Strict I&O Subjective Review of Systems Chief Compliant for admission: 74-year-old male with past medical history of coronary artery disease status post CABG in 2019, diabetes mellitus, hypertension, chronic kidney disease, hyperlipidemia and tobacco and marijuana use, who presented to the emergency room via EMS with a chief complaint of shortness of breath for three days. Patient and at bedside reports progressive shortness of breath associated with PND, PADGETT, a nonproductive cough, and cardiac palpitations. Denies chest pain, dizziness, or syncopal events. He was found with an oxygen saturation level of 83% on room air for which he was placed on O2 via NC at 6 liters/minute and administered a breathing treatment en route to the hospital. Further emergency room workup revealed a right lower lobe segmental pulmonary embolism with no evidence of right heart strain for which the patient was initiated on a heparin drip per PE protocol. A 12 lead electrocardiogram revealed a sinus tachycardia rhythm with nonspecific inferolateral ST changes and suggestive of left ventricular hypertrophy. Troponin levels are trending up with latest >2,000 ng/L. Denies following up with a primary radiology physician in the outpatient setting. Significant medical history includes severe coronary artery disease with high-grade left main stenosis status post triple-vessel coronary artery bypass graft on 08/26/2017, peripheral vascular disease status post PATHOLOGIST ASSISTANT including one ELLIOT to the left SFA on 06/27/2018 and attempted aperture of the right SFA, hypertension, dyslipidemia, peripheral neuropathy, benign prostatic hyperplasia, chronic kidney disease, and current tobacco use. the patient underwent a cardiac catheterization and coronary angiogram without catheter based intervention given patent grafts on 10/25/2022. Patient was intubated on 04/18/2024, Patient is seen and examined at bedside,Sedated, intubated on mechanical ventilator. Overnight events reviewed. Objective vital signs Vital Sign Date Time Temp Pulse Resp B/P (MAP) Pulse Ox O2 Delivery O2 Flow Rate FiO2 04/23/24 16:40 74 24 86/54 (65) 100 30 04/23/24 14:00 Mechanical Ventilator+ 04/23/24 04:00 98.4 98.4 Total Intake and Output 04/22/24 04/22/24 04/23/24 15:00 23:00 07:00 Intake Total 485.5 ml 602 ml 605.0 ml Output Total 2000 ml 1250 ml Balance 485.5 ml -1398 ml -645.0 ml medications Current Medications Medications Dose Ordered Sig/Lulu Route Start Time Stop Time Status Last Admin Dose Admin Acetaminophen 650 mg Q6HP PRN PO 04/16/24 23:45 Nitroglycerin 0.4 mg Q5MINP PRN SL 04/16/24 23:45 Morphine Sulfate 2 mg Q30M PRN IV 04/16/24 23:45 Albuterol 2.5 mg Q6HPRN PRN NEB 04/17/24 18:30 04/21/24 06:28 2.5 MG Levalbuterol HCl 1.25 mg Q6HR NEB 04/18/24 00:00 04/23/24 11:29 1.25 MG Propofol 100 ml @ 2.568 mls/ hr Q24H IV 04/18/24 00:45 04/20/24 08:22 15.408 MLS/HR Fentanyl Citrate 250 ml @ 2.5 mls/hr Q24H IV 04/18/24 00:45 04/23/24 15:07 15 MLS/HR Norepinephrine Bitartrate 32 mg/ Sodium Chloride 250 ml @ 0.938 mls/ hr Q24H IV 04/18/24 11:45 04/20/24 16:11 2.813 MLS/HR Midazolam HCl 50 ml @ 1 mls/hr Q24H IV 04/20/24 14:45 04/23/24 15:06 8 MLS/HR Pantoprazole Sodium 40 mg DAILY IV 04/21/24 10:00 04/23/24 09:29 40 MG Enteral Nutritional Formula 1,000 ml 30ML/HR GT 04/20/24 16:45 Cancel Enteral Nutritional Formula 1,000 ml 30ML/HR GT 04/21/24 08:45 Furosemide 60 mg DAILY IV 04/22/24 10:00 04/23/24 09:30 60 MG Heparin Sodium/ Dextrose 250 ml @ 15 mls/hr [id number] IV 04/22/24 12:00 04/23/24 15:11 15 MLS/HR Amiodarone HCl 250 ml @ 16.667 mls/ hr Q15H IV 04/22/24 22:30 04/23/24 16:27 33.333 MLS/HR Dexmedetomidine HCl 400 mcg/ Dextrose 100 ml @ 4.3 mls/hr [id number] IV 04/22/24 19:15 Insulin Glargine 20 units HS SC 04/23/24 22:00 Diagnostic Test (Pha) 1 strip Q6HR 04/23/24 12:00 04/23/24 16:15 1 STRIP Insulin Human Regular Q6HR SC 04/23/24 12:00 04/23/24 16:23 9 UNITS Dextrose 50 ml UD PRN IV 04/23/24 11:15 Piperacillin Sod/ Tazobactam Sod 50 ml @ 12.5 mls/hr Q6H IV 04/23/24 17:30 Examination Patient lying in bed, under sedoanalgesia due to mechanical ventilation General: RASS -3, afebrile, mucosae are moist Cardiovascular: Normal S1 and S2. No murmurs, gallops or rubs Respiratory: Mechanically assisted ventilation, equal bilateral airway entree. Clear lung sounds on auscultation,Bibasilar crackles. Abdomen: Soft, nontender, no organomegaly, normal bowel sounds MSK/skin: Mobilization of limbs cannot be evaluated. Skin is dry and warm Neurological: Orientation cannot be assessed. No apparent motor no sensitive deficits. Pupils are isocoric and reactive laboratory and microbiology Laboratory Tests 04/23/24 03:27 Test 04/23/24 03:27 Range/Units Serum Glucose 273 H 74-106 mg/dL Microbiology Date/Time Source Procedure Growth Status 04/18/24 01:00 Nose MRSA Screen - Final Complete 04/17/24 13:00 Blood Blood Culture - Final NO GROWTH AFTER 5 DAYS OF INCUBATION. Complete 04/17/24 01:05 Sputum Gram Stain - Final Complete 04/17/24 01:05 Respiratory Culture - Final Streptococcus Group F Complete Problem List/Assessment/Plan Problem List/Assessment/Plan Neurology : - patient is sedated Cardiovascular : # Non ST elevation myocardial infarction # Acute on chronic decompensated HFrEF, NYHA Class IV, newly diagnosed # Echo on 04/18/2024 shows: Severely dilated left ventricle. Severely reduced left ventricular systolic function with estimated ejection fraction 25%. There is anterior anteroseptal anteroapical inferolateral wall severe hypokinesia. # Severe coronary artery disease status post triple-vessel CABG, 2018 # Lower extremity DVT ruled out # Severe PVD status post left SFA ELLIOT x 1 # Hypertension # Dyslipidemia - cardiology on board - discontinue Lipitor for now - discontinue Plavix for now - patient is on heparin drip # a fib: on amiodarone Respiratory : # Septic shock due to pneumonia # Acute hypoxic respiratory failure secondary to possible pneumonia - patient is on mechanical ventilation with FiO2 30%, PEEP: 6, F 24, Vt 550 # Possible community-acquired pneumonia Gm +/- bacterial pneumonia - continue antibiotic, Zosyn # RLL segmental pulmonary embolism with no evidence of right-heart strain # Bilateral pleural effusions, small - continue heparin drip for pulmonary embolism Genitourinary : # ANDREA on CKD # Acute kidney injury due to ATN # ANDREA likely ischemic ATN in setting of shock # CKD stage IIIB -nephrology on board -continue Lasix 60 mg I/V daily. - HD today Infectious Disease : # Septic shock due to pneumonia # possible community-acquired pneumonia gm+/- bacterial - patient is on pressor - continue IV antibiotics Endocrine : Xev-wgdhwuo-ecrrwsqvf diabetes mellitus -HbA1c 7.1 - Continue ISS - monitor blood glucose Hematology : - leukocytosis due to septic shock - follow up morning labs Nutrition : Glucerna Lines: Endotracheal tube: 04/18/2024 Right IG central line: 04/18/2024 Mack catheter: 04/18/2024 Left IG Pipo catheter: 04/20/2024 Drips : Fentanyl 75 Versed 5 Propofol 0 NE 0 Vasopressin 0 [id number] Prophylaxis for PUD : Protonix 40 mg IV daily Prophylaxis for DVT: Patient is on heparin drip Possible CPAP trial tomorrow. Critical Care time spent 81 minutes including patient care, chart review and updating family, excluding procedure. Full code Case discussed with Dr. Nash Plan discussed with: Daughter, Other My Orders My Orders Orders - ANTONETTE NEWELL RESIDENT Procedure Category Date Status Time Chest Xray 1 View XY 04/23/24 Resulted 08:50 Chest Xray 1 View XY 04/24/24 Logged 04:00 Piperacillin-Tazob PHA 04/23/24 In Process 2.25gm (Zosyn 2.25gm) 17:30 Comprehensive LAB 04/24/24 Verified Metabolic Panel 04:00 Abg W/ Co-Ox RT 04/24/24 Verified 04:00 Dietary Evaluation Review Comments: current TF is providing adequate amount of protein and energy to pt. Need to continue monitor the nepro support vs updated lab values, d/t his ckd-3b status and not on HD. Expected Outcomes/Goals: meeting pt's estimated needs for both protein and energy at 75% or higher. Date of Service: Apr 23, 2024 Billing Provider: ARDIA NASH MD Common Visit Codes: [id number] CARE 30-74 MIN, [id number] CARE-EACH +30MIN ANTONETTE NEWELL RESIDENT Apr 23, 2024 17:46 ADRIA NASH MD Apr 26, 2024 12:09
[2024-04-23] MEDS: PIPERACILLIN-TAZOB 2.25GM 50 ML IV SCH (19:54)
[2024-04-23] MEDS: INSULIN LANTUS (GLARGINE) 1 /0.01ml (100units/ml) SC SCH (22:12)
[2024-04-24] VITALS (105 sets, daily range): BP systolic 90–160; BP diastolic 47–81; PULSE 64–108; RESP 20–24; TEMP 98.8–99.9; O2SAT 96–100
[2024-04-24 04:06] LABS: Basophils # (auto) 0 10 ^3/uL (0-0.2); Basophils % (auto) 0.1 % (0.0-2.0); Eosinophils # (auto) 0.1 10 ^3/uL (0-0.8); Hematocrit 29.5 % (41.0-53.0); Hemoglobin 9.8 g/dL (13.5-17.5); Lymphocytes # (auto) 0.8 10 ^3/uL (0.4-5.4); Lymphocytes % (auto) 6.2 % (10.0-50.0); Mean Corpuscular Hemoglobin 29.3 pg (28.0-32.0); Mean Corpuscular Hgb Conc. 33.1 g/dL (32.0-36.0); Mean Corpuscular Volume 88.5 fL (80.0-100.0); Monocytes # (auto) 1.3 10 ^3/uL (0-1.3); Monocytes % (auto) 9.9 % (0.0-12.0); Neutrophils # (auto) 10.6 10 ^3/uL (1.6-8.6); Neutrophils % (auto) 82.8 % (37.0-80.0); Nucleated Red Blood Cells % 0.1 %; Platelet Count (auto) 151 10^3/uL (140-450); Red Blood Cells 3.34 10^6/uL (4.5-5.90); Red Cell Distribution Width 14.3 % (11.8-14.3); White Blood Cell 12.8 10^3/uL (4.4-10.8)
[2024-04-24 04:24] LABS: Alanine Aminotransferase 27 U/L (7-40); Albumin 3.5 g/dL (3.2-4.8); Alkaline Phosphatase 81 U/L (46-116); Anion Gap 11 (5-15); Aspartate Aminotransferase 28 U/L (13-40); BUN/Creatinine Ratio 23.2 (10.0-20.0); Calcium 9.1 mg/dL (8.7-10.4); Carbon Dioxide 31 mmol/L (20-31); Chloride 100 mmol/L (98-107); Potassium 3.5 mmol/L (3.5-5.1); Sodium 142 mmol/L (136-145)
[2024-04-24 04:27] LABS: Blood Urea Nitrogen 52 mg/dL (9-23); Glucose 300 mg/dL (74-106)
[2024-04-24 04:36] LABS: INR 1.11 (0.9-1.15); Partial Thromboplastin Time 58.8 SEC (24.5-34.5); Prothrombin Time 11.7 sec (9.3-11.8)
--- NOTE | 2024-04-24 05:36 | DVH ---
CHEST RADIOGRAPH Indication: intubated Technique: Single frontal view of the chest was obtained COMPARISON: XY CHEST PORTABLE on DOS: 04/23/24, XY CHEST XRAY 1 VIEW on DOS: 04/23/24, XY CHEST XRAY 1 VIEW on DOS: 04/22/24 FINDINGS: Lines and Tubes: Median sternotomy. Endotracheal tube, enteric catheter and right central venous cat heter and left central venous catheter in satisfactory position. Lungs: Multifocal airspace disease. Pleura: No effusion. No pneumothorax. Cardiomediastinal contours: Unremarkable Bones: Unremarkable IMPRESSION: Lines and tubes in satisfactory position. No significant interval change.
[2024-04-24 07:26] LABS: Base Excess 3.9 mmol/L (-2.0-3.0)
[2024-04-24 12:49] LABS: Base Excess 6.9 mmol/L (-2.0-3.0)
--- NOTE | 2024-04-24 13:08 | DVHPN2 ---
Progress Note - Dictate Date Seen: Apr 24, 2024 Medical Necessity Reason Pt with a Central, PICC or Fol: Yes The following are medically ne: Central Line, Mack Catheter Reason for mack catheter: Strict I&O Subjective Patient remains intubated Urine output labs and vitals reviewed with ICU nurse vital signs Vital Sign Date Time Temp Pulse Resp B/P (MAP) Pulse Ox O2 Delivery O2 Flow Rate FiO2 04/24/24 12:15 98.8 69 114/54 (74) 99 209.8 04/24/24 12:00 30 04/24/24 12:00 20 Mechanical Ventilator+ Total Intake and Output 04/23/24 04/23/24 04/24/24 15:00 23:00 07:00 Intake Total 280.579 ml 370.168 ml 672.336 ml Output Total 1700 ml 550 ml Balance 280.579 ml -1329.832 ml 122.336 ml medications Current Medications Medications Dose Ordered Sig/Lulu Route Start Time Stop Time Status Last Admin Dose Admin Acetaminophen 650 mg Q6HP PRN PO 04/16/24 23:45 Nitroglycerin 0.4 mg Q5MINP PRN SL 04/16/24 23:45 Morphine Sulfate 2 mg Q30M PRN IV 04/16/24 23:45 Albuterol 2.5 mg Q6HPRN PRN NEB 04/17/24 18:30 04/21/24 06:28 2.5 MG Levalbuterol HCl 1.25 mg Q6HR NEB 04/18/24 00:00 04/24/24 11:59 1.25 MG Propofol 100 ml @ 2.568 mls/ hr Q24H IV 04/18/24 00:45 04/20/24 08:22 15.408 MLS/HR Fentanyl Citrate 250 ml @ 2.5 mls/hr Q24H IV 04/18/24 00:45 04/23/24 15:07 15 MLS/HR Norepinephrine Bitartrate 32 mg/ Sodium Chloride 250 ml @ 0.938 mls/ hr Q24H IV 04/18/24 11:45 04/20/24 16:11 2.813 MLS/HR Midazolam HCl 50 ml @ 1 mls/hr Q24H IV 04/20/24 14:45 04/24/24 06:08 6 MLS/HR Pantoprazole Sodium 40 mg DAILY IV 04/21/24 10:00 04/24/24 10:35 40 MG Enteral Nutritional Formula 1,000 ml 30ML/HR GT 04/20/24 16:45 Cancel Enteral Nutritional Formula 1,000 ml 30ML/HR GT 04/21/24 08:45 Furosemide 60 mg DAILY IV 04/22/24 10:00 04/24/24 10:36 60 MG Dexmedetomidine HCl 400 mcg/ Dextrose 100 ml @ 4.3 mls/hr [id number] IV 04/22/24 19:15 Insulin Glargine 20 units HS SC 04/23/24 22:00 04/23/24 22:12 20 UNITS Diagnostic Test (Pha) 1 strip Q6HR 04/23/24 12:00 04/24/24 11:45 1 STRIP Insulin Human Regular Q6HR SC 04/23/24 12:00 04/24/24 11:47 9 UNITS Dextrose 50 ml UD PRN IV 04/23/24 11:15 Piperacillin Sod/ Tazobactam Sod 50 ml @ 12.5 mls/hr Q6H IV 04/23/24 17:30 04/24/24 11:39 12.5 MLS/HR Enoxaparin Sodium 80 mg DAILY SC 04/24/24 22:00 Amiodarone HCl 200 mg Q12HR NG 04/24/24 22:00 objective GENERAL:Abnormal, LUNGS:Abnormal, MSK:Abnormal (No edema), NEURO:Abnormal laboratory and microbiology Laboratory Tests 04/24/24 03:37 Test 04/24/24 03:37 Range/Units Serum Glucose 300 H 74-106 mg/dL Assessment/Plan ANDREA likely ischemic ATN in setting of shock needing dialysis CKD stage IIIB Acute PE Acute hypoxic respiratory failure NSTEMI History of coronary artery disease Plan/recommendation Urine output has gotten better significantly we will hold dialysis for the next 48 hours monitor renal function and urine output -last dialysis on 04/22/2024. No HD today Remains on heparin drip Dietary Evaluation Review Comments: current TF is providing adequate amount of protein and energy to pt. Need to continue monitor the nepro support vs updated lab values, d/t his ckd-3b status and not on HD. Expected Outcomes/Goals: meeting pt's estimated needs for both protein and energy at 75% or higher. Plan discussed with: Other Critical Care Time(min): 33 ANN-MARIE OROZCO MD Apr 24, 2024 13:08
[2024-04-24] MEDS: AMIODARONE 450mg/250ml AE 250 ML IV ONE (16:22)
--- NOTE | 2024-04-24 17:32 | DVHPNRES ---
Progress Note Date Seen: Apr 24, 2024 Resident Creating Document: ANTONETTE NEWELL RESIDENT Medical Necessity Reason Pt with a Central, PICC or Fol: Yes The following are medically ne: Central Line, Mack Catheter Reason for mack catheter: Strict I&O Subjective Review of Systems Chief Compliant for admission: 74-year-old male with past medical history of coronary artery disease status post CABG in 2019, diabetes mellitus, hypertension, chronic kidney disease, hyperlipidemia and tobacco and marijuana use, who presented to the emergency room via EMS with a chief complaint of shortness of breath for three days. Patient and at bedside reports progressive shortness of breath associated with PND, PADGETT, a nonproductive cough, and cardiac palpitations. Denies chest pain, dizziness, or syncopal events. He was found with an oxygen saturation level of 83% on room air for which he was placed on O2 via NC at 6 liters/minute and administered a breathing treatment en route to the hospital. Further emergency room workup revealed a right lower lobe segmental pulmonary embolism with no evidence of right heart strain for which the patient was initiated on a heparin drip per PE protocol. A 12 lead electrocardiogram revealed a sinus tachycardia rhythm with nonspecific inferolateral ST changes and suggestive of left ventricular hypertrophy. Troponin levels are trending up with latest >2,000 ng/L. Denies following up with a primary enlisted advisor in the outpatient setting. Significant medical history includes severe coronary artery disease with high-grade left main stenosis status post triple-vessel coronary artery bypass graft on 08/26/2017, peripheral vascular disease status post INTENSIVE CARE UNIT NURSE including one ELLIOT to the left SFA on 06/27/2018 and attempted aperture of the right SFA, hypertension, dyslipidemia, peripheral neuropathy, benign prostatic hyperplasia, chronic kidney disease, and current tobacco use. the patient underwent a cardiac catheterization and coronary angiogram without catheter based intervention given patent grafts on 10/25/2022. Patient was intubated on 04/18/2024, Patient is seen and examined at bedside,Sedated, intubated on mechanical ventilator. Overnight events reviewed. Objective vital signs Vital Sign Date Time Temp Pulse Resp B/P (MAP) Pulse Ox O2 Delivery O2 Flow Rate FiO2 04/24/24 16:45 99.5 81 107/51 (69) 98 211.1 04/24/24 16:04 20 30 04/24/24 16:00 Mechanical Ventilator+ Total Intake and Output 04/23/24 04/23/24 04/24/24 15:00 23:00 07:00 Intake Total 280.579 ml 370.168 ml 672.336 ml Output Total 1700 ml 550 ml Balance 280.579 ml -1329.832 ml 122.336 ml medications Current Medications Medications Dose Ordered Sig/Lulu Route Start Time Stop Time Status Last Admin Dose Admin Acetaminophen 650 mg Q6HP PRN PO 04/16/24 23:45 Nitroglycerin 0.4 mg Q5MINP PRN SL 04/16/24 23:45 Morphine Sulfate 2 mg Q30M PRN IV 04/16/24 23:45 Albuterol 2.5 mg Q6HPRN PRN NEB 04/17/24 18:30 04/21/24 06:28 2.5 MG Levalbuterol HCl 1.25 mg Q6HR NEB 04/18/24 00:00 04/24/24 11:59 1.25 MG Propofol 100 ml @ 2.568 mls/ hr Q24H IV 04/18/24 00:45 04/20/24 08:22 15.408 MLS/HR Fentanyl Citrate 250 ml @ 2.5 mls/hr Q24H IV 04/18/24 00:45 04/24/24 16:40 7.5 MLS/HR Norepinephrine Bitartrate 32 mg/ Sodium Chloride 250 ml @ 0.938 mls/ hr Q24H IV 04/18/24 11:45 04/20/24 16:11 2.813 MLS/HR Midazolam HCl 50 ml @ 1 mls/hr Q24H IV 04/20/24 14:45 04/24/24 13:59 5 MLS/HR Pantoprazole Sodium 40 mg DAILY IV 04/21/24 10:00 04/24/24 10:35 40 MG Enteral Nutritional Formula 1,000 ml 30ML/HR GT 04/20/24 16:45 Cancel Enteral Nutritional Formula 1,000 ml 30ML/HR GT 04/21/24 08:45 Furosemide 60 mg DAILY IV 04/22/24 10:00 04/24/24 10:36 60 MG Dexmedetomidine HCl 400 mcg/ Dextrose 100 ml @ 4.3 mls/hr [id number] IV 04/22/24 19:15 Insulin Glargine 20 units HS SC 04/23/24 22:00 04/23/24 22:12 20 UNITS Diagnostic Test (Pha) 1 strip Q6HR 04/23/24 12:00 04/24/24 11:45 1 STRIP Insulin Human Regular Q6HR SC 04/23/24 12:00 04/24/24 11:47 9 UNITS Dextrose 50 ml UD PRN IV 04/23/24 11:15 Piperacillin Sod/ Tazobactam Sod 50 ml @ 12.5 mls/hr Q6H IV 04/23/24 17:30 04/24/24 11:39 12.5 MLS/HR Enoxaparin Sodium 80 mg DAILY SC 04/24/24 22:00 Amiodarone HCl 200 mg Q12HR NG 04/24/24 22:00 Examination Patient lying in bed, under sedoanalgesia due to mechanical ventilation General: RASS -3, afebrile, mucosae are moist Cardiovascular: Normal S1 and S2. No murmurs, gallops or rubs Respiratory: Mechanically assisted ventilation, equal bilateral airway entree. Clear lung sounds on auscultation,Bibasilar crackles. Abdomen: Soft, nontender, no organomegaly, normal bowel sounds MSK/skin: Mobilization of limbs cannot be evaluated. Skin is dry and warm Neurological: Orientation cannot be assessed. No apparent motor no sensitive deficits. Pupils are isocoric and reactive laboratory and microbiology Laboratory Tests 04/24/24 03:37 Test 04/24/24 03:37 Range/Units Serum Glucose 300 H 74-106 mg/dL Microbiology Date/Time Source Procedure Growth Status 04/18/24 01:00 Nose MRSA Screen - Final Complete 04/17/24 13:00 Blood Blood Culture - Final NO GROWTH AFTER 5 DAYS OF INCUBATION. Complete 04/17/24 01:05 Sputum Gram Stain - Final Complete 04/17/24 01:05 Respiratory Culture - Final Streptococcus Group F Complete Problem List/Assessment/Plan Problem List/Assessment/Plan Neurology : - patient is sedated Cardiovascular : # Non ST elevation myocardial infarction # Acute on chronic decompensated HFrEF, NYHA Class IV, newly diagnosed # Echo on 04/18/2024 shows: Severely dilated left ventricle. Severely reduced left ventricular systolic function with estimated ejection fraction 25%. There is anterior anteroseptal anteroapical inferolateral wall severe hypokinesia. # Severe coronary artery disease status post triple-vessel CABG, 2018 # Lower extremity DVT ruled out # Severe PVD status post left SFA ELLIOT x 1 # Hypertension # Dyslipidemia - cardiology on board - discontinue Lipitor for now - discontinue Plavix for now - patient is on heparin drip Respiratory : # Septic shock due to pneumonia # Acute hypoxic respiratory failure secondary to possible pneumonia - patient is on mechanical ventilation with FiO2 30%, PEEP: 6, F 24, Vt 550 # Possible community-acquired pneumonia Gm +/- bacterial pneumonia - continue antibiotic, Zosyn # RLL segmental pulmonary embolism with no evidence of right-heart strain # Bilateral pleural effusions, small - D/C heparin drip - Start Lovenox 80 mg SC BID for pulmonary embolism Genitourinary : # ANDREA on CKD # Acute kidney injury due to ATN # ANDREA likely ischemic ATN in setting of shock # CKD stage IIIB -nephrology on board -continue Lasix 60 mg I/V daily. - HD today Infectious Disease : # Septic shock due to pneumonia # possible community-acquired pneumonia gm+/- bacterial - patient is on pressor - continue IV antibiotics Endocrine : Tng-celpgrc-golryzfwv diabetes mellitus -HbA1c 7.1 - Continue ISS - monitor blood glucose Hematology : - leukocytosis due to septic shock - follow up morning labs Nutrition : Glucerna Lines: Endotracheal tube: 04/18/2024 Right IG central line: 04/18/2024 Mack catheter: 04/18/2024 Left IG Pipo catheter: 04/20/2024 Drips : Fentanyl 50 Versed 5 Propofol 0 NE 0 Vasopressin 0 Amio drip 0.5 Prophylaxis for PUD : Protonix 40 mg IV daily Prophylaxis for DVT: Lovenox 80 mg SC BID HD tomorrow, Possible CPAP trial tomorrow. Critical Care time spent 61 minutes including patient care, chart review and updating family, excluding procedure. Full code Case discussed with Dr. Bruner Plan discussed with: Other (RN) My Orders My Orders Orders - ANTONETTE NEWELL RESIDENT Procedure Category Date Status Time Piperacillin-Tazob PHA 04/23/24 In Process 2.25gm (Zosyn 2.25gm) 17:30 Abg W/ Co-Ox RT 04/24/24 Logged 04:00 Dietary Evaluation Review Comments: current TF is providing adequate amount of protein and energy to pt. Need to continue monitor the nepro support vs updated lab values, d/t his ckd-3b status and not on HD. Expected Outcomes/Goals: meeting pt's estimated needs for both protein and energy at 75% or higher. Date of Service: Apr 24, 2024 Billing Provider: CLAYTON BRUNER MD Common Visit Codes: [id number] CARE 30-74 MIN ANTONETTE NEWELL RESIDENT Apr 24, 2024 17:32 CLAYTON BRUNER MD Apr 25, 2024 09:22
[2024-04-24] MEDS ORDERED: AMIODARONE HCL 200 MG TAB PO SCH (22:00)
[2024-04-24] MEDS: ENOXAPARIN SOD 100 MG/1 ML SYRINGE SC SCH (22:43)
[2024-04-24] MEDS: AMIODARONE HCL 200 MG TAB NG SCH (22:44)
--- NOTE | 2024-04-24 22:52 | DVH ---
EXAMINATION: AP portable chest radiograph CLINICAL HISTORY: NG TUBE PLACEMENT COMPARISON: XY CHEST XRAY 1 VIEW on DOS: 04/24/24, XY CHEST PORTABLE on DOS: 04/23/24, XY CHEST XRAY 1 VIEW on DOS: 04/23/24 TECHNIQUE: SINGLE VIEW OF THE CHEST FINDINGS: Endotracheal tube 5.1 cm above the mark. Right internal jugular catheter in place in the superior vena cava above the right atrium. Sternal wire sutures in place. Left lower lobe airspace disease and atelectasis. IMPRESSION: 1. Endotracheal tube 5.1 cm above the mark. 2. Right internal jugular catheter in the superior vena cava above the right atrium. 3. Airspace disease in the left lower lobe. 4. ENTERIC TUBE NOT VISUALIZED. Consider KUB or removal and repositioning. Enteric tube not visualize d throughout the thorax or below the left diaphragm.
[2024-04-25] VITALS (113 sets, daily range): BP systolic 80–182; BP diastolic 46–106; PULSE 55–150; RESP 18–28; TEMP 98.4–100; O2SAT 94–100
[2024-04-25 04:12] LABS: Basophils # (auto) 0 10 ^3/uL (0-0.2); Basophils % (auto) 0.1 % (0.0-2.0); Eosinophils # (auto) 0.2 10 ^3/uL (0-0.8); Eosinophils % (auto) 1.4 % (0.0-7.0); Hematocrit 31.5 % (41.0-53.0); Hemoglobin 10.5 g/dL (13.5-17.5); Lymphocytes # (auto) 0.7 10 ^3/uL (0.4-5.4); Mean Corpuscular Hemoglobin 29.8 pg (28.0-32.0); Mean Corpuscular Hgb Conc. 33.3 g/dL (32.0-36.0); Mean Corpuscular Volume 89.5 fL (80.0-100.0); Monocytes # (auto) 1.3 10 ^3/uL (0-1.3); Monocytes % (auto) 9.5 % (0.0-12.0); Neutrophils # (auto) 11.7 10 ^3/uL (1.6-8.6); Nucleated Red Blood Cells % 0.1 %; Platelet Count (auto) 192 10^3/uL (140-450); Red Blood Cells 3.52 10^6/uL (4.5-5.90); Red Cell Distribution Width 14.7 % (11.8-14.3); White Blood Cell 13.9 10^3/uL (4.4-10.8)
[2024-04-25 04:18] LABS: Calcium 9.8 mg/dL (8.7-10.4); Chloride 99 mmol/L (98-107); Potassium 3.8 mmol/L (3.5-5.1); Sodium 140 mmol/L (136-145)
[2024-04-25 04:19] LABS: Anion Gap 7 (5-15)
[2024-04-25 04:23] LABS: INR 1.06 (0.9-1.15); Prothrombin Time 11.2 sec (9.3-11.8)
[2024-04-25 04:24] LABS: BUN/Creatinine Ratio 22.1 (10.0-20.0); Blood Urea Nitrogen 54 mg/dL (9-23); Carbon Dioxide 34 mmol/L (20-31); Glucose 242 mg/dL (74-106)
[2024-04-25 07:36] LABS: Base Excess 4.6 mmol/L (-2.0-3.0)
--- NOTE | 2024-04-25 11:01 | DVH ---
CLINICAL INFORMATION: 74 years old, Male; INTUBATED. TECHNIQUE: Single AP portable chest radiograph was obtained. COMPARISON: XY CHEST PORTABLE on DOS: 04/24/24, XY CHEST XRAY 1 VIEW on DOS: 04/24/24, XY CHEST AIRAM BLE on DOS: 04/23/24 FINDINGS: Distal tip of the endotracheal tube is approximately 3 cm above the level of the mark, in satisfact ory position. Enteric tube, left internal jugular central venous catheter, right internal jugular leela tral venous catheter appear stable compared to prior exam, in satisfactory position. Similar-appearin g postsurgical changes. Bilateral airspace opacities, minimally changed compared to the prior exam. No pneumothorax. No other significant interval change. IMPRESSION: 1. Satisfactory positioning of the endotracheal tube. Enteric tube, left internal jugular central mark ous catheter and right internal jugular central venous catheter are in stable satisfactory position. 2. No other significant interval change as detailed above.
--- NOTE | 2024-04-25 15:28 | DVHPN ---
DATE: 04/25/2024 PULMONARY FOLLOWUP SUBJECTIVE: The patient has a history of pulmonary artery disease, pulmonary embolism and has been switched from heparin to Lovenox. The patient remains intubated. He is in no distress. The patient was planned for a CPAP trial; however, even without discontinuing the sedation. Once the sedation was decreased, the patient became extremely agitated. The patient also became tachypneic and tachycardic and the patient was put back on the sedation. At the current time, the patient appears to be stable, comfortable with good patient ventilator synchrony. No significant secretions reported by bedside RN. The patient is not requiring any hemodynamic support. Urine output has been stable. PHYSICAL EXAMINATION: VITAL SIGNS: T-max of 99.1, heart rate 82, respiratory rate 20, blood pressure 111/50. NECK: Supple. No JVD. CHEST: Reveals bilateral rales, no wheezing. LUNGS: Diminished air entry at bases. ABDOMEN: Soft, nontender. Bowel sounds normal. EXTREMITIES: No edema or clubbing. COR: S1, S2. No murmurs. LABORATORY DATA: WBC 14, hematocrit 31, platelet count 192. Blood gases, pH 7.46, pCO2 41, pO2 88, saturations 96. The patient is on assist control, tidal volume 500, rate of 20, PEEP of 5 and 30% FiO2. CO2 34, BUN 54, creatinine 2.44. Last BNP was 2214 on 04/18. INR was 1.06, but now the patient is on heparin. Chest x-ray shows some airspace diseases. They appeared to be similar to previous x-rays. The patient's CT of the chest done on 04/17 had revealed a right lower lobe segmental embolus, small bilateral pleural effusions, cardiomegaly, pulmonary edema and mediastinal adenopathy, read as reactive, but could also be secondary to fluid overload. PLAN: At this time, we will continue current. The patient appears to be somewhat oversedated and I recommended slowly decreasing sedation to keep RASS -1 to - 2. Continue cardiac followup. Continue renal followup. Keep euvolemic. Continue bronchodilators. The patient is also on Zosyn for airspace disease. The patient remains on amiodarone. We will try to give a CPAP trial with a pressure support of 8 and a PEEP of 5 at 30%, FiO2 in the morning if stable. Plan discussed with bedside RN. Critical time 34 minutes. MD JIMBO Maddox/PHILIP/DEANDRA TID: [id number] RECEIPT: [id number]
--- NOTE | 2024-04-25 16:23 | DVHPN2 ---
Progress Note - Dictate Date Seen: Apr 25, 2024 Medical Necessity Reason Pt with a Central, PICC or Fol: Yes The following are medically ne: Central Line, Mack Catheter Reason for mack catheter: Strict I&O Subjective Patient remains intubated Urine output labs and vitals reviewed with ICU nurse 3.1L UOP vital signs Vital Sign Date Time Temp Pulse Resp B/P (MAP) Pulse Ox O2 Delivery O2 Flow Rate FiO2 04/25/24 16:00 30 04/25/24 16:00 20 98 Mechanical Ventilator+ 04/25/24 15:46 99.0 88 149/77 (101) 210.2 Total Intake and Output 04/24/24 04/24/24 04/25/24 15:00 23:00 07:00 Intake Total 451.844 ml 477.680 ml 166.45 ml Output Total 2150 ml 950 ml Balance 451.844 ml -1672.320 ml -783.55 ml medications Current Medications Medications Dose Ordered Sig/Lulu Route Start Time Stop Time Status Last Admin Dose Admin Acetaminophen 650 mg Q6HP PRN PO 04/16/24 23:45 Nitroglycerin 0.4 mg Q5MINP PRN SL 04/16/24 23:45 Morphine Sulfate 2 mg Q30M PRN IV 04/16/24 23:45 Albuterol 2.5 mg Q6HPRN PRN NEB 04/17/24 18:30 04/21/24 06:28 2.5 MG Levalbuterol HCl 1.25 mg Q6HR NEB 04/18/24 00:00 04/25/24 12:31 1.25 MG Fentanyl Citrate 250 ml @ 2.5 mls/hr Q24H IV 04/18/24 00:45 04/24/24 16:40 7.5 MLS/HR Norepinephrine Bitartrate 32 mg/ Sodium Chloride 250 ml @ 0.938 mls/ hr Q24H IV 04/18/24 11:45 04/20/24 16:11 2.813 MLS/HR Midazolam HCl 50 ml @ 1 mls/hr Q24H IV 04/20/24 14:45 04/25/24 11:54 3 MLS/HR Pantoprazole Sodium 40 mg DAILY IV 04/21/24 10:00 04/25/24 10:03 40 MG Enteral Nutritional Formula 1,000 ml 30ML/HR GT 04/20/24 16:45 Cancel Enteral Nutritional Formula 1,000 ml 30ML/HR GT 04/21/24 08:45 Furosemide 60 mg DAILY IV 04/22/24 10:00 04/25/24 10:03 60 MG Dexmedetomidine HCl 400 mcg/ Dextrose 100 ml @ 4.3 mls/hr [id number] IV 04/22/24 19:15 04/25/24 03:36 4.3 MLS/HR Insulin Glargine 20 units HS SC 04/23/24 22:00 04/24/24 22:38 20 UNITS Diagnostic Test (Pha) 1 strip Q6HR 04/23/24 12:00 04/25/24 12:00 1 STRIP Insulin Human Regular Q6HR SC 04/23/24 12:00 04/25/24 11:38 3 UNITS Dextrose 50 ml UD PRN IV 04/23/24 11:15 Piperacillin Sod/ Tazobactam Sod 50 ml @ 12.5 mls/hr Q6H IV 04/23/24 17:30 04/25/24 11:26 12.5 MLS/HR Enoxaparin Sodium 80 mg DAILY SC 04/24/24 22:00 04/25/24 10:03 80 MG Amiodarone HCl 200 mg Q12HR NG 04/24/24 22:00 04/25/24 10:03 200 MG Hydralazine HCl 10 mg Q6HP PRN IV 04/25/24 13:30 objective GENERAL:Abnormal, LUNGS:Abnormal, MSK:Abnormal (No edema), NEURO:Abnormal laboratory and microbiology Laboratory Tests 04/25/24 03:03 Test 04/25/24 03:03 Range/Units Serum Glucose 242 H 74-106 mg/dL Assessment/Plan ANDREA likely ischemic ATN in setting of shock needing dialysis CKD stage IIIB Acute PE Acute hypoxic respiratory failure NSTEMI History of coronary artery disease Plan/recommendation -last dialysis on 04/22/2024. No HD today _ Hold lasix as UOP and bicarb rising. Will eval tomorrow if lasix needed PRN. Avoid overdiuresis and possible diuretic induced metabolic alkalosis Remains on heparin drip Dietary Evaluation Review Comments: current TF is providing adequate amount of protein and energy to pt. Need to continue monitor the nepro support vs updated lab values, d/t his ckd-3b status and not on HD. Expected Outcomes/Goals: meeting pt's estimated needs for both protein and energy at 75% or higher. Plan discussed with: ANN-MARIE Pena MD Apr 25, 2024 16:23
[2024-04-26] VITALS (105 sets, daily range): BP systolic 77–167; BP diastolic 44–115; PULSE 62–128; RESP 16–39; TEMP 98.6–99.9; O2SAT 93–100
[2024-04-26 03:19] LABS: Basophils # (auto) 0 10 ^3/uL (0-0.2); Basophils % (auto) 0.1 % (0.0-2.0); Eosinophils # (auto) 0.3 10 ^3/uL (0-0.8); Eosinophils % (auto) 2.9 % (0.0-7.0); Hematocrit 32.1 % (41.0-53.0); Hemoglobin 10.5 g/dL (13.5-17.5); Lymphocytes # (auto) 0.8 10 ^3/uL (0.4-5.4); Lymphocytes % (auto) 7.5 % (10.0-50.0); Mean Corpuscular Hemoglobin 29.4 pg (28.0-32.0); Mean Corpuscular Hgb Conc. 32.9 g/dL (32.0-36.0); Mean Corpuscular Volume 89.4 fL (80.0-100.0); Monocytes # (auto) 0.9 10 ^3/uL (0-1.3); Monocytes % (auto) 8.2 % (0.0-12.0); Neutrophils # (auto) 8.9 10 ^3/uL (1.6-8.6); Neutrophils % (auto) 81.3 % (37.0-80.0); Platelet Count (auto) 218 10^3/uL (140-450); Red Blood Cells 3.59 10^6/uL (4.5-5.90); Red Cell Distribution Width 14.6 % (11.8-14.3); White Blood Cell 10.9 10^3/uL (4.4-10.8)
[2024-04-26 03:37] LABS: Alanine Aminotransferase 21 U/L (7-40); Alkaline Phosphatase 82 U/L (46-116); Anion Gap 8 (5-15); Aspartate Aminotransferase 19 U/L (13-40); BUN/Creatinine Ratio 25.4 (10.0-20.0); Calcium 9.6 mg/dL (8.7-10.4); Chloride 100 mmol/L (98-107); Potassium 3.6 mmol/L (3.5-5.1); Sodium 143 mmol/L (136-145)
[2024-04-26 03:38] LABS: Albumin 3.8 g/dL (3.2-4.8); Bilirubin, Total 0.8 mg/dL (0.2-1.0); Total Protein 6.7 g/dL (5.7-8.2)
[2024-04-26 03:43] LABS: Blood Urea Nitrogen 58 mg/dL (9-23); Carbon Dioxide 35 mmol/L (20-31); Glucose 181 mg/dL (74-106)
--- NOTE | 2024-04-26 05:58 | DVH ---
CHEST RADIOGRAPH Indication: INTUBATED Technique: Single frontal view of the chest was obtained COMPARISON: XY CHEST PORTABLE on DOS: 04/25/24, XY CHEST PORTABLE on DOS: 04/24/24, XY CHEST XRAY 1 V IEW on DOS: 04/24/24, XY CHEST XRAY 1 VIEW on DOS: 04/24/24 FINDINGS: Lines and Tubes: Median sternotomy. Endotracheal tube, enteric catheter and right central venous cat heter and left central venous catheter in satisfactory position. Lungs: Multifocal airspace disease. Pleura: No effusion. No pneumothorax. Cardiomediastinal contours: Unremarkable Bones: Unremarkable IMPRESSION: Lines and tubes in satisfactory position. No significant interval change.
[2024-04-26 06:46] LABS: Base Excess 4.8 mmol/L (-2.0-3.0)
[2024-04-26] MEDS: hydrALAZINE HCL 20 MG/ML VL IV PRN (08:06)
[2024-04-26] MEDS: METOPROLOL TARTRATE 1MG/1ML-5ML VIAL IV ONE (08:45)
--- NOTE | 2024-04-26 12:46 | DVHPN2 ---
Consult Progress Note Subjective Other Systems: on precedex Objective vital signs Vital Sign Date Time Temp Pulse Resp B/P (MAP) Pulse Ox O2 Delivery O2 Flow Rate FiO2 04/26/24 11:20 86 20 99/48 (65) 95 30 04/26/24 10:45 98.8 209.8 04/26/24 10:00 Mechanical Ventilator+ Total Intake and Output 04/25/24 04/25/24 04/26/24 15:00 23:00 07:00 Intake Total 206.70 ml 260.5 ml 215.75 ml Output Total 1800 ml 500 ml Balance 206.70 ml -1539.5 ml -284.25 ml medications Current Medications Medications Dose Ordered Sig/Lulu Route Start Time Stop Time Status Last Admin Dose Admin Acetaminophen 650 mg Q6HP PRN PO 04/16/24 23:45 Nitroglycerin 0.4 mg Q5MINP PRN SL 04/16/24 23:45 Albuterol 2.5 mg Q6HPRN PRN NEB 04/17/24 18:30 04/21/24 06:28 2.5 MG Levalbuterol HCl 1.25 mg Q6HR NEB 04/18/24 00:00 04/26/24 11:26 1.25 MG Fentanyl Citrate 250 ml @ 2.5 mls/hr Q24H IV 04/18/24 00:45 04/25/24 23:48 12.5 MLS/HR Norepinephrine Bitartrate 32 mg/ Sodium Chloride 250 ml @ 0.938 mls/ hr Q24H IV 04/18/24 11:45 04/20/24 16:11 2.813 MLS/HR Midazolam HCl 50 ml @ 1 mls/hr Q24H IV 04/20/24 14:45 04/26/24 00:48 6 MLS/HR Pantoprazole Sodium 40 mg DAILY IV 04/21/24 10:00 04/26/24 08:05 40 MG Enteral Nutritional Formula 1,000 ml 30ML/HR GT 04/20/24 16:45 Cancel Enteral Nutritional Formula 1,000 ml 30ML/HR GT 04/21/24 08:45 Dexmedetomidine HCl 400 mcg/ Dextrose 100 ml @ 4.3 mls/hr [id number] IV 04/22/24 19:15 04/26/24 05:13 4.3 MLS/HR Insulin Glargine 20 units HS SC 04/23/24 22:00 04/25/24 22:15 20 UNITS Diagnostic Test (Pha) 1 strip Q6HR 04/23/24 12:00 04/26/24 05:18 1 STRIP Insulin Human Regular Q6HR SC 04/23/24 12:00 04/26/24 05:20 2 UNITS Dextrose 50 ml UD PRN IV 04/23/24 11:15 Enoxaparin Sodium 80 mg DAILY SC 04/24/24 22:00 04/26/24 08:06 80 MG Amiodarone HCl 200 mg Q12HR NG 04/24/24 22:00 04/26/24 08:05 200 MG Hydralazine HCl 10 mg Q6HP PRN IV 04/25/24 13:30 04/26/24 08:06 10 MG Piperacillin Sod/ Tazobactam Sod 100 ml @ 25 mls/hr Q8H IV 04/26/24 13:00 Examination: LUNGS:Abnormal (Intubated, FiO2 30%.), CVS:Abnormal (Telemetry consistent with Atrial fibrillation with episode of RVR.), NEURO:Abnormal (Weaning sedateion) laboratory and microbiology Laboratory Tests 04/26/24 02:38 04/26/24 02:30 Test 04/26/24 02:30 Range/Units Serum Glucose 181 H 74-106 mg/dL Problem List/Assessment/Plan Problem List/Assessment/Plan Assessment Non ST elevation myocardial infarction Acute on chronic decompensated HFrEF, NYHA Class IV, newly diagnosed RLL segmental pulmonary embolism with no evidence of right-heart strain Severe coronary artery disease status post triple-vessel CABG, 2017 Rule out progressive coronary artery disease Bilateral pleural effusions, small Lower extremity DVT ruled out Severe PVD status post left SFA ELLIOT x 1 Hypertension Dyslipidemia Nkp-[id number] diabetes mellitus Acute kidney injury Tobacco use Plan/Recommendation We will continue the following plan/recommendations (Dr. Huitron): * Echocardiogram revealed EF 25% * There is anterior anteroseptal anteroapical inferolateral wall severe hypokinesia. Normal right ventricular size and dimension. Normal right ventricular systolic function. Moderately elevated right ventricular systolic pressure 49 mm of mercury. Moderately dilated right and left atria. Aortic valve is thickened and sclerotic. No significant stenosis but mild regurgitation was noted. Mitral valve is thickened there is [id number] mitral valve regurgitation. There is mild tricuspid valve regurgitation. The pulmonary valve is grossly normal. No pericardial effusion. * Continue heparin drip per pharmacy protocol * Preload and afterload reduction. Lasix drip never started, Diuresis per nephrology. * Strict I&Os. Daily weight. Maintain fluid restrictions * GDMT for CHF as tolerated. BB for now given ANDREA * Single-antiplatelet therapy (Plavix) and lipid-lowering agent * Pulmonology and Nephrology consultations * Serial troponin and BNP levels Newly diagnosed cardiomyopathy including a severely diminished LV function compared to previous transthoracic echocardiogram revealing LVEF of 65% on 2022. May need ischemic workup with cardiac catheterization once clinically stable and with optimal renal function. Positive for PE, does not qualify for a pulmonary thrombectomy at this time. Most of his clinical presentation is secondary to an acute CHF exacerbation. Appreciate nephrology input for diuresis. Levophed has been titrated off. BP stable. [place] [address] not a candidate for ischemic workup at this time. Continue supportive care. Presentation being weaned for CPAP trial. Episode of RVR today, metoprolol 5 mg IV x1. Management per pulmonology. Repeat EKG negative for acute ST abnormality or changes. Condition remains critical We will continue to monitor closely. Thank you for allowing us to participate in this patient's care. Please call if you have any questions or concerns. Critical care time: 45 min. This medical document was created using an electronic medical record system with voice recognition software and computerized dictation system. Although this document has been carefully reviewed, there might still be some phonetic and typographical errors. Occasional wrong-word or ``sound-alike substitutions may have occurred due to the inherent limitations of voice recognition software. These areas are purely typographical due to imperfections of the software programs and do not reflect any compromise in the patient's medical care. Please read the chart carefully and recognize, using context, where these substitutions have occurred. Plan discussed with: Other (Bedside RN) Dietary Evaluation Review Comments: current TF is providing adequate amount of protein and energy to pt. Need to continue monitor the nepro support vs updated lab values, d/t his ckd-3b status and not on HD. Expected Outcomes/Goals: meeting pt's estimated needs for both protein and energy at 75% or higher. Date of Service: Apr 26, 2024 Billing Provider: PAVEL HUITRON MD Common Visit Codes: [id number] INP/OBS CARE(HIGH), [id number] CARE 30-74 MIN ASHLYN PORRAS [facility] Apr 26, 2024 12:46
--- NOTE | 2024-04-26 12:55 | DVHPN2 ---
Subjective The patient seen and examined at bedside. No change overnight. Remained intubated. Reviewed: Care Plan, H&P, Labs, Medications, Previous Orders, Radiology Changes from previous H/P or p: No Changes Objective Vitals Vital Signs Date Time Temp Pulse Resp B/P (MAP) Pulse Ox O2 Delivery O2 Flow Rate FiO2 04/25/24 11:20 86 20 99/48 (65) 95 30 04/25/24 10:45 98.8 209.8 04/24/24 10:00 Mechanical Ventilator+ Intake/Output Intake and Output 04/26/24 07:00 Intake Total 682.95 ml Output Total 2300 ml Balance -1617.05 ml IV Total 550.95 ml Tube Feeding 132 ml Output Urine Total 2300 ml General Appearance: Other (Intubated, on vent, unable to exam) HEENT: Atraumatic, PERRLA, Mucous membr. moist/pink Neck: Supple Lungs: Clear to auscultation, Normal air movement Cardiovascular: Regular rate, Normal S1, Normal S2, No murmurs, Gallops, Rubs Abdomen: Normal bowel sounds, Soft, No tenderness Neuro: Cranial nerves 3-12 NL Psych/Mental Status: Mental status NL Medications Current Medications Medications Dose Ordered Sig/Lulu Route Start Time Stop Time Status Last Admin Dose Admin Acetaminophen 650 mg Q6HP PRN PO 04/16/24 23:45 Nitroglycerin 0.4 mg Q5MINP PRN SL 04/16/24 23:45 Albuterol 2.5 mg Q6HPRN PRN NEB 04/17/24 18:30 04/21/24 06:28 2.5 MG Levalbuterol HCl 1.25 mg Q6HR NEB 04/18/24 00:00 04/26/24 11:26 1.25 MG Fentanyl Citrate 250 ml @ 2.5 mls/hr Q24H IV 04/18/24 00:45 04/25/24 23:48 12.5 MLS/HR Norepinephrine Bitartrate 32 mg/ Sodium Chloride 250 ml @ 0.938 mls/ hr Q24H IV 04/18/24 11:45 04/20/24 16:11 2.813 MLS/HR Midazolam HCl 50 ml @ 1 mls/hr Q24H IV 04/20/24 14:45 04/26/24 00:48 6 MLS/HR Pantoprazole Sodium 40 mg DAILY IV 04/21/24 10:00 04/26/24 08:05 40 MG Enteral Nutritional Formula 1,000 ml 30ML/HR GT 04/20/24 16:45 Cancel Enteral Nutritional Formula 1,000 ml 30ML/HR GT 04/21/24 08:45 Dexmedetomidine HCl 400 mcg/ Dextrose 100 ml @ 4.3 mls/hr [id number] IV 04/22/24 19:15 04/26/24 05:13 4.3 MLS/HR Insulin Glargine 20 units HS SC 04/23/24 22:00 04/25/24 22:15 20 UNITS Diagnostic Test (Pha) 1 strip Q6HR 04/23/24 12:00 04/26/24 05:18 1 STRIP Insulin Human Regular Q6HR SC 04/23/24 12:00 04/26/24 05:20 2 UNITS Dextrose 50 ml UD PRN IV 04/23/24 11:15 Enoxaparin Sodium 80 mg DAILY SC 04/24/24 22:00 04/26/24 08:06 80 MG Amiodarone HCl 200 mg Q12HR NG 04/24/24 22:00 04/26/24 08:05 200 MG Hydralazine HCl 10 mg Q6HP PRN IV 04/25/24 13:30 04/26/24 08:06 10 MG Piperacillin Sod/ Tazobactam Sod 100 ml @ 25 mls/hr Q8H IV 04/26/24 13:00 Laboratory Results Laboratory Tests 04/26/24 02:30 04/26/24 02:38 Chemistry Test 04/26/24 02:30 Albumin 3.8 g/dL (3.2-4.8) Calcium Level 9.6 mg/dL (8.7-10.4) Total Protein 6.7 g/dL (5.7-8.2) LFT Test 04/26/24 02:30 Alanine Aminotransferase (ALT) 21 U/L (7-40) Alkaline Phosphatase 82 U/L (46-116) Aspartate Amino Transferase (AST) 19 U/L (13-40) Total Bilirubin 0.8 mg/dL (0.2-1.0) Urinalysis Test 04/17/24 23:49 Urine Color Yellow (Yellow) Urine Clarity Turbid (Clear) H Urine pH 5.5 (5.0-9.0) Urine Specific [place] 1.037 (1.001-1.035) Urine Protein 2+ (Negative) H Urine Ketones Trace (Negative) Urine Blood 3+ /uL (Negative) H Urine Nitrite Negative (Negative) Urine Bilirubin Negative (Negative) Urine Urobilinogen Normal mg/dL (Negative) Urine Leukocyte Esterase Negative /uL (Negative) Urine RBC 138 /hpf (0 - 3) Urine WBC 12 /hpf (0 - 3) Urine Squamous Epithelial Cells Few /hpf (<5) Urine Bacteria None seen /hpf (None Seen) Urine Yeast (Budding) Occasional /hpf (None Urine Osmolality 380 mOsm/kg Urine Creatinine 158.36 mg/dL (30.0-125.0) H Urine Sodium 34 mmol/L (40-220) L Urine Glucose 1+ mg/dL (Normal) H Blood Gas Results Test 04/26/24 06:39 Arterial Blood pH 7.488 (7.350-7.450) FiO2 % 30.0 Microbiology Microbiology Date/Time Source Procedure Growth Status 04/18/24 01:00 Nose MRSA Screen - Final Complete 04/17/24 13:00 Blood Blood Culture - Final NO GROWTH AFTER 5 DAYS OF INCUBATION. Complete 04/17/24 01:05 Sputum Gram Stain - Final Complete 04/17/24 01:05 Respiratory Culture - Final Streptococcus Group F Complete Labs and/or images reviewed: Labs reviewed by me Assessment/Plan Assessment/Plan Neurology : - patient is sedated Cardiovascular : # Non ST elevation myocardial infarction # Acute on chronic decompensated HFrEF, NYHA Class IV, newly diagnosed # Echo on 04/18/2024 shows: Severely dilated left ventricle. Severely reduced left ventricular systolic function with estimated ejection fraction 25%. There is anterior anteroseptal anteroapical inferolateral wall severe hypokinesia. # Severe coronary artery disease status post triple-vessel CABG, 2018 # Lower extremity DVT ruled out # Severe PVD status post left SFA ELLIOT x 1 # Hypertension # Dyslipidemia - cardiology on board - discontinue Lipitor for now - discontinue Plavix for now - patient is on heparin drip Respiratory : # Septic shock due to pneumonia # Acute hypoxic respiratory failure secondary to possible pneumonia - patient is on mechanical ventilation with FiO2 30%, PEEP: 6, F 24, Vt 550 # Possible community-acquired pneumonia Gm +/- bacterial pneumonia - continue antibiotic, Zosyn # RLL segmental pulmonary embolism with no evidence of right-heart strain # Bilateral pleural effusions, small - D/C heparin drip - Start Lovenox 80 mg SC BID for pulmonary embolism Genitourinary : # ANDREA on CKD # Acute kidney injury due to ATN # ANDREA likely ischemic ATN in setting of shock # CKD stage IIIB -nephrology on board -continue Lasix 60 mg I/V daily. - HD today Infectious Disease : # Septic shock due to pneumonia # possible community-acquired pneumonia gm+/- bacterial - patient is on pressor - continue IV antibiotics Endocrine : Ond-xlhumkp-adqzwpitj diabetes mellitus -HbA1c 7.1 - Continue ISS - monitor blood glucose Hematology : - leukocytosis due to septic shock - follow up morning labs Nutrition : Glucerna Lines: Endotracheal tube: 04/18/2024 Right IG central line: 04/18/2024 Baumann catheter: 04/18/2024 Left IG Pipo catheter: 04/20/2024 Drips : Fentanyl 50 Versed 5 Propofol 0 NE 0 Vasopressin 0 Amio drip 0.5 Prophylaxis for PUD : Protonix 40 mg IV daily Prophylaxis for DVT: Lovenox 80 mg SC BID HD tomorrow, Possible CPAP trial tomorrow. Critical Care time spent 35 minutes including patient care, chart review and updating family, excluding procedure. Full code Continuing current management. Continuing with CPAP trial as tolerated. I will give the patient hydralazine IV 10 mg AV 6 hours p.r.n. for systolic blood pressure greater than 160 This medical document was created using an electronic medical record system with [employer] direct computerized dictation system. Although this document has been carefully reviewed, there may still be some phonetic and typographical errors. These areas are purely typographical due to imperfections of the software programs, and do not reflect any compromise in the patient's medical care. Plan discussed with: Other (Rn) My Orders Orders - RIZWANA LAM MD Procedure Category Date Status Time Hydralazine Injection PHA 04/25/24 In Process (Apresoline Inject 13:30 Date of Service: Apr 25, 2024 Billing Provider: RIZWANA LAM MD Common Visit Codes: [id number] INP/OBS CARE(HIGH) RIZWANA LAM MD Apr 26, 2024 12:55
[2024-04-26] MEDS: PIPERACILLIN-TAZOB 3.375GM 100 ML IV SCH (12:56)
--- NOTE | 2024-04-26 12:56 | DVHPN2 ---
Subjective The patient is seen and examined at bedside. Remained intubated. Can not tolerate CPAP trial Reviewed: Care Plan, H&P, Labs, Medications, Previous Orders, Radiology Changes from previous H/P or p: No Changes Objective Vitals Vital Signs Date Time Temp Pulse Resp B/P (MAP) Pulse Ox O2 Delivery O2 Flow Rate FiO2 04/26/24 11:20 86 20 99/48 (65) 95 30 04/26/24 10:45 98.8 209.8 04/26/24 10:00 Mechanical Ventilator+ Intake/Output Intake and Output 04/26/24 07:00 Intake Total 682.95 ml Output Total 2300 ml Balance -1617.05 ml IV Total 550.95 ml Tube Feeding 132 ml Output Urine Total 2300 ml General Appearance: Other (Intubated, on vent, unable to exam) HEENT: Atraumatic Neck: Supple Lungs: Clear to auscultation, Normal air movement Cardiovascular: Regular rate, Normal S1, Normal S2, No murmurs, Gallops, Rubs Abdomen: Normal bowel sounds, Soft, No tenderness Neuro: Other (Intubated, on vent, unable to exam) Psych/Mental Status: Other (Intubated, on vent, unable to exam) Medications Current Medications Medications Dose Ordered Sig/Lulu Route Start Time Stop Time Status Last Admin Dose Admin Acetaminophen 650 mg Q6HP PRN PO 04/16/24 23:45 Nitroglycerin 0.4 mg Q5MINP PRN SL 04/16/24 23:45 Albuterol 2.5 mg Q6HPRN PRN NEB 04/17/24 18:30 04/21/24 06:28 2.5 MG Levalbuterol HCl 1.25 mg Q6HR NEB 04/18/24 00:00 04/26/24 11:26 1.25 MG Fentanyl Citrate 250 ml @ 2.5 mls/hr Q24H IV 04/18/24 00:45 04/25/24 23:48 12.5 MLS/HR Norepinephrine Bitartrate 32 mg/ Sodium Chloride 250 ml @ 0.938 mls/ hr Q24H IV 04/18/24 11:45 04/20/24 16:11 2.813 MLS/HR Midazolam HCl 50 ml @ 1 mls/hr Q24H IV 04/20/24 14:45 04/26/24 00:48 6 MLS/HR Pantoprazole Sodium 40 mg DAILY IV 04/21/24 10:00 04/26/24 08:05 40 MG Enteral Nutritional Formula 1,000 ml 30ML/HR GT 04/20/24 16:45 Cancel Enteral Nutritional Formula 1,000 ml 30ML/HR GT 04/21/24 08:45 Dexmedetomidine HCl 400 mcg/ Dextrose 100 ml @ 4.3 mls/hr [id number] IV 04/22/24 19:15 04/26/24 05:13 4.3 MLS/HR Insulin Glargine 20 units HS SC 04/23/24 22:00 04/25/24 22:15 20 UNITS Diagnostic Test (Pha) 1 strip Q6HR 04/23/24 12:00 04/26/24 05:18 1 STRIP Insulin Human Regular Q6HR SC 04/23/24 12:00 04/26/24 05:20 2 UNITS Dextrose 50 ml UD PRN IV 04/23/24 11:15 Enoxaparin Sodium 80 mg DAILY SC 04/24/24 22:00 04/26/24 08:06 80 MG Amiodarone HCl 200 mg Q12HR NG 04/24/24 22:00 04/26/24 08:05 200 MG Hydralazine HCl 10 mg Q6HP PRN IV 04/25/24 13:30 04/26/24 08:06 10 MG Piperacillin Sod/ Tazobactam Sod 100 ml @ 25 mls/hr Q8H IV 04/26/24 13:00 Laboratory Results Laboratory Tests 04/26/24 02:30 04/26/24 02:38 Chemistry Test 04/26/24 02:30 Albumin 3.8 g/dL (3.2-4.8) Calcium Level 9.6 mg/dL (8.7-10.4) Total Protein 6.7 g/dL (5.7-8.2) LFT Test 04/26/24 02:30 Alanine Aminotransferase (ALT) 21 U/L (7-40) Alkaline Phosphatase 82 U/L (46-116) Aspartate Amino Transferase (AST) 19 U/L (13-40) Total Bilirubin 0.8 mg/dL (0.2-1.0) Urinalysis Test 04/17/24 23:49 Urine Color Yellow (Yellow) Urine Clarity Turbid (Clear) H Urine pH 5.5 (5.0-9.0) Urine Specific [place] 1.037 (1.001-1.035) Urine Protein 2+ (Negative) H Urine Ketones Trace (Negative) Urine Blood 3+ /uL (Negative) H Urine Nitrite Negative (Negative) Urine Bilirubin Negative (Negative) Urine Urobilinogen Normal mg/dL (Negative) Urine Leukocyte Esterase Negative /uL (Negative) Urine RBC 138 /hpf (0 - 3) Urine WBC 12 /hpf (0 - 3) Urine Squamous Epithelial Cells Few /hpf (<5) Urine Bacteria None seen /hpf (None Seen) Urine Yeast (Budding) Occasional /hpf (None Urine Osmolality 380 mOsm/kg Urine Creatinine 158.36 mg/dL (30.0-125.0) H Urine Sodium 34 mmol/L (40-220) L Urine Glucose 1+ mg/dL (Normal) H Blood Gas Results Test 04/26/24 06:39 Arterial Blood pH 7.488 (7.350-7.450) FiO2 % 30.0 Microbiology Microbiology Date/Time Source Procedure Growth Status 04/18/24 01:00 Nose MRSA Screen - Final Complete 04/17/24 13:00 Blood Blood Culture - Final NO GROWTH AFTER 5 DAYS OF INCUBATION. Complete 04/17/24 01:05 Sputum Gram Stain - Final Complete 04/17/24 01:05 Respiratory Culture - Final Streptococcus Group F Complete Labs and/or images reviewed: Labs reviewed by me Assessment/Plan Assessment/Plan Neurology : - patient is sedated Cardiovascular : # Non ST elevation myocardial infarction # Acute on chronic decompensated HFrEF, NYHA Class IV, newly diagnosed # Echo on 04/18/2024 shows: Severely dilated left ventricle. Severely reduced left ventricular systolic function with estimated ejection fraction 25%. There is anterior anteroseptal anteroapical inferolateral wall severe hypokinesia. # Severe coronary artery disease status post triple-vessel CABG, 2018 # Lower extremity DVT ruled out # Severe PVD status post left SFA ELLIOT x 1 # Hypertension # Dyslipidemia - cardiology on board - discontinue Lipitor for now - discontinue Plavix for now - patient is on heparin drip Respiratory : # Septic shock due to pneumonia # Acute hypoxic respiratory failure secondary to possible pneumonia - patient is on mechanical ventilation with FiO2 30%, PEEP: 6, F 24, Vt 550 # Possible community-acquired pneumonia Gm +/- bacterial pneumonia - continue antibiotic, Zosyn # RLL segmental pulmonary embolism with no evidence of right-heart strain # Bilateral pleural effusions, small - D/C heparin drip - Start Lovenox 80 mg SC BID for pulmonary embolism Genitourinary : # ANDREA on CKD # Acute kidney injury due to ATN # ANDREA likely ischemic ATN in setting of shock # CKD stage IIIB -nephrology on board -continue Lasix 60 mg I/V daily. - HD today Infectious Disease : # Septic shock due to pneumonia # possible community-acquired pneumonia gm+/- bacterial - patient is on pressor - continue IV antibiotics Endocrine : Psf-opyqffv-qrnoltjui diabetes mellitus -HbA1c 7.1 - Continue ISS - monitor blood glucose Hematology : - leukocytosis due to septic shock - follow up morning labs Nutrition : Glucerna Lines: Endotracheal tube: 04/18/2024 Right IG central line: 04/18/2024 Baumann catheter: 04/18/2024 Left IG Pipo catheter: 04/20/2024 Drips : Fentanyl 50 Versed 5 Propofol 0 NE 0 Vasopressin 0 Amio drip 0.5 Prophylaxis for PUD : Protonix 40 mg IV daily Prophylaxis for DVT: Lovenox 80 mg SC BID HD tomorrow, Possible CPAP trial tomorrow. Continuing current management. Back to sedation today. Critical Care time spent 36 minutes including patient care, chart review and updating family, excluding procedure. Full code This medical document was created using an electronic medical record system with [employer] direct computerized dictation system. Although this document has been carefully reviewed, there may still be some phonetic and typographical errors. These areas are purely typographical due to imperfections of the software programs, and do not reflect any compromise in the patient's medical care. Plan discussed with: Other (RN) My Orders Orders - RIZWANA LAM MD Procedure Category Date Status Time Hydralazine Injection PHA 04/25/24 In Process (Apresoline Inject 13:30 Date of Service: Apr 26, 2024 Billing Provider: RIZWANA LAM MD Common Visit Codes: [id number] CARE-EACH +30MIN RIZWANA LAM MD Apr 26, 2024 12:56
--- NOTE | 2024-04-26 15:17 | DVHPN2 ---
Progress Note - Dictate Date Seen: Apr 26, 2024 Medical Necessity Reason Pt with a Central, PICC or Fol: Yes The following are medically ne: Central Line, Mack Catheter Reason for mack catheter: Strict I&O Subjective Patient remains intubated Urine output labs and vitals reviewed with ICU nurse 3.1L UOP without diuretics vital signs Vital Sign Date Time Temp Pulse Resp B/P (MAP) Pulse Ox O2 Delivery O2 Flow Rate FiO2 04/26/24 15:00 99.5 115 25 122/65 (84) 98 211.1 04/26/24 14:00 30 04/26/24 14:00 Mechanical Ventilator+ Total Intake and Output 04/25/24 04/25/24 04/26/24 15:00 23:00 07:00 Intake Total 206.70 ml 260.5 ml 215.75 ml Output Total 1800 ml 500 ml Balance 206.70 ml -1539.5 ml -284.25 ml medications Current Medications Medications Dose Ordered Sig/Lulu Route Start Time Stop Time Status Last Admin Dose Admin Acetaminophen 650 mg Q6HP PRN PO 04/16/24 23:45 Nitroglycerin 0.4 mg Q5MINP PRN SL 04/16/24 23:45 Albuterol 2.5 mg Q6HPRN PRN NEB 04/17/24 18:30 04/21/24 06:28 2.5 MG Levalbuterol HCl 1.25 mg Q6HR NEB 04/18/24 00:00 04/26/24 11:26 1.25 MG Fentanyl Citrate 250 ml @ 2.5 mls/hr Q24H IV 04/18/24 00:45 04/25/24 23:48 12.5 MLS/HR Norepinephrine Bitartrate 32 mg/ Sodium Chloride 250 ml @ 0.938 mls/ hr Q24H IV 04/18/24 11:45 04/20/24 16:11 2.813 MLS/HR Midazolam HCl 50 ml @ 1 mls/hr Q24H IV 04/20/24 14:45 04/26/24 14:39 4 MLS/HR Pantoprazole Sodium 40 mg DAILY IV 04/21/24 10:00 04/26/24 08:05 40 MG Enteral Nutritional Formula 1,000 ml 30ML/HR GT 04/20/24 16:45 Cancel Enteral Nutritional Formula 1,000 ml 30ML/HR GT 04/21/24 08:45 Dexmedetomidine HCl 400 mcg/ Dextrose 100 ml @ 4.3 mls/hr [id number] IV 04/22/24 19:15 04/26/24 05:13 4.3 MLS/HR Insulin Glargine 20 units HS SC 04/23/24 22:00 04/25/24 22:15 20 UNITS Diagnostic Test (Pha) 1 strip Q6HR 04/23/24 12:00 04/26/24 12:00 1 STRIP Insulin Human Regular Q6HR SC 04/23/24 12:00 04/26/24 13:02 3 UNITS Dextrose 50 ml UD PRN IV 04/23/24 11:15 Enoxaparin Sodium 80 mg DAILY SC 04/24/24 22:00 04/26/24 08:06 80 MG Amiodarone HCl 200 mg Q12HR NG 04/24/24 22:00 04/26/24 08:05 200 MG Hydralazine HCl 10 mg Q6HP PRN IV 04/25/24 13:30 04/26/24 08:06 10 MG Piperacillin Sod/ Tazobactam Sod 100 ml @ 25 mls/hr Q8H IV 04/26/24 13:00 04/26/24 12:56 25 MLS/HR objective GENERAL:Abnormal, LUNGS:Abnormal, MSK:Abnormal (No edema), NEURO:Abnormal laboratory and microbiology Laboratory Tests 04/26/24 02:38 04/26/24 02:30 Test 04/26/24 02:30 Range/Units Serum Glucose 181 H 74-106 mg/dL Assessment/Plan ANDREA likely ischemic ATN in setting of shock needing dialysis CKD stage IIIB Acute PE Acute hypoxic respiratory failure NSTEMI History of coronary artery disease Plan/recommendation -last dialysis on 04/22/2024. No HD today no further diuretics, uop was 3L no further HD monitor fluid ,electrolytes and monitor for post ATN diuresis Remains on heparin drip Dietary Evaluation Review Comments: current TF is providing adequate amount of protein and energy to pt. Need to continue monitor the nepro support vs updated lab values, d/t his ckd-3b status and not on HD. Expected Outcomes/Goals: meeting pt's estimated needs for both protein and energy at 75% or higher. Plan discussed with: ANN-MARIE Pena MD Apr 26, 2024 15:17
--- NOTE | 2024-04-26 20:47 | DVHPN ---
DATE: 04/26/2024 PULMONARY FOLLOWUP PRIMARY PHYSICIAN: Dr. Bruner. SUBJECTIVE: The patient was given a trial of CPAP, again became agitated, hypertensive with tachycardia and increased respiratory rate. Desaturation was reverted back to assist control. The patient at the time of my examination was on assist control, was comfortable, remains on sedation with Versed, fentanyl, and Precedex. The patient's urine output has been stable, has been running low-grade fevers, has no significant secretions. The patient is not requiring any hemodynamic support. The patient's previous ejection fraction is 25%. OBJECTIVE: VITAL SIGNS: T max of 99.3, heart rate 88, respiratory rate 20, blood pressure 96/60, saturations 98 on 30% FiO2. NECK: Supple. No JVD. CHEST: Bilateral rales. Diminished air entry on both sides. No wheezing. COR: S1, S2. Possible systolic murmur. ABDOMEN: Soft, nontender, obese. Bowel sounds present. EXTREMITIES: No edema. LABORATORY DATA: WBC 11, hematocrit 32. Blood gases, pH 7.48, pCO2 38, pO2 87 on assist control, tidal volume 500, rate of 20, PEEP of 5, 30% FiO2. Serum chemistries revealed CO2 35, BUN 58, creatinine 2.28, others were noted. IMPRESSION: Acute respiratory failure, congestive heart failure, history of pulmonary embolism, history of renal insufficiency. The patient has been failing to meet weaning criteria. Plan is to continue current management, continue cardiac followup. Continue renal followup. Diuretics have been decreased. We will recommend also to wean the patient on Precedex at moderate to high dose. Alternatively, Xanax can be used via NG tube to see if that will improve the patient's anxiety. Possibility of underlying uncontrolled congestive heart failure is also not excluded. We will continue with the antibiotics and med nebs. Continue current sedation. Can discontinue sedation prior to CPAP trial. Continue Protonix for GI prophylaxis. Continue Lovenox for DVT prophylaxis. The patient also remains on amiodarone and Zosyn. Prognosis at this time is guarded. The patient's plan was discussed with bedside RN as well as the patient's and daughter. Critical time was [address] Viramontes who will resume pulmonary care in the morning. MD JIMBO Maddox/JACQUE TID: [id number] RECEIPT: [id number]
[2024-04-27] VITALS (117 sets, daily range): BP systolic 72–163; BP diastolic 35–81; PULSE 62–101; RESP 18–40; TEMP 97.9–99.3; O2SAT 88–100
[2024-04-27 03:51] LABS: Basophils # (auto) 0 10 ^3/uL (0-0.2); Basophils % (auto) 0.1 % (0.0-2.0); Eosinophils # (auto) 0.2 10 ^3/uL (0-0.8); Eosinophils % (auto) 1.7 % (0.0-7.0); Hematocrit 29.9 % (41.0-53.0); Hemoglobin 9.7 g/dL (13.5-17.5); Lymphocytes # (auto) 0.6 10 ^3/uL (0.4-5.4); Lymphocytes % (auto) 5.3 % (10.0-50.0); Mean Corpuscular Hemoglobin 28.9 pg (28.0-32.0); Mean Corpuscular Hgb Conc. 32.5 g/dL (32.0-36.0); Mean Corpuscular Volume 88.9 fL (80.0-100.0); Monocytes # (auto) 1.1 10 ^3/uL (0-1.3); Monocytes % (auto) 9.1 % (0.0-12.0); Neutrophils % (auto) 83.8 % (37.0-80.0); Platelet Count (auto) 237 10^3/uL (140-450); Red Blood Cells 3.36 10^6/uL (4.5-5.90); Red Cell Distribution Width 14.4 % (11.8-14.3); White Blood Cell 11.9 10^3/uL (4.4-10.8)
[2024-04-27 04:09] LABS: Alanine Aminotransferase 20 U/L (7-40); Alkaline Phosphatase 76 U/L (46-116); Anion Gap 8 (5-15); BUN/Creatinine Ratio 26.5 (10.0-20.0); Calcium 9.5 mg/dL (8.7-10.4); Chloride 101 mmol/L (98-107); Potassium 3.5 mmol/L (3.5-5.1); Sodium 142 mmol/L (136-145)
[2024-04-27 04:10] LABS: Albumin 3.7 g/dL (3.2-4.8); Aspartate Aminotransferase 18 U/L (13-40); Bilirubin, Total 0.7 mg/dL (0.2-1.0); Total Protein 6.5 g/dL (5.7-8.2)
[2024-04-27 04:11] LABS: Blood Urea Nitrogen 68 mg/dL (9-23); Carbon Dioxide 33 mmol/L (20-31); Glucose 181 mg/dL (74-106)
--- NOTE | 2024-04-27 05:02 | DVH ---
CHEST RADIOGRAPH Indication: INTUBATED Technique: Single frontal view of the chest was obtained COMPARISON: XY CHEST PORTABLE on DOS: 04/26/24, XY CHEST PORTABLE on DOS: 04/25/24, XY CHEST PORTABLE on DOS: 04/24/24, XY CHEST PORTABLE on DOS: 04/26/24 FINDINGS: Lines and Tubes: Median sternotomy. Endotracheal tube, enteric catheter and right central venous cat heter and left central venous catheter in satisfactory position. Lungs: Multifocal airspace disease. Pleura: No effusion. No pneumothorax. Cardiomediastinal contours: Unremarkable Bones: Unremarkable IMPRESSION: Lines and tubes in satisfactory position. No significant interval change.
[2024-04-27] MEDS: fentaNYL Drip 2500mCg/250mlNS 250 ML IV SCH (06:00)
[2024-04-27 07:34] LABS: Base Excess 5.8 mmol/L (-2.0-3.0)
--- NOTE | 2024-04-27 09:04 | DVHPN2 ---
Consult Progress Note Date Seen: Apr 27, 2024 Subjective Other Systems: No overnight cardiac events reported Objective vital signs Vital Sign Date Time Temp Pulse Resp B/P (MAP) Pulse Ox O2 Delivery O2 Flow Rate FiO2 04/27/24 08:15 98.8 84 19 100 209.8 04/27/24 07:34 30 04/27/24 07:34 Mechanical Ventilator+ Total Intake and Output 04/26/24 04/26/24 04/27/24 15:00 23:00 07:00 Intake Total 177.20 ml 339.5 ml 160.7 ml Output Total 550 ml 400 ml Balance 177.20 ml -210.5 ml -239.3 ml medications Current Medications Medications Dose Ordered Sig/Lulu Route Start Time Stop Time Status Last Admin Dose Admin Acetaminophen 650 mg Q6HP PRN PO 04/16/24 23:45 Nitroglycerin 0.4 mg Q5MINP PRN SL 04/16/24 23:45 Albuterol 2.5 mg Q6HPRN PRN NEB 04/17/24 18:30 04/21/24 06:28 2.5 MG Levalbuterol HCl 1.25 mg Q6HR NEB 04/18/24 00:00 04/27/24 05:49 1.25 MG Norepinephrine Bitartrate 32 mg/ Sodium Chloride 250 ml @ 0.938 mls/ hr Q24H IV 04/18/24 11:45 04/20/24 16:11 2.813 MLS/HR Midazolam HCl 50 ml @ 1 mls/hr Q24H IV 04/20/24 14:45 04/27/24 02:05 4 MLS/HR Pantoprazole Sodium 40 mg DAILY IV 04/21/24 10:00 04/27/24 08:04 40 MG Enteral Nutritional Formula 1,000 ml 30ML/HR GT 04/20/24 16:45 Cancel Enteral Nutritional Formula 1,000 ml 30ML/HR GT 04/21/24 08:45 Dexmedetomidine HCl 400 mcg/ Dextrose 100 ml @ 4.3 mls/hr [id number] IV 04/22/24 19:15 04/26/24 05:13 4.3 MLS/HR Insulin Glargine 20 units HS SC 04/23/24 22:00 04/26/24 21:31 20 UNITS Diagnostic Test (Pha) 1 strip Q6HR 04/23/24 12:00 04/27/24 05:30 1 STRIP Insulin Human Regular Q6HR SC 04/23/24 12:00 04/27/24 05:31 3 UNITS Dextrose 50 ml UD PRN IV 04/23/24 11:15 Enoxaparin Sodium 80 mg DAILY SC 04/24/24 22:00 04/27/24 08:04 80 MG Amiodarone HCl 200 mg Q12HR NG 04/24/24 22:00 04/27/24 08:03 200 MG Hydralazine HCl 10 mg Q6HP PRN IV 04/25/24 13:30 04/26/24 08:06 10 MG Piperacillin Sod/ Tazobactam Sod 100 ml @ 25 mls/hr Q8H IV 04/26/24 13:00 04/27/24 05:30 25 MLS/HR Alprazolam 0.25 mg TID PRN PO 04/26/24 19:00 Fentanyl Citrate 250 ml @ 2.5 mls/hr Q24H IV 04/27/24 06:00 Examination: LUNGS:Abnormal (Mechanially ventilated on CPAP trial), CVS:Normal (Sinus rhythm with 1st degree AV block), NEURO:Normal (On very low-dose sedation) laboratory and microbiology Laboratory Tests 04/27/24 03:27 Test 04/27/24 03:27 Range/Units Serum Glucose 181 H 74-106 mg/dL Problem List/Assessment/Plan Problem List/Assessment/Plan Non ST elevation myocardial infarction Acute on chronic decompensated HFrEF at 25%, NYHA Class IV, newly diagnosed RLL segmental pulmonary embolism with no evidence of right-heart strain Severe coronary artery disease status post triple-vessel CABG, 2018 Rule out progressive coronary artery disease Bilateral pleural effusions, small Lower extremity DVT ruled out Severe PVD status post left SFA ELLIOT x 1 Hypertension Dyslipidemia Cvd-mlyesjk-sfwckrwmj diabetes mellitus Acute kidney injury Tobacco use Plan/Recommendation (Dr. Huitron) * Echocardiogram revealed EF 25% * There is anterior anteroseptal anteroapical inferolateral wall severe hypokinesia. Normal right ventricular size and dimension. Normal right ventricular systolic function. Moderately elevated right ventricular systolic pressure 49 mm of mercury. Moderately dilated right and left atria. Aortic valve is thickened and sclerotic. No significant stenosis but mild regurgitation was noted. Mitral valve is thickened there is [id number] mitral valve regurgitation. There is mild tricuspid valve regurgitation. The pulmonary valve is grossly normal. No pericardial effusion. * Therapeutic Lovenox given PE. Trend H&H levels * Preload and afterload reduction. HD per nephrology. * Strict I&Os. Daily weight. Maintain fluid restrictions * Initiate GDMT for CHF as tolerated when appropriate * Single-antiplatelet therapy (Plavix) and lipid-lowering agent * Pulmonology and Nephrology consultations The patient with a newly diagnosed cardiomyopathy including a severely diminished LV function compared to previous transthoracic echocardiogram revealing LVEF of 65% on 2022 may qualify for a cardiac catheterization once clinically stable and with optimal renal function. [place] [address], not a candidate for ischemic workup at this time. Continue supportive care. Repeat EKG negative for acute ST abnormality or changes. Condition remains critical. We will continue to monitor closely. Thank you for allowing us to participate in this patient's care. Please call if you have any questions or concerns. Critical care time: 30 min. This medical document was created using an electronic medical record system with voice recognition software and computerized dictation system. Although this document has been carefully reviewed, there might still be some phonetic and typographical errors. Occasional wrong-word or ``sound-alike substitutions may have occurred due to the inherent limitations of voice recognition software. These areas are purely typographical due to imperfections of the software programs and do not reflect any compromise in the patient's medical care. Please read the chart carefully and recognize, using context, where these substitutions have occurred. Plan discussed with: Other Dietary Evaluation Review Comments: current TF is providing adequate amount of protein and energy to pt. Need to continue monitor the nepro support vs updated lab values, d/t his ckd-3b status and not on HD. Expected Outcomes/Goals: meeting pt's estimated needs for both protein and energy at 75% or higher. Date of Service: Apr 27, 2024 Billing Provider: PAVEL HUITRON MD Cardiology Common Codes: [id number]-[id number] CARE 30-74 MIN GEN [facility] Apr 27, 2024 09:04
[2024-04-27] MEDS: CLOPIDOGREL BISULFATE 75 MG TAB PO SCH (10:00)
[2024-04-27] MEDS ORDERED: ENOXAPARIN SOD 80 MG/0.8ML SYRINGE SC SCH (10:00)
[2024-04-27] MEDS: NOREPINEPHRINE 8 MG/250ML KIT 0 ML IV ONE (10:03)
--- NOTE | 2024-04-27 12:08 | DVHPN2 ---
Progress Note Date Seen: Apr 27, 2024 Medical Necessity Reason Pt with a Central, PICC or Fol: Yes The following are medically ne: Central Line, Mack Catheter Reason for mack catheter: Strict I&O Subjective Review of Systems: RESPIRATORY:Abnormal Other Systems: Patient seen and examined by myself, patient remained intubated on ventilator Objective vital signs Vital Sign Date Time Temp Pulse Resp B/P (MAP) Pulse Ox O2 Delivery O2 Flow Rate FiO2 04/27/24 11:44 69 04/27/24 11:44 30 04/27/24 11:44 20 100 Mechanical Ventilator+ 04/27/24 11:33 95/81 (86) 04/27/24 08:15 98.8 209.8 Total Intake and Output 04/26/24 04/26/24 04/27/24 15:00 23:00 07:00 Intake Total 177.20 ml 339.5 ml 160.7 ml Output Total 550 ml 400 ml Balance 177.20 ml -210.5 ml -239.3 ml medications Current Medications Medications Dose Ordered Sig/Lulu Route Start Time Stop Time Status Last Admin Dose Admin Acetaminophen 650 mg Q6HP PRN PO 04/16/24 23:45 Nitroglycerin 0.4 mg Q5MINP PRN SL 04/16/24 23:45 Albuterol 2.5 mg Q6HPRN PRN NEB 04/17/24 18:30 04/21/24 06:28 2.5 MG Levalbuterol HCl 1.25 mg Q6HR NEB 04/18/24 00:00 04/27/24 11:32 1.25 MG Norepinephrine Bitartrate 32 mg/ Sodium Chloride 250 ml @ 0.938 mls/ hr Q24H IV 04/18/24 11:45 04/20/24 16:11 2.813 MLS/HR Midazolam HCl 50 ml @ 1 mls/hr Q24H IV 04/20/24 14:45 04/27/24 02:05 4 MLS/HR Pantoprazole Sodium 40 mg DAILY IV 04/21/24 10:00 04/27/24 08:04 40 MG Enteral Nutritional Formula 1,000 ml 30ML/HR GT 04/20/24 16:45 Cancel Enteral Nutritional Formula 1,000 ml 30ML/HR GT 04/21/24 08:45 Dexmedetomidine HCl 400 mcg/ Dextrose 100 ml @ 4.3 mls/hr [id number] IV 04/22/24 19:15 04/26/24 05:13 4.3 MLS/HR Insulin Glargine 20 units HS SC 04/23/24 22:00 04/26/24 21:31 20 UNITS Diagnostic Test (Pha) 1 strip Q6HR 04/23/24 12:00 04/27/24 05:30 1 STRIP Insulin Human Regular Q6HR SC 04/23/24 12:00 04/27/24 05:31 3 UNITS Dextrose 50 ml UD PRN IV 04/23/24 11:15 Amiodarone HCl 200 mg Q12HR NG 04/24/24 22:00 04/27/24 08:03 200 MG Hydralazine HCl 10 mg Q6HP PRN IV 04/25/24 13:30 04/26/24 08:06 10 MG Piperacillin Sod/ Tazobactam Sod 100 ml @ 25 mls/hr Q8H IV 04/26/24 13:00 04/27/24 05:30 25 MLS/HR Alprazolam 0.25 mg TID PRN PO 04/26/24 19:00 Fentanyl Citrate 250 ml @ 2.5 mls/hr Q24H IV 04/27/24 06:00 Clopidogrel Bisulfate 75 mg DAILY PO 04/27/24 10:00 04/27/24 10:00 75 MG Atorvastatin Calcium 40 mg HS PO 04/27/24 22:00 Enoxaparin Sodium 80 mg DAILY SC 04/28/24 10:00 Examination: LUNGS:Normal, CVS:Normal, MSK:Normal laboratory and microbiology Laboratory Tests 04/27/24 03:27 Test 04/27/24 03:27 Range/Units Serum Glucose 181 H 74-106 mg/dL Microbiology Date/Time Source Procedure Growth Status 04/18/24 01:00 Nose MRSA Screen - Final Complete 04/17/24 13:00 Blood Blood Culture - Final NO GROWTH AFTER 5 DAYS OF INCUBATION. Complete 04/17/24 01:05 Sputum Gram Stain - Final Complete 04/17/24 01:05 Respiratory Culture - Final Streptococcus Group F Complete Problem List/Assessment/Plan Problem List/Assessment/Plan ANDREA secondary hemodynamic mediated, FeNa < 1% status post intermittent hemodialysis CKD stage IIIB Acute PE Acute hypoxic respiratory failure, intubated on ventilator NSTEMI History of coronary artery disease Diabetes mellitus type 2 Anemia of chronic kidney disease Plan/recommendation Kidney function slowly improving off hemodialysis Increased urine output Mack catheter Strict I&Os Low-dose dopamine We will continue to follow up Plan discussed with: Other (Nurse) Dietary Evaluation Review Comments: current TF is providing adequate amount of protein and energy to pt. Need to continue monitor the nepro support vs updated lab values, d/t his ckd-3b status and not on HD. Expected Outcomes/Goals: meeting pt's estimated needs for both protein and energy at 75% or higher. MANAV RITTER MD Apr 27, 2024 12:08
--- NOTE | 2024-04-27 14:27 | DVHPN2 ---
Progress Note Date Seen: Apr 27, 2024 Medical Necessity Reason Pt with a Central, PICC or Fol: Yes The following are medically ne: Central Line, Mack Catheter Reason for mack catheter: Strict I&O Subjective Patient reports: No new complaints Review of Systems: HEENT:Normal, CVS:Normal, RESPIRATORY:Normal, GI:Normal, :Normal, MSK:Normal, NEURO:Normal Objective vital signs Vital Sign Date Time Temp Pulse Resp B/P (MAP) Pulse Ox O2 Delivery O2 Flow Rate FiO2 04/27/24 13:44 92 04/27/24 13:44 20 100 Mechanical Ventilator+ 30 30 04/27/24 13:27 163/79 (107) 04/27/24 08:15 98.8 209.8 Total Intake and Output 04/26/24 04/26/24 04/27/24 15:00 23:00 07:00 Intake Total 177.20 ml 339.5 ml 160.7 ml Output Total 550 ml 400 ml Balance 177.20 ml -210.5 ml -239.3 ml medications Current Medications Medications Dose Ordered Sig/Lulu Route Start Time Stop Time Status Last Admin Dose Admin Acetaminophen 650 mg Q6HP PRN PO 04/16/24 23:45 Nitroglycerin 0.4 mg Q5MINP PRN SL 04/16/24 23:45 Albuterol 2.5 mg Q6HPRN PRN NEB 04/17/24 18:30 04/21/24 06:28 2.5 MG Levalbuterol HCl 1.25 mg Q6HR NEB 04/18/24 00:00 04/27/24 11:32 1.25 MG Norepinephrine Bitartrate 32 mg/ Sodium Chloride 250 ml @ 0.938 mls/ hr Q24H IV 04/18/24 11:45 04/20/24 16:11 2.813 MLS/HR Midazolam HCl 50 ml @ 1 mls/hr Q24H IV 04/20/24 14:45 04/27/24 02:05 4 MLS/HR Pantoprazole Sodium 40 mg DAILY IV 04/21/24 10:00 04/27/24 08:04 40 MG Enteral Nutritional Formula 1,000 ml 30ML/HR GT 04/20/24 16:45 Cancel Enteral Nutritional Formula 1,000 ml 30ML/HR GT 04/21/24 08:45 Dexmedetomidine HCl 400 mcg/ Dextrose 100 ml @ 4.3 mls/hr [id number] IV 04/22/24 19:15 04/26/24 05:13 4.3 MLS/HR Insulin Glargine 20 units HS SC 04/23/24 22:00 04/26/24 21:31 20 UNITS Diagnostic Test (Pha) 1 strip Q6HR 04/23/24 12:00 04/27/24 12:23 1 STRIP Insulin Human Regular Q6HR SC 04/23/24 12:00 04/27/24 12:26 3 UNITS Dextrose 50 ml UD PRN IV 04/23/24 11:15 Amiodarone HCl 200 mg Q12HR NG 04/24/24 22:00 04/27/24 08:03 200 MG Hydralazine HCl 10 mg Q6HP PRN IV 04/25/24 13:30 04/26/24 08:06 10 MG Piperacillin Sod/ Tazobactam Sod 100 ml @ 25 mls/hr Q8H IV 04/26/24 13:00 04/27/24 13:00 25 MLS/HR Alprazolam 0.25 mg TID PRN PO 04/26/24 19:00 Fentanyl Citrate 250 ml @ 2.5 mls/hr Q24H IV 04/27/24 06:00 Clopidogrel Bisulfate 75 mg DAILY PO 04/27/24 10:00 04/27/24 10:00 75 MG Atorvastatin Calcium 40 mg HS PO 04/27/24 22:00 Enoxaparin Sodium 80 mg DAILY SC 04/28/24 10:00 Examination: GENERAL:Normal, HEENT:Normal, NECK:Normal, LUNGS:Normal, LUNGS:Abnormal (INTUBATED), CVS:Normal, ABDOMEN:Normal, MSK:Normal, SKIN:Normal, NEURO:Normal, :Normal laboratory and microbiology Laboratory Tests 04/27/24 03:27 Test 04/27/24 03:27 Range/Units Serum Glucose 181 H 74-106 mg/dL Microbiology Date/Time Source Procedure Growth Status 04/18/24 01:00 Nose MRSA Screen - Final Complete 04/17/24 13:00 Blood Blood Culture - Final NO GROWTH AFTER 5 DAYS OF INCUBATION. Complete 04/17/24 01:05 Sputum Gram Stain - Final Complete 04/17/24 01:05 Respiratory Culture - Final Streptococcus Group F Complete Problem List/Assessment/Plan Problem List/Assessment/Plan Neurology : - patient is sedated Cardiovascular : # Non ST elevation myocardial infarction # Acute on chronic decompensated HFrEF, NYHA Class IV, newly diagnosed: lasix iv # Echo on 04/18/2024 shows: Severely dilated left ventricle. Severely reduced left ventricular systolic function with estimated ejection fraction 25%. There is anterior anteroseptal anteroapical inferolateral wall severe hypokinesia. # Severe coronary artery disease status post triple-vessel CABG, 2018 # Lower extremity DVT ruled out # Severe PVD status post left SFA ELLIOT x 1 # Hypertension # Dyslipidemia - cardiology on board - discontinue Lipitor for now - discontinue Plavix for now - patient is on heparin drip # a fib: on amiodarone Respiratory : # Septic shock due to pneumonia # Acute hypoxic respiratory failure secondary to possible pneumonia - patient is on mechanical ventilation with FiO2 30%, PEEP: 6, F 24, Vt 550 # Possible community-acquired pneumonia Gm +/- bacterial pneumonia - continue antibiotic, Zosyn # RLL segmental pulmonary embolism with no evidence of right-heart strain # Bilateral pleural effusions, small - continue heparin drip for pulmonary embolism Genitourinary : # ANDREA on CKD # Acute kidney injury due to ATN # ANDREA likely ischemic ATN in setting of shock # CKD stage IIIB -nephrology on board -continue Lasix 40 mg I/V daily. - HD today Infectious Disease : # Septic shock due to pneumonia # possible community-acquired pneumonia gm+/- bacterial - patient is on pressor - continue IV antibiotics Endocrine : Pda-dlyfpzh-asvcyumit diabetes mellitus -HbA1c 7.1 - Continue ISS - monitor blood glucose Hematology : - leukocytosis due to septic shock - follow up morning labs Nutrition : Glucerna Lines: Endotracheal tube: 04/18/2024 Right IG central line: 04/18/2024 Mack catheter: 04/18/2024 Left IG Pipo catheter: 04/20/2024 Drips : Fentanyl 75 Versed 5 Propofol 0 NE 0 Vasopressin 0 [id number] Prophylaxis for PUD : Protonix 40 mg IV daily Prophylaxis for DVT: Patient is on heparin drip Possible CPAP trial tomorrow. Plan discussed with: Other (rn) My Orders My Orders Orders - ADRIA NASH MD Procedure Category Date Status Time D/C Tlc CHRISTINE 04/27/24 Transmitted 14:22 * Picc Line Consult CONS 04/27/24 Transmitted 14:22 Furosemide Injection PHA 04/27/24 Transmitted (Lasix Injection) 14:30 Furosemide Injection PHA 04/28/24 Transmitted (Lasix Injection) 10:00 Cpap Trial For Am ORDERS 04/27/24 Transmitted 14:22 Basic Metabolic Panel LAB 04/28/24 Verified 06:00 Complete Blood Count LAB 04/28/24 Verified 06:00 Abg W/ Co-Ox RT 04/28/24 Transmitted 06:00 Chest Portable XY 04/28/24 Transmitted 06:00 Dietary Evaluation Review Comments: current TF is providing adequate amount of protein and energy to pt. Need to continue monitor the nepro support vs updated lab values, d/t his ckd-3b status and not on HD. Expected Outcomes/Goals: meeting pt's estimated needs for both protein and energy at 75% or higher. Critical Care Time (mins): 81 (critical care time including cpap trial is 81 mins) Date of Service: Apr 27, 2024 Billing Provider: ADRIA NASH MD Common Visit Codes: [id number] CARE 30-74 MIN, [id number] CARE-EACH +30MIN ADRIA NASH MD Apr 27, 2024 14:26
[2024-04-27] MEDS: LIDOCAINE 1% (LOCAL ANESTH.) PF 5ml SDV ID ONE (15:08)
[2024-04-27] MEDS: FUROSEMIDE 40 MG/4 ML VIAL IV ONE (15:27)
[2024-04-27] MEDS: ALPRAZolam 0.25 MG TAB PO PRN (16:52)
[2024-04-27] MEDS: ATORVASTATIN 20 MG TAB PO SCH (22:06)
[2024-04-27] MEDS: SODIUM CHLOR 0.9% PF (SALINE LOCK) 10ML VIAL/SYR IV SCH (22:06)
[2024-04-28] VITALS (112 sets, daily range): BP systolic 89–146; BP diastolic 45–84; PULSE 59–148; RESP 20–26; TEMP 68.4–99.5; O2SAT 77–100
[2024-04-28 04:19] LABS: Basophils # (auto) 0 10 ^3/uL (0-0.2); Basophils % (auto) 0.3 % (0.0-2.0); Eosinophils # (auto) 0.2 10 ^3/uL (0-0.8); Eosinophils % (auto) 1.7 % (0.0-7.0); Hematocrit 27.5 % (41.0-53.0); Lymphocytes # (auto) 0.7 10 ^3/uL (0.4-5.4); Lymphocytes % (auto) 6.3 % (10.0-50.0); Mean Corpuscular Hgb Conc. 32.7 g/dL (32.0-36.0); Mean Corpuscular Volume 88.8 fL (80.0-100.0); Monocytes # (auto) 0.7 10 ^3/uL (0-1.3); Monocytes % (auto) 6.6 % (0.0-12.0); Neutrophils # (auto) 9.4 10 ^3/uL (1.6-8.6); Neutrophils % (auto) 85.1 % (37.0-80.0); Platelet Count (auto) 232 10^3/uL (140-450); Red Cell Distribution Width 14.4 % (11.8-14.3)
[2024-04-28 04:33] LABS: Chloride 103 mmol/L (98-107); Sodium 144 mmol/L (136-145)
[2024-04-28 04:34] LABS: Anion Gap 9 (5-15); Calcium 9.2 mg/dL (8.7-10.4)
[2024-04-28 04:39] LABS: BUN/Creatinine Ratio 28.1 (10.0-20.0)
[2024-04-28 04:43] LABS: Blood Urea Nitrogen 74 mg/dL (9-23); Carbon Dioxide 32 mmol/L (20-31); Glucose 201 mg/dL (74-106); Potassium 3.4 mmol/L (3.5-5.1)
--- NOTE | 2024-04-28 04:52 | DVH ---
Exam: US US GUIDED VASCULAR ACCESS Clinical History: PICC LINE INSERTION Comparison: None Findings: Targeted sonographic evaluation of the right arm vein was obtained utilizing grayscale and color Dopp ler imaging. IMPRESSION: Sonographic assistance for central line placement. Please refer to procedural report for detailed fin dings.
--- NOTE | 2024-04-28 04:53 | DVH ---
CHEST RADIOGRAPH Indication: RESP FAILURE Technique: Single frontal view of the chest was obtained COMPARISON: XY CHEST PORTABLE on DOS: 04/27/24, XY CHEST PORTABLE on DOS: 04/26/24, XY CHEST PORTABLE on DOS: 04/25/24, XY CHEST PORTABLE on DOS: 04/27/24 FINDINGS: Lines and Tubes: Median sternotomy. Endotracheal tube, enteric catheter and right picc and left cent ral venous catheter in satisfactory position. Lungs: Multifocal airspace disease. Pleura: No effusion. No pneumothorax. Cardiomediastinal contours: Unremarkable Bones: Unremarkable IMPRESSION: Lines and tubes in satisfactory position. No significant interval change.
[2024-04-28 07:20] LABS: Base Excess 7.1 mmol/L (-2.0-3.0)
--- NOTE | 2024-04-28 10:09 | DVHPN2 ---
Progress Note Date Seen: Apr 28, 2024 Medical Necessity Reason Pt with a Central, PICC or Fol: Yes The following are medically ne: Central Line, Mack Catheter Reason for mack catheter: Strict I&O Subjective Review of Systems: RESPIRATORY:Abnormal Other Systems: Patient seen and examined by myself today in follow-up, patient remained Objective vital signs Vital Sign Date Time Temp Pulse Resp B/P (MAP) Pulse Ox O2 Delivery O2 Flow Rate FiO2 04/28/24 09:54 90 04/28/24 09:54 20 100 Mechanical Ventilator+ 30 30 04/28/24 09:28 123/60 (81) 04/28/24 07:00 98.6 209.5 Total Intake and Output 04/27/24 04/27/24 04/28/24 15:00 23:00 07:00 Intake Total 54.0 ml 284.5 ml 330.0 ml Output Total 725 ml 750 ml Balance 54.0 ml -440.5 ml -420.0 ml medications Current Medications Medications Dose Ordered Sig/Lulu Route Start Time Stop Time Status Last Admin Dose Admin Acetaminophen 650 mg Q6HP PRN PO 04/16/24 23:45 Nitroglycerin 0.4 mg Q5MINP PRN SL 04/16/24 23:45 Albuterol 2.5 mg Q6HPRN PRN NEB 04/17/24 18:30 04/21/24 06:28 2.5 MG Levalbuterol HCl 1.25 mg Q6HR NEB 04/18/24 00:00 04/28/24 06:17 1.25 MG Norepinephrine Bitartrate 32 mg/ Sodium Chloride 250 ml @ 0.938 mls/ hr Q24H IV 04/18/24 11:45 04/20/24 16:11 2.813 MLS/HR Midazolam HCl 50 ml @ 1 mls/hr Q24H IV 04/20/24 14:45 04/28/24 01:36 6 MLS/HR Pantoprazole Sodium 40 mg DAILY IV 04/21/24 10:00 04/27/24 08:04 40 MG Enteral Nutritional Formula 1,000 ml 30ML/HR GT 04/20/24 16:45 Cancel Enteral Nutritional Formula 1,000 ml 30ML/HR GT 04/21/24 08:45 Dexmedetomidine HCl 400 mcg/ Dextrose 100 ml @ 4.3 mls/hr [id number] IV 04/22/24 19:15 04/26/24 05:13 4.3 MLS/HR Insulin Glargine 20 units HS SC 04/23/24 22:00 04/27/24 22:19 20 UNITS Diagnostic Test (Pha) 1 strip Q6HR 04/23/24 12:00 04/28/24 05:29 1 STRIP Insulin Human Regular Q6HR SC 04/23/24 12:00 04/28/24 05:27 3 UNITS Dextrose 50 ml UD PRN IV 04/23/24 11:15 Amiodarone HCl 200 mg Q12HR NG 04/24/24 22:00 04/27/24 22:07 200 MG Hydralazine HCl 10 mg Q6HP PRN IV 04/25/24 13:30 04/26/24 08:06 10 MG Piperacillin Sod/ Tazobactam Sod 100 ml @ 25 mls/hr Q8H IV 04/26/24 13:00 04/28/24 05:21 25 MLS/HR Alprazolam 0.25 mg TID PRN PO 04/26/24 19:00 04/27/24 16:52 0.25 MG Fentanyl Citrate 250 ml @ 2.5 mls/hr Q24H IV 04/27/24 06:00 04/27/24 22:17 17.5 MLS/HR Clopidogrel Bisulfate 75 mg DAILY PO 04/27/24 10:00 04/27/24 10:00 75 MG Atorvastatin Calcium 40 mg HS PO 04/27/24 22:00 04/27/24 22:06 40 MG Enoxaparin Sodium 80 mg DAILY SC 04/28/24 10:00 Furosemide 40 mg DAILY IV 04/28/24 10:00 Sodium Chloride 10 ml QSHIFT@10,22 IV 04/27/24 22:00 04/27/24 22:06 10 ML Examination: LUNGS:Normal (ubated on ventilator), CVS:Normal, MSK:Normal laboratory and microbiology Laboratory Tests 04/28/24 03:50 Test 04/28/24 03:50 Range/Units Serum Glucose 201 H 74-106 mg/dL Microbiology Date/Time Source Procedure Growth Status 04/18/24 01:00 Nose MRSA Screen - Final Complete 04/17/24 13:00 Blood Blood Culture - Final NO GROWTH AFTER 5 DAYS OF INCUBATION. Complete 04/17/24 01:05 Sputum Gram Stain - Final Complete 04/17/24 01:05 Respiratory Culture - Final Streptococcus Group F Complete Problem List/Assessment/Plan Problem List/Assessment/Plan Nurse ANDREA secondary hemodynamic mediated, FeNa < 1% status post intermittent hemodialysis Acute hypoxic respiratory failure, intubated on ventilator CKD stage IIIB Acute PE NSTEMI coronary artery disease Diabetes mellitus type 2 Anemia of chronic kidney disease Hypokalemia Recommendation Increased urine output Electrolytes are stable Low-dose dopamine Furosemide 40 mg IV daily KCL replacement Mack catheter Strict I&Os We will continue to follow up Plan discussed with: Other My Orders My Orders Orders - MANAV RITTER MD Procedure Category Date Status Time Communication Order ORDERS 04/27/24 Transmitted 16:38 Dietary Evaluation Review Comments: current TF is providing adequate amount of protein and energy to pt. Need to continue monitor the nepro support vs updated lab values, d/t his ckd-3b status and not on HD. Expected Outcomes/Goals: meeting pt's estimated needs for both protein and energy at 75% or higher. MANAV RITTER MD Apr 28, 2024 10:09
--- NOTE | 2024-04-28 12:46 | DVHPN2 ---
Consult Progress Note Date Seen: Apr 28, 2024 Subjective Other Systems: No concerning overnight cardiac events reported. Sinus tachy when off sedation Objective vital signs Vital Sign Date Time Temp Pulse Resp B/P (MAP) Pulse Ox O2 Delivery O2 Flow Rate FiO2 04/28/24 12:03 20 100 Mechanical Ventilator+ 30 30 04/28/24 12:03 90 04/28/24 11:14 143/79 (100) 04/28/24 07:00 98.6 209.5 Total Intake and Output 04/27/24 04/27/24 04/28/24 15:00 23:00 07:00 Intake Total 54.0 ml 284.5 ml 330.0 ml Output Total 725 ml 750 ml Balance 54.0 ml -440.5 ml -420.0 ml medications Current Medications Medications Dose Ordered Sig/Lulu Route Start Time Stop Time Status Last Admin Dose Admin Acetaminophen 650 mg Q6HP PRN PO 04/16/24 23:45 Nitroglycerin 0.4 mg Q5MINP PRN SL 04/16/24 23:45 Albuterol 2.5 mg Q6HPRN PRN NEB 04/17/24 18:30 04/28/24 11:11 2.5 MG Levalbuterol HCl 1.25 mg Q6HR NEB 04/18/24 00:00 04/28/24 11:11 1.25 MG Norepinephrine Bitartrate 32 mg/ Sodium Chloride 250 ml @ 0.938 mls/ hr Q24H IV 04/18/24 11:45 04/20/24 16:11 2.813 MLS/HR Midazolam HCl 50 ml @ 1 mls/hr Q24H IV 04/20/24 14:45 04/28/24 01:36 6 MLS/HR Pantoprazole Sodium 40 mg DAILY IV 04/21/24 10:00 04/27/24 08:04 40 MG Enteral Nutritional Formula 1,000 ml 30ML/HR GT 04/20/24 16:45 Cancel Enteral Nutritional Formula 1,000 ml 30ML/HR GT 04/21/24 08:45 Dexmedetomidine HCl 400 mcg/ Dextrose 100 ml @ 4.3 mls/hr [id number] IV 04/22/24 19:15 04/26/24 05:13 4.3 MLS/HR Insulin Glargine 20 units HS SC 04/23/24 22:00 04/27/24 22:19 20 UNITS Diagnostic Test (Pha) 1 strip Q6HR 04/23/24 12:00 04/28/24 05:29 1 STRIP Insulin Human Regular Q6HR SC 04/23/24 12:00 04/28/24 05:27 3 UNITS Dextrose 50 ml UD PRN IV 04/23/24 11:15 Amiodarone HCl 200 mg Q12HR NG 04/24/24 22:00 04/27/24 22:07 200 MG Hydralazine HCl 10 mg Q6HP PRN IV 04/25/24 13:30 04/26/24 08:06 10 MG Piperacillin Sod/ Tazobactam Sod 100 ml @ 25 mls/hr Q8H IV 04/26/24 13:00 04/28/24 05:21 25 MLS/HR Alprazolam 0.25 mg TID PRN PO 04/26/24 19:00 04/27/24 16:52 0.25 MG Fentanyl Citrate 250 ml @ 2.5 mls/hr Q24H IV 04/27/24 06:00 04/27/24 22:17 17.5 MLS/HR Clopidogrel Bisulfate 75 mg DAILY PO 04/27/24 10:00 04/27/24 10:00 75 MG Atorvastatin Calcium 40 mg HS PO 04/27/24 22:00 04/27/24 22:06 40 MG Enoxaparin Sodium 80 mg DAILY SC 04/28/24 10:00 Furosemide 40 mg DAILY IV 04/28/24 10:00 Sodium Chloride 10 ml QSHIFT@10,22 IV 04/27/24 22:00 04/27/24 22:06 10 ML Dopamine HCl/ Dextrose 250 ml @ 5.595 mls/ hr Q24H IV 04/28/24 10:00 Potassium Chloride 100 ml @ 50 mls/hr Q2H IV 04/28/24 10:15 04/28/24 14:14 Examination: LUNGS:Abnormal (Mechanically ventilated 30% FiO2), CVS:Normal (NSR, off vasopressors), NEURO:Normal (On light sedation, moving) laboratory and microbiology Laboratory Tests 04/28/24 03:50 Test 04/28/24 03:50 Range/Units Serum Glucose 201 H 74-106 mg/dL Problem List/Assessment/Plan Problem List/Assessment/Plan Non ST elevation myocardial infarction Acute on chronic decompensated HFrEF at 25%, NYHA Class IV, newly diagnosed RLL segmental pulmonary embolism with no evidence of right-heart strain Severe coronary artery disease status post triple-vessel CABG, 2017 Rule out progressive coronary artery disease Bilateral pleural effusions, small Lower extremity DVT ruled out Severe PVD status post left SFA ELLIOT x 1 Hypertension Dyslipidemia Wbr-nrkoaws-jysuwkcuh diabetes mellitus Acute kidney injury Tobacco use Plan/Recommendation (Dr. Huitron) * Echocardiogram revealed EF 25% * There is anterior anteroseptal anteroapical inferolateral wall severe hypokinesia. Normal right ventricular size and dimension. Normal right ventricular systolic function. Moderately elevated right ventricular systolic pressure 49 mm of mercury. Moderately dilated right and left atria. Aortic valve is thickened and sclerotic. No significant stenosis but mild regurgitation was noted. Mitral valve is thickened there is [id number] mitral valve regurgitation. There is mild tricuspid valve regurgitation. The pulmonary valve is grossly normal. No pericardial effusion. * Therapeutic Lovenox given PE. Trend H&H levels * Preload and afterload reduction. HD per nephrology. * Strict I&Os. Daily weight. Maintain fluid restrictions * Initiate GDMT for CHF as tolerated when appropriate * Single-antiplatelet therapy (Plavix) and lipid-lowering agent * Pulmonology and Nephrology recommendations The patient with a newly diagnosed cardiomyopathy including a severely diminished LV function compared to previous transthoracic echocardiogram revealing LVEF of 65% on 2022 may qualify for a cardiac catheterization once clinically stable and with optimal renal function. [place] [address], not a candidate for ischemic workup at this time. Continue supportive care. Repeat EKG negative for acute ST abnormality or changes. Condition remains critical. We will continue to monitor closely. Thank you for allowing us to participate in this patient's care. Please call if you have any questions or concerns. Critical care time: 30 min. This medical document was created using an electronic medical record system with voice recognition software and computerized dictation system. Although this document has been carefully reviewed, there might still be some phonetic and typographical errors. Occasional wrong-word or ``sound-alike substitutions may have occurred due to the inherent limitations of voice recognition software. These areas are purely typographical due to imperfections of the software programs and do not reflect any compromise in the patient's medical care. Please read the chart carefully and recognize, using context, where these substitutions have occurred. Plan discussed with: Spouse, Other Dietary Evaluation Review Comments: current TF is providing adequate amount of protein and energy to pt. Need to continue monitor the nepro support vs updated lab values, d/t his ckd-3b status and not on HD. Expected Outcomes/Goals: meeting pt's estimated needs for both protein and energy at 75% or higher. Date of Service: Apr 28, 2024 Billing Provider: PAVEL HUITRON MD Cardiology Common Codes: [id number] CARE 30-74 MIN [facility] Apr 28, 2024 12:46
[2024-04-28] MEDS: FUROSEMIDE 40 MG/4 ML VIAL IV SCH (12:58)
[2024-04-28] MEDS: DOPamine 1600MCG/ML D5W 250 ML IV SCH (12:59)
[2024-04-28] MEDS: POTASSIUM CHL 20MEQ/100ML 100 ML IV SCH (12:59)
[2024-04-28] MEDS: ENOXAPARIN SOD 80 MG/0.8ML SYRINGE SC SCH (13:00)
[2024-04-28] MEDS: POTASSIUM CHL 20MEQ/100ML 100 ML IV ONE (16:25)
--- NOTE | 2024-04-28 17:18 | DVHPN2 ---
Progress Note Date Seen: Apr 28, 2024 Medical Necessity Reason Pt with a Central, PICC or Fol: Yes The following are medically ne: PICC Line, Mack Catheter Reason for mack catheter: Strict I&O Subjective Patient reports: No new complaints Review of Systems: HEENT:Normal, CVS:Normal, RESPIRATORY:Normal, GI:Normal, :Normal, MSK:Normal, NEURO:Normal Objective vital signs Vital Sign Date Time Temp Pulse Resp B/P (MAP) Pulse Ox O2 Delivery O2 Flow Rate FiO2 04/28/24 16:30 97.9 73 106/54 (71) 98 208.2 04/28/24 15:58 20 30 04/28/24 15:32 Mechanical Ventilator+ Total Intake and Output 04/27/24 04/27/24 04/28/24 15:00 23:00 07:00 Intake Total 54.0 ml 284.5 ml 330.0 ml Output Total 725 ml 750 ml Balance 54.0 ml -440.5 ml -420.0 ml medications Current Medications Medications Dose Ordered Sig/Lulu Route Start Time Stop Time Status Last Admin Dose Admin Acetaminophen 650 mg Q6HP PRN PO 04/16/24 23:45 Nitroglycerin 0.4 mg Q5MINP PRN SL 04/16/24 23:45 Albuterol 2.5 mg Q6HPRN PRN NEB 04/17/24 18:30 04/28/24 11:11 2.5 MG Levalbuterol HCl 1.25 mg Q6HR NEB 04/18/24 00:00 04/28/24 11:11 1.25 MG Norepinephrine Bitartrate 32 mg/ Sodium Chloride 250 ml @ 0.938 mls/ hr Q24H IV 04/18/24 11:45 04/20/24 16:11 2.813 MLS/HR Midazolam HCl 50 ml @ 1 mls/hr Q24H IV 04/20/24 14:45 04/28/24 13:01 5 MLS/HR Pantoprazole Sodium 40 mg DAILY IV 04/21/24 10:00 04/28/24 12:58 40 MG Enteral Nutritional Formula 1,000 ml 30ML/HR GT 04/20/24 16:45 Cancel Enteral Nutritional Formula 1,000 ml 30ML/HR GT 04/21/24 08:45 Dexmedetomidine HCl 400 mcg/ Dextrose 100 ml @ 4.3 mls/hr [id number] IV 04/22/24 19:15 04/26/24 05:13 4.3 MLS/HR Insulin Glargine 20 units HS SC 04/23/24 22:00 04/27/24 22:19 20 UNITS Diagnostic Test (Pha) 1 strip Q6HR 04/23/24 12:00 04/28/24 12:00 1 STRIP Insulin Human Regular Q6HR SC 04/23/24 12:00 04/28/24 12:00 3 UNITS Dextrose 50 ml UD PRN IV 04/23/24 11:15 Amiodarone HCl 200 mg Q12HR NG 04/24/24 22:00 04/28/24 12:58 200 MG Hydralazine HCl 10 mg Q6HP PRN IV 04/25/24 13:30 04/26/24 08:06 10 MG Piperacillin Sod/ Tazobactam Sod 100 ml @ 25 mls/hr Q8H IV 04/26/24 13:00 04/28/24 12:58 25 MLS/HR Alprazolam 0.25 mg TID PRN PO 04/26/24 19:00 04/28/24 12:58 0.25 MG Fentanyl Citrate 250 ml @ 2.5 mls/hr Q24H IV 04/27/24 06:00 04/28/24 13:03 20 MLS/HR Clopidogrel Bisulfate 75 mg DAILY PO 04/27/24 10:00 04/28/24 12:58 75 MG Atorvastatin Calcium 40 mg HS PO 04/27/24 22:00 04/27/24 22:06 40 MG Enoxaparin Sodium 80 mg DAILY SC 04/28/24 10:00 04/28/24 13:00 80 MG Furosemide 40 mg DAILY IV 04/28/24 10:00 04/28/24 12:58 40 MG Sodium Chloride 10 ml QSHIFT@10,22 IV 04/27/24 22:00 04/28/24 10:00 10 ML Dopamine HCl/ Dextrose 250 ml @ 5.595 mls/ hr Q24H IV 04/28/24 10:00 04/28/24 12:59 5.595 MLS/HR Examination: GENERAL:Normal, HEENT:Normal, NECK:Normal, LUNGS:Normal, LUNGS:Abnormal (INTUBATED), CVS:Normal, ABDOMEN:Normal, MSK:Normal, SKIN:Normal, NEURO:Normal, :Normal laboratory and microbiology Laboratory Tests 04/28/24 03:50 Test 04/28/24 03:50 Range/Units Serum Glucose 201 H 74-106 mg/dL Microbiology Date/Time Source Procedure Growth Status 04/18/24 01:00 Nose MRSA Screen - Final Complete 04/17/24 13:00 Blood Blood Culture - Final NO GROWTH AFTER 5 DAYS OF INCUBATION. Complete 04/17/24 01:05 Sputum Gram Stain - Final Complete 04/17/24 01:05 Respiratory Culture - Final Streptococcus Group F Complete Problem List/Assessment/Plan Problem List/Assessment/Plan Neurology : - patient is sedated Cardiovascular : # Non ST elevation myocardial infarction # Acute on chronic decompensated HFrEF, NYHA Class IV, newly diagnosed: lasix iv # Echo on 04/18/2024 shows: Severely dilated left ventricle. Severely reduced left ventricular systolic function with estimated ejection fraction 25%. There is anterior anteroseptal anteroapical inferolateral wall severe hypokinesia- dobutamine drip # Severe coronary artery disease status post triple-vessel CABG, 2018 # Lower extremity DVT ruled out # Severe PVD status post left SFA ELLIOT x 1 # Hypertension # Dyslipidemia - cardiology on board - discontinue Lipitor for now - discontinue Plavix for now - patient is on heparin drip # a fib: on amiodarone Respiratory : # Septic shock due to pneumonia # Acute hypoxic respiratory failure secondary to possible pneumonia - patient is on mechanical ventilation with FiO2 30%, PEEP: 6, F 24, Vt 550 # Possible community-acquired pneumonia Gm +/- bacterial pneumonia - continue antibiotic, Zosyn # RLL segmental pulmonary embolism with no evidence of right-heart strain # Bilateral pleural effusions, small - continue heparin drip for pulmonary embolism Genitourinary : # ANDREA on CKD # Acute kidney injury due to ATN # ANDREA likely ischemic ATN in setting of shock # CKD stage IIIB -nephrology on board -continue Lasix 40 mg I/V daily. - HD today Infectious Disease : # Septic shock due to pneumonia # possible community-acquired pneumonia gm+/- bacterial - patient is on pressor - continue IV antibiotics Endocrine : Kmj-yxzvgri-phuodqnbp diabetes mellitus -HbA1c 7.1 - Continue ISS - monitor blood glucose Hematology : - leukocytosis due to septic shock - follow up morning labs Nutrition : Glucerna Lines: Endotracheal tube: 04/18/2024 Right IG central line: 04/18/2024 Mack catheter: 04/18/2024 Left IG Pipo catheter: 04/20/2024 Drips : Fentanyl 75 Versed 5 Propofol 0 NE 0 Vasopressin 0 [id number] Prophylaxis for PUD : Protonix 40 mg IV daily Prophylaxis for DVT: Patient is on heparin drip Possible CPAP trial tomorrow. Plan discussed with: Other (rn) My Orders My Orders Orders - ADRIA NASH MD Procedure Category Date Status Time Change Dressing Prn [facility] 04/27/24 In Process 18:03 Sodium Chloride Lock PHA 04/27/24 In Process (Saline Lock Ns) 22:00 Do Not Use Picc For [facility] 04/27/24 In Process Blood Cult 18:03 May Draw Blood From [facility] 04/27/24 In Process Picc 18:03 Ok To Use Picc [facility] 04/27/24 In Process 18:03 Change Picc Dressing [facility] 04/27/24 In Process Q7 Days 18:03 Us Guided Vascular US 04/27/24 Resulted Access 18:07 Dietary Evaluation Review Comments: current TF is providing adequate amount of protein and energy to pt. Need to continue monitor the nepro support vs updated lab values, d/t his ckd-3b status and not on HD. Expected Outcomes/Goals: meeting pt's estimated needs for both protein and energy at 75% or higher. Critical Care Time (mins): 81 (critical care time 81 mins) Date of Service: Apr 28, 2024 Billing Provider: ADRIA NASH MD Common Visit Codes: 73040-[id number] CARE 30-74 MIN, [id number] CARE-EACH +30MIN ADRIA NASH MD Apr 28, 2024 17:18
[2024-04-28] MEDS: DOBUTamine 1000MCG/ML 250 ML IV SCH (17:38)
[2024-04-29] VITALS (115 sets, daily range): BP systolic 88–150; BP diastolic 37–78; PULSE 70–139; RESP 12–37; TEMP 98.8–99.7; O2SAT 90–100
[2024-04-29 03:21] LABS: Basophils # (auto) 0 10 ^3/uL (0-0.2); Basophils % (auto) 0.3 % (0.0-2.0); Eosinophils # (auto) 0.1 10 ^3/uL (0-0.8); Eosinophils % (auto) 1.1 % (0.0-7.0); Hematocrit 29.3 % (41.0-53.0); Hemoglobin 9.3 g/dL (13.5-17.5); Lymphocytes # (auto) 0.6 10 ^3/uL (0.4-5.4); Lymphocytes % (auto) 4.6 % (10.0-50.0); Mean Corpuscular Hgb Conc. 31.9 g/dL (32.0-36.0); Mean Corpuscular Volume 90.9 fL (80.0-100.0); Monocytes # (auto) 0.9 10 ^3/uL (0-1.3); Monocytes % (auto) 6.9 % (0.0-12.0); Neutrophils # (auto) 11.5 10 ^3/uL (1.6-8.6); Neutrophils % (auto) 87.1 % (37.0-80.0); Platelet Count (auto) 270 10^3/uL (140-450); Red Blood Cells 3.22 10^6/uL (4.5-5.90); Red Cell Distribution Width 14.8 % (11.8-14.3); White Blood Cell 13.2 10^3/uL (4.4-10.8)
[2024-04-29 03:43] LABS: Alanine Aminotransferase 16 U/L (7-40); Albumin 3.8 g/dL (3.2-4.8); Alkaline Phosphatase 78 U/L (46-116); Anion Gap 8 (5-15); Aspartate Aminotransferase 19 U/L (13-40); BUN/Creatinine Ratio 29.6 (10.0-20.0); Bilirubin, Total 0.8 mg/dL (0.2-1.0); Calcium 9.5 mg/dL (8.7-10.4); Carbon Dioxide 31 mmol/L (20-31); Chloride 105 mmol/L (98-107); Potassium 3.9 mmol/L (3.5-5.1); Sodium 144 mmol/L (136-145); Total Protein 6.8 g/dL (5.7-8.2)
[2024-04-29 03:46] LABS: Blood Urea Nitrogen 73 mg/dL (9-23); Glucose 163 mg/dL (74-106)
--- NOTE | 2024-04-29 04:15 | DVH ---
CHEST RADIOGRAPH Indication: RESP FAILURE Technique: Single frontal view of the chest was obtained Comparison: XY CHEST PORTABLE on DOS: 04/28/24, XY CHEST PORTABLE on DOS: 04/27/24, XY CHEST PORTABLE on DOS: 04/26/24, XY CHEST PORTABLE on DOS: 04/25/24, XY CHEST PORTABLE on DOS: 04/24/24, XY CHEST P ORTABLE on DOS: 04/28/24 FINDINGS: Lines and Tubes: Median sternotomy. Endotracheal tube, enteric catheter and right picc and left cent ral venous catheter in satisfactory position. Lungs: Multifocal airspace disease. Pleura: No effusion. No pneumothorax. Cardiomediastinal contours: Unremarkable Bones: Unremarkable IMPRESSION: 1. Lines and tubes in satisfactory position. No significant interval change.
--- NOTE | 2024-04-29 10:13 | DVHPN2 ---
Consult Progress Note Subjective Other Systems: Patient in atrial fibrillation at time of assessment, rate 120's. Pending CPAP trial this morning. Objective vital signs Vital Sign Date Time Temp Pulse Resp B/P (MAP) Pulse Ox O2 Delivery O2 Flow Rate FiO2 04/29/24 09:41 124 20 88/52 (64) 92 30 04/29/24 06:45 99.3 210.7 04/29/24 06:00 Mechanical Ventilator+ Total Intake and Output 04/28/24 04/28/24 04/29/24 15:00 23:00 07:00 Intake Total 128.5 ml 296.14 ml 403.33 ml Output Total 500 ml 700 ml Balance 128.5 ml -203.86 ml -296.67 ml medications Current Medications Medications Dose Ordered Sig/Lulu Route Start Time Stop Time Status Last Admin Dose Admin Acetaminophen 650 mg Q6HP PRN PO 04/16/24 23:45 Nitroglycerin 0.4 mg Q5MINP PRN SL 04/16/24 23:45 Albuterol 2.5 mg Q6HPRN PRN NEB 04/17/24 18:30 04/28/24 11:11 2.5 MG Levalbuterol HCl 1.25 mg Q6HR NEB 04/18/24 00:00 04/29/24 06:14 1.25 MG Norepinephrine Bitartrate 32 mg/ Sodium Chloride 250 ml @ 0.938 mls/ hr Q24H IV 04/18/24 11:45 04/20/24 16:11 2.813 MLS/HR Midazolam HCl 50 ml @ 1 mls/hr Q24H IV 04/20/24 14:45 04/29/24 00:32 7 MLS/HR Pantoprazole Sodium 40 mg DAILY IV 04/21/24 10:00 04/28/24 12:58 40 MG Enteral Nutritional Formula 1,000 ml 30ML/HR GT 04/20/24 16:45 Cancel Enteral Nutritional Formula 1,000 ml 30ML/HR GT 04/21/24 08:45 Dexmedetomidine HCl 400 mcg/ Dextrose 100 ml @ 4.3 mls/hr [id number] IV 04/22/24 19:15 04/26/24 05:13 4.3 MLS/HR Insulin Glargine 20 units HS SC 04/23/24 22:00 04/28/24 22:36 20 UNITS Diagnostic Test (Pha) 1 strip Q6HR 04/23/24 12:00 04/29/24 05:40 1 STRIP Insulin Human Regular Q6HR SC 04/23/24 12:00 04/29/24 05:41 2 UNITS Dextrose 50 ml UD PRN IV 04/23/24 11:15 Piperacillin Sod/ Tazobactam Sod 100 ml @ 25 mls/hr Q8H IV 04/26/24 13:00 04/29/24 05:40 25 MLS/HR Fentanyl Citrate 250 ml @ 2.5 mls/hr Q24H IV 04/27/24 06:00 04/28/24 23:25 20 MLS/HR Clopidogrel Bisulfate 75 mg DAILY PO 04/27/24 10:00 04/28/24 12:58 75 MG Atorvastatin Calcium 40 mg HS PO 04/27/24 22:00 04/28/24 22:22 40 MG Enoxaparin Sodium 80 mg DAILY SC 04/28/24 10:00 04/28/24 13:00 80 MG Furosemide 40 mg DAILY IV 04/28/24 10:00 04/28/24 12:58 40 MG Sodium Chloride 10 ml QSHIFT@10,22 IV 04/27/24 22:00 04/28/24 22:14 10 ML Dobutamine HCl/ Dextrose 250 ml @ 11.19 mls/ hr [id number] IV 04/28/24 17:15 04/28/24 17:38 11.19 MLS/HR Amiodarone HCl 250 ml @ 16.667 mls/ hr Q15H IV 04/29/24 16:15 UNV Examination: GENERAL:Abnormal, LUNGS:Abnormal (Mechanically ventilated, Fio2 30%, PEEP 5), CVS:Abnormal (Atrial fibrillation), NEURO:Abnormal (Chemically sedated) laboratory and microbiology Laboratory Tests 04/29/24 02:57 Test 04/29/24 02:57 Range/Units Serum Glucose 163 H 74-106 mg/dL Problem List/Assessment/Plan Problem List/Assessment/Plan Non ST elevation myocardial infarction Acute on chronic decompensated HFrEF at 25%, NYHA Class IV, newly diagnosed RLL segmental pulmonary embolism with no evidence of right-heart strain Paroxysmal atrial fibrillation with RVR, now NSR Severe coronary artery disease status post triple-vessel CABG, 2018 Rule out progressive coronary artery disease Bilateral pleural effusions, small Severe PVD status post left SFA ELLIOT x 1 Hypertension Dyslipidemia Uco-zvxdbyp-zbgsweeim diabetes mellitus Acute kidney injury Tobacco use Plan/Recommendation (Dr. Huitron) * Echocardiogram revealed EF 25% * There is anterior anteroseptal anteroapical inferolateral wall severe hypokinesia. Normal right ventricular size and dimension. Normal right ventricular systolic function. Moderately elevated right ventricular systolic pressure 49 mm of mercury. Moderately dilated right and left atria. Aortic valve is thickened and sclerotic. No significant stenosis but mild regurgitation was noted. Mitral valve is thickened there is [id number] mitral valve regurgitation. There is mild tricuspid valve regurgitation. The pulmonary valve is grossly normal. No pericardial effusion. * Therapeutic Lovenox given PE/A-fib. Trend H&H levels * [id number] VASc score: 5 points, HAS-BLED: 2 points * Antiarrhythmic agent, amiodarone * Initiate beta maranda when off dobutamine drip * Initiate GDMT for CHF as tolerated when appropriate * Strict I&Os. Daily weight. Maintain fluid restrictions * Single-antiplatelet therapy (Plavix) and lipid-lowering agent Patient seen and examined at bedside with Dr. Huitron. The patient with a newly diagnosed cardiomyopathy including a severely diminished LV function compared to previous transthoracic echocardiogram revealing LVEF of 65% on 2022 may qualify for a cardiac catheterization once clinically stable and with optimal renal function. [place] [address], not a candidate for ischemic workup at this time. Patient was initiated on Dobutamine drip per primary care team. We will continue to monitor closely. Thank you for allowing us to participate in this patient's care. Please call if you have any questions or concerns. Critical care time spent: 35 minutes. This medical document was created using an electronic medical record system with voice recognition software and computerized dictation system. Although this document has been carefully reviewed, there might still be some phonetic and typographical errors. Occasional wrong-word or ``sound-alike substitutions may have occurred due to the inherent limitations of voice recognition software. These areas are purely typographical due to imperfections of the software programs and do not reflect any compromise in the patient's medical care. Please read the chart carefully and recognize, using context, where these substitutions have occurred. Plan discussed with: Other (Bedside RN) Dietary Evaluation Review Comments: current TF is providing adequate amount of protein and energy to pt. Need to continue monitor the nepro support vs updated lab values, d/t his ckd-3b status and not on HD. Expected Outcomes/Goals: meeting pt's estimated needs for both protein and energy at 75% or higher. Date of Service: Apr 29, 2024 Billing Provider: PAVEL HUITRON MD Common Visit Codes: [id number] CARE 30-74 MIN JOANIE BURK Apr 29, 2024 10:13
[2024-04-29] MEDS: AMIODARONE 450mg/250ml AE 250 ML IV ONE (10:14)
[2024-04-29 10:21] LABS: Base Excess 2.5 mmol/L (-2.0-3.0)
[2024-04-29] MEDS: AMIODARONE 450mg/250ml AE 250 ML IV SCH (10:53)
[2024-04-29] MEDS: SOD CHL 0.45% 1,000 ML IV SCH (10:56)
--- NOTE | 2024-04-29 11:54 | DVHPN2 ---
Progress Note Date Seen: Apr 29, 2024 Medical Necessity Reason Pt with a Central, PICC or Fol: Yes The following are medically ne: PICC Line, Mack Catheter Reason for mack catheter: Strict I&O Subjective Review of Systems: RESPIRATORY:Abnormal Other Systems: Patient seen and examined by myself on follow-up today Patient remained intubated on ventilator Objective vital signs Vital Sign Date Time Temp Pulse Resp B/P (MAP) Pulse Ox O2 Delivery O2 Flow Rate FiO2 04/29/24 11:30 139/65 04/29/24 11:15 99.5 112 26 98 211.1 04/29/24 10:00 30 04/29/24 10:00 Mechanical Ventilator+ Total Intake and Output 04/28/24 04/28/24 04/29/24 15:00 23:00 07:00 Intake Total 128.5 ml 296.14 ml 403.33 ml Output Total 500 ml 700 ml Balance 128.5 ml -203.86 ml -296.67 ml medications Current Medications Medications Dose Ordered Sig/Lulu Route Start Time Stop Time Status Last Admin Dose Admin Acetaminophen 650 mg Q6HP PRN PO 04/16/24 23:45 Nitroglycerin 0.4 mg Q5MINP PRN SL 04/16/24 23:45 Albuterol 2.5 mg Q6HPRN PRN NEB 04/17/24 18:30 04/28/24 11:11 2.5 MG Levalbuterol HCl 1.25 mg Q6HR NEB 04/18/24 00:00 04/29/24 06:14 1.25 MG Norepinephrine Bitartrate 32 mg/ Sodium Chloride 250 ml @ 0.938 mls/ hr Q24H IV 04/18/24 11:45 04/20/24 16:11 2.813 MLS/HR Midazolam HCl 50 ml @ 1 mls/hr Q24H IV 04/20/24 14:45 04/29/24 00:32 7 MLS/HR Pantoprazole Sodium 40 mg DAILY IV 04/21/24 10:00 04/29/24 10:18 40 MG Enteral Nutritional Formula 1,000 ml 30ML/HR GT 04/20/24 16:45 Cancel Enteral Nutritional Formula 1,000 ml 30ML/HR GT 04/21/24 08:45 Dexmedetomidine HCl 400 mcg/ Dextrose 100 ml @ 4.3 mls/hr [id number] IV 04/22/24 19:15 04/26/24 05:13 4.3 MLS/HR Insulin Glargine 20 units HS SC 04/23/24 22:00 04/28/24 22:36 20 UNITS Diagnostic Test (Pha) 1 strip Q6HR 04/23/24 12:00 04/29/24 05:40 1 STRIP Insulin Human Regular Q6HR SC 04/23/24 12:00 04/29/24 05:41 2 UNITS Dextrose 50 ml UD PRN IV 04/23/24 11:15 Piperacillin Sod/ Tazobactam Sod 100 ml @ 25 mls/hr Q8H IV 04/26/24 13:00 04/29/24 05:40 25 MLS/HR Fentanyl Citrate 250 ml @ 2.5 mls/hr Q24H IV 04/27/24 06:00 04/28/24 23:25 20 MLS/HR Clopidogrel Bisulfate 75 mg DAILY PO 04/27/24 10:00 04/29/24 10:20 75 MG Atorvastatin Calcium 40 mg HS PO 04/27/24 22:00 04/28/24 22:22 40 MG Enoxaparin Sodium 80 mg DAILY SC 04/28/24 10:00 04/29/24 10:19 80 MG Furosemide 40 mg DAILY IV 04/28/24 10:00 04/29/24 10:18 40 MG Sodium Chloride 10 ml QSHIFT@10,22 IV 04/27/24 22:00 04/29/24 10:19 10 ML Dobutamine HCl/ Dextrose 250 ml @ 11.19 mls/ hr [id number] IV 04/28/24 17:15 04/28/24 17:38 11.19 MLS/HR Amiodarone HCl 250 ml @ 16.667 mls/ hr Q15H IV 04/29/24 10:41 04/29/24 10:53 16.667 MLS/HR Sodium Chloride 1,000 ml @ 75 mls/hr [id number] IV 04/29/24 10:15 04/29/24 10:56 75 MLS/HR Examination: LUNGS:Normal, CVS:Normal, MSK:Normal laboratory and microbiology Laboratory Tests 04/29/24 02:57 Test 04/29/24 02:57 Range/Units Serum Glucose 163 H 74-106 mg/dL Microbiology Date/Time Source Procedure Growth Status 04/18/24 01:00 Nose MRSA Screen - Final Complete 04/17/24 13:00 Blood Blood Culture - Final NO GROWTH AFTER 5 DAYS OF INCUBATION. Complete 04/17/24 01:05 Sputum Gram Stain - Final Complete 04/17/24 01:05 Respiratory Culture - Final Streptococcus Group F Complete Problem List/Assessment/Plan Problem List/Assessment/Plan Nurse ANDREA secondary hemodynamic mediated, FeNa < 1% status post intermittent hemodialysis Acute hypoxic respiratory failure, intubated on ventilator CKD stage IIIB Acute PE NSTEMI coronary artery disease Diabetes mellitus type 2 Anemia of chronic kidney disease Hypokalemia Recommendation Kidney function slightly improving Increased urine output Electrolytes are stable IVF half NS at 75 cc/hour Low-dose dopamine Furosemide 40 mg IV daily KCL replacement Mack catheter Strict I&Os We will continue to follow up Plan discussed with: Other (Nurse) My Orders My Orders Orders - MANAV RITTER MD Procedure Category Date Status Time Sod Chl 0.45% (Sodium PHA 04/29/24 In Process Chloride 0.45% Via 10:15 Dietary Evaluation Review Comments: current TF is providing adequate amount of protein and energy to pt. Need to continue monitor the nepro support vs updated lab values, d/t his ckd-3b status and not on HD. Expected Outcomes/Goals: meeting pt's estimated needs for both protein and energy at 75% or higher. MANAV RITTER MD Apr 29, 2024 11:54
[2024-04-29] MEDS: Nepro With Carb Steady 1 Liter Bottle GT SCH (12:46)
--- NOTE | 2024-04-29 15:26 | DVHPN2 ---
Progress Note Date Seen: Apr 29, 2024 Medical Necessity Reason Pt with a Central, PICC or Fol: Yes The following are medically ne: PICC Line, Mack Catheter Reason for mack catheter: Strict I&O Subjective Patient reports: No new complaints Review of Systems: HEENT:Normal, CVS:Normal, RESPIRATORY:Normal, GI:Normal, :Normal, MSK:Normal, NEURO:Normal Objective vital signs Vital Sign Date Time Temp Pulse Resp B/P (MAP) Pulse Ox O2 Delivery O2 Flow Rate FiO2 04/29/24 15:08 113/65 04/29/24 13:58 114 20 99 30 04/29/24 13:46 99.5 211.1 04/29/24 12:00 Mechanical Ventilator+ Total Intake and Output 04/28/24 04/28/24 04/29/24 15:00 23:00 07:00 Intake Total 128.5 ml 296.14 ml 424.52 ml Output Total 500 ml 700 ml Balance 128.5 ml -203.86 ml -275.48 ml medications Current Medications Medications Dose Ordered Sig/Lulu Route Start Time Stop Time Status Last Admin Dose Admin Acetaminophen 650 mg Q6HP PRN PO 04/16/24 23:45 Nitroglycerin 0.4 mg Q5MINP PRN SL 04/16/24 23:45 Albuterol 2.5 mg Q6HPRN PRN NEB 04/17/24 18:30 04/28/24 11:11 2.5 MG Levalbuterol HCl 1.25 mg Q6HR NEB 04/18/24 00:00 04/29/24 13:58 1.25 MG Norepinephrine Bitartrate 32 mg/ Sodium Chloride 250 ml @ 0.938 mls/ hr Q24H IV 04/18/24 11:45 04/20/24 16:11 2.813 MLS/HR Midazolam HCl 50 ml @ 1 mls/hr Q24H IV 04/20/24 14:45 04/29/24 12:02 3 MLS/HR Pantoprazole Sodium 40 mg DAILY IV 04/21/24 10:00 04/29/24 10:18 40 MG Enteral Nutritional Formula 1,000 ml 30ML/HR GT 04/20/24 16:45 Cancel Enteral Nutritional Formula 1,000 ml 30ML/HR GT 04/21/24 08:45 04/29/24 12:46 1,000 ML Dexmedetomidine HCl 400 mcg/ Dextrose 100 ml @ 4.3 mls/hr [id number] IV 04/22/24 19:15 04/26/24 05:13 4.3 MLS/HR Insulin Glargine 20 units HS SC 04/23/24 22:00 04/28/24 22:36 20 UNITS Diagnostic Test (Pha) 1 strip Q6HR 04/23/24 12:00 04/29/24 12:15 1 STRIP Insulin Human Regular Q6HR SC 04/23/24 12:00 04/29/24 12:16 6 UNITS Dextrose 50 ml UD PRN IV 04/23/24 11:15 Piperacillin Sod/ Tazobactam Sod 100 ml @ 25 mls/hr Q8H IV 04/26/24 13:00 04/29/24 13:24 25 MLS/HR Fentanyl Citrate 250 ml @ 2.5 mls/hr Q24H IV 04/27/24 06:00 04/29/24 15:08 17.5 MLS/HR Clopidogrel Bisulfate 75 mg DAILY PO 04/27/24 10:00 04/29/24 10:20 75 MG Atorvastatin Calcium 40 mg HS PO 04/27/24 22:00 04/28/24 22:22 40 MG Enoxaparin Sodium 80 mg DAILY SC 04/28/24 10:00 04/29/24 10:19 80 MG Furosemide 40 mg DAILY IV 04/28/24 10:00 04/29/24 10:18 40 MG Sodium Chloride 10 ml QSHIFT@10,22 IV 04/27/24 22:00 04/29/24 10:19 10 ML Dobutamine HCl/ Dextrose 250 ml @ 11.19 mls/ hr [id number] IV 04/28/24 17:15 04/28/24 17:38 11.19 MLS/HR Amiodarone HCl 250 ml @ 16.667 mls/ hr Q15H IV 04/29/24 10:41 04/29/24 10:53 16.667 MLS/HR Sodium Chloride 1,000 ml @ 75 mls/hr [id number] IV 04/29/24 10:15 04/29/24 10:56 75 MLS/HR Examination: GENERAL:Normal, HEENT:Normal, NECK:Normal, LUNGS:Normal, LUNGS:Abnormal (intubated), CVS:Normal, ABDOMEN:Normal, MSK:Normal, SKIN:Normal, NEURO:Normal, :Normal laboratory and microbiology Laboratory Tests 04/29/24 02:57 Test 04/29/24 02:57 Range/Units Serum Glucose 163 H 74-106 mg/dL Microbiology Date/Time Source Procedure Growth Status 04/18/24 01:00 Nose MRSA Screen - Final Complete 04/17/24 13:00 Blood Blood Culture - Final NO GROWTH AFTER 5 DAYS OF INCUBATION. Complete 04/17/24 01:05 Sputum Gram Stain - Final Complete 04/17/24 01:05 Respiratory Culture - Final Streptococcus Group F Complete Problem List/Assessment/Plan Problem List/Assessment/Plan Neurology : - patient is sedated Cardiovascular : # Non ST elevation myocardial infarction # Acute on chronic decompensated HFrEF, NYHA Class IV, newly diagnosed: lasix iv # Echo on 04/18/2024 shows: Severely dilated left ventricle. Severely reduced left ventricular systolic function with estimated ejection fraction 25%. There is anterior anteroseptal anteroapical inferolateral wall severe hypokinesia- dobutamine drip # Severe coronary artery disease status post triple-vessel CABG, 2018 # Lower extremity DVT ruled out # Severe PVD status post left SFA ELLIOT x 1 # Hypertension # Dyslipidemia - cardiology on board - discontinue Lipitor for now - discontinue Plavix for now - patient is on heparin drip # a fib: on amiodarone # dobutamine trial Respiratory : # Septic shock due to pneumonia # Acute hypoxic respiratory failure secondary to possible pneumonia - patient is on mechanical ventilation with FiO2 30%, PEEP: 6, F 24, Vt 550 # Possible community-acquired pneumonia Gm +/- bacterial pneumonia - continue antibiotic, Zosyn, add doxy # RLL segmental pulmonary embolism with no evidence of right-heart strain # Bilateral pleural effusions, small - continue heparin drip for pulmonary embolism Genitourinary : # ANDREA on CKD # Acute kidney injury due to ATN # ANDREA likely ischemic ATN in setting of shock # CKD stage IIIB -nephrology on board -continue Lasix 40 mg I/V daily. - HD today Infectious Disease : # Septic shock due to pneumonia # possible community-acquired pneumonia gm+/- bacterial - patient is on pressor - continue IV antibiotics Endocrine : Hio-ghqirtf-sacbjiiyo diabetes mellitus -HbA1c 7.1 - Continue ISS - monitor blood glucose Hematology : - leukocytosis due to septic shock - follow up morning labs Nutrition : Glucerna Lines: Endotracheal tube: 04/18/2024 Right IG central line: 04/18/2024 Mack catheter: 04/18/2024 Left IG Pipo catheter: 04/20/2024 Drips : Fentanyl 75 Versed 5 Propofol 0 NE 0 Vasopressin 0 [id number] Prophylaxis for PUD : Protonix 40 mg IV daily Prophylaxis for DVT: Patient is on heparin drip Possible CPAP trial tomorrow. long dw - explained treatment plan Plan discussed with: Spouse My Orders My Orders Orders - ADRIA NASH MD Procedure Category Date Status Time Dobutamine 1000mcg/Ml PHA 04/28/24 In Process (Dobutrex) 17:15 Chest Portable XY 04/29/24 Resulted 06:00 Abg W/ Co-Ox RT 04/29/24 Logged 06:00 Cpap Trial For Am ORDERS 04/28/24 Transmitted 17:07 Communication Order ORDERS 04/29/24 Transmitted 09:53 Amiodarone PHA 04/29/24 In Process 450mg/250ml Ae 10:41 Doxycycline PHA 04/29/24 Transmitted 100mg/250ml 15:30 Basic Metabolic Panel LAB 04/30/24 Verified 06:00 Complete Blood Count LAB 04/30/24 Verified 06:00 Chest Portable XY 04/30/24 Transmitted 06:00 Abg W/ Co-Ox RT 04/30/24 Transmitted 06:00 Dietary Evaluation Review Comments: current TF is providing adequate amount of protein and energy to pt. Need to continue monitor the nepro support vs updated lab values, d/t his ckd-3b status and not on HD. Expected Outcomes/Goals: meeting pt's estimated needs for both protein and energy at 75% or higher. Critical Care Time (mins): 81 (critical care time 81 mins) Date of Service: Apr 29, 2024 Billing Provider: ADRIA NASH MD Common Visit Codes: [id number] CARE 30-74 MIN, [id number] CARE-EACH +30MIN ADRIA NASH MD Apr 29, 2024 15:26
[2024-04-29] MEDS: DOXYCYCLINE 100MG/250ML 250 ML IV SCH (16:58)
[2024-04-30] VITALS (110 sets, daily range): BP systolic 96–165; BP diastolic 42–78; PULSE 60–129; RESP 18–29; TEMP 91.8–100.4; O2SAT 91–100
[2024-04-30 04:20] LABS: Basophils # (auto) 0 10 ^3/uL (0-0.2); Basophils % (auto) 0.3 % (0.0-2.0); Eosinophils # (auto) 0.2 10 ^3/uL (0-0.8); Eosinophils % (auto) 1.7 % (0.0-7.0); Hematocrit 26.4 % (41.0-53.0); Hemoglobin 8.7 g/dL (13.5-17.5); Lymphocytes # (auto) 0.7 10 ^3/uL (0.4-5.4); Lymphocytes % (auto) 5.7 % (10.0-50.0); Mean Corpuscular Hemoglobin 29.2 pg (28.0-32.0); Mean Corpuscular Hgb Conc. 33.1 g/dL (32.0-36.0); Mean Corpuscular Volume 88.4 fL (80.0-100.0); Monocytes # (auto) 0.9 10 ^3/uL (0-1.3); Neutrophils # (auto) 9.9 10 ^3/uL (1.6-8.6); Neutrophils % (auto) 84.3 % (37.0-80.0); Platelet Count (auto) 252 10^3/uL (140-450); Red Blood Cells 2.99 10^6/uL (4.5-5.90); Red Cell Distribution Width 14.4 % (11.8-14.3); White Blood Cell 11.7 10^3/uL (4.4-10.8)
[2024-04-30 04:35] LABS: Calcium 9.4 mg/dL (8.7-10.4); Chloride 103 mmol/L (98-107); Potassium 3.6 mmol/L (3.5-5.1); Sodium 142 mmol/L (136-145)
[2024-04-30 04:36] LABS: Anion Gap 8 (5-15); Carbon Dioxide 31 mmol/L (20-31)
[2024-04-30 04:42] LABS: BUN/Creatinine Ratio 29.3 (10.0-20.0); Blood Urea Nitrogen 72 mg/dL (9-23); Glucose 231 mg/dL (74-106)
--- NOTE | 2024-04-30 04:51 | DVH ---
CHEST RADIOGRAPH Indication: resp failure Technique: Single frontal view of the chest was obtained Comparison: XY CHEST PORTABLE on DOS: 04/29/24, XY CHEST PORTABLE on DOS: 04/28/24, XY CHEST PORTABLE on DOS: 04/27/24 FINDINGS: Lines and Tubes: Support lines and tubes unchanged and position. Lungs: Bilateral opacities is without significant change. Pleura: No effusion. No pneumothorax. Cardiomediastinal contours: Enlarged but stable. Bones: No acute osseous abnormality. Status post median sternotomy. IMPRESSION: 1. No significant interval change.
[2024-04-30 07:20] LABS: Base Excess 5.8 mmol/L (-2.0-3.0)
--- NOTE | 2024-04-30 11:07 | DVHPN2 ---
Consult Progress Note Subjective Other Systems: Patient in atrial fibrillation/flutter on awake overnight monitor. Remains chemically sedated and mechanically ventilated Plans for CPAP trial today Objective vital signs Vital Sign Date Time Temp Pulse Resp B/P (MAP) Pulse Ox O2 Delivery O2 Flow Rate FiO2 04/30/24 10:45 118/75 04/30/24 10:33 81 20 97 30 04/30/24 10:00 Mechanical Ventilator+ 04/30/24 09:30 97.7 207.9 Total Intake and Output 04/29/24 04/29/24 04/30/24 15:00 23:00 07:00 Intake Total 349.97 ml 943.185 ml 1146.349 ml Output Total 1250 ml 575 ml Balance 349.97 ml -306.815 ml 571.349 ml medications Current Medications Medications Dose Ordered Sig/Lulu Route Start Time Stop Time Status Last Admin Dose Admin Acetaminophen 650 mg Q6HP PRN PO 04/16/24 23:45 Nitroglycerin 0.4 mg Q5MINP PRN SL 04/16/24 23:45 Albuterol 2.5 mg Q6HPRN PRN NEB 04/17/24 18:30 04/28/24 11:11 2.5 MG Levalbuterol HCl 1.25 mg Q6HR NEB 04/18/24 00:00 04/30/24 05:59 1.25 MG Norepinephrine Bitartrate 32 mg/ Sodium Chloride 250 ml @ 0.938 mls/ hr Q24H IV 04/18/24 11:45 04/20/24 16:11 2.813 MLS/HR Midazolam HCl 50 ml @ 1 mls/hr Q24H IV 04/20/24 14:45 04/30/24 04:56 3 MLS/HR Pantoprazole Sodium 40 mg DAILY IV 04/21/24 10:00 04/30/24 09:33 40 MG Enteral Nutritional Formula 1,000 ml 30ML/HR GT 04/20/24 16:45 Cancel Enteral Nutritional Formula 1,000 ml 30ML/HR GT 04/21/24 08:45 04/29/24 12:46 1,000 ML Insulin Glargine 20 units HS SC 04/23/24 22:00 04/29/24 22:01 20 UNITS Diagnostic Test (Pha) 1 strip Q6HR 04/23/24 12:00 12/19/24 05:55 1 STRIP Insulin Human Regular Q6HR SC 04/23/24 12:00 04/30/24 05:57 9 UNITS Dextrose 50 ml UD PRN IV 04/23/24 11:15 Piperacillin Sod/ Tazobactam Sod 100 ml @ 25 mls/hr Q8H IV 04/26/24 13:00 04/30/24 05:00 25 MLS/HR Fentanyl Citrate 250 ml @ 2.5 mls/hr Q24H IV 04/27/24 06:00 04/30/24 02:20 27.5 MLS/HR Clopidogrel Bisulfate 75 mg DAILY PO 04/27/24 10:00 04/30/24 10:00 75 MG Atorvastatin Calcium 40 mg HS PO 04/27/24 22:00 04/29/24 22:04 40 MG Enoxaparin Sodium 80 mg DAILY SC 04/28/24 10:00 04/30/24 09:33 80 MG Furosemide 40 mg DAILY IV 04/28/24 10:00 04/30/24 09:33 40 MG Sodium Chloride 10 ml QSHIFT@10,22 IV 04/27/24 22:00 04/30/24 10:01 10 ML Dobutamine HCl/ Dextrose 250 ml @ 11.19 mls/ hr [id number] IV 04/28/24 17:15 04/29/24 15:58 11.19 MLS/HR Amiodarone HCl 250 ml @ 16.667 mls/ hr Q15H IV 04/29/24 10:41 04/30/24 00:30 16.667 MLS/HR Doxycycline Hyclate 250 ml @ 125 mls/hr Q12H IV 04/29/24 15:30 04/30/24 04:26 125 MLS/HR Examination: GENERAL:Abnormal, LUNGS:Abnormal (Mechanically ventilated Fio2 30%, PEEP 5), CVS:Normal, NEURO:Abnormal (Chemically sedated) laboratory and microbiology Laboratory Tests 04/30/24 03:58 Test 04/30/24 03:58 Range/Units Serum Glucose 231 H 74-106 mg/dL Problem List/Assessment/Plan Problem List/Assessment/Plan Non ST elevation myocardial infarction Acute on chronic decompensated HFrEF at 25%, NYHA Class IV, newly diagnosed RLL segmental pulmonary embolism with no evidence of right-heart strain Paroxysmal atrial fibrillation with RVR, now NSR Severe coronary artery disease status post triple-vessel CABG, 2018 Rule out progressive coronary artery disease Bilateral pleural effusions, small Severe PVD status post left SFA ELLIOT x 1 Hypertension Dyslipidemia Tdg-hljbsok-qqrbqyisx diabetes mellitus Acute kidney injury Tobacco use Plan/Recommendation (Dr. Huitron) * Echocardiogram revealed EF 25% * There is anterior anteroseptal anteroapical inferolateral wall severe hypokinesia. Normal right ventricular size and dimension. Normal right ventricular systolic function. Moderately elevated right ventricular systolic pressure 49 mm of mercury. Moderately dilated right and left atria. Aortic valve is thickened and sclerotic. No significant stenosis but mild regurgitation was noted. Mitral valve is thickened there is vnja-ks-nnptgujz mitral valve regurgitation. There is mild tricuspid valve regurgitation. The pulmonary valve is grossly normal. No pericardial effusion. * Therapeutic Lovenox given PE/A-fib. Trend H&H levels * [id number] VASc score: 5 points, HAS-BLED: 2 points * Antiarrhythmic agent, amiodarone * Initiate beta maranda when off dobutamine drip * Initiate GDMT for CHF as tolerated when appropriate * Strict I&Os. Daily weight. Maintain fluid restrictions * Single-antiplatelet therapy (Plavix) and lipid-lowering agent Patient seen and examined at bedside with Dr. Huitron. The patient with a newly diagnosed cardiomyopathy including a severely diminished LV function compared to previous transthoracic echocardiogram revealing LVEF of 65% on 2022 may qualify for a cardiac catheterization once clinically stable and with optimal renal function. [place]rop[place] [id number], not a candidate for ischemic workup at this time. Patient was initiated on Dobutamine drip per primary care team. We will continue to monitor closely. Thank you for allowing us to participate in this patient's care. Please call if you have any questions or concerns. Critical care time spent: 35 minutes. This medical document was created using an electronic medical record system with voice recognition software and computerized dictation system. Although this document has been carefully reviewed, there might still be some phonetic and typographical errors. Occasional wrong-word or ``sound-alike substitutions may have occurred due to the inherent limitations of voice recognition software. These areas are purely typographical due to imperfections of the software programs and do not reflect any compromise in the patient's medical care. Please read the chart carefully and recognize, using context, where these substitutions have occurred. Plan discussed with: Other (Bedside RN) Dietary Evaluation Review Comments: current TF is providing adequate amount of protein and energy to pt. Need to continue monitor the nepro support vs updated lab values, d/t his ckd-3b status and not on HD. Expected Outcomes/Goals: meeting pt's estimated needs for both protein and energy at 75% or higher. Date of Service: Apr 30, 2024 Billing Provider: PAVEL HUITRON MD Common Visit Codes: [id number] CARE 30-74 MIN JOANIE BURK [employer] DIRECT[employer] Apr 30, 2024 11:07
[2024-04-30] MEDS: FUROSEMIDE 40 MG/4 ML VIAL ONE (12:53)
[2024-04-30] MEDS: FUROSEMIDE 40 MG/4 ML VIAL IV ONE (12:53)
--- NOTE | 2024-04-30 13:13 | DVHPN2 ---
Progress Note Date Seen: Apr 30, 2024 Medical Necessity Reason Pt with a Central, PICC or Fol: Yes The following are medically ne: PICC Line, Mack Catheter Reason for mack catheter: Strict I&O Subjective Patient reports: No new complaints Review of Systems: HEENT:Normal, CVS:Normal, RESPIRATORY:Normal, GI:Normal, :Normal, MSK:Normal, NEURO:Normal Objective vital signs Vital Sign Date Time Temp Pulse Resp B/P (MAP) Pulse Ox O2 Delivery O2 Flow Rate FiO2 04/30/24 12:53 123/57 04/30/24 12:03 90 20 96 30 04/30/24 12:00 Mechanical Ventilator+ 04/30/24 11:00 97.9 208.2 Total Intake and Output 04/29/24 04/29/24 04/30/24 15:00 23:00 07:00 Intake Total 349.97 ml 943.185 ml 1146.349 ml Output Total 1250 ml 575 ml Balance 349.97 ml -306.815 ml 571.349 ml medications Current Medications Medications Dose Ordered Sig/Lulu Route Start Time Stop Time Status Last Admin Dose Admin Acetaminophen 650 mg Q6HP PRN PO 04/16/24 23:45 Nitroglycerin 0.4 mg Q5MINP PRN SL 04/16/24 23:45 Albuterol 2.5 mg Q6HPRN PRN NEB 04/17/24 18:30 04/28/24 11:11 2.5 MG Levalbuterol HCl 1.25 mg Q6HR NEB 04/18/24 00:00 04/30/24 12:07 1.25 MG Norepinephrine Bitartrate 32 mg/ Sodium Chloride 250 ml @ 0.938 mls/ hr Q24H IV 04/18/24 11:45 04/20/24 16:11 2.813 MLS/HR Midazolam HCl 50 ml @ 1 mls/hr Q24H IV 04/20/24 14:45 04/30/24 04:56 3 MLS/HR Pantoprazole Sodium 40 mg DAILY IV 04/21/24 10:00 04/30/24 09:33 40 MG Enteral Nutritional Formula 1,000 ml 30ML/HR GT 04/20/24 16:45 Cancel Enteral Nutritional Formula 1,000 ml 30ML/HR GT 04/21/24 08:45 04/29/24 12:46 1,000 ML Insulin Glargine 20 units HS SC 04/23/24 22:00 04/29/24 22:01 20 UNITS Diagnostic Test (Pha) 1 strip Q6HR 04/23/24 12:00 04/30/24 12:00 1 STRIP Insulin Human Regular Q6HR SC 04/23/24 12:00 04/30/24 12:31 6 UNITS Dextrose 50 ml UD PRN IV 04/23/24 11:15 Piperacillin Sod/ Tazobactam Sod 100 ml @ 25 mls/hr Q8H IV 04/26/24 13:00 04/30/24 12:41 25 MLS/HR Fentanyl Citrate 250 ml @ 2.5 mls/hr Q24H IV 04/27/24 06:00 04/30/24 11:12 25 MLS/HR Clopidogrel Bisulfate 75 mg DAILY PO 04/27/24 10:00 04/30/24 10:00 75 MG Atorvastatin Calcium 40 mg HS PO 04/27/24 22:00 04/29/24 22:04 40 MG Enoxaparin Sodium 80 mg DAILY SC 04/28/24 10:00 04/30/24 09:33 80 MG Furosemide 40 mg DAILY IV 04/28/24 10:00 04/30/24 09:33 40 MG Sodium Chloride 10 ml QSHIFT@10,22 IV 04/27/24 22:00 04/30/24 10:01 10 ML Dobutamine HCl/ Dextrose 250 ml @ 11.19 mls/ hr [id number] IV 04/28/24 17:15 04/29/24 15:58 11.19 MLS/HR Amiodarone HCl 250 ml @ 16.667 mls/ hr Q15H IV 04/29/24 10:41 04/30/24 00:30 16.667 MLS/HR Doxycycline Hyclate 250 ml @ 125 mls/hr Q12H IV 04/29/24 15:30 04/30/24 04:26 125 MLS/HR Examination: GENERAL:Normal, HEENT:Normal, NECK:Normal, LUNGS:Normal, LUNGS:Abnormal (intubated), CVS:Normal, ABDOMEN:Normal, MSK:Normal, SKIN:Normal, NEURO:Normal, :Normal laboratory and microbiology Laboratory Tests 04/30/24 03:58 Test 04/30/24 03:58 Range/Units Serum Glucose 231 H 74-106 mg/dL Microbiology Date/Time Source Procedure Growth Status 04/18/24 01:00 Nose MRSA Screen - Final Complete 04/17/24 13:00 Blood Blood Culture - Final NO GROWTH AFTER 5 DAYS OF INCUBATION. Complete 04/17/24 01:05 Sputum Gram Stain - Final Complete 04/17/24 01:05 Respiratory Culture - Final Streptococcus Group F Complete Problem List/Assessment/Plan Problem List/Assessment/Plan Neurology : - patient is sedated Cardiovascular : # Non ST elevation myocardial infarction # Acute on chronic decompensated HFrEF, NYHA Class IV, newly diagnosed: lasix iv # Echo on 04/18/2024 shows: Severely dilated left ventricle. Severely reduced left ventricular systolic function with estimated ejection fraction 25%. There is anterior anteroseptal anteroapical inferolateral wall severe hypokinesia- dobutamine drip # Severe coronary artery disease status post triple-vessel CABG, 2018 # Lower extremity DVT ruled out # Severe PVD status post left SFA ELLIOT x 1 # Hypertension # Dyslipidemia - cardiology on board - discontinue Lipitor for now - discontinue Plavix for now - patient is on heparin drip # a fib: on amiodarone # dobutamine trial Respiratory : # Septic shock due to pneumonia # Acute hypoxic respiratory failure secondary to possible pneumonia - patient is on mechanical ventilation with FiO2 30%, PEEP: 6, F 24, Vt 550 # Possible community-acquired pneumonia Gm +/- bacterial pneumonia - continue antibiotic, Zosyn, add doxy # RLL segmental pulmonary embolism with no evidence of right-heart strain # Bilateral pleural effusions, small - continue heparin drip for pulmonary embolism Genitourinary : # ANDREA on CKD # Acute kidney injury due to ATN # ANDREA likely ischemic ATN in setting of shock # CKD stage IIIB -nephrology on board -continue Lasix 40 mg I/V daily. - HD today Infectious Disease : # Septic shock due to pneumonia # possible community-acquired pneumonia gm+/- bacterial - patient is on pressor - continue IV antibiotics Endocrine : Rep-djhfwuj-myooyguvh diabetes mellitus -HbA1c 7.1 - Continue ISS - monitor blood glucose Hematology : - leukocytosis due to septic shock - follow up morning labs Nutrition : Glucerna Lines: Endotracheal tube: 04/18/2024 Right IG central line: 04/18/2024 Mack catheter: 04/18/2024 Left IG Pipo catheter: 04/20/2024 Drips : Fentanyl 75 Versed 5 Propofol 0 NE 0 Vasopressin 0 [id number] Prophylaxis for PUD : Protonix 40 mg IV daily Prophylaxis for DVT: Patient is on heparin drip cpap trial long dw - explained treatment plan Plan discussed with: Spouse My Orders My Orders Orders - ADRIA NASH MD Procedure Category Date Status Time Doxycycline PHA 04/29/24 In Process 100mg/250ml 15:30 Chest Portable XY 04/30/24 Resulted 06:00 Abg W/ Co-Ox RT 04/30/24 Logged 06:00 Communication Order ORDERS 04/30/24 Transmitted 10:25 Ventilator Orders RT 04/30/24 Transmitted 10:25 Complete Blood Count LAB 05/01/24 Verified 06:00 Comprehensive LAB 05/01/24 Verified Metabolic Panel 06:00 Chest Portable XY 05/01/24 Verified 06:00 Cpap Trial For Am ORDERS 04/30/24 Verified 13:10 Dietary Evaluation Review Comments: current TF is providing adequate amount of protein and energy to pt. Need to continue monitor the nepro support vs updated lab values, d/t his ckd-3b status and not on HD. Expected Outcomes/Goals: meeting pt's estimated needs for both protein and energy at 75% or higher. Critical Care Time (mins): 81 (critical care time including monitoring during cpap/family discussion was 81 mins) Date of Service: Apr 30, 2024 Billing Provider: ADRIA NASH MD Common Visit Codes: [id number] CARE 30-74 MIN, [id number] CARE-EACH +30MIN ADRIA NASH MD Apr 30, 2024 13:13
--- NOTE | 2024-04-30 16:19 | DVHPN2 ---
Progress Note Date Seen: Apr 30, 2024 Medical Necessity Reason Pt with a Central, PICC or Fol: Yes The following are medically ne: PICC Line, Mack Catheter Reason for mack catheter: Strict I&O Subjective Review of Systems: RESPIRATORY:Abnormal Other Systems: Patient seen and examined by myself today in follow-up, patient remained intubated on ventilator Objective vital signs Vital Sign Date Time Temp Pulse Resp B/P (MAP) Pulse Ox O2 Delivery O2 Flow Rate FiO2 04/30/24 15:51 95 24 135/60 (85) 94 30 04/30/24 15:31 99.5 211.1 04/30/24 14:00 Mechanical Ventilator+ Total Intake and Output 04/29/24 04/29/24 04/30/24 15:00 23:00 07:00 Intake Total 349.97 ml 943.185 ml 1146.349 ml Output Total 1250 ml 575 ml Balance 349.97 ml -306.815 ml 571.349 ml medications Current Medications Medications Dose Ordered Sig/Lulu Route Start Time Stop Time Status Last Admin Dose Admin Acetaminophen 650 mg Q6HP PRN PO 04/16/24 23:45 Nitroglycerin 0.4 mg Q5MINP PRN SL 04/16/24 23:45 Albuterol 2.5 mg Q6HPRN PRN NEB 04/17/24 18:30 04/28/24 11:11 2.5 MG Levalbuterol HCl 1.25 mg Q6HR NEB 04/18/24 00:00 04/30/24 12:07 1.25 MG Norepinephrine Bitartrate 32 mg/ Sodium Chloride 250 ml @ 0.938 mls/ hr Q24H IV 04/18/24 11:45 04/20/24 16:11 2.813 MLS/HR Midazolam HCl 50 ml @ 1 mls/hr Q24H IV 04/20/24 14:45 04/30/24 04:56 3 MLS/HR Pantoprazole Sodium 40 mg DAILY IV 04/21/24 10:00 04/30/24 09:33 40 MG Enteral Nutritional Formula 1,000 ml 30ML/HR GT 04/20/24 16:45 Cancel Enteral Nutritional Formula 1,000 ml 30ML/HR GT 04/21/24 08:45 04/29/24 12:46 1,000 ML Insulin Glargine 20 units HS SC 04/23/24 22:00 04/29/24 22:01 20 UNITS Diagnostic Test (Pha) 1 strip Q6HR 04/23/24 12:00 04/30/24 12:00 1 STRIP Insulin Human Regular Q6HR SC 04/23/24 12:00 04/30/24 12:31 6 UNITS Dextrose 50 ml UD PRN IV 04/23/24 11:15 Piperacillin Sod/ Tazobactam Sod 100 ml @ 25 mls/hr Q8H IV 04/26/24 13:00 04/30/24 12:41 25 MLS/HR Fentanyl Citrate 250 ml @ 2.5 mls/hr Q24H IV 04/27/24 06:00 04/30/24 11:12 25 MLS/HR Clopidogrel Bisulfate 75 mg DAILY PO 04/27/24 10:00 04/30/24 10:00 75 MG Atorvastatin Calcium 40 mg HS PO 04/27/24 22:00 04/29/24 22:04 40 MG Enoxaparin Sodium 80 mg DAILY SC 04/28/24 10:00 04/30/24 09:33 80 MG Furosemide 40 mg DAILY IV 04/28/24 10:00 04/30/24 09:33 40 MG Sodium Chloride 10 ml QSHIFT@10,22 IV 04/27/24 22:00 04/30/24 10:01 10 ML Dobutamine HCl/ Dextrose 250 ml @ 11.19 mls/ hr [id number] IV 04/28/24 17:15 04/30/24 14:33 11.19 MLS/HR Amiodarone HCl 250 ml @ 16.667 mls/ hr Q15H IV 04/29/24 10:41 04/30/24 00:30 16.667 MLS/HR Doxycycline Hyclate 250 ml @ 125 mls/hr Q12H IV 04/29/24 15:30 04/30/24 04:26 125 MLS/HR Examination: LUNGS:Normal, CVS:Normal, MSK:Normal laboratory and microbiology Laboratory Tests 04/30/24 03:58 Test 04/30/24 03:58 Range/Units Serum Glucose 231 H 74-106 mg/dL Microbiology Date/Time Source Procedure Growth Status 04/18/24 01:00 Nose MRSA Screen - Final Complete 04/17/24 13:00 Blood Blood Culture - Final NO GROWTH AFTER 5 DAYS OF INCUBATION. Complete 04/17/24 01:05 Sputum Gram Stain - Final Complete 04/17/24 01:05 Respiratory Culture - Final Streptococcus Group F Complete Problem List/Assessment/Plan Problem List/Assessment/Plan Nurse ANDREA secondary hemodynamic mediated, FeNa < 1% status post intermittent hemodialysis Acute hypoxic respiratory failure, intubated on ventilator CKD stage IIIB Acute PE NSTEMI coronary artery disease Diabetes mellitus type 2 Anemia of chronic kidney disease Hypokalemia Recommendation Kidney function slightly improving Increased urine output Electrolytes are stable IVF half NS at 75 cc/hour Low-dose dopamine Furosemide 40 mg IV daily KCL replacement Mack catheter Strict I&Os We will continue to follow up Plan discussed with: Other (Nurse) Dietary Evaluation Review Comments: current TF is providing adequate amount of protein and energy to pt. Need to continue monitor the nepro support vs updated lab values, d/t his ckd-3b status and not on HD. Expected Outcomes/Goals: meeting pt's estimated needs for both protein and energy at 75% or higher. MANAV RITTER MD Apr 30, 2024 16:19
[2024-04-30] MEDS: fentaNYL Drip 2500mCg/250mlNS 250 ML IV SCH (18:15)
[2024-04-30] MEDS: ACETAMINOPHEN 650 mg PER 20.3 mL UD ONE (18:51)
[2024-05-01] VITALS (110 sets, daily range): BP systolic 84–144; BP diastolic 37–87; PULSE 67–111; RESP 16–30; TEMP 97.3–100; O2SAT 88–100
[2024-05-01 04:19] LABS: Basophils # (auto) 0 10 ^3/uL (0-0.2); Basophils % (auto) 0.3 % (0.0-2.0); Eosinophils # (auto) 0.1 10 ^3/uL (0-0.8); Eosinophils % (auto) 0.3 % (0.0-7.0); Hematocrit 27.1 % (41.0-53.0); Hemoglobin 8.8 g/dL (13.5-17.5); Lymphocytes # (auto) 0.5 10 ^3/uL (0.4-5.4); Lymphocytes % (auto) 2.9 % (10.0-50.0); Mean Corpuscular Hgb Conc. 32.6 g/dL (32.0-36.0); Mean Corpuscular Volume 89.1 fL (80.0-100.0); Monocytes # (auto) 1.3 10 ^3/uL (0-1.3); Monocytes % (auto) 7.7 % (0.0-12.0); Neutrophils # (auto) 15.1 10 ^3/uL (1.6-8.6); Neutrophils % (auto) 88.8 % (37.0-80.0); Platelet Count (auto) 314 10^3/uL (140-450); Red Blood Cells 3.05 10^6/uL (4.5-5.90); Red Cell Distribution Width 14.5 % (11.8-14.3)
[2024-05-01 04:20] LABS: Alanine Aminotransferase 18 U/L (7-40); Alkaline Phosphatase 79 U/L (46-116); Anion Gap 8 (5-15); Aspartate Aminotransferase 35 U/L (13-40); BUN/Creatinine Ratio 26.3 (10.0-20.0); Calcium 9.7 mg/dL (8.7-10.4); Carbon Dioxide 31 mmol/L (20-31); Chloride 102 mmol/L (98-107); Glucose 75 mg/dL (74-106); Sodium 141 mmol/L (136-145)
[2024-05-01 04:22] LABS: Bilirubin, Total 0.6 mg/dL (0.2-1.0); Blood Urea Nitrogen 65 mg/dL (9-23); Potassium 3.2 mmol/L (3.5-5.1); Total Protein 7.2 g/dL (5.7-8.2)
--- NOTE | 2024-05-01 05:27 | DVH ---
CHEST RADIOGRAPH Indication: chf Technique: Single frontal view of the chest was obtained COMPARISON: XY CHEST PORTABLE on DOS: 04/30/24, XY CHEST PORTABLE on DOS: 04/29/24, XY CHEST PORTABLE on DOS: 04/28/24, XY CHEST PORTABLE on DOS: 04/27/24, XY CHEST PORTABLE on DOS: 04/26/24, XY CHEST P ORTABLE on DOS: 04/29/24 FINDINGS: Lines and Tubes: Median sternotomy. Endotracheal tube, enteric catheter and right picc and left cent ral venous catheter in satisfactory position. Lungs: Multifocal airspace disease. Pleura: No effusion. No pneumothorax. Cardiomediastinal contours: Unremarkable Bones: Unremarkable IMPRESSION: 1. Lines and tubes in satisfactory position. No significant interval change.
[2024-05-01 06:36] LABS: Base Excess 0.2 mmol/L (-2.0-3.0)
[2024-05-01] MEDS: AMIODARONE HCL 200 MG TAB PO ONE (12:03)
[2024-05-01] MEDS: POTASSIUM CHL 20MEQ/100ML 100 ML IV SCH (12:04)
--- NOTE | 2024-05-01 12:29 | DVHPN2 ---
Consult Progress Note Subjective Other Systems: Patient remains chemically sedated and mechanically ventilated. Objective vital signs Vital Sign Date Time Temp Pulse Resp B/P (MAP) Pulse Ox O2 Delivery O2 Flow Rate FiO2 05/01/24 12:10 84 20 94/47 (63) 100 30 05/01/24 09:33 Mechanical Ventilator+ 05/01/24 08:00 97.3 97.3 Total Intake and Output 04/30/24 04/30/24 05/01/24 15:00 23:00 07:00 Intake Total 483.472 ml 984.290 ml 804.149 ml Output Total 1250 ml 580 ml Balance 483.472 ml -265.710 ml 224.149 ml medications Current Medications Medications Dose Ordered Sig/Lulu Route Start Time Stop Time Status Last Admin Dose Admin Nitroglycerin 0.4 mg Q5MINP PRN SL 04/16/24 23:45 Albuterol 2.5 mg Q6HPRN PRN NEB 04/17/24 18:30 04/28/24 11:11 2.5 MG Levalbuterol HCl 1.25 mg Q6HR NEB 04/18/24 00:00 05/01/24 12:10 1.25 MG Norepinephrine Bitartrate 32 mg/ Sodium Chloride 250 ml @ 0.938 mls/ hr Q24H IV 04/18/24 11:45 04/20/24 16:11 2.813 MLS/HR Midazolam HCl 50 ml @ 1 mls/hr Q24H IV 04/20/24 14:45 05/01/24 09:00 5 MLS/HR Pantoprazole Sodium 40 mg DAILY IV 04/21/24 10:00 05/01/24 07:33 40 MG Enteral Nutritional Formula 1,000 ml 30ML/HR GT 04/20/24 16:45 Cancel Enteral Nutritional Formula 1,000 ml 30ML/HR GT 04/21/24 08:45 04/29/24 12:46 1,000 ML Insulin Glargine 20 units HS SC 04/23/24 22:00 04/30/24 21:50 20 UNITS Diagnostic Test (Pha) 1 strip Q6HR 04/23/24 12:00 05/01/24 12:04 1 STRIP Insulin Human Regular Q6HR SC 04/23/24 12:00 05/01/24 00:03 6 UNITS Dextrose 50 ml UD PRN IV 04/23/24 11:15 Piperacillin Sod/ Tazobactam Sod 100 ml @ 25 mls/hr Q8H IV 04/26/24 13:00 05/01/24 12:23 25 MLS/HR Clopidogrel Bisulfate 75 mg DAILY PO 04/27/24 10:00 05/01/24 07:33 75 MG Atorvastatin Calcium 40 mg HS PO 04/27/24 22:00 04/30/24 21:47 40 MG Enoxaparin Sodium 80 mg DAILY SC 04/28/24 10:00 05/01/24 07:34 80 MG Furosemide 40 mg DAILY IV 04/28/24 10:00 05/01/24 07:33 40 MG Sodium Chloride 10 ml QSHIFT@10,22 IV 04/27/24 22:00 05/01/24 07:09 10 ML Dobutamine HCl/ Dextrose 250 ml @ 11.19 mls/ hr [id number] IV 04/28/24 17:15 05/01/24 12:04 11.19 MLS/HR Amiodarone HCl 250 ml @ 16.667 mls/ hr Q15H IV 04/29/24 10:41 05/01/24 18:00 05/01/24 04:29 16.667 MLS/HR Doxycycline Hyclate 250 ml @ 125 mls/hr Q12H IV 04/29/24 15:30 05/01/24 03:06 125 MLS/HR Fentanyl Citrate 250 ml @ 2.5 mls/hr Q24H IV 04/30/24 18:15 05/01/24 06:40 27.5 MLS/HR Acetaminophen 650 mg Q6HP PRN GT 04/30/24 18:45 Amiodarone HCl 200 mg Q12HR PO 05/01/24 22:00 Furosemide 40 mg BIDD IV 05/01/24 18:00 Potassium Chloride 100 ml @ 50 mls/hr Q2H IV 05/01/24 11:30 05/01/24 17:29 05/01/24 12:04 50 MLS/HR Examination: GENERAL:Abnormal, LUNGS:Abnormal (Mechanically ventilated), CVS:Normal, NEURO:Abnormal (Chemically sedated) laboratory and microbiology Laboratory Tests 05/01/24 03:00 Test 05/01/24 03:00 Range/Units Serum Glucose 75 # 74-106 mg/dL Problem List/Assessment/Plan Problem List/Assessment/Plan Non ST elevation myocardial infarction Acute on chronic decompensated HFrEF at 25%, NYHA Class IV, newly diagnosed RLL segmental pulmonary embolism with no evidence of right-heart strain Paroxysmal atrial fibrillation with RVR, now NSR Severe coronary artery disease status post triple-vessel CABG, 2018 Rule out progressive coronary artery disease Bilateral pleural effusions, small Severe PVD status post left SFA ELLIOT x 1 Hypertension Dyslipidemia Wrk-xhltilt-whnziwyun diabetes mellitus Acute kidney injury Tobacco use Plan/Recommendation (Dr. Huitron) * Echocardiogram revealed EF 25% * There is anterior anteroseptal anteroapical inferolateral wall severe hypokinesia. Normal right ventricular size and dimension. Normal right ventricular systolic function. Moderately elevated right ventricular systolic pressure 49 mm of mercury. Moderately dilated right and left atria. Aortic valve is thickened and sclerotic. No significant stenosis but mild regurgitation was noted. Mitral valve is thickened there is [id number]-[id number] mitral valve regurgitation. There is mild tricuspid valve regurgitation. The pulmonary valve is grossly normal. No pericardial effusion. * Therapeutic Lovenox given PE/A-fib. Trend H&H levels * [id number] VASc score: 5 points, HAS-BLED: 2 points * Antiarrhythmic agent, amiodarone * Initiate beta maranda when off dobutamine drip * Initiate GDMT for CHF as tolerated when appropriate * Strict I&Os. Daily weight. Maintain fluid restrictions * Single-antiplatelet therapy (Plavix) and lipid-lowering agent Case discussed with Dr. Huitron. The patient with a newly diagnosed cardiomyopathy including a severely diminished LV function compared to previous transthoracic echocardiogram revealing LVEF of 65% on 2022 may qualify for a cardiac catheterization once clinically stable and with optimal renal function. [place] [address], not a candidate for ischemic workup at this time. Patient remains in the intensive care unit chemically sedated and mechanically ventilated. Patient has been unable to pass CPAP trials. Patient going in and out of atrial fibrillation on classroom monitor as patient does not tolerated being weaned off sedation. Patient was initiated on Dobutamine drip per primary care team. We recommend to initiate GDMT when off pressors and dobutamine. At this time we will sign off. Please re-consult when stable for ischemic work-up. Thank you for allowing us to participate in this patient's care. Please call if you have any questions or concerns. Critical care time spent: 35 minutes. This medical document was created using an electronic medical record system with voice recognition software and computerized dictation system. Although this document has been carefully reviewed, there might still be some phonetic and typographical errors. Occasional wrong-word or ``sound-alike substitutions may have occurred due to the inherent limitations of voice recognition software. These areas are purely typographical due to imperfections of the software programs and do not reflect any compromise in the patient's medical care. Please read the chart carefully and recognize, using context, where these substitutions have occurred. Plan discussed with: Other (Bedside RN) Dietary Evaluation Review Comments: current TF is providing adequate amount of protein and energy to pt. Need to continue monitor the nepro support vs updated lab values, d/t his ckd-3b status and not on HD. Expected Outcomes/Goals: meeting pt's estimated needs for both protein and energy at 75% or higher. Date of Service: May 01, 2024 Billing Provider: PAVEL HUITRON MD Common Visit Codes: [id number] CARE 30-74 MIN JOANIE BURK May 01, 2024 12:29
--- NOTE | 2024-05-01 14:21 | DVHPN2 ---
Progress Note Date Seen: May 01, 2024 Medical Necessity Reason Pt with a Central, PICC or Fol: Yes The following are medically ne: PICC Line, Mack Catheter Reason for mack catheter: Strict I&O Subjective Review of Systems: RESPIRATORY:Abnormal Other Systems: Patient seen and examined by myself on follow-up today, patient remained intubated on ventilator Objective vital signs Vital Sign Date Time Temp Pulse Resp B/P (MAP) Pulse Ox O2 Delivery O2 Flow Rate FiO2 05/01/24 14:11 88 20 93/50 (64) 99 30 05/01/24 13:32 Mechanical Ventilator+ 05/01/24 12:00 97.6 97.6 Total Intake and Output 04/30/24 04/30/24 05/01/24 15:00 23:00 07:00 Intake Total 483.472 ml 984.290 ml 804.149 ml Output Total 1250 ml 580 ml Balance 483.472 ml -265.710 ml 224.149 ml medications Current Medications Medications Dose Ordered Sig/Lulu Route Start Time Stop Time Status Last Admin Dose Admin Nitroglycerin 0.4 mg Q5MINP PRN SL 04/16/24 23:45 Albuterol 2.5 mg Q6HPRN PRN NEB 04/17/24 18:30 04/28/24 11:11 2.5 MG Levalbuterol HCl 1.25 mg Q6HR NEB 04/18/24 00:00 05/01/24 12:10 1.25 MG Norepinephrine Bitartrate 32 mg/ Sodium Chloride 250 ml @ 0.938 mls/ hr Q24H IV 04/18/24 11:45 04/20/24 16:11 2.813 MLS/HR Midazolam HCl 50 ml @ 1 mls/hr Q24H IV 04/20/24 14:45 05/01/24 09:00 5 MLS/HR Pantoprazole Sodium 40 mg DAILY IV 04/21/24 10:00 05/01/24 07:33 40 MG Enteral Nutritional Formula 1,000 ml 30ML/HR GT 04/20/24 16:45 Cancel Enteral Nutritional Formula 1,000 ml 30ML/HR GT 04/21/24 08:45 04/29/24 12:46 1,000 ML Insulin Glargine 20 units HS SC 04/23/24 22:00 04/30/24 21:50 20 UNITS Diagnostic Test (Pha) 1 strip Q6HR 04/23/24 12:00 05/01/24 12:04 1 STRIP Insulin Human Regular Q6HR SC 04/23/24 12:00 05/01/24 12:00 2 UNITS Dextrose 50 ml UD PRN IV 04/23/24 11:15 Piperacillin Sod/ Tazobactam Sod 100 ml @ 25 mls/hr Q8H IV 04/26/24 13:00 05/01/24 12:23 25 MLS/HR Clopidogrel Bisulfate 75 mg DAILY PO 04/27/24 10:00 05/01/24 07:33 75 MG Atorvastatin Calcium 40 mg HS PO 04/27/24 22:00 04/30/24 21:47 40 MG Enoxaparin Sodium 80 mg DAILY SC 04/28/24 10:00 05/01/24 07:34 80 MG Furosemide 40 mg DAILY IV 04/28/24 10:00 05/01/24 07:33 40 MG Sodium Chloride 10 ml QSHIFT@10,22 IV 04/27/24 22:00 05/01/24 07:09 10 ML Dobutamine HCl/ Dextrose 250 ml @ 11.19 mls/ hr [id number] IV 04/28/24 17:15 05/01/24 12:04 11.19 MLS/HR Amiodarone HCl 250 ml @ 16.667 mls/ hr Q15H IV 04/29/24 10:41 05/01/24 18:00 05/01/24 04:29 16.667 MLS/HR Doxycycline Hyclate 250 ml @ 125 mls/hr Q12H IV 04/29/24 15:30 05/01/24 03:06 125 MLS/HR Fentanyl Citrate 250 ml @ 2.5 mls/hr Q24H IV 04/30/24 18:15 05/01/24 06:40 27.5 MLS/HR Acetaminophen 650 mg Q6HP PRN GT 04/30/24 18:45 Amiodarone HCl 200 mg Q12HR PO 05/01/24 22:00 Furosemide 40 mg BIDD IV 05/01/24 18:00 Potassium Chloride 100 ml @ 50 mls/hr Q2H IV 05/01/24 11:30 05/01/24 17:29 05/01/24 13:34 50 MLS/HR Examination: LUNGS:Normal, CVS:Normal, MSK:Normal laboratory and microbiology Laboratory Tests 05/01/24 03:00 Test 05/01/24 03:00 Range/Units Serum Glucose 75 # 74-106 mg/dL Microbiology Date/Time Source Procedure Growth Status 04/18/24 01:00 Nose MRSA Screen - Final Complete 04/17/24 13:00 Blood Blood Culture - Final NO GROWTH AFTER 5 DAYS OF INCUBATION. Complete 04/17/24 01:05 Sputum Gram Stain - Final Complete 04/17/24 01:05 Respiratory Culture - Final Streptococcus Group F Complete Problem List/Assessment/Plan Problem List/Assessment/Plan Nurse ANDREA secondary hemodynamic mediated, FeNa < 1% status post intermittent hemodialysis Acute hypoxic respiratory failure, intubated on ventilator CKD stage IIIB Acute PE NSTEMI coronary artery disease Diabetes mellitus type 2 Anemia of chronic kidney disease Hypokalemia Recommendation Kidney function stabilize Chronic Kidney Disease stage 4 Increased urine output Electrolytes are stable IVF half NS at 75 cc/hour Low-dose dopamine Furosemide 40 mg IV daily KCL replacement Mack catheter Strict I&Os We will continue to follow up Plan discussed with: Other (Nurse) Dietary Evaluation Review Comments: current TF is providing adequate amount of protein and energy to pt. Need to continue monitor the nepro support vs updated lab values, d/t his ckd-3b status and not on HD. Expected Outcomes/Goals: meeting pt's estimated needs for both protein and energy at 75% or higher. MANAV RITTER MD May 01, 2024 14:21
--- NOTE | 2024-05-01 14:45 | DVHPN2 ---
Progress Note Date Seen: May 01, 2024 Medical Necessity Reason Pt with a Central, PICC or Fol: Yes The following are medically ne: PICC Line, Mack Catheter Reason for mack catheter: Strict I&O Subjective Patient reports: Other (Patient intubated) Review of Systems: HEENT:Abnormal (cannot be obtained) Objective vital signs Vital Sign Date Time Temp Pulse Resp B/P (MAP) Pulse Ox O2 Delivery O2 Flow Rate FiO2 05/01/24 14:15 88 19 103/51 (68) 99 05/01/24 14:11 30 05/01/24 13:32 Mechanical Ventilator+ 05/01/24 12:00 97.6 97.6 Total Intake and Output 04/30/24 04/30/24 05/01/24 15:00 23:00 07:00 Intake Total 483.472 ml 984.290 ml 804.149 ml Output Total 1250 ml 580 ml Balance 483.472 ml -265.710 ml 224.149 ml medications Current Medications Medications Dose Ordered Sig/Lulu Route Start Time Stop Time Status Last Admin Dose Admin Nitroglycerin 0.4 mg Q5MINP PRN SL 04/16/24 23:45 Albuterol 2.5 mg Q6HPRN PRN NEB 04/17/24 18:30 04/28/24 11:11 2.5 MG Levalbuterol HCl 1.25 mg Q6HR NEB 04/18/24 00:00 05/01/24 12:10 1.25 MG Norepinephrine Bitartrate 32 mg/ Sodium Chloride 250 ml @ 0.938 mls/ hr Q24H IV 04/18/24 11:45 04/20/24 16:11 2.813 MLS/HR Midazolam HCl 50 ml @ 1 mls/hr Q24H IV 04/20/24 14:45 05/01/24 09:00 5 MLS/HR Pantoprazole Sodium 40 mg DAILY IV 04/21/24 10:00 05/01/24 07:33 40 MG Enteral Nutritional Formula 1,000 ml 30ML/HR GT 04/20/24 16:45 Cancel Enteral Nutritional Formula 1,000 ml 30ML/HR GT 04/21/24 08:45 04/29/24 12:46 1,000 ML Insulin Glargine 20 units HS SC 04/23/24 22:00 04/30/24 21:50 20 UNITS Diagnostic Test (Pha) 1 strip Q6HR 04/23/24 12:00 05/01/24 12:04 1 STRIP Insulin Human Regular Q6HR SC 04/23/24 12:00 05/01/24 12:00 2 UNITS Dextrose 50 ml UD PRN IV 04/23/24 11:15 Piperacillin Sod/ Tazobactam Sod 100 ml @ 25 mls/hr Q8H IV 04/26/24 13:00 05/01/24 12:23 25 MLS/HR Clopidogrel Bisulfate 75 mg DAILY PO 04/27/24 10:00 05/01/24 07:33 75 MG Atorvastatin Calcium 40 mg HS PO 04/27/24 22:00 04/30/24 21:47 40 MG Enoxaparin Sodium 80 mg DAILY SC 04/28/24 10:00 05/01/24 07:34 80 MG Furosemide 40 mg DAILY IV 04/28/24 10:00 05/01/24 07:33 40 MG Sodium Chloride 10 ml QSHIFT@10,22 IV 04/27/24 22:00 05/01/24 07:09 10 ML Dobutamine HCl/ Dextrose 250 ml @ 11.19 mls/ hr [id number] IV 04/28/24 17:15 05/01/24 12:04 11.19 MLS/HR Amiodarone HCl 250 ml @ 16.667 mls/ hr Q15H IV 04/29/24 10:41 05/01/24 18:00 05/01/24 04:29 16.667 MLS/HR Doxycycline Hyclate 250 ml @ 125 mls/hr Q12H IV 04/29/24 15:30 05/01/24 03:06 125 MLS/HR Fentanyl Citrate 250 ml @ 2.5 mls/hr Q24H IV 04/30/24 18:15 05/01/24 06:40 27.5 MLS/HR Acetaminophen 650 mg Q6HP PRN GT 04/30/24 18:45 Amiodarone HCl 200 mg Q12HR PO 05/01/24 22:00 Furosemide 40 mg BIDD IV 05/01/24 18:00 Potassium Chloride 100 ml @ 50 mls/hr Q2H IV 05/01/24 11:30 05/01/24 17:29 05/01/24 13:34 50 MLS/HR Examination: GENERAL:Abnormal, LUNGS:Abnormal (bilateral crackles ), SKIN:Normal, NEURO:Abnormal laboratory and microbiology Laboratory Tests 05/01/24 03:00 Test 05/01/24 03:00 Range/Units Serum Glucose 75 # 74-106 mg/dL Microbiology Date/Time Source Procedure Growth Status 04/18/24 01:00 Nose MRSA Screen - Final Complete 04/17/24 13:00 Blood Blood Culture - Final NO GROWTH AFTER 5 DAYS OF INCUBATION. Complete 04/17/24 01:05 Sputum Gram Stain - Final Complete 04/17/24 01:05 Respiratory Culture - Final Streptococcus Group F Complete Problem List/Assessment/Plan Problem List/Assessment/Plan Neurology : - patient is sedated and intubated Cardiovascular : # Non ST elevation myocardial infarction # Acute on chronic decompensated HFrEF, NYHA Class IV, newly diagnosed: lasix iv # Echo on 04/18/2024 shows: Severely dilated left ventricle. Severely reduced left ventricular systolic function with estimated ejection fraction 25%. There is anterior anteroseptal anteroapical inferolateral wall severe hypokinesia- dobutamine drip # Severe coronary artery disease status post triple-vessel CABG, 2018 # Lower extremity DVT ruled out # Severe PVD status post left SFA ELLIOT x 1 # Hypertension # Dyslipidemia - cardiology on board - discontinue Lipitor for now - discontinue Plavix for now - patient is on heparin drip # a fib: on amiodarone # dobutamine trial Respiratory : # Septic shock due to pneumonia # Acute hypoxic respiratory failure secondary to possible pneumonia - patient is on mechanical ventilation with FiO2 30%, PEEP: 6, F 24, Vt 550 # Possible community-acquired pneumonia Gm +/- bacterial pneumonia - continue antibiotic, Zosyn, add doxy # RLL segmental pulmonary embolism with no evidence of right-heart strain # Bilateral pleural effusions, small - continue heparin drip for pulmonary embolism Genitourinary : # ANDREA on CKD # Acute kidney injury due to ATN # ANDREA likely ischemic ATN in setting of shock # CKD stage IIIB -nephrology on board -continue Lasix 40 mg I/V daily. - HD today Infectious Disease : # Septic shock due to pneumonia # possible community-acquired pneumonia gm+/- bacterial - patient is on pressor - continue IV antibiotics Endocrine : Vmy-fvmrsbv-olsjaqctz diabetes mellitus -HbA1c 7.1 - Continue ISS - monitor blood glucose Hematology : - leukocytosis due to septic shock - follow up morning labs Nutrition : Glucerna Lines: Endotracheal tube: 04/18/2024 Right IG central line: 04/18/2024 Mack catheter: 04/18/2024 Left IG Pipo catheter: 04/20/2024 Drips : Fentanyl 75 Versed 5 Propofol 0 NE 0 Vasopressin 0 [id number] Prophylaxis for PUD : Protonix 40 mg IV daily Prophylaxis for DVT: Patient is on lovenox Xray reviewed. ABG reviewed. Patient not ready for CPAP. I will increase dose of lasix. Changing iv amiodarone to PO long dw - explained treatment plan Critical care time of 75 min excluding procedures Plan discussed with: Other My Orders My Orders Orders - CLAYTON BRANTLEY MD Procedure Category Date Status Time Amiodarone Tablet PHA 05/01/24 In Process (Cordarone Tablet) 22:00 Furosemide Injection PHA 05/01/24 In Process (Lasix Injection) 18:00 Potassium Chl PHA 05/01/24 In Process 20meq/100ml 11:30 Complete Blood Count LAB 05/02/24 Verified 04:00 Basic Metabolic Panel LAB 05/02/24 Verified 04:00 Chest Portable XY 05/02/24 Logged 04:00 Chest Portable XY 05/02/24 Logged 04:00 Dietary Evaluation Review Comments: current TF is providing adequate amount of protein and energy to pt. Need to continue monitor the nepro support vs updated lab values, d/t his ckd-3b status and not on HD. Expected Outcomes/Goals: meeting pt's estimated needs for both protein and energy at 75% or higher. Date of Service: May 01, 2024 Billing Provider: CLAYTON BRANTLEY MD Common Visit Codes: [id number] CARE 30-74 MIN CLAYTON BRANTLEY MD May 01, 2024 14:45
[2024-05-01] MEDS: FUROSEMIDE 40 MG/4 ML VIAL IV SCH (17:03)
[2024-05-01] MEDS: AMIODARONE HCL 200 MG TAB PO SCH (21:49)
[2024-05-02] VITALS (77 sets, daily range): BP systolic 86–137; BP diastolic 39–92; PULSE 89–113; RESP 17–32; TEMP 98.2–99.7; O2SAT 87–100
[2024-05-02 04:04] LABS: Chloride 103 mmol/L (98-107); Potassium 3.5 mmol/L (3.5-5.1); Sodium 139 mmol/L (136-145)
[2024-05-02 04:05] LABS: Anion Gap 10 (5-15); Calcium 8.8 mg/dL (8.7-10.4); Carbon Dioxide 26 mmol/L (20-31)
[2024-05-02 04:10] LABS: BUN/Creatinine Ratio 26.4 (10.0-20.0)
[2024-05-02 04:14] LABS: Basophils # (auto) 0.1 10 ^3/uL (0-0.2); Hemoglobin 7.8 g/dL (13.5-17.5); Lymphocytes # (auto) 0.5 10 ^3/uL (0.4-5.4); Neutrophils # (auto) 11.6 10 ^3/uL (1.6-8.6)
[2024-05-02 04:15] LABS: Basophils % (auto) 0.8 % (0.0-2.0); Eosinophils # (auto) 0.1 10 ^3/uL (0-0.8); Eosinophils % (auto) 1.1 % (0.0-7.0); Hematocrit 24.4 % (41.0-53.0); Lymphocytes % (auto) 4.2 % (10.0-50.0); Mean Corpuscular Hemoglobin 28.5 pg (28.0-32.0); Mean Corpuscular Volume 89.1 fL (80.0-100.0); Monocytes # (auto) 0.6 10 ^3/uL (0-1.3); Monocytes % (auto) 4.8 % (0.0-12.0); Neutrophils % (auto) 89.1 % (37.0-80.0); Platelet Count (auto) 292 10^3/uL (140-450); Red Blood Cells 2.73 10^6/uL (4.5-5.90); Red Cell Distribution Width 14.6 % (11.8-14.3)
[2024-05-02 04:22] LABS: Blood Urea Nitrogen 69 mg/dL (9-23); Glucose 140 mg/dL (74-106)
--- NOTE | 2024-05-02 05:40 | DVH ---
CHEST RADIOGRAPH Indication: Pneumonia Technique: Single frontal view of the chest was obtained Comparison: XY CHEST PORTABLE on DOS: 05/01/24, XY CHEST PORTABLE on DOS: 04/30/24, XY CHEST PORTABLE on DOS: 04/29/24 IMPRESSION: There is enlargement of the cardiac silhouette median sternotomy wires. Support lines and tubes appea r unchanged in satisfactory in position. Moderate pulmonary vascular congestion and alveolar airspace opacities. No sizable effusion or pneumothorax. Overall mild improvement.
[2024-05-02 08:25] LABS: Base Excess -1.1 mmol/L (-2.0-3.0)
--- NOTE | 2024-05-02 09:36 | DVHPN2 ---
Progress Note Date Seen: May 02, 2024 Medical Necessity Reason Pt with a Central, PICC or Fol: Yes The following are medically ne: PICC Line, Mack Catheter Reason for mack catheter: Strict I&O Subjective Review of Systems: RESPIRATORY:Abnormal Other Systems: Patient seen and examined by myself on follow-up today Patient remained intubated on ventilator Objective vital signs Vital Sign Date Time Temp Pulse Resp B/P (MAP) Pulse Ox O2 Delivery O2 Flow Rate FiO2 05/02/24 08:15 107 32 119/57 (77) 100 05/02/24 08:00 Mechanical Ventilator+ 30 30 05/02/24 08:00 99.2 99.2 Total Intake and Output 05/01/24 05/01/24 05/02/24 15:00 23:00 07:00 Intake Total 689.856 ml 825.854 ml 668.02 ml Output Total 750 ml 550 ml Balance 689.856 ml 75.854 ml 118.02 ml medications Current Medications Medications Dose Ordered Sig/Lulu Route Start Time Stop Time Status Last Admin Dose Admin Nitroglycerin 0.4 mg Q5MINP PRN SL 04/16/24 23:45 Albuterol 2.5 mg Q6HPRN PRN NEB 04/17/24 18:30 04/28/24 11:11 2.5 MG Levalbuterol HCl 1.25 mg Q6HR NEB 04/18/24 00:00 05/02/24 06:57 1.25 MG Norepinephrine Bitartrate 32 mg/ Sodium Chloride 250 ml @ 0.938 mls/ hr Q24H IV 04/18/24 11:45 04/20/24 16:11 2.813 MLS/HR Midazolam HCl 50 ml @ 1 mls/hr Q24H IV 04/20/24 14:45 05/01/24 09:00 5 MLS/HR Pantoprazole Sodium 40 mg DAILY IV 04/21/24 10:00 05/02/24 07:22 40 MG Enteral Nutritional Formula 1,000 ml 30ML/HR GT 04/20/24 16:45 Cancel Enteral Nutritional Formula 1,000 ml 30ML/HR GT 04/21/24 08:45 04/29/24 12:46 1,000 ML Insulin Glargine 20 units HS SC 04/23/24 22:00 04/30/24 21:50 20 UNITS Diagnostic Test (Pha) 1 strip Q6HR 04/23/24 12:00 05/02/24 05:47 1 STRIP Insulin Human Regular Q6HR SC 04/23/24 12:00 05/01/24 17:06 2 UNITS Dextrose 50 ml UD PRN IV 04/23/24 11:15 Piperacillin Sod/ Tazobactam Sod 100 ml @ 25 mls/hr Q8H IV 04/26/24 13:00 05/02/24 05:01 25 MLS/HR Clopidogrel Bisulfate 75 mg DAILY PO 04/27/24 10:00 05/02/24 07:22 75 MG Atorvastatin Calcium 40 mg HS PO 04/27/24 22:00 05/01/24 21:50 40 MG Enoxaparin Sodium 80 mg DAILY SC 04/28/24 10:00 05/02/24 07:22 80 MG Sodium Chloride 10 ml QSHIFT@10,22 IV 04/27/24 22:00 05/02/24 07:03 10 ML Dobutamine HCl/ Dextrose 250 ml @ 11.19 mls/ hr [id number] IV 04/28/24 17:15 05/02/24 07:22 11.19 MLS/HR Doxycycline Hyclate 250 ml @ 125 mls/hr Q12H IV 04/29/24 15:30 05/02/24 03:17 125 MLS/HR Fentanyl Citrate 250 ml @ 2.5 mls/hr Q24H IV 04/30/24 18:15 05/01/24 15:33 25 MLS/HR Acetaminophen 650 mg Q6HP PRN GT 04/30/24 18:45 Amiodarone HCl 200 mg Q12HR PO 05/01/24 22:00 05/02/24 07:41 200 MG Furosemide 40 mg BIDD IV 05/01/24 18:00 05/02/24 05:47 40 MG Dexmedetomidine HCl 400 mcg/ Dextrose 100 ml @ 3.605 mls/ hr Q24H IV 05/01/24 17:00 05/02/24 07:46 3.605 MLS/HR Potassium Chloride 100 ml @ 50 mls/hr Q2H IV 05/02/24 09:15 05/02/24 13:14 UNV Examination: LUNGS:Normal, CVS:Normal, MSK:Normal laboratory and microbiology Laboratory Tests 05/02/24 03:24 Test 05/02/24 03:24 Range/Units Serum Glucose 140 H 74-106 mg/dL Microbiology Date/Time Source Procedure Growth Status 04/18/24 01:00 Nose MRSA Screen - Final Complete 04/17/24 13:00 Blood Blood Culture - Final NO GROWTH AFTER 5 DAYS OF INCUBATION. Complete 04/17/24 01:05 Sputum Gram Stain - Final Complete 04/17/24 01:05 Respiratory Culture - Final Streptococcus Group F Complete Problem List/Assessment/Plan Problem List/Assessment/Plan Nurse ANDREA secondary hemodynamic mediated, FeNa < 1% status post intermittent hemodialysis Acute hypoxic respiratory failure, intubated on ventilator CKD stage IIIB Acute PE NSTEMI Congestive heart failure, ejection fraction 20% coronary artery disease Diabetes mellitus type 2 Anemia of chronic kidney disease Hypokalemia Recommendation Kidney function stabilize Chronic Kidney Disease stage 4 Increased urine output Electrolytes are stable Dobutamine IV Furosemide 40 mg IV daily KCL replacement Mack catheter Strict I&Os We will continue to follow up Plan discussed with: Other Dietary Evaluation Review Comments: current TF is providing adequate amount of protein and energy to pt. Need to continue monitor the nepro support vs updated lab values, d/t his ckd-3b status and not on HD. Expected Outcomes/Goals: meeting pt's estimated needs for both protein and energy at 75% or higher. MANAV RITTER MD May 02, 2024 09:36
[2024-05-02] MEDS: POTASSIUM CHL 20MEQ/100ML 100 ML IV SCH (10:04)
--- NOTE | 2024-05-02 12:05 | DVHPN2 ---
Subjective CHART REVIWED D/W NURSING Reviewed: Care Plan, H&P, Labs, Medications, Previous Orders, Radiology Changes from previous H/P or p: No Changes Objective Vitals Vital Signs Date Time Temp Pulse Resp B/P (MAP) Pulse Ox O2 Delivery O2 Flow Rate FiO2 05/02/24 10:11 98 27 129/55 (79) 98 30 05/02/24 09:35 Mechanical Ventilator+ 05/02/24 08:00 99.2 99.2 Intake/Output Intake and Output 05/02/24 07:00 Intake Total 2183.730 ml Output Total 1300 ml Balance 883.730 ml Intake Oral 190 ml IV Total 1993.730 ml Output Urine Total 1250 ml Emesis 50 ml General Appearance: Other (Intubated, on vent,/sedated) HEENT: Atraumatic Neck: Supple Lungs: Clear to auscultation, Normal air movement Cardiovascular: Regular rate, Normal S1, Normal S2, No murmurs, Gallops, Rubs Abdomen: Normal bowel sounds, Soft, No tenderness Neuro: Other (Intubated, on vent, unable to exam) Psych/Mental Status: Other (Intubated, on vent, //sedated/does moveall four extrities spontaneously) Medications Current Medications Medications Dose Ordered Sig/Lulu Route Start Time Stop Time Status Last Admin Dose Admin Nitroglycerin 0.4 mg Q5MINP PRN SL 04/16/24 23:45 Albuterol 2.5 mg Q6HPRN PRN NEB 04/17/24 18:30 04/28/24 11:11 2.5 MG Levalbuterol HCl 1.25 mg Q6HR NEB 04/18/24 00:00 05/02/24 06:57 1.25 MG Norepinephrine Bitartrate 32 mg/ Sodium Chloride 250 ml @ 0.938 mls/ hr Q24H IV 04/18/24 11:45 04/20/24 16:11 2.813 MLS/HR Midazolam HCl 50 ml @ 1 mls/hr Q24H IV 04/20/24 14:45 05/02/24 11:03 5 MLS/HR Pantoprazole Sodium 40 mg DAILY IV 04/21/24 10:00 05/02/24 07:22 40 MG Enteral Nutritional Formula 1,000 ml 30ML/HR GT 04/20/24 16:45 Cancel Enteral Nutritional Formula 1,000 ml 30ML/HR GT 04/21/24 08:45 04/29/24 12:46 1,000 ML Insulin Glargine 20 units HS SC 04/23/24 22:00 04/30/24 21:50 20 UNITS Diagnostic Test (Pha) 1 strip Q6HR 04/23/24 12:00 05/02/24 10:10 1 STRIP Insulin Human Regular Q6HR SC 04/23/24 12:00 05/02/24 10:12 3 UNITS Dextrose 50 ml UD PRN IV 04/23/24 11:15 Piperacillin Sod/ Tazobactam Sod 100 ml @ 25 mls/hr Q8H IV 04/26/24 13:00 05/02/24 05:01 25 MLS/HR Clopidogrel Bisulfate 75 mg DAILY PO 04/27/24 10:00 05/02/24 07:22 75 MG Atorvastatin Calcium 40 mg HS PO 04/27/24 22:00 05/01/24 21:50 40 MG Sodium Chloride 10 ml QSHIFT@10,22 IV 04/27/24 22:00 05/02/24 07:03 10 ML Dobutamine HCl/ Dextrose 250 ml @ 11.19 mls/ hr [id number] IV 04/28/24 17:15 05/02/24 07:22 11.19 MLS/HR Doxycycline Hyclate 250 ml @ 125 mls/hr Q12H IV 04/29/24 15:30 05/02/24 03:17 125 MLS/HR Fentanyl Citrate 250 ml @ 2.5 mls/hr Q24H IV 04/30/24 18:15 05/02/24 11:03 20 MLS/HR Acetaminophen 650 mg Q6HP PRN GT 04/30/24 18:45 Amiodarone HCl 200 mg Q12HR PO 05/01/24 22:00 05/02/24 07:41 200 MG Furosemide 40 mg BIDD IV 05/01/24 18:00 05/02/24 05:47 40 MG Dexmedetomidine HCl 400 mcg/ Dextrose 100 ml @ 3.605 mls/ hr Q24H IV 05/01/24 17:00 05/02/24 07:46 3.605 MLS/HR Potassium Chloride 100 ml @ 50 mls/hr Q2H IV 05/02/24 09:15 05/02/24 13:14 05/02/24 11:08 50 MLS/HR Enoxaparin Sodium 70 mg DAILY SC 05/03/24 10:00 Laboratory Results Laboratory Tests 05/02/24 03:24 Chemistry Test 05/02/24 03:24 Calcium Level 8.8 mg/dL (8.7-10.4) Urinalysis Test 04/17/24 23:49 Urine Color Yellow (Yellow) Urine Clarity Turbid (Clear) H Urine pH 5.5 (5.0-9.0) Urine Specific [place] 1.037 (1.001-1.035) Urine Protein 2+ (Negative) H Urine Ketones Trace (Negative) Urine Blood 3+ /uL (Negative) H Urine Nitrite Negative (Negative) Urine Bilirubin Negative (Negative) Urine Urobilinogen Normal mg/dL (Negative) Urine Leukocyte Esterase Negative /uL (Negative) Urine RBC 138 /hpf (0 - 3) Urine WBC 12 /hpf (0 - 3) Urine Squamous Epithelial Cells Few /hpf (<5) Urine Bacteria None seen /hpf (None Seen) Urine Yeast (Budding) Occasional /hpf (None Urine Osmolality 380 mOsm/kg Urine Creatinine 158.36 mg/dL (30.0-125.0) H Urine Sodium 34 mmol/L (40-220) L Urine Glucose 1+ mg/dL (Normal) H Blood Gas Results Test 05/02/24 08:20 Arterial Blood pH 7.419 (7.350-7.450) FiO2 % 30.0 Microbiology Microbiology Date/Time Source Procedure Growth Status 04/18/24 01:00 Nose MRSA Screen - Final Complete 04/17/24 13:00 Blood Blood Culture - Final NO GROWTH AFTER 5 DAYS OF INCUBATION. Complete 04/17/24 01:05 Sputum Gram Stain - Final Complete 04/17/24 01:05 Respiratory Culture - Final Streptococcus Group F Complete Labs and/or images reviewed: Labs reviewed by me, Image(s) reviewed by me Assessment/Plan Assessment/Plan acute mi- on admission/ acute respiratory failure-on admission- still vent dependent/f/by pulmonary/plan is to do ct head and then trial of cpap again/failed today- rt segmental pu;lmonary embolism- on admission- was on heparin/now on lovenox paroxysmal atrial fibrillation- stable cardiogenic shock- on dobutamine/diuretics acute systolic chf secondary to mi- on dobutamine/diuretics ischemic cardiomyopathy-f/by cardiology cad- s/p cabg 2015 acute renal failure- improved /not on dialysis for 10 days now- last dialysis 04/22/24 dm-stable htn-stable leucocytosis- min white tracheal secretions/mack clear/picc line clean dvt prophylaxis gi prophylaxis pvd- stable Plan discussed with: Patient, Other Date of Service: May 02, 2024 Billing Provider: MARTIN CERNA MD Common Visit Codes: [id number] CARE 30-74 MIN MARTIN CERNA MD May 02, 2024 12:05
--- NOTE | 2024-05-02 16:30 | DVHPN2 ---
Progress Note - Dictate Date Seen: May 02, 2024 Medical Necessity Reason Pt with a Central, PICC or Fol: Yes The following are medically ne: PICC Line, Mack Catheter Reason for mack catheter: Strict I&O Subjective Patient seen and examined at bedside. Sedated, intubated on mechanical ventilator. Overnight events reviewed. vital signs Vital Sign Date Time Temp Pulse Resp B/P (MAP) Pulse Ox O2 Delivery O2 Flow Rate FiO2 05/02/24 15:58 96 20 110/56 (74) 100 30 05/02/24 15:41 Mechanical Ventilator+ 05/02/24 12:00 98.6 98.6 Total Intake and Output 05/01/24 05/01/24 05/02/24 15:00 23:00 07:00 Intake Total 689.856 ml 825.854 ml 668.02 ml Output Total 750 ml 550 ml Balance 689.856 ml 75.854 ml 118.02 ml medications Current Medications Medications Dose Ordered Sig/Lulu Route Start Time Stop Time Status Last Admin Dose Admin Nitroglycerin 0.4 mg Q5MINP PRN SL 04/16/24 23:45 Albuterol 2.5 mg Q6HPRN PRN NEB 04/17/24 18:30 04/28/24 11:11 2.5 MG Levalbuterol HCl 1.25 mg Q6HR NEB 04/18/24 00:00 05/02/24 12:04 1.25 MG Norepinephrine Bitartrate 32 mg/ Sodium Chloride 250 ml @ 0.938 mls/ hr Q24H IV 04/18/24 11:45 04/20/24 16:11 2.813 MLS/HR Midazolam HCl 50 ml @ 1 mls/hr Q24H IV 04/20/24 14:45 05/02/24 11:03 5 MLS/HR Pantoprazole Sodium 40 mg DAILY IV 04/21/24 10:00 05/02/24 07:22 40 MG Enteral Nutritional Formula 1,000 ml 30ML/HR GT 04/20/24 16:45 Cancel Enteral Nutritional Formula 1,000 ml 30ML/HR GT 04/21/24 08:45 04/29/24 12:46 1,000 ML Insulin Glargine 20 units HS SC 04/23/24 22:00 04/30/24 21:50 20 UNITS Diagnostic Test (Pha) 1 strip Q6HR 04/23/24 12:00 05/02/24 10:10 1 STRIP Insulin Human Regular Q6HR SC 04/23/24 12:00 05/02/24 10:12 3 UNITS Dextrose 50 ml UD PRN IV 04/23/24 11:15 Piperacillin Sod/ Tazobactam Sod 100 ml @ 25 mls/hr Q8H IV 04/26/24 13:00 05/02/24 12:17 25 MLS/HR Clopidogrel Bisulfate 75 mg DAILY PO 04/27/24 10:00 05/02/24 07:22 75 MG Atorvastatin Calcium 40 mg HS PO 04/27/24 22:00 05/01/24 21:50 40 MG Sodium Chloride 10 ml QSHIFT@10,22 IV 04/27/24 22:00 05/02/24 07:03 10 ML Dobutamine HCl/ Dextrose 250 ml @ 11.19 mls/ hr [id number] IV 04/28/24 17:15 05/02/24 07:22 11.19 MLS/HR Doxycycline Hyclate 250 ml @ 125 mls/hr Q12H IV 04/29/24 15:30 05/02/24 15:34 125 MLS/HR Fentanyl Citrate 250 ml @ 2.5 mls/hr Q24H IV 04/30/24 18:15 05/02/24 11:03 20 MLS/HR Acetaminophen 650 mg Q6HP PRN GT 04/30/24 18:45 Amiodarone HCl 200 mg Q12HR PO 05/01/24 22:00 05/02/24 07:41 200 MG Furosemide 40 mg BIDD IV 05/01/24 18:00 05/02/24 05:47 40 MG Dexmedetomidine HCl 400 mcg/ Dextrose 100 ml @ 3.605 mls/ hr Q24H IV 05/01/24 17:00 05/02/24 07:46 3.605 MLS/HR Enoxaparin Sodium 70 mg DAILY SC 05/03/24 10:00 objective Gen.: Patient lying in bed in medical ICU. Sedated, intubated on mechanical ventilator. Head: Normocephalic, atraumatic. Eyes: PERRLA. Ears: Normal external anatomy. Throat: Endotracheal tube and orogastric tube in place. Neck: Supple, trachea midline. Chest: Transmitted breath sounds bilaterally. Decreased air entry bilaterally. No wheezing. Bibasilar crackles. Cardiovascular: Positive S1, positive S2. Regular rate and rhythm. Abdomen: Positive bowel sounds in all 4 quadrants. Soft, nontender, nondistended. : Mack in place. Normal external genitalia. Rectal: Deferred. Skin: Warm, dry. Intact. Extremities: 2+ radial pulses bilaterally. No lower extremity edema. Neuro: Sedated. laboratory and microbiology Laboratory Tests 05/02/24 03:24 Test 05/02/24 03:24 Range/Units Serum Glucose 140 H 74-106 mg/dL Assessment/Plan Impression: Acute hypoxic respiratory failure On mechanical ventilator Non-ST elevation myocardial infarction Elevated troponin Acute kidney injury DM type II w/ hyperglycemia Nicotine dependence Marijuana abuse Pleural effusion Atelectasis Events: Remains on vent support On AC mode; RR 20, VT 500, PEEP 5, FiO2 30%. Sedated on Fentanyl Off Versed Precedex drip for agitation On dobutamine 2.5 mcg/min for inotropic support. ABG reviewed, compensated. CXR reviewed. Devices in place. Moderate pulmonary vascular congestion and alveolar airspace opacities. No effusion or pneumothorax. Taper sedation as tolerated CPAP trial once pt is awake, alert. Labs and imaging reviewed. Rest of plan as noted below. Plan: s/p intubation on mechanical ventilator. On AC mode; RR 20, VT 500, PEEP 5, FiO2 30%. Titrate FIO2 to keep O2 saturation above 90%. VAP bundle. Daily ABG and CXR while intubated Sedate for ventilator synchrony Elevated troponin Cardiology recommendations appreciated Continue bronchodilators. Possible BOOP - start stress dose steroids Continue antibiotics. F/u cultures. Leukocytosis - monitor WBC. Pressors if necessary for hemodynamic support Titrate to keep mean arterial pressure greater than 65 mmHg - currently off, hemodynamically stable. Monitor renal function Monitor electrolytes. Supplement as necessary. Monitor ins and outs. Maintain euvolemia. GI prophylaxis. DVT prophylaxis. Prognosis: Poor given patient's multiple co-morbidities. Condition: Critical Rest of plan per hospitalist and other consultants. A total of 35 minutes of critical care time was spent reviewing the patient record, examining the patient, making a diagnostic and therapeutic plan, discussing this plan with the medical personnel, following up on diagnostic studies and following the patient for clinical stability excluding any and all procedures. At least 50% of this time was spent in direct, [id number] contact. Thank you Dr. Korina Thakkar MD, for allowing me to participate in this patient's care. Further recommendations will depend on the patient's clinical course. Please do not hesitate to contact me if you have any questions or concerns. This medical document was created using an electronic medical record system with [employer] dictation system. Although these documentations are being carefully reviewed, there may still be some phonetic and typographical changes. The errors are purely typographical, due to imperfection on the software program, and do not reflect any compromise in the patient's medical care. Dietary Evaluation Review Comments: current TF is providing adequate amount of protein and energy to pt. Need to continue monitor the nepro support vs updated lab values, d/t his ckd-3b status and not on HD. Expected Outcomes/Goals: meeting pt's estimated needs for both protein and energy at 75% or higher. Plan discussed with: Other (EL Ramirez) Critical Care Time(min): 35 NING GORE MD May 02, 2024 16:30
[2024-05-03] VITALS (111 sets, daily range): BP systolic 93–133; BP diastolic 5–74; PULSE 57–104; RESP 17–26; TEMP 96.4–99.7; O2SAT 90–100
[2024-05-03 03:56] LABS: Eosinophils # (auto) 0.1 10 ^3/uL (0-0.8); Lymphocytes # (auto) 0.5 10 ^3/uL (0.4-5.4); Neutrophils # (auto) 10.1 10 ^3/uL (1.6-8.6); White Blood Cell 11.4 10^3/uL (4.4-10.8)
[2024-05-03 04:02] LABS: Basophils # (auto) 0.1 10 ^3/uL (0-0.2); Basophils % (auto) 0.6 % (0.0-2.0); Eosinophils % (auto) 0.7 % (0.0-7.0); Hematocrit 22.1 % (41.0-53.0); Hemoglobin 7.3 g/dL (13.5-17.5); Lymphocytes % (auto) 4.4 % (10.0-50.0); Mean Corpuscular Hemoglobin 29.2 pg (28.0-32.0); Mean Corpuscular Hgb Conc. 33.2 g/dL (32.0-36.0); Monocytes # (auto) 0.6 10 ^3/uL (0-1.3); Monocytes % (auto) 5.6 % (0.0-12.0); Neutrophils % (auto) 88.7 % (37.0-80.0); Platelet Count (auto) 262 10^3/uL (140-450); Red Blood Cells 2.51 10^6/uL (4.5-5.90); Red Cell Distribution Width 14.1 % (11.8-14.3)
[2024-05-03 04:12] LABS: Chloride 104 mmol/L (98-107); Potassium 3.7 mmol/L (3.5-5.1); Sodium 136 mmol/L (136-145)
[2024-05-03 04:13] LABS: Anion Gap 7 (5-15); Carbon Dioxide 25 mmol/L (20-31)
[2024-05-03 04:18] LABS: BUN/Creatinine Ratio 22.6 (10.0-20.0)
[2024-05-03 04:44] LABS: Blood Urea Nitrogen 76 mg/dL (9-23); Calcium 8.6 mg/dL (8.7-10.4); Glucose 127 mg/dL (74-106)
--- NOTE | 2024-05-03 05:41 | DVH ---
CHEST RADIOGRAPH Indication: intubated Technique: Single frontal view of the chest was obtained Comparison: XY CHEST PORTABLE on DOS: 05/02/24, XY CHEST PORTABLE on DOS: 05/01/24, XY CHEST PORTABLE on DOS: 04/30/24 IMPRESSION: There is cardiomegaly with median sternotomy wires and postsurgical changes. Support lines and tubes appear unchanged in satisfactory in position. Bilateral moderate pulmonary vascular congestion with slight increase in airspace opacity in the right upper lung. No pneumothorax.
[2024-05-03 08:32] LABS: Base Excess -4.1 mmol/L (-2.0-3.0)
[2024-05-03] MEDS: PIPERACILLIN-TAZOB 3.375GM 100 ML IV SCH (10:07)
--- NOTE | 2024-05-03 10:45 | DVHPN2 ---
Subjective CHART REVIWED D/W NURSING no events thru the night Reviewed: Care Plan, H&P, Labs, Medications, Previous Orders, Radiology Changes from previous H/P or p: No Changes Objective Vitals Vital Signs Date Time Temp Pulse Resp B/P (MAP) Pulse Ox O2 Delivery O2 Flow Rate FiO2 05/03/24 10:19 81 20 112/49 (70) 100 30 05/03/24 10:00 Mechanical Ventilator+ 05/03/24 07:00 99.0 210.2 Intake/Output Intake and Output 05/03/24 07:00 Intake Total 1734.37 ml Output Total 1050 ml Balance 684.37 ml Intake Oral 100 ml IV Total 1634.37 ml Output Urine Total 850 ml Gastric Drainage Total 150 ml Emesis 50 ml General Appearance: Other (Intubated, on vent,/sedated/does respond to noxious stimulii) HEENT: Atraumatic Neck: Supple Lungs: Clear to auscultation, Normal air movement Cardiovascular: Regular rate, Normal S1, Normal S2, No murmurs, Gallops, Rubs Abdomen: Normal bowel sounds, Soft, No tenderness Neuro: Other (Intubated, on vent, unable to exam) Psych/Mental Status: Other (Intubated, on vent, //sedated/does moveall four extrities spontaneously) Medications Current Medications Medications Dose Ordered Sig/Lulu Route Start Time Stop Time Status Last Admin Dose Admin Nitroglycerin 0.4 mg Q5MINP PRN SL 04/16/24 23:45 Albuterol 2.5 mg Q6HPRN PRN NEB 04/17/24 18:30 04/28/24 11:11 2.5 MG Levalbuterol HCl 1.25 mg Q6HR NEB 04/18/24 00:00 05/03/24 07:14 1.25 MG Norepinephrine Bitartrate 32 mg/ Sodium Chloride 250 ml @ 0.938 mls/ hr Q24H IV 04/18/24 11:45 04/20/24 16:11 2.813 MLS/HR Midazolam HCl 50 ml @ 1 mls/hr Q24H IV 04/20/24 14:45 05/03/24 05:30 3 MLS/HR Pantoprazole Sodium 40 mg DAILY IV 04/21/24 10:00 05/03/24 09:46 40 MG Enteral Nutritional Formula 1,000 ml 30ML/HR GT 04/20/24 16:45 Cancel Enteral Nutritional Formula 1,000 ml 30ML/HR GT 04/21/24 08:45 04/29/24 12:46 1,000 ML Insulin Glargine 20 units HS SC 04/23/24 22:00 05/02/24 22:18 20 UNITS Diagnostic Test (Pha) 1 strip Q6HR 04/23/24 12:00 05/03/24 05:44 1 STRIP Insulin Human Regular Q6HR SC 04/23/24 12:00 05/03/24 05:50 2 UNITS Dextrose 50 ml UD PRN IV 04/23/24 11:15 Clopidogrel Bisulfate 75 mg DAILY PO 04/27/24 10:00 05/03/24 10:10 75 MG Atorvastatin Calcium 40 mg HS PO 04/27/24 22:00 05/02/24 21:58 40 MG Sodium Chloride 10 ml QSHIFT@ IV 04/27/24 22:00 05/03/24 09:46 10 ML Dobutamine HCl/ Dextrose 250 ml @ 11.19 mls/ hr [id number] IV 04/28/24 17:15 05/03/24 04:47 11.19 MLS/HR Doxycycline Hyclate 250 ml @ 125 mls/hr Q12H IV 04/29/24 15:30 05/03/24 03:43 125 MLS/HR Fentanyl Citrate 250 ml @ 2.5 mls/hr Q24H IV 04/30/24 18:15 05/03/24 07:32 2.5 MLS/HR Acetaminophen 650 mg Q6HP PRN GT 04/30/24 18:45 Amiodarone HCl 200 mg Q12HR PO 05/01/24 22:00 05/03/24 09:46 200 MG Furosemide 40 mg BIDD IV 05/01/24 18:00 05/03/24 05:44 40 MG Dexmedetomidine HCl 400 mcg/ Dextrose 100 ml @ 3.605 mls/ hr Q24H IV 05/01/24 17:00 05/02/24 07:46 3.605 MLS/HR Enoxaparin Sodium 70 mg DAILY SC 05/03/24 10:00 Piperacillin Sod/ Tazobactam Sod 100 ml @ 25 mls/hr BID IV 05/03/24 10:00 05/03/24 10:07 25 MLS/HR Laboratory Results Laboratory Tests 05/03/24 03:33 Chemistry Test 05/03/24 03:33 Calcium Level 8.6 mg/dL (8.7-10.4) L Cardiac Markers Test 05/03/24 03:33 B-Type Natriuretic Peptide 2276.13 pg/mL (0-100) Urinalysis Test 04/17/24 23:49 Urine Color Yellow (Yellow) Urine Clarity Turbid (Clear) H Urine pH 5.5 (5.0-9.0) Urine Specific [place] 1.037 (1.001-1.035) Urine Protein 2+ (Negative) H Urine Ketones Trace (Negative) Urine Blood 3+ /uL (Negative) H Urine Nitrite Negative (Negative) Urine Bilirubin Negative (Negative) Urine Urobilinogen Normal mg/dL (Negative) Urine Leukocyte Esterase Negative /uL (Negative) Urine RBC 138 /hpf (0 - 3) Urine WBC 12 /hpf (0 - 3) Urine Squamous Epithelial Cells Few /hpf (<5) Urine Bacteria None seen /hpf (None Seen) Urine Yeast (Budding) Occasional /hpf (None Urine Osmolality 380 mOsm/kg Urine Creatinine 158.36 mg/dL (30.0-125.0) H Urine Sodium 34 mmol/L (40-220) L Urine Glucose 1+ mg/dL (Normal) H Blood Gas Results Test 05/03/24 08:22 Arterial Blood pH 7.364 (7.350-7.450) FiO2 % 30.0 Microbiology Microbiology Date/Time Source Procedure Growth Status 04/18/24 01:00 Nose MRSA Screen - Final Complete 04/17/24 13:00 Blood Blood Culture - Final NO GROWTH AFTER 5 DAYS OF INCUBATION. Complete 04/17/24 01:05 Sputum Gram Stain - Final Complete 04/17/24 01:05 Respiratory Culture - Final Streptococcus Group F Complete Labs and/or images reviewed: Labs reviewed by me, Image(s) reviewed by me Assessment/Plan Assessment/Plan acute mi- on admission/ acute respiratory failure-on admission- still vent dependent/f/by pulmonary/plan is to do ct head and then trial of cpap tonite when is here rt segmental pu;lmonary embolism- on admission- was on heparin/now on lovenox paroxysmal atrial fibrillation- stable cardiogenic shock- on dobutamine/diuretics acute systolic chf secondary to mi- on dobutamine/diuretics ischemic cardiomyopathy-f/by cardiology cad- s/p cabg 2016 acute renal failure- gfr little down at 19 today/not on dialysis for 10 days now- last dialysis 04/22/24//f/by nephrology dm-stable htn-stable leucocytosis- min white tracheal secretions/mack clear/picc line clean dvt prophylaxis gi prophylaxis pvd- stable Plan discussed with: Other (spoke to and daughter yesterday) My Orders Orders - MARTIN CERNA MD Procedure Category Date Status Time Piperacillin-Tazob PHA 05/03/24 In Process 3.375gm (Zosyn 3.375g 10:00 Date of Service: May 03, 2024 Billing Provider: MARTIN CERNA MD Common Visit Codes: [id number] CARE 30-74 MIN MARTIN CERNA MD May 03, 2024 10:45
--- NOTE | 2024-05-03 12:05 | DVH ---
CT HEAD WITHOUT CONTRAST INDICATION: agitation/ not following commands EXAM DATE: 05/03/2024 10:52 AM COMPARISON: None RADIATION DOSE: CTDIvol: 56.83 mGy, DLP: 1024.64 mGy*cm PROCEDURE: CT scans of the head were obtained from the vertex to the skull base. Sagittal and coronal reconstructions were provided. All CT scans at this medical facility are performed using dose modulation techniques as appropriate t o a performed exam including the following: Automated exposure control was utilized; adjustment of th e MA and/or KV according to patient size; and use of iterative reconstruction technique. FINDINGS: There is sulcal and ventricular prominence. The brain otherwise shows normal morphology a nd arriola-white matter differentiation, without intracranial hemorrhage, extra-axial fluid collection, mass effect or acute large vessel infarct.The basal cisterns are patent. The skull and visible facial bones are intact. The paranasal sinuses, mastoid air cells and middle ear cavities are well-aerated. The soft tissues of the scalp are unremarkable. IMPRESSION: No acute intracranial abnormality.
--- NOTE | 2024-05-03 12:06 | DVHPN2 ---
Progress Note Date Seen: May 03, 2024 Medical Necessity Reason Pt with a Central, PICC or Fol: Yes The following are medically ne: PICC Line, Mack Catheter Reason for mack catheter: Strict I&O Subjective Other Systems: Patient seen and examined by myself in follow-up today, patient remained intubated on ventilator Objective vital signs Vital Sign Date Time Temp Pulse Resp B/P (MAP) Pulse Ox O2 Delivery O2 Flow Rate FiO2 05/03/24 10:19 81 20 112/49 (70) 100 30 05/03/24 10:00 Mechanical Ventilator+ 05/03/24 07:00 99.0 210.2 Total Intake and Output 05/02/24 05/02/24 05/03/24 15:00 23:00 07:00 Intake Total 439.52 ml 670.52 ml 624.33 ml Output Total 400 ml 650 ml Balance 439.52 ml 270.52 ml -25.67 ml medications Current Medications Medications Dose Ordered Sig/Lulu Route Start Time Stop Time Status Last Admin Dose Admin Nitroglycerin 0.4 mg Q5MINP PRN SL 04/16/24 23:45 Albuterol 2.5 mg Q6HPRN PRN NEB 04/17/24 18:30 04/28/24 11:11 2.5 MG Levalbuterol HCl 1.25 mg Q6HR NEB 04/18/24 00:00 05/03/24 07:14 1.25 MG Norepinephrine Bitartrate 32 mg/ Sodium Chloride 250 ml @ 0.938 mls/ hr Q24H IV 04/18/24 11:45 04/20/24 16:11 2.813 MLS/HR Midazolam HCl 50 ml @ 1 mls/hr Q24H IV 04/20/24 14:45 05/03/24 05:30 3 MLS/HR Pantoprazole Sodium 40 mg DAILY IV 04/21/24 10:00 05/03/24 09:46 40 MG Enteral Nutritional Formula 1,000 ml 30ML/HR GT 04/20/24 16:45 Cancel Enteral Nutritional Formula 1,000 ml 30ML/HR GT 04/21/24 08:45 04/29/24 12:46 1,000 ML Insulin Glargine 20 units HS SC 04/23/24 22:00 05/02/24 22:18 20 UNITS Diagnostic Test (Pha) 1 strip Q6HR 04/23/24 12:00 05/03/24 05:44 1 STRIP Insulin Human Regular Q6HR SC 04/23/24 12:00 05/03/24 05:50 2 UNITS Dextrose 50 ml UD PRN IV 04/23/24 11:15 Clopidogrel Bisulfate 75 mg DAILY PO 04/27/24 10:00 05/03/24 10:10 75 MG Atorvastatin Calcium 40 mg HS PO 04/27/24 22:00 05/02/24 21:58 40 MG Sodium Chloride 10 ml QSHIFT@10,22 IV 04/27/24 22:00 05/03/24 09:46 10 ML Dobutamine HCl/ Dextrose 250 ml @ 11.19 mls/ hr [id number] IV 04/28/24 17:15 05/03/24 04:47 11.19 MLS/HR Doxycycline Hyclate 250 ml @ 125 mls/hr Q12H IV 04/29/24 15:30 05/03/24 03:43 125 MLS/HR Fentanyl Citrate 250 ml @ 2.5 mls/hr Q24H IV 04/30/24 18:15 05/03/24 07:32 2.5 MLS/HR Acetaminophen 650 mg Q6HP PRN GT 04/30/24 18:45 Amiodarone HCl 200 mg Q12HR PO 05/01/24 22:00 05/03/24 09:46 200 MG Furosemide 40 mg BIDD IV 05/01/24 18:00 05/03/24 05:44 40 MG Dexmedetomidine HCl 400 mcg/ Dextrose 100 ml @ 3.605 mls/ hr Q24H IV 05/01/24 17:00 05/02/24 07:46 3.605 MLS/HR Enoxaparin Sodium 70 mg DAILY SC 05/03/24 10:00 Piperacillin Sod/ Tazobactam Sod 100 ml @ 25 mls/hr BID IV 05/03/24 10:00 05/03/24 10:07 25 MLS/HR Examination: LUNGS:Normal, CVS:Normal, MSK:Normal laboratory and microbiology Laboratory Tests 05/03/24 03:33 Test 05/03/24 03:33 Range/Units Serum Glucose 127 H 74-106 mg/dL Microbiology Date/Time Source Procedure Growth Status 04/18/24 01:00 Nose MRSA Screen - Final Complete 04/17/24 13:00 Blood Blood Culture - Final NO GROWTH AFTER 5 DAYS OF INCUBATION. Complete 04/17/24 01:05 Sputum Gram Stain - Final Complete 04/17/24 01:05 Respiratory Culture - Final Streptococcus Group F Complete Problem List/Assessment/Plan Problem List/Assessment/Plan Nurse ANDREA secondary hemodynamic mediated, FeNa < 1% status post intermittent hemodialysis Acute hypoxic respiratory failure, intubated on ventilator CKD stage IIIB Acute PE NSTEMI Congestive heart failure, ejection fraction 20% coronary artery disease Diabetes mellitus type 2 Anemia of chronic kidney disease Hypokalemia Recommendation Kidney function stabilize Chronic Kidney Disease stage 4 Increased urine output Electrolytes are stable Low-dose dopamine IV fluid NS at 75 cc/hour Furosemide 40 mg IV daily KCL replacement Mack catheter Strict I&Os We will continue to follow up Plan discussed with: Other (Nurse) My Orders My Orders Orders - MANAV RITTER MD Procedure Category Date Status Time NS PHA 05/03/24 Verified 12:15 Dopamine Drip PHA 05/03/24 Verified 12:15 Dietary Evaluation Review Comments: current TF is providing adequate amount of protein and energy to pt. Need to continue monitor the nepro support vs updated lab values, d/t his ckd-3b status and not on HD. Expected Outcomes/Goals: meeting pt's estimated needs for both protein and energy at 75% or higher. MANAV RITTER MD May 03, 2024 12:06
[2024-05-03] MEDS: SODIUM CHLORIDE 0.9% 1,000 ML IV SCH (12:15)
[2024-05-03] MEDS: DOPamine 1600MCG/ML D5W 250 ML IV SCH (13:04)
[2024-05-03] MEDS: ENOXAPARIN SOD 80 MG/0.8ML SYRINGE SC SCH (13:05)
--- NOTE | 2024-05-03 21:09 | DVHPN2 ---
Progress Note - Dictate Date Seen: May 03, 2024 Medical Necessity Reason Pt with a Central, PICC or Fol: Yes The following are medically ne: PICC Line, Mack Catheter Reason for mack catheter: Strict I&O Subjective Patient seen and examined at bedside. Sedated, intubated on mechanical ventilator. Overnight events reviewed. vital signs Vital Sign Date Time Temp Pulse Resp B/P (MAP) Pulse Ox O2 Delivery O2 Flow Rate FiO2 05/03/24 19:58 88 20 110/56 (74) 96 30 05/03/24 18:45 98.4 209.1 05/03/24 18:44 Mechanical Ventilator+ Total Intake and Output 05/02/24 05/02/24 05/03/24 15:00 23:00 07:00 Intake Total 439.52 ml 670.52 ml 624.33 ml Output Total 400 ml 650 ml Balance 439.52 ml 270.52 ml -25.67 ml medications Current Medications Medications Dose Ordered Sig/Lulu Route Start Time Stop Time Status Last Admin Dose Admin Nitroglycerin 0.4 mg Q5MINP PRN SL 04/16/24 23:45 Albuterol 2.5 mg Q6HPRN PRN NEB 04/17/24 18:30 04/28/24 11:11 2.5 MG Levalbuterol HCl 1.25 mg Q6HR NEB 04/18/24 00:00 05/03/24 18:43 1.25 MG Norepinephrine Bitartrate 32 mg/ Sodium Chloride 250 ml @ 0.938 mls/ hr Q24H IV 04/18/24 11:45 04/20/24 16:11 2.813 MLS/HR Midazolam HCl 50 ml @ 1 mls/hr Q24H IV 04/20/24 14:45 05/03/24 15:24 4 MLS/HR Pantoprazole Sodium 40 mg DAILY IV 04/21/24 10:00 05/03/24 09:46 40 MG Enteral Nutritional Formula 1,000 ml 30ML/HR GT 04/20/24 16:45 Cancel Enteral Nutritional Formula 1,000 ml 30ML/HR GT 04/21/24 08:45 04/29/24 12:46 1,000 ML Insulin Glargine 20 units HS SC 04/23/24 22:00 05/02/24 22:18 20 UNITS Diagnostic Test (Pha) 1 strip Q6HR 04/23/24 12:00 05/03/24 17:45 1 STRIP Insulin Human Regular Q6HR SC 04/23/24 12:00 05/03/24 17:46 3 UNITS Dextrose 50 ml UD PRN IV 04/23/24 11:15 Clopidogrel Bisulfate 75 mg DAILY PO 04/27/24 10:00 05/03/24 10:10 75 MG Atorvastatin Calcium 40 mg HS PO 04/27/24 22:00 05/02/24 21:58 40 MG Sodium Chloride 10 ml QSHIFT@10,22 IV 04/27/24 22:00 05/03/24 09:46 10 ML Dobutamine HCl/ Dextrose 250 ml @ 11.19 mls/ hr [id number] IV 04/28/24 17:15 05/03/24 04:47 11.19 MLS/HR Doxycycline Hyclate 250 ml @ 125 mls/hr Q12H IV 04/29/24 15:30 05/03/24 15:23 125 MLS/HR Fentanyl Citrate 250 ml @ 2.5 mls/hr Q24H IV 04/30/24 18:15 05/03/24 16:50 25 MLS/HR Acetaminophen 650 mg Q6HP PRN GT 04/30/24 18:45 Amiodarone HCl 200 mg Q12HR PO 05/01/24 22:00 05/03/24 09:46 200 MG Furosemide 40 mg BIDD IV 05/01/24 18:00 05/03/24 17:45 40 MG Dexmedetomidine HCl 400 mcg/ Dextrose 100 ml @ 3.605 mls/ hr Q24H IV 05/01/24 17:00 05/02/24 07:46 3.605 MLS/HR Enoxaparin Sodium 70 mg DAILY SC 05/03/24 10:00 05/03/24 13:05 70 MG Piperacillin Sod/ Tazobactam Sod 100 ml @ 25 mls/hr BID IV 05/03/24 10:00 05/03/24 10:07 25 MLS/HR Sodium Chloride 1,000 ml @ 75 mls/hr [id number] IV 05/03/24 12:15 Dopamine HCl/ Dextrose 250 ml @ 5.655 mls/ hr Q24H IV 05/03/24 12:15 05/03/24 13:04 5.655 MLS/HR objective Gen.: Patient lying in bed in medical ICU. Sedated, intubated on mechanical ventilator. Head: Normocephalic, atraumatic. Eyes: PERRLA. Ears: Normal external anatomy. Throat: Endotracheal tube and orogastric tube in place. Neck: Supple, trachea midline. Chest: Transmitted breath sounds bilaterally. Decreased air entry bilaterally. No wheezing. Bibasilar crackles. Cardiovascular: Positive S1, positive S2. Regular rate and rhythm. Abdomen: Positive bowel sounds in all 4 quadrants. Soft, nontender, nondistended. : Mack in place. Normal external genitalia. Rectal: Deferred. Skin: Warm, dry. Intact. Extremities: 2+ radial pulses bilaterally. No lower extremity edema. Neuro: Sedated. laboratory and microbiology Laboratory Tests 05/03/24 03:33 Test 05/03/24 03:33 Range/Units Serum Glucose 127 H 74-106 mg/dL Assessment/Plan Impression: Acute hypoxic respiratory failure On mechanical ventilator Non-ST elevation myocardial infarction Elevated troponin Acute kidney injury DM type II w/ hyperglycemia Nicotine dependence Marijuana abuse Pleural effusion Atelectasis Events: Remains on vent support On AC mode; RR 20, VT 500, PEEP 5, FiO2 30%. Sedated on Fentanyl, Versed Off Precedex On dobutamine 2.5 mcg/min for inotropic support. On pressors for hemodynamic support Dopamine 2 mcg/min Titrate to keep mean arterial pressure greater than 65 mmHg. ABG reviewed, compensated. CXR demonstrates cardiomegaly; bilateral moderate pulmonary vascular congestion with slight increase in airspace opacity in the right upper lung. Continue antibiotics Patient not tolerating taper in sedation Labs and imaging reviewed. Rest of plan as noted below. Plan: s/p intubation on mechanical ventilator. On AC mode; RR 20, VT 500, PEEP 5, FiO2 30%. Titrate FIO2 to keep O2 saturation above 90%. VAP bundle. Daily ABG and CXR while intubated Sedated for ventilator synchrony Elevated troponin Cardiology recommendations appreciated Continue bronchodilators. Possible BOOP - start stress dose steroids Continue antibiotics. F/u cultures. Leukocytosis - monitor WBC. Pressors for hemodynamic support Titrate to keep mean arterial pressure greater than 65 mmHg Monitor renal function Monitor electrolytes. Supplement as necessary. Monitor ins and outs. Maintain euvolemia. GI prophylaxis. DVT prophylaxis. Prognosis: Poor given patient's multiple co-morbidities. Condition: Critical Rest of plan per hospitalist and other consultants. A total of 35 minutes of critical care time was spent reviewing the patient record, examining the patient, making a diagnostic and therapeutic plan, discussing this plan with the medical personnel, following up on diagnostic studies and following the patient for clinical stability excluding any and all procedures. At least 50% of this time was spent in direct, [id number] contact. Thank you Dr. Korina Thakkar MD, for allowing me to participate in this patient's care. Further recommendations will depend on the patient's clinical course. Please do not hesitate to contact me if you have any questions or concerns. This medical document was created using an electronic medical record system with [employer] dictation system. Although these documentations are being carefully reviewed, there may still be some phonetic and typographical changes. The errors are purely typographical, due to imperfection on the software program, and do not reflect any compromise in the patient's medical care. Dietary Evaluation Review Comments: current TF is providing adequate amount of protein and energy to pt. Need to continue monitor the nepro support vs updated lab values, d/t his ckd-3b status and not on HD. Expected Outcomes/Goals: meeting pt's estimated needs for both protein and energy at 75% or higher. Plan discussed with: Other (EL Cedeño) Critical Care Time(min): 35 NING GORE MD May 03, 2024 21:09
[2024-05-04] VITALS (107 sets, daily range): BP systolic 79–132; BP diastolic 38–66; PULSE 63–133; RESP 16–35; TEMP 79–100.2; O2SAT 65–100
--- NOTE | 2024-05-04 04:39 | DVH ---
CHEST RADIOGRAPH Indication: RESPIRATORY FAILURE Technique: Single frontal view of the chest was obtained Comparison: XY CHEST PORTABLE on DOS: 05/03/24 FINDINGS: Lines and Tubes: The endotracheal tube terminates 5.4 cm above the mark. A central venous catheter terminates in the superior vena cava. The enteric tube terminates below the left hemidiaphragm and ou tside the field of view. Right PICC terminates in the superior vena cava. Lungs: Patchy bilateral airspace consolidation. Pleura: No effusion. No pneumothorax. Cardiomediastinal contours: Stable cardiovascular silhouette. Bones: No acute osseous abnormality. Status post median sternotomy. IMPRESSION: 1. Stable position of the support lines and tubes. 2. Bilateral airspace disease.
[2024-05-04 08:00] LABS: Base Excess -4.1 mmol/L (-2.0-3.0)
[2024-05-04 08:56] LABS: Basophils # (auto) 0.1 10 ^3/uL (0-0.2); Eosinophils # (auto) 0.2 10 ^3/uL (0-0.8); Hematocrit 23.3 % (41.0-53.0); Hemoglobin 7.6 g/dL (13.5-17.5); Lymphocytes # (auto) 0.4 10 ^3/uL (0.4-5.4); Mean Corpuscular Hemoglobin 28.5 pg (28.0-32.0); Monocytes # (auto) 0.6 10 ^3/uL (0-1.3); Red Cell Distribution Width 14.2 % (11.8-14.3)
[2024-05-04 09:00] LABS: Basophils % (auto) 0.7 % (0.0-2.0); Eosinophils % (auto) 1.3 % (0.0-7.0); Lymphocytes % (auto) 3.7 % (10.0-50.0); Mean Corpuscular Hgb Conc. 32.6 g/dL (32.0-36.0); Mean Corpuscular Volume 87.4 fL (80.0-100.0); Monocytes % (auto) 5.2 % (0.0-12.0); Neutrophils # (auto) 10.7 10 ^3/uL (1.6-8.6); Neutrophils % (auto) 89.1 % (37.0-80.0); Platelet Count (auto) 264 10^3/uL (140-450); Red Blood Cells 2.67 10^6/uL (4.5-5.90)
[2024-05-04 09:04] LABS: Chloride 102 mmol/L (98-107); Potassium 3.6 mmol/L (3.5-5.1); Sodium 135 mmol/L (136-145)
[2024-05-04 09:05] LABS: Anion Gap 10 (5-15); Calcium 8.6 mg/dL (8.7-10.4); Carbon Dioxide 23 mmol/L (20-31)
[2024-05-04 09:09] LABS: BUN/Creatinine Ratio 22.3 (10.0-20.0); Blood Urea Nitrogen 80 mg/dL (9-23); Glucose 109 mg/dL (74-106); Magnesium 2.1 mg/dL (1.6-2.6)
--- NOTE | 2024-05-04 09:32 | DVHPN2 ---
Progress Note - Dictate Date Seen: May 04, 2024 Medical Necessity Reason Pt with a Central, PICC or Fol: Yes The following are medically ne: PICC Line, Mack Catheter Reason for mack catheter: Strict I&O Subjective Patient remains intubated Urine output labs and vitals reviewed with ICU nurse vital signs Vital Sign Date Time Temp Pulse Resp B/P (MAP) Pulse Ox O2 Delivery O2 Flow Rate FiO2 05/04/24 08:03 95 20 97/47 (64) 100 30 05/04/24 07:00 99.1 210.4 05/04/24 06:00 Mechanical Ventilator+ Total Intake and Output 05/03/24 05/03/24 05/04/24 15:00 23:00 07:00 Intake Total 657.830 ml 1316.760 ml 1266.760 ml Output Total 800 ml 600 ml Balance 657.830 ml 516.760 ml 666.760 ml medications Current Medications Medications Dose Ordered Sig/Lulu Route Start Time Stop Time Status Last Admin Dose Admin Nitroglycerin 0.4 mg Q5MINP PRN SL 04/16/24 23:45 Albuterol 2.5 mg Q6HPRN PRN NEB 04/17/24 18:30 04/28/24 11:11 2.5 MG Levalbuterol HCl 1.25 mg Q6HR NEB 04/18/24 00:00 05/04/24 06:03 1.25 MG Norepinephrine Bitartrate 32 mg/ Sodium Chloride 250 ml @ 0.938 mls/ hr Q24H IV 04/18/24 11:45 04/20/24 16:11 2.813 MLS/HR Midazolam HCl 50 ml @ 1 mls/hr Q24H IV 04/20/24 14:45 05/04/24 02:43 4 MLS/HR Pantoprazole Sodium 40 mg DAILY IV 04/21/24 10:00 05/03/24 09:46 40 MG Enteral Nutritional Formula 1,000 ml 30ML/HR GT 04/20/24 16:45 Cancel Enteral Nutritional Formula 1,000 ml 30ML/HR GT 04/21/24 08:45 04/29/24 12:46 1,000 ML Insulin Glargine 20 units HS SC 04/23/24 22:00 05/03/24 22:04 20 UNITS Diagnostic Test (Pha) 1 strip Q6HR 04/23/24 12:00 05/04/24 06:04 1 STRIP Insulin Human Regular Q6HR SC 04/23/24 12:00 05/03/24 23:20 2 UNITS Dextrose 50 ml UD PRN IV 04/23/24 11:15 Clopidogrel Bisulfate 75 mg DAILY PO 04/27/24 10:00 05/03/24 10:10 75 MG Atorvastatin Calcium 40 mg HS PO 04/27/24 22:00 05/03/24 21:55 40 MG Sodium Chloride 10 ml QSHIFT@10,22 IV 04/27/24 22:00 05/03/24 21:54 10 ML Dobutamine HCl/ Dextrose 250 ml @ 11.19 mls/ hr [id number] IV 04/28/24 17:15 05/04/24 03:07 11.19 MLS/HR Doxycycline Hyclate 250 ml @ 125 mls/hr Q12H IV 04/29/24 15:30 05/04/24 03:07 125 MLS/HR Fentanyl Citrate 250 ml @ 2.5 mls/hr Q24H IV 04/30/24 18:15 05/04/24 02:43 25 MLS/HR Acetaminophen 650 mg Q6HP PRN GT 04/30/24 18:45 Amiodarone HCl 200 mg Q12HR PO 05/01/24 22:00 05/03/24 21:55 200 MG Furosemide 40 mg BIDD IV 05/01/24 18:00 05/04/24 06:03 40 MG Dexmedetomidine HCl 400 mcg/ Dextrose 100 ml @ 3.605 mls/ hr Q24H IV 05/01/24 17:00 05/02/24 07:46 3.605 MLS/HR Enoxaparin Sodium 70 mg DAILY SC 05/03/24 10:00 05/03/24 13:05 70 MG Piperacillin Sod/ Tazobactam Sod 100 ml @ 25 mls/hr BID IV 05/03/24 10:00 05/03/24 21:55 25 MLS/HR Sodium Chloride 1,000 ml @ 75 mls/hr [id number] IV 05/03/24 12:15 05/03/24 23:22 75 MLS/HR Dopamine HCl/ Dextrose 250 ml @ 5.655 mls/ hr Q24H IV 05/03/24 12:15 05/03/24 13:04 5.655 MLS/HR objective GENERAL:Abnormal, LUNGS:Abnormal, MSK:Abnormal (No edema), NEURO:Abnormal laboratory and microbiology Laboratory Tests 05/04/24 08:28 05/03/24 03:33 Test 05/04/24 08:28 Range/Units Serum Glucose 109 H 74-106 mg/dL Assessment/Plan ANDREA likely ischemic ATN in setting of shock previously needing dialysis CKD stage IIIB Acute PE Acute hypoxic respiratory failure NSTEMI History of coronary artery disease Plan/recommendation -last dialysis on 04/22/2024. No HD today -NS monitor UOP monitor fluid ,electrolytes and monitor for post ATN diuresis Remains on heparin drip Dietary Evaluation Review Comments: current TF is providing adequate amount of protein and energy to pt. Need to continue monitor the nepro support vs updated lab values, d/t his ckd-3b status and not on HD. Expected Outcomes/Goals: meeting pt's estimated needs for both protein and energy at 75% or higher. Plan discussed with: Other Critical Care Time(min): 33 ANN-MARIE OROZCO MD May 04, 2024 09:32
--- NOTE | 2024-05-04 15:27 | DVHPN2 ---
Progress Note Date Seen: May 04, 2024 Medical Necessity Reason Pt with a Central, PICC or Fol: Yes The following are medically ne: PICC Line, Mack Catheter Reason for mack catheter: Strict I&O Subjective Patient reports: No new complaints Review of Systems: HEENT:Normal, CVS:Normal, RESPIRATORY:Normal, GI:Normal, :Normal, MSK:Normal, NEURO:Normal Objective vital signs Vital Sign Date Time Temp Pulse Resp B/P (MAP) Pulse Ox O2 Delivery O2 Flow Rate FiO2 05/04/24 14:15 98.4 72 20 94/48 (63) 100 209.1 05/04/24 14:00 Mechanical Ventilator+ 30 30 Total Intake and Output 05/03/24 05/03/24 05/04/24 15:00 23:00 07:00 Intake Total 657.830 ml 1316.760 ml 1266.760 ml Output Total 800 ml 600 ml Balance 657.830 ml 516.760 ml 666.760 ml medications Current Medications Medications Dose Ordered Sig/Lulu Route Start Time Stop Time Status Last Admin Dose Admin Nitroglycerin 0.4 mg Q5MINP PRN SL 04/16/24 23:45 Albuterol 2.5 mg Q6HPRN PRN NEB 04/17/24 18:30 04/28/24 11:11 2.5 MG Levalbuterol HCl 1.25 mg Q6HR NEB 04/18/24 00:00 05/04/24 11:56 1.25 MG Norepinephrine Bitartrate 32 mg/ Sodium Chloride 250 ml @ 0.938 mls/ hr Q24H IV 04/18/24 11:45 04/20/24 16:11 2.813 MLS/HR Midazolam HCl 50 ml @ 1 mls/hr Q24H IV 04/20/24 14:45 05/04/24 11:12 6 MLS/HR Pantoprazole Sodium 40 mg DAILY IV 04/21/24 10:00 05/04/24 09:29 40 MG Enteral Nutritional Formula 1,000 ml 30ML/HR GT 04/20/24 16:45 Cancel Enteral Nutritional Formula 1,000 ml 30ML/HR GT 04/21/24 08:45 04/29/24 12:46 1,000 ML Insulin Glargine 20 units HS SC 04/23/24 22:00 05/03/24 22:04 20 UNITS Diagnostic Test (Pha) 1 strip Q6HR 04/23/24 12:00 05/04/24 12:22 1 STRIP Insulin Human Regular Q6HR SC 04/23/24 12:00 05/03/24 23:20 2 UNITS Dextrose 50 ml UD PRN IV 04/23/24 11:15 Clopidogrel Bisulfate 75 mg DAILY PO 04/27/24 10:00 05/04/24 09:31 75 MG Atorvastatin Calcium 40 mg HS PO 04/27/24 22:00 05/03/24 21:55 40 MG Sodium Chloride 10 ml QSHIFT@10,22 IV 04/27/24 22:00 05/04/24 09:30 10 ML Doxycycline Hyclate 250 ml @ 125 mls/hr Q12H IV 04/29/24 15:30 05/04/24 03:07 125 MLS/HR Fentanyl Citrate 250 ml @ 2.5 mls/hr Q24H IV 04/30/24 18:15 05/04/24 11:13 25 MLS/HR Acetaminophen 650 mg Q6HP PRN GT 04/30/24 18:45 Amiodarone HCl 200 mg Q12HR PO 05/01/24 22:00 05/04/24 09:31 200 MG Furosemide 40 mg BIDD IV 05/01/24 18:00 05/04/24 06:03 40 MG Dexmedetomidine HCl 400 mcg/ Dextrose 100 ml @ 3.605 mls/ hr Q24H IV 05/01/24 17:00 05/02/24 07:46 3.605 MLS/HR Enoxaparin Sodium 70 mg DAILY SC 05/03/24 10:00 05/04/24 09:30 70 MG Piperacillin Sod/ Tazobactam Sod 100 ml @ 25 mls/hr BID IV 05/03/24 10:00 05/04/24 09:31 25 MLS/HR Sodium Chloride 1,000 ml @ 75 mls/hr [id number] IV 05/03/24 12:15 05/03/24 23:22 75 MLS/HR Examination: GENERAL:Normal, HEENT:Normal, NECK:Normal, LUNGS:Normal, LUNGS:Abnormal (INTUBATED), CVS:Normal, ABDOMEN:Normal, MSK:Normal, SKIN:Normal, NEURO:Normal, :Normal laboratory and microbiology Laboratory Tests 05/04/24 08:28 Test 05/04/24 08:28 Range/Units Serum Glucose 109 H 74-106 mg/dL Microbiology Date/Time Source Procedure Growth Status 04/18/24 01:00 Nose MRSA Screen - Final Complete 04/17/24 13:00 Blood Blood Culture - Final NO GROWTH AFTER 5 DAYS OF INCUBATION. Complete 04/17/24 01:05 Sputum Gram Stain - Final Complete 04/17/24 01:05 Respiratory Culture - Final Streptococcus Group F Complete Problem List/Assessment/Plan Problem List/Assessment/Plan Neurology : - patient is sedated Cardiovascular : # Non ST elevation myocardial infarction # Acute on chronic decompensated HFrEF, NYHA Class IV, newly diagnosed: lasix iv # Echo on 04/18/2024 shows: Severely dilated left ventricle. Severely reduced left ventricular systolic function with estimated ejection fraction 25%. There is anterior anteroseptal anteroapical inferolateral wall severe hypokinesia- dobutamine drip # Severe coronary artery disease status post triple-vessel CABG, 2018 # Lower extremity DVT ruled out # Severe PVD status post left SFA ELLIOT x 1 # Hypertension # Dyslipidemia - cardiology on board - discontinue Lipitor for now - discontinue Plavix for now - patient is on heparin drip # a fib: on amiodarone Respiratory : # Septic shock due to pneumonia ?aspiration # Acute hypoxic respiratory failure secondary to possible pneumonia - patient is on mechanical ventilation with FiO2 30%, PEEP: 6, F 24, Vt 550 # Possible community-acquired pneumonia Gm +/- bacterial pneumonia - continue antibiotic, Zosyn, add doxy # RLL segmental pulmonary embolism with no evidence of right-heart strain # Bilateral pleural effusions, small - continue heparin drip for pulmonary embolism Genitourinary : # ANDREA on CKD # Acute kidney injury due to ATN # ANDREA likely ischemic ATN in setting of shock # CKD stage IIIB -nephrology on board -continue Lasix 40 mg I/V daily. - HD today Infectious Disease : # Septic shock due to pneumonia # possible community-acquired pneumonia gm+/- bacterial - patient is on pressor - continue IV antibiotics Endocrine : [id number] diabetes mellitus -HbA1c 7.1 - Continue ISS - monitor blood glucose Hematology : - leukocytosis due to septic shock - follow up morning labs Nutrition : Glucerna Lines: Endotracheal tube: 04/18/2024 Right IG central line: 04/18/2024 Mack catheter: 04/18/2024 Left IG Pipo catheter: 04/20/2024 Drips : Fentanyl 75 Versed 5 Propofol 0 NE 0 Vasopressin 0 [id number] Prophylaxis for PUD : Protonix 40 mg IV daily Prophylaxis for DVT: Patient is on heparin drip long dw - explained treatment plan/trach Plan discussed with: Spouse, Daughter My Orders My Orders Orders - ADRIA NASH MD Procedure Category Date Status Time Furosemide Injection PHA 05/05/24 Transmitted (Lasix Injection) 10:00 Complete Blood Count LAB 05/05/24 Verified 06:00 Comprehensive LAB 05/05/24 Verified Metabolic Panel 06:00 Chest Portable XY 05/05/24 Transmitted 06:00 Abg W/ Co-Ox RT 05/05/24 Transmitted 06:00 Dietary Evaluation Review Comments: current TF is providing adequate amount of protein and energy to pt. Need to continue monitor the nepro support vs updated lab values, d/t his ckd-3b status and not on HD. Expected Outcomes/Goals: meeting pt's estimated needs for both protein and energy at 75% or higher. Critical Care Time (mins): 81 (critical care time including dw family was 81 mins) Date of Service: May 04, 2024 Billing Provider: ADRIA NASH MD Common Visit Codes: [id number] CARE 30-74 MIN, [id number] CARE-EACH +30MIN ADRIA NASH MD May 04, 2024 15:27
[2024-05-05] VITALS (105 sets, daily range): BP systolic 96–124; BP diastolic 43–73; PULSE 66–93; RESP 14–37; TEMP 98.1–99.7; O2SAT 72–100
[2024-05-05 03:52] LABS: Basophils # (auto) 0.1 10 ^3/uL (0-0.2); Basophils % (auto) 0.6 % (0.0-2.0); Eosinophils # (auto) 0.2 10 ^3/uL (0-0.8); Hematocrit 25.4 % (41.0-53.0); Lymphocytes # (auto) 0.6 10 ^3/uL (0.4-5.4); Mean Corpuscular Hemoglobin 28.9 pg (28.0-32.0); Mean Corpuscular Hgb Conc. 32.1 g/dL (32.0-36.0); Red Blood Cells 2.82 10^6/uL (4.5-5.90); White Blood Cell 11.3 10^3/uL (4.4-10.8)
[2024-05-05 03:55] LABS: Eosinophils % (auto) 2.1 % (0.0-7.0); Hemoglobin 8.2 g/dL (13.5-17.5); Lymphocytes % (auto) 5.7 % (10.0-50.0); Monocytes # (auto) 1.2 10 ^3/uL (0-1.3); Monocytes % (auto) 10.7 % (0.0-12.0); Neutrophils # (auto) 9.1 10 ^3/uL (1.6-8.6); Neutrophils % (auto) 80.9 % (37.0-80.0); Nucleated Red Blood Cells % 0.1 %; Platelet Count (auto) 233 10^3/uL (140-450); Red Cell Distribution Width 14.6 % (11.8-14.3)
[2024-05-05 04:06] LABS: Alanine Aminotransferase 24 U/L (7-40); Albumin 3.3 g/dL (3.2-4.8); Alkaline Phosphatase 91 U/L (46-116); Anion Gap 10 (5-15); Aspartate Aminotransferase 35 U/L (13-40); BUN/Creatinine Ratio 20.4 (10.0-20.0); Carbon Dioxide 22 mmol/L (20-31); Chloride 103 mmol/L (98-107)
[2024-05-05 04:07] LABS: Bilirubin, Total 0.4 mg/dL (0.2-1.0); Total Protein 6.3 g/dL (5.7-8.2)
[2024-05-05 04:13] LABS: Blood Urea Nitrogen 77 mg/dL (9-23); Calcium 8.4 mg/dL (8.7-10.4); Glucose 128 mg/dL (74-106); Potassium 3.5 mmol/L (3.5-5.1); Sodium 135 mmol/L (136-145)
--- NOTE | 2024-05-05 04:52 | DVH ---
CHEST RADIOGRAPH Indication: RESP FAILURE Technique: Single frontal view of the chest was obtained Comparison: XY CHEST PORTABLE on DOS: 05/04/24, XY CHEST PORTABLE on DOS: 05/03/24, XY CHEST PORTABLE on DOS: 05/02/24, XY CHEST PORTABLE on DOS: 05/01/24, XY CHEST PORTABLE on DOS: 04/30/24, XY CHEST P ORTABLE on DOS: 05/04/24 FINDINGS: Lines and Tubes: The endotracheal tube terminates 5.4 cm above the mark. A central venous catheter terminates in the superior vena cava. The enteric tube terminates below the left hemidiaphragm and ou tside the field of view. Right PICC terminates in the superior vena cava. Lungs: Patchy bilateral airspace consolidation. Pleura: No effusion. No pneumothorax. Cardiomediastinal contours: Stable cardiovascular silhouette. Bones: No acute osseous abnormality. Status post median sternotomy. IMPRESSION: 1. Stable position of the support lines and tubes. 2. Bilateral airspace disease.
[2024-05-05 08:37] LABS: Base Excess -4.5 mmol/L (-2.0-3.0)
[2024-05-05] MEDS: FUROSEMIDE 40 MG/4 ML VIAL IV SCH (09:40)
--- NOTE | 2024-05-05 12:04 | DVHPN2 ---
Progress Note Date Seen: May 05, 2024 Medical Necessity Reason Pt with a Central, PICC or Fol: Yes The following are medically ne: PICC Line, Mack Catheter Reason for mack catheter: Strict I&O Subjective Patient reports: No new complaints Review of Systems: HEENT:Normal, CVS:Normal, RESPIRATORY:Normal, GI:Normal, :Normal, MSK:Normal, NEURO:Normal Objective vital signs Vital Sign Date Time Temp Pulse Resp B/P (MAP) Pulse Ox O2 Delivery O2 Flow Rate FiO2 05/05/24 10:30 99.7 82 30 121/56 (77) 100 211.5 05/05/24 10:00 30 05/05/24 10:00 Mechanical Ventilator+ Total Intake and Output 05/04/24 05/04/24 05/05/24 15:00 23:00 07:00 Intake Total 351 ml 565.814 ml 975.628 ml Output Total 325 ml 350 ml Balance 351 ml 240.814 ml 625.628 ml medications Current Medications Medications Dose Ordered Sig/Lulu Route Start Time Stop Time Status Last Admin Dose Admin Nitroglycerin 0.4 mg Q5MINP PRN SL 04/16/24 23:45 Albuterol 2.5 mg Q6HPRN PRN NEB 04/17/24 18:30 04/28/24 11:11 2.5 MG Levalbuterol HCl 1.25 mg Q6HR NEB 04/18/24 00:00 05/05/24 11:55 1.25 MG Norepinephrine Bitartrate 32 mg/ Sodium Chloride 250 ml @ 0.938 mls/ hr Q24H IV 04/18/24 11:45 04/20/24 16:11 2.813 MLS/HR Midazolam HCl 50 ml @ 1 mls/hr Q24H IV 04/20/24 14:45 05/05/24 11:09 10 MLS/HR Pantoprazole Sodium 40 mg DAILY IV 04/21/24 10:00 05/05/24 09:39 40 MG Enteral Nutritional Formula 1,000 ml 30ML/HR GT 04/20/24 16:45 Cancel Enteral Nutritional Formula 1,000 ml 30ML/HR GT 04/21/24 08:45 05/04/24 17:50 1,000 ML Diagnostic Test (Pha) 1 strip Q6HR 04/23/24 12:00 05/05/24 11:34 1 STRIP Insulin Human Regular Q6HR SC 04/23/24 12:00 05/05/24 11:33 2 UNITS Dextrose 50 ml UD PRN IV 04/23/24 11:15 Clopidogrel Bisulfate 75 mg DAILY PO 04/27/24 10:00 05/05/24 09:40 75 MG Atorvastatin Calcium 40 mg HS PO 04/27/24 22:00 05/04/24 21:39 40 MG Sodium Chloride 10 ml QSHIFT@10,22 IV 04/27/24 22:00 05/05/24 09:41 10 ML Doxycycline Hyclate 250 ml @ 125 mls/hr Q12H IV 04/29/24 15:30 05/05/24 03:58 125 MLS/HR Fentanyl Citrate 250 ml @ 2.5 mls/hr Q24H IV 04/30/24 18:15 05/04/24 11:13 25 MLS/HR Acetaminophen 650 mg Q6HP PRN GT 04/30/24 18:45 Amiodarone HCl 200 mg Q12HR PO 05/01/24 22:00 05/05/24 09:40 200 MG Dexmedetomidine HCl 400 mcg/ Dextrose 100 ml @ 3.605 mls/ hr Q24H IV 05/01/24 17:00 05/02/24 07:46 3.605 MLS/HR Enoxaparin Sodium 70 mg DAILY SC 05/03/24 10:00 05/05/24 09:39 70 MG Piperacillin Sod/ Tazobactam Sod 100 ml @ 25 mls/hr BID IV 05/03/24 10:00 05/05/24 09:39 25 MLS/HR Furosemide 40 mg DAILY IV 05/05/24 10:00 05/05/24 09:40 40 MG Examination: GENERAL:Normal, HEENT:Normal, NECK:Normal, LUNGS:Normal, LUNGS:Abnormal (INTUBATED), CVS:Normal, ABDOMEN:Normal, MSK:Normal, SKIN:Normal, NEURO:Normal, :Normal laboratory and microbiology Laboratory Tests 05/05/24 03:30 Test 05/05/24 03:30 Range/Units Serum Glucose 128 H 74-106 mg/dL Microbiology Date/Time Source Procedure Growth Status 04/18/24 01:00 Nose MRSA Screen - Final Complete 04/17/24 13:00 Blood Blood Culture - Final NO GROWTH AFTER 5 DAYS OF INCUBATION. Complete 04/17/24 01:05 Sputum Gram Stain - Final Complete 04/17/24 01:05 Respiratory Culture - Final Streptococcus Group F Complete Problem List/Assessment/Plan Problem List/Assessment/Plan Neurology : - patient is sedated Cardiovascular : # Non ST elevation myocardial infarction # Acute on chronic decompensated HFrEF, NYHA Class IV, newly diagnosed: lasix iv # Echo on 04/18/2024 shows: Severely dilated left ventricle. Severely reduced left ventricular systolic function with estimated ejection fraction 25%. There is anterior anteroseptal anteroapical inferolateral wall severe hypokinesia- dobutamine drip # Severe coronary artery disease status post triple-vessel CABG, 2018 # Lower extremity DVT ruled out # Severe PVD status post left SFA ELLIOT x 1 # Hypertension # Dyslipidemia - cardiology on board - discontinue Lipitor for now - discontinue Plavix for now - patient is on heparin drip # a fib: on amiodarone Respiratory : # Septic shock due to pneumonia ?aspiration # Acute hypoxic respiratory failure secondary to possible pneumonia - patient is on mechanical ventilation with FiO2 30%, PEEP: 6, F 24, Vt 550 # Possible community-acquired pneumonia Gm +/- bacterial pneumonia - continue antibiotic, Zosyn, add doxy # RLL segmental pulmonary embolism with no evidence of right-heart strain # Bilateral pleural effusions, small - continue heparin drip for pulmonary embolism discussed with family regards trach Genitourinary : # ANDREA on CKD # Acute kidney injury due to ATN # ANDREA likely ischemic ATN in setting of shock # CKD stage IIIB -nephrology on board -continue Lasix 40 mg I/V daily. - HD today Infectious Disease : # Septic shock due to pneumonia # possible community-acquired pneumonia gm+/- bacterial - patient is on pressor - continue IV antibiotics Endocrine : [id number] diabetes mellitus -HbA1c 7.1 - Continue ISS - monitor blood glucose Hematology : - leukocytosis due to septic shock - follow up morning labs Nutrition : Glucerna Lines: Endotracheal tube: 04/18/2024 Right IG central line: 04/18/2024 Mack catheter: 04/18/2024 Left IG Pipo catheter: 04/20/2024 Drips : Fentanyl 75 Versed 5 Propofol 0 NE 0 Vasopressin 0 [id number] Prophylaxis for PUD : Protonix 40 mg IV daily Prophylaxis for DVT: Patient is on heparin drip long dw - explained treatment plan/trach Plan discussed with: Other (rn) My Orders My Orders Orders - ADRIA NASH MD Procedure Category Date Status Time Furosemide Injection PHA 05/05/24 In Process (Lasix Injection) 10:00 Chest Portable XY 05/05/24 Resulted 06:00 Abg W/ Co-Ox RT 05/05/24 Logged 06:00 Basic Metabolic Panel LAB 05/06/24 Verified 06:00 Chest Portable XY 05/06/24 Verified 06:00 Dietary Evaluation Review Comments: current TF is providing adequate amount of protein and energy to pt. Need to continue monitor the nepro support vs updated lab values, d/t his ckd-3b status and not on HD. Expected Outcomes/Goals: meeting pt's estimated needs for both protein and energy at 75% or higher. Critical Care Time (mins): 41 (critical care time 41 mins) Date of Service: May 05, 2024 Billing Provider: ADRIA NASH MD Common Visit Codes: [id number] CARE 30-74 MIN ARDIA NASH MD May 05, 2024 12:04
--- NOTE | 2024-05-05 13:00 | DVHPN2 ---
Progress Note Date Seen: May 05, 2024 Medical Necessity Reason Pt with a Central, PICC or Fol: Yes The following are medically ne: PICC Line, Mack Catheter Reason for mack catheter: Strict I&O Subjective Patient reports: Other (remains intubated) Objective vital signs Vital Sign Date Time Temp Pulse Resp B/P (MAP) Pulse Ox O2 Delivery O2 Flow Rate FiO2 05/05/24 12:15 99.5 76 21 103/55 (71) 100 211.1 05/05/24 12:00 Mechanical Ventilator+ 30 30 Total Intake and Output 05/04/24 05/04/24 05/05/24 15:00 23:00 07:00 Intake Total 351 ml 565.814 ml 975.628 ml Output Total 325 ml 350 ml Balance 351 ml 240.814 ml 625.628 ml medications Current Medications Medications Dose Ordered Sig/Lulu Route Start Time Stop Time Status Last Admin Dose Admin Nitroglycerin 0.4 mg Q5MINP PRN SL 04/16/24 23:45 Albuterol 2.5 mg Q6HPRN PRN NEB 04/17/24 18:30 04/28/24 11:11 2.5 MG Levalbuterol HCl 1.25 mg Q6HR NEB 04/18/24 00:00 05/05/24 11:55 1.25 MG Norepinephrine Bitartrate 32 mg/ Sodium Chloride 250 ml @ 0.938 mls/ hr Q24H IV 04/18/24 11:45 04/20/24 16:11 2.813 MLS/HR Midazolam HCl 50 ml @ 1 mls/hr Q24H IV 04/20/24 14:45 05/05/24 11:09 10 MLS/HR Pantoprazole Sodium 40 mg DAILY IV 04/21/24 10:00 05/05/24 09:39 40 MG Enteral Nutritional Formula 1,000 ml 30ML/HR GT 04/20/24 16:45 Cancel Enteral Nutritional Formula 1,000 ml 30ML/HR GT 04/21/24 08:45 05/04/24 17:50 1,000 ML Diagnostic Test (Pha) 1 strip Q6HR 04/23/24 12:00 05/05/24 11:34 1 STRIP Insulin Human Regular Q6HR SC 04/23/24 12:00 05/05/24 11:33 2 UNITS Dextrose 50 ml UD PRN IV 04/23/24 11:15 Clopidogrel Bisulfate 75 mg DAILY PO 04/27/24 10:00 05/05/24 09:40 75 MG Atorvastatin Calcium 40 mg HS PO 04/27/24 22:00 05/04/24 21:39 40 MG Sodium Chloride 10 ml QSHIFT@10,22 IV 04/27/24 22:00 05/05/24 09:41 10 ML Doxycycline Hyclate 250 ml @ 125 mls/hr Q12H IV 04/29/24 15:30 05/05/24 03:58 125 MLS/HR Fentanyl Citrate 250 ml @ 2.5 mls/hr Q24H IV 04/30/24 18:15 05/04/24 11:13 25 MLS/HR Acetaminophen 650 mg Q6HP PRN GT 04/30/24 18:45 Amiodarone HCl 200 mg Q12HR PO 05/01/24 22:00 05/05/24 09:40 200 MG Dexmedetomidine HCl 400 mcg/ Dextrose 100 ml @ 3.605 mls/ hr Q24H IV 05/01/24 17:00 05/02/24 07:46 3.605 MLS/HR Enoxaparin Sodium 70 mg DAILY SC 05/03/24 10:00 05/05/24 09:39 70 MG Piperacillin Sod/ Tazobactam Sod 100 ml @ 25 mls/hr BID IV 05/03/24 10:00 05/05/24 09:39 25 MLS/HR Furosemide 40 mg DAILY IV 05/05/24 10:00 05/05/24 09:40 40 MG Examination: GENERAL:Abnormal, HEENT:Abnormal, LUNGS:Abnormal laboratory and microbiology Laboratory Tests 05/05/24 03:30 Test 05/05/24 03:30 Range/Units Serum Glucose 128 H 74-106 mg/dL Microbiology Date/Time Source Procedure Growth Status 04/18/24 01:00 Nose MRSA Screen - Final Complete 04/17/24 13:00 Blood Blood Culture - Final NO GROWTH AFTER 5 DAYS OF INCUBATION. Complete 04/17/24 01:05 Sputum Gram Stain - Final Complete 04/17/24 01:05 Respiratory Culture - Final Streptococcus Group F Complete Problem List/Assessment/Plan Problem List/Assessment/Plan ANDREA likely ischemic ATN in setting of shock previously needing dialysis CKD stage IIIB Acute PE Acute hypoxic respiratory failure NSTEMI History of coronary artery disease Plan/recommendation -last dialysis on 04/22/2024. No HD today cr is uptrending now diuretics resumed, no major events noted. will consider if dialysis needs to be resumed Plan discussed with: Other Dietary Evaluation Review Comments: current TF is providing adequate amount of protein and energy to pt. Need to continue monitor the nepro support vs updated lab values, d/t his ckd-3b status and not on HD. Expected Outcomes/Goals: meeting pt's estimated needs for both protein and energy at 75% or higher. ANN-MARIE OROZCO MD May 05, 2024 13:00
--- NOTE | 2024-05-05 13:22 | ECG ---
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
--- NOTE | 2024-05-05 13:51 | ECG ---
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
--- NOTE | 2024-05-05 13:54 | ECG ---
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
[2024-05-06] VITALS (113 sets, daily range): BP systolic 92–125; BP diastolic 43–80; PULSE 67–85; RESP 16–36; TEMP 98.6–99.3; O2SAT 94–100
[2024-05-06 04:15] LABS: Chloride 102 mmol/L (98-107)
[2024-05-06 04:16] LABS: Anion Gap 12 (5-15); Carbon Dioxide 20 mmol/L (20-31)
[2024-05-06 04:22] LABS: BUN/Creatinine Ratio 21.5 (10.0-20.0)
[2024-05-06 04:24] LABS: Glucose 150 mg/dL (74-106); Potassium 3.4 mmol/L (3.5-5.1); Sodium 134 mmol/L (136-145)
[2024-05-06 04:30] LABS: Calcium 7.2 mg/dL (8.7-10.4)
[2024-05-06 04:31] LABS: Blood Urea Nitrogen 90 mg/dL (9-23)
[2024-05-06 05:20] LABS: Basophils # (auto) 0.1 10 ^3/uL (0-0.2); Basophils % (auto) 0.7 % (0.0-2.0); Eosinophils # (auto) 0.1 10 ^3/uL (0-0.8); Eosinophils % (auto) 1.4 % (0.0-7.0); Hematocrit 22.3 % (41.0-53.0); Hemoglobin 7.3 g/dL (13.5-17.5); Lymphocytes # (auto) 0.3 10 ^3/uL (0.4-5.4); Mean Corpuscular Hgb Conc. 32.9 g/dL (32.0-36.0); Mean Corpuscular Volume 88.2 fL (80.0-100.0); Monocytes # (auto) 0.8 10 ^3/uL (0-1.3); Monocytes % (auto) 7.6 % (0.0-12.0); Neutrophils # (auto) 9.2 10 ^3/uL (1.6-8.6); Neutrophils % (auto) 87.3 % (37.0-80.0); Platelet Count (auto) 265 10^3/uL (140-450); Red Blood Cells 2.53 10^6/uL (4.5-5.90); Red Cell Distribution Width 14.9 % (11.8-14.3); White Blood Cell 10.5 10^3/uL (4.4-10.8)
--- NOTE | 2024-05-06 05:37 | DVH ---
CHEST RADIOGRAPH Indication: RESP FAILURE Technique: Single frontal view of the chest was obtained Comparison: XY CHEST PORTABLE on DOS: 05/05/24, XY CHEST PORTABLE on DOS: 05/04/24, XY CHEST PORTABLE on DOS: 05/03/24, XY CHEST PORTABLE on DOS: 05/02/24, XY CHEST PORTABLE on DOS: 05/01/24, XY CHEST P ORTABLE on DOS: 05/05/24 FINDINGS: Lines and Tubes: The endotracheal tube terminates 5.4 cm above the mark. A central venous catheter terminates in the superior vena cava. The enteric tube terminates below the left hemidiaphragm and ou tside the field of view. Right PICC terminates in the superior vena cava. Lungs: Patchy bilateral airspace consolidation. Pleura: No effusion. No pneumothorax. Cardiomediastinal contours: Stable cardiovascular silhouette. Bones: No acute osseous abnormality. Status post median sternotomy. IMPRESSION: 1. Stable position of the support lines and tubes. 2. Bilateral airspace disease.
[2024-05-06] MEDS: POTASSIUM CHL 20MEQ/100ML 100 ML IV ONE (05:51)
[2024-05-06 07:28] LABS: Base Excess -6.4 mmol/L (-2.0-3.0)
--- NOTE | 2024-05-06 11:07 | DVHPN2 ---
Progress Note Date Seen: May 06, 2024 Medical Necessity Reason Pt with a Central, PICC or Fol: Yes The following are medically ne: PICC Line, Mack Catheter Reason for mack catheter: Strict I&O Subjective Review of Systems: RESPIRATORY:Abnormal Other Systems: Patient seen and examined by myself today in follow-up, patient remained intubated on ventilator Objective vital signs Vital Sign Date Time Temp Pulse Resp B/P (MAP) Pulse Ox O2 Delivery O2 Flow Rate FiO2 05/06/24 10:30 76 21 97/53 (68) 100 05/06/24 09:55 30 05/06/24 09:44 Mechanical Ventilator+ 05/06/24 08:00 98.7 98.7 Total Intake and Output 05/05/24 05/05/24 05/06/24 14:59 22:59 06:59 Intake Total 380 ml 775.0 ml 1083.5 ml Output Total 400 ml 250 ml Balance 380 ml 375.0 ml 833.5 ml medications Current Medications Medications Dose Ordered Sig/Lulu Route Start Time Stop Time Status Last Admin Dose Admin Nitroglycerin 0.4 mg Q5MINP PRN SL 04/16/24 23:45 Albuterol 2.5 mg Q6HPRN PRN NEB 04/17/24 18:30 04/28/24 11:11 2.5 MG Levalbuterol HCl 1.25 mg Q6HR NEB 04/18/24 00:00 05/06/24 05:37 1.25 MG Norepinephrine Bitartrate 32 mg/ Sodium Chloride 250 ml @ 0.938 mls/ hr Q24H IV 04/18/24 11:45 04/20/24 16:11 2.813 MLS/HR Midazolam HCl 50 ml @ 1 mls/hr Q24H IV 04/20/24 14:45 05/06/24 08:54 12 MLS/HR Pantoprazole Sodium 40 mg DAILY IV 04/21/24 10:00 05/06/24 07:57 40 MG Enteral Nutritional Formula 1,000 ml 30ML/HR GT 04/20/24 16:45 Cancel Enteral Nutritional Formula 1,000 ml 30ML/HR GT 04/21/24 08:45 05/04/24 17:50 1,000 ML Diagnostic Test (Pha) 1 strip Q6HR 04/23/24 12:00 05/06/24 05:45 1 STRIP Insulin Human Regular Q6HR SC 04/23/24 12:00 05/06/24 05:45 6 UNITS Dextrose 50 ml UD PRN IV 04/23/24 11:15 Clopidogrel Bisulfate 75 mg DAILY PO 04/27/24 10:00 05/06/24 07:58 75 MG Atorvastatin Calcium 40 mg HS PO 04/27/24 22:00 05/05/24 21:39 40 MG Sodium Chloride 10 ml QSHIFT@10,22 IV 04/27/24 22:00 05/06/24 07:11 10 ML Doxycycline Hyclate 250 ml @ 125 mls/hr Q12H IV 04/29/24 15:30 05/06/24 03:07 125 MLS/HR Fentanyl Citrate 250 ml @ 2.5 mls/hr Q24H IV 04/30/24 18:15 05/06/24 08:58 30 MLS/HR Acetaminophen 650 mg Q6HP PRN GT 04/30/24 18:45 Amiodarone HCl 200 mg Q12HR PO 05/01/24 22:00 05/06/24 07:58 200 MG Dexmedetomidine HCl 400 mcg/ Dextrose 100 ml @ 3.605 mls/ hr Q24H IV 05/01/24 17:00 05/02/24 07:46 3.605 MLS/HR Enoxaparin Sodium 70 mg DAILY SC 05/03/24 10:00 05/06/24 07:58 70 MG Piperacillin Sod/ Tazobactam Sod 100 ml @ 25 mls/hr BID IV 05/03/24 10:00 05/06/24 07:57 25 MLS/HR Furosemide 40 mg DAILY IV 05/05/24 10:00 05/06/24 07:59 40 MG Sodium Chloride 1,000 ml @ 75 mls/hr [id number] IV 05/06/24 11:15 UNV Examination: LUNGS:Normal, CVS:Normal, MSK:Normal laboratory and microbiology Laboratory Tests 05/06/24 05:11 05/06/24 03:24 Test 05/06/24 03:24 Range/Units Serum Glucose 150 H 74-106 mg/dL Microbiology Date/Time Source Procedure Growth Status 04/18/24 01:00 Nose MRSA Screen - Final Complete 04/17/24 13:00 Blood Blood Culture - Final NO GROWTH AFTER 5 DAYS OF INCUBATION. Complete 04/17/24 01:05 Sputum Gram Stain - Final Complete 04/17/24 01:05 Respiratory Culture - Final Streptococcus Group F Complete Problem List/Assessment/Plan Problem List/Assessment/Plan Nurse ANDREA secondary hemodynamic mediated, FeNa < 1% status post intermittent hemodialysis Acute hypoxic respiratory failure, intubated on ventilator CKD stage IIIB Acute PE NSTEMI Congestive heart failure, ejection fraction 20% coronary artery disease Diabetes mellitus type 2 Anemia of chronic kidney disease Hypokalemia Recommendation Kidney function slightly worsened today Increased urine output Electrolytes are stable Low-dose dopamine IV fluid NS at 75 cc/hour KCL replacement Mack catheter Strict I&Os We will continue to follow up Plan discussed with: Other (Nurse) My Orders My Orders Orders - MANAV RITTER MD Procedure Category Date Status Time Albumin 25% (Albutein) PHA 05/06/24 Logged 11:15 Sodium Chloride 0.9% PHA 05/06/24 Logged 11:15 Dietary Evaluation Review Comments: current TF is providing adequate amount of protein and energy to pt. Need to continue monitor the nepro support vs updated lab values, d/t his ckd-3b status and not on HD. Expected Outcomes/Goals: meeting pt's estimated needs for both protein and energy at 75% or higher. MANAV RITTER MD May 06, 2024 11:07
[2024-05-06] MEDS: ALBUMIN 25% 100 ML IV ONE (11:20)
[2024-05-06] MEDS: SODIUM CHLORIDE 0.9% 1,000 ML IV SCH (11:20)
--- NOTE | 2024-05-06 16:35 | DVHPN2 ---
Assessment/Plan Assessment/Plan ICU progress note Subjective continuing diuresis, net positive still, on dopa drip Objective Physical exam sedated, mechanically ventilated PERLLA gag, cough corneal present withdraw to pain mechanical breath sounds S1 S2 RRR BS+ LE edema Imaging CXR no interval changes Assessment and plan acute on chronic systolic heart failure septic shock PNA HFrEF NYHA 4 NSTEMI ICM acute PE w/o RHS PAD s/p stents HTN PNA possible aspiration acute hypoxic respiratory failure requiring mechanical ventilation b/l PLEF ANDREA on CKD 3 NIDDM c/w mechanical ventilation c/w sedation keep RAAS -2 c/w zosyn doxy c/w heparin drip c/w lasix asa plavix levo to keep map >65 ISS FS q6 albuterol mucormyst nephro added dopa for diuresis Lines ETT RIJ TLC LIJ cornelio mack Maintain potassium of 4, phosphate of 3 and magnesium of 2 Diet tube feeds GI prophylaxis protonix DVT prophylaxis heparin drip Condition critical Prognosis poor 58 minutes critical care time spent on this patient including evaluation, chart review, formulating plan and communication with team, excluding any procedures or point of care imaging Plan discussed with: Other Date of Service: May 06, 2024 Billing Provider: ABIMAEL FORTUNE MD Common Visit Codes: [id number] CARE 30-74 MIN ABIMAEL FORTUNE MD May 06, 2024 16:35
--- NOTE | 2024-05-06 18:05 | DVHPN2 ---
Progress Note - Dictate Date Seen: May 06, 2024 Medical Necessity Reason Pt with a Central, PICC or Fol: Yes The following are medically ne: PICC Line, Mack Catheter Reason for mack catheter: Strict I&O Subjective Patient seen and examined at bedside. Sedated, intubated on mechanical ventilator. Overnight events reviewed. vital signs Vital Sign Date Time Temp Pulse Resp B/P (MAP) Pulse Ox O2 Delivery O2 Flow Rate FiO2 05/06/24 17:00 73 20 103/50 (67) 100 05/06/24 16:00 98.8 98.8 05/06/24 15:43 Mechanical Ventilator+ 30 30 Total Intake and Output 05/05/24 05/05/24 05/06/24 15:00 23:00 07:00 Intake Total 380 ml 777.5 ml 1088.0 ml Output Total 400 ml 250 ml Balance 380 ml 377.5 ml 838.0 ml medications Current Medications Medications Dose Ordered Sig/Lulu Route Start Time Stop Time Status Last Admin Dose Admin Nitroglycerin 0.4 mg Q5MINP PRN SL 04/16/24 23:45 Albuterol 2.5 mg Q6HPRN PRN NEB 04/17/24 18:30 04/28/24 11:11 2.5 MG Levalbuterol HCl 1.25 mg Q6HR NEB 04/18/24 00:00 05/06/24 11:28 1.25 MG Norepinephrine Bitartrate 32 mg/ Sodium Chloride 250 ml @ 0.938 mls/ hr Q24H IV 04/18/24 11:45 04/20/24 16:11 2.813 MLS/HR Midazolam HCl 50 ml @ 1 mls/hr Q24H IV 04/20/24 14:45 05/06/24 17:19 12 MLS/HR Pantoprazole Sodium 40 mg DAILY IV 04/21/24 10:00 05/06/24 07:57 40 MG Enteral Nutritional Formula 1,000 ml 30ML/HR GT 04/20/24 16:45 Cancel Enteral Nutritional Formula 1,000 ml 30ML/HR GT 04/21/24 08:45 05/04/24 17:50 1,000 ML Diagnostic Test (Pha) 1 strip Q6HR 04/23/24 12:00 05/06/24 17:13 1 STRIP Insulin Human Regular Q6HR SC 04/23/24 12:00 05/06/24 17:18 3 UNITS Dextrose 50 ml UD PRN IV 04/23/24 11:15 Clopidogrel Bisulfate 75 mg DAILY PO 04/27/24 10:00 05/06/24 07:58 75 MG Atorvastatin Calcium 40 mg HS PO 04/27/24 22:00 05/05/24 21:39 40 MG Sodium Chloride 10 ml QSHIFT@10,22 IV 04/27/24 22:00 05/06/24 07:11 10 ML Doxycycline Hyclate 250 ml @ 125 mls/hr Q12H IV 04/29/24 15:30 05/06/24 14:51 125 MLS/HR Fentanyl Citrate 250 ml @ 2.5 mls/hr Q24H IV 04/30/24 18:15 05/06/24 17:19 30 MLS/HR Acetaminophen 650 mg Q6HP PRN GT 04/30/24 18:45 Amiodarone HCl 200 mg Q12HR PO 05/01/24 22:00 05/06/24 07:58 200 MG Dexmedetomidine HCl 400 mcg/ Dextrose 100 ml @ 3.605 mls/ hr Q24H IV 05/01/24 17:00 05/02/24 07:46 3.605 MLS/HR Enoxaparin Sodium 70 mg DAILY SC 05/03/24 10:00 05/06/24 07:58 70 MG Piperacillin Sod/ Tazobactam Sod 100 ml @ 25 mls/hr BID IV 05/03/24 10:00 05/06/24 07:57 25 MLS/HR Furosemide 40 mg DAILY IV 05/05/24 10:00 05/06/24 07:59 40 MG Sodium Chloride 1,000 ml @ 75 mls/hr [id number] IV 05/06/24 11:15 05/06/24 11:20 75 MLS/HR objective Gen.: Patient lying in bed in medical ICU. Sedated, intubated on mechanical ventilator. Head: Normocephalic, atraumatic. Eyes: PERRLA. Ears: Normal external anatomy. Throat: Endotracheal tube and orogastric tube in place. Neck: Supple, trachea midline. Chest: Transmitted breath sounds bilaterally. Decreased air entry bilaterally. No wheezing. Bibasilar crackles. Cardiovascular: Positive S1, positive S2. Regular rate and rhythm. Abdomen: Positive bowel sounds in all 4 quadrants. Soft, nontender, nondistended. : Mack in place. Normal external genitalia. Rectal: Deferred. Skin: Warm, dry. Intact. Extremities: 2+ radial pulses bilaterally. No lower extremity edema. Neuro: Sedated. laboratory and microbiology Laboratory Tests 05/06/24 05:11 05/06/24 03:24 Test 05/06/24 03:24 Range/Units Serum Glucose 150 H 74-106 mg/dL Assessment/Plan Impression: Acute hypoxic respiratory failure On mechanical ventilator Non-ST elevation myocardial infarction Elevated troponin Acute kidney injury DM type II w/ hyperglycemia Nicotine dependence Marijuana abuse Pleural effusion Atelectasis Events: Remains on vent support On AC mode; RR 20, VT 500, PEEP 5, FiO2 30%. ABG reviewed. Acidemia. Increase RR to 24. Sedated on Fentanyl, Versed Albumin CXR demonstrates cardiomegaly; B/L airspace opacities, Devices in place. Continue antibiotics WBC within normal limits. Monitor Hgb. 7.3 g/dL Transfuse if less than 7.0 g/dL Monitor renal function Nephrology recommendations appreciated. Tube feeds for nutritional support. Awaiting family decision regarding goals of care. Labs and imaging reviewed. Rest of plan as noted below. Plan: s/p intubation on mechanical ventilator. On AC mode; RR 20, VT 500, PEEP 5, FiO2 30%. Titrate FIO2 to keep O2 saturation above 90%. VAP bundle. Daily ABG and CXR while intubated Sedated for ventilator synchrony Elevated troponin Cardiology recommendations appreciated Continue bronchodilators. Possible BOOP - start stress dose steroids Continue antibiotics. F/u cultures. Leukocytosis - monitor WBC. Pressors for hemodynamic support Titrate to keep mean arterial pressure greater than 65 mmHg Monitor renal function Monitor electrolytes. Supplement as necessary. Monitor ins and outs. Maintain euvolemia. GI prophylaxis. DVT prophylaxis. Prognosis: Poor given patient's multiple co-morbidities. Condition: Critical Rest of plan per hospitalist and other consultants. A total of 35 minutes of critical care time was spent reviewing the patient record, examining the patient, making a diagnostic and therapeutic plan, discussing this plan with the medical personnel, following up on diagnostic studies and following the patient for clinical stability excluding any and all procedures. At least 50% of this time was spent in direct, [id number] contact. Thank you Dr. Korina Thakkar MD, for allowing me to participate in this patient's care. Further recommendations will depend on the patient's clinical course. Please do not hesitate to contact me if you have any questions or concerns. This medical document was created using an electronic medical record system with [employer] dictation system. Although these documentations are being carefully reviewed, there may still be some phonetic and typographical changes. The errors are purely typographical, due to imperfection on the software program, and do not reflect any compromise in the patient's medical care. Dietary Evaluation Review Comments: current TF is providing adequate amount of protein and energy to pt. Need to continue monitor the nepro support vs updated lab values, d/t his ckd-3b status and not on HD. Expected Outcomes/Goals: meeting pt's estimated needs for both protein and energy at 75% or higher. Plan discussed with: Other (EL Ramirez, RT, MD) Critical Care Time(min): 35 NING GORE MD May 06, 2024 18:05
[2024-05-07] VITALS (114 sets, daily range): BP systolic 90–151; BP diastolic 40–88; PULSE 66–120; RESP 19–41; TEMP 97.8–99.4; O2SAT 85–100
[2024-05-07 04:33] LABS: Chloride 102 mmol/L (98-107); Potassium 3.8 mmol/L (3.5-5.1)
[2024-05-07 04:34] LABS: Anion Gap 14 (5-15)
[2024-05-07 04:40] LABS: Magnesium 2.1 mg/dL (1.6-2.6)
[2024-05-07 04:41] LABS: Calcium 8.3 mg/dL (8.7-10.4); Carbon Dioxide 16 mmol/L (20-31); Glucose 158 mg/dL (74-106); Sodium 132 mmol/L (136-145)
[2024-05-07 04:42] LABS: Phosphorus 6.6 mg/dL (2.4-5.1)
[2024-05-07 05:10] LABS: BUN/Creatinine Ratio 16.4 (10.0-20.0)
[2024-05-07 05:33] LABS: Blood Urea Nitrogen 80 mg/dL (9-23)
--- NOTE | 2024-05-07 05:48 | DVH ---
CHEST RADIOGRAPH Indication: intubated Technique: Single frontal view of the chest was obtained COMPARISON: XY CHEST PORTABLE on DOS: 05/06/24, XY CHEST PORTABLE on DOS: 05/05/24, XY CHEST PORTABLE on DOS: 05/04/24, XY CHEST PORTABLE on DOS: 05/03/24, XY CHEST PORTABLE on DOS: 05/02/24 FINDINGS: Lines and Tubes: Endotracheal tube, enteric catheter and left central venous catheter in satisfactory position. Median sternotomy. Lungs: Multifocal airspace disease. Pleura: No effusion. No pneumothorax. Cardiomediastinal contours: Unremarkable Bones: Unremarkable IMPRESSION: Lines and tubes in satisfactory position. No significant interval change.
[2024-05-07 07:37] LABS: Base Excess -8.2 mmol/L (-2.0-3.0)
[2024-05-07 08:47] LABS: Base Excess -7.7 mmol/L (-2.0-3.0)
[2024-05-07 10:12] LABS: Basophils # (auto) 0.1 10 ^3/uL (0-0.2); Eosinophils # (auto) 0.1 10 ^3/uL (0-0.8); Lymphocytes # (auto) 0.3 10 ^3/uL (0.4-5.4); Monocytes # (auto) 0.7 10 ^3/uL (0-1.3); Monocytes % (auto) 6.6 % (0.0-12.0); Neutrophils # (auto) 8.9 10 ^3/uL (1.6-8.6); Red Blood Cells 2.42 10^6/uL (4.5-5.90)
[2024-05-07 10:15] LABS: Eosinophils % (auto) 1.2 % (0.0-7.0); Hematocrit 21.3 % (41.0-53.0); Lymphocytes % (auto) 2.8 % (10.0-50.0); Mean Corpuscular Hemoglobin 28.8 pg (28.0-32.0); Mean Corpuscular Hgb Conc. 32.7 g/dL (32.0-36.0); Mean Corpuscular Volume 88.1 fL (80.0-100.0); Neutrophils % (auto) 88.4 % (37.0-80.0); Platelet Count (auto) 263 10^3/uL (140-450); Red Cell Distribution Width 14.8 % (11.8-14.3); White Blood Cell 10.1 10^3/uL (4.4-10.8)
--- NOTE | 2024-05-07 12:59 | DVHPN2 ---
Progress Note Date Seen: May 07, 2024 Medical Necessity Reason Pt with a Central, PICC or Fol: Yes The following are medically ne: PICC Line, Mack Catheter Reason for mack catheter: Strict I&O Subjective Patient reports: No new complaints Review of Systems: HEENT:Normal, CVS:Normal, RESPIRATORY:Normal, GI:Normal, :Normal, MSK:Normal, NEURO:Normal Objective vital signs Vital Sign Date Time Temp Pulse Resp B/P (MAP) Pulse Ox O2 Delivery O2 Flow Rate FiO2 05/07/24 12:33 98 29 136/65 (88) 100 30 05/07/24 11:30 Mechanical Ventilator+ 05/07/24 04:00 98.0 98.0 Total Intake and Output 05/06/24 05/06/24 05/07/24 15:00 23:00 07:00 Intake Total 936 ml 1152.5 ml 1237.5 ml Output Total 250 ml 125 ml Balance 936 ml 902.5 ml 1112.5 ml medications Current Medications Medications Dose Ordered Sig/Lulu Route Start Time Stop Time Status Last Admin Dose Admin Nitroglycerin 0.4 mg Q5MINP PRN SL 04/16/24 23:45 Albuterol 2.5 mg Q6HPRN PRN NEB 04/17/24 18:30 05/07/24 00:00 2.5 MG Levalbuterol HCl 1.25 mg Q6HR NEB 04/18/24 00:00 05/07/24 12:32 1.25 MG Norepinephrine Bitartrate 32 mg/ Sodium Chloride 250 ml @ 0.938 mls/ hr Q24H IV 04/18/24 11:45 04/20/24 16:11 2.813 MLS/HR Midazolam HCl 50 ml @ 1 mls/hr Q24H IV 04/20/24 14:45 05/07/24 06:31 4 MLS/HR Pantoprazole Sodium 40 mg DAILY IV 04/21/24 10:00 05/07/24 07:47 40 MG Enteral Nutritional Formula 1,000 ml 30ML/HR GT 04/20/24 16:45 Cancel Enteral Nutritional Formula 1,000 ml 30ML/HR GT 04/21/24 08:45 05/04/24 17:50 1,000 ML Diagnostic Test (Pha) 1 strip Q6HR 04/23/24 12:00 05/07/24 10:57 1 STRIP Insulin Human Regular Q6HR SC 04/23/24 12:00 05/07/24 10:57 3 UNITS Dextrose 50 ml UD PRN IV 04/23/24 11:15 Clopidogrel Bisulfate 75 mg DAILY PO 04/27/24 10:00 05/07/24 07:48 75 MG Atorvastatin Calcium 40 mg HS PO 04/27/24 22:00 05/06/24 22:26 40 MG Sodium Chloride 10 ml QSHIFT@10,22 IV 04/27/24 22:00 05/07/24 07:42 10 ML Doxycycline Hyclate 250 ml @ 125 mls/hr Q12H IV 04/29/24 15:30 05/07/24 04:01 125 MLS/HR Fentanyl Citrate 250 ml @ 2.5 mls/hr Q24H IV 04/30/24 18:15 05/07/24 00:59 22.5 MLS/HR Acetaminophen 650 mg Q6HP PRN GT 04/30/24 18:45 Amiodarone HCl 200 mg Q12HR PO 05/01/24 22:00 05/07/24 07:48 200 MG Dexmedetomidine HCl 400 mcg/ Dextrose 100 ml @ 3.605 mls/ hr Q24H IV 05/01/24 17:00 05/02/24 07:46 3.605 MLS/HR Enoxaparin Sodium 70 mg DAILY SC 05/03/24 10:00 05/07/24 07:48 70 MG Piperacillin Sod/ Tazobactam Sod 100 ml @ 25 mls/hr BID IV 05/03/24 10:00 05/07/24 07:47 25 MLS/HR Furosemide 40 mg DAILY IV 05/05/24 10:00 05/07/24 07:47 40 MG Sodium Chloride 1,000 ml @ 75 mls/hr [id number] IV 05/06/24 11:15 05/07/24 00:35 75 MLS/HR Examination: GENERAL:Normal, HEENT:Normal, NECK:Normal, LUNGS:Normal, LUNGS:Abnormal (intubated), CVS:Normal, ABDOMEN:Normal, MSK:Normal, SKIN:Normal, NEURO:Normal, :Normal laboratory and microbiology Laboratory Tests 05/07/24 09:55 05/07/24 03:26 Test 05/07/24 03:26 Range/Units Serum Glucose 158 H 74-106 mg/dL Microbiology Date/Time Source Procedure Growth Status 04/18/24 01:00 Nose MRSA Screen - Final Complete 04/17/24 13:00 Blood Blood Culture - Final NO GROWTH AFTER 5 DAYS OF INCUBATION. Complete 04/17/24 01:05 Sputum Gram Stain - Final Complete 04/17/24 01:05 Respiratory Culture - Final Streptococcus Group F Complete Problem List/Assessment/Plan Problem List/Assessment/Plan Neurology : - patient is sedated Cardiovascular : # Non ST elevation myocardial infarction # Acute on chronic decompensated HFrEF, NYHA Class IV, newly diagnosed: lasix iv # Echo on 04/18/2024 shows: Severely dilated left ventricle. Severely reduced left ventricular systolic function with estimated ejection fraction 25%. There is anterior anteroseptal anteroapical inferolateral wall severe hypokinesia- dobutamine drip # Severe coronary artery disease status post triple-vessel CABG, 2018 # Lower extremity DVT ruled out # Severe PVD status post left SFA ELLIOT x 1 # Hypertension # Dyslipidemia - cardiology on board - discontinue Lipitor for now - discontinue Plavix for now - patient is on heparin drip # a fib: on amiodarone Respiratory : # Septic shock due to pneumonia ?aspiration # Acute hypoxic respiratory failure secondary to possible pneumonia - patient is on mechanical ventilation with FiO2 30%, PEEP: 6, F 24, Vt 550 # Possible community-acquired pneumonia Gm +/- bacterial pneumonia - continue antibiotic, Zosyn, add doxy # RLL segmental pulmonary embolism with no evidence of right-heart strain # Bilateral pleural effusions, small - continue heparin drip for pulmonary embolism discussed with family regards trach Genitourinary : # ANDREA on CKD # Acute kidney injury due to ATN # ANDREA likely ischemic ATN in setting of shock # CKD stage IIIB -nephrology on board -continue Lasix 40 mg I/V daily. - HD today Infectious Disease : # Septic shock due to pneumonia # possible community-acquired pneumonia gm+/- bacterial - patient is on pressor - continue IV antibiotics Endocrine : [id number] diabetes mellitus -HbA1c 7.1 - Continue ISS - monitor blood glucose Hematology : - leukocytosis due to septic shock - follow up morning labs - anemia- transfuse Nutrition : Glucerna Lines: Endotracheal tube: 04/18/2024 Right IG central line: 04/18/2024 Mack catheter: 04/18/2024 Left IG Pipo catheter: 04/20/2024 Drips : Fentanyl 75 Versed 5 Propofol 0 NE 0 Vasopressin 0 [id number] Prophylaxis for PUD : Protonix 40 mg IV daily Prophylaxis for DVT: Patient is on heparin drip long dw - explained treatment plan/trach Plan discussed with: Spouse, Daughter My Orders My Orders Orders - ADRIA NASH MD Procedure Category Date Status Time Packedcell-Noactive BBK 05/07/24 Verified Bleeding 12:44 Type And Screen BBK 05/07/24 Verified 12:44 Administer Blood CHRISTINE 05/07/24 Verified Products 12:44 Complete Blood Count LAB 05/08/24 Verified 06:00 Comprehensive LAB 05/08/24 Verified Metabolic Panel 06:00 Chest Portable XY 05/08/24 Verified 06:00 Abg W/ Co-Ox RT 05/08/24 Verified 06:00 Dietary Evaluation Review Comments: current TF is providing adequate amount of protein and energy to pt. Need to continue monitor the nepro support vs updated lab values, d/t his ckd-3b status and not on HD. Expected Outcomes/Goals: meeting pt's estimated needs for both protein and energy at 75% or higher. Critical Care Time (mins): 81 (critical care time including dw /daughter was 81 mins) Date of Service: May 07, 2024 Billing Provider: ADRIA NASH MD Common Visit Codes: 75522-REALYZWN CARE 30-74 MIN, 92331-NEXNYKIP CARE-EACH +30MIN ADRIA NASH MD May 07, 2024 12:59
--- NOTE | 2024-05-07 13:11 | DVHPN2 ---
Progress Note Date Seen: May 07, 2024 Medical Necessity Reason Pt with a Central, PICC or Fol: Yes The following are medically ne: PICC Line, Mack Catheter Reason for mack catheter: Strict I&O Subjective Review of Systems: RESPIRATORY:Abnormal Other Systems: Patient seen and examined by myself today in follow-up, patient remained intubated on ventilator Patient examined hemodialysis, blood pressure stable Objective vital signs Vital Sign Date Time Temp Pulse Resp B/P (MAP) Pulse Ox O2 Delivery O2 Flow Rate FiO2 05/07/24 12:33 98 29 136/65 (88) 100 30 05/07/24 11:30 Mechanical Ventilator+ 05/07/24 04:00 98.0 98.0 Total Intake and Output 05/06/24 05/06/24 05/07/24 15:00 23:00 07:00 Intake Total 936 ml 1152.5 ml 1237.5 ml Output Total 250 ml 125 ml Balance 936 ml 902.5 ml 1112.5 ml medications Current Medications Medications Dose Ordered Sig/Lulu Route Start Time Stop Time Status Last Admin Dose Admin Nitroglycerin 0.4 mg Q5MINP PRN SL 04/16/24 23:45 Albuterol 2.5 mg Q6HPRN PRN NEB 04/17/24 18:30 05/07/24 00:00 2.5 MG Levalbuterol HCl 1.25 mg Q6HR NEB 04/18/24 00:00 05/07/24 12:32 1.25 MG Norepinephrine Bitartrate 32 mg/ Sodium Chloride 250 ml @ 0.938 mls/ hr Q24H IV 04/18/24 11:45 04/20/24 16:11 2.813 MLS/HR Midazolam HCl 50 ml @ 1 mls/hr Q24H IV 04/20/24 14:45 05/07/24 06:31 4 MLS/HR Pantoprazole Sodium 40 mg DAILY IV 04/21/24 10:00 05/07/24 07:47 40 MG Enteral Nutritional Formula 1,000 ml 30ML/HR GT 04/20/24 16:45 Cancel Enteral Nutritional Formula 1,000 ml 30ML/HR GT 04/21/24 08:45 05/04/24 17:50 1,000 ML Diagnostic Test (Pha) 1 strip Q6HR 04/23/24 12:00 05/07/24 10:57 1 STRIP Insulin Human Regular Q6HR SC 04/23/24 12:00 05/07/24 10:57 3 UNITS Dextrose 50 ml UD PRN IV 04/23/24 11:15 Clopidogrel Bisulfate 75 mg DAILY PO 04/27/24 10:00 05/07/24 07:48 75 MG Atorvastatin Calcium 40 mg HS PO 04/27/24 22:00 05/06/24 22:26 40 MG Sodium Chloride 10 ml QSHIFT@10,22 IV 04/27/24 22:00 05/07/24 07:42 10 ML Doxycycline Hyclate 250 ml @ 125 mls/hr Q12H IV 04/29/24 15:30 05/07/24 04:01 125 MLS/HR Fentanyl Citrate 250 ml @ 2.5 mls/hr Q24H IV 04/30/24 18:15 05/07/24 00:59 22.5 MLS/HR Acetaminophen 650 mg Q6HP PRN GT 04/30/24 18:45 Amiodarone HCl 200 mg Q12HR PO 05/01/24 22:00 05/07/24 07:48 200 MG Dexmedetomidine HCl 400 mcg/ Dextrose 100 ml @ 3.605 mls/ hr Q24H IV 05/01/24 17:00 05/02/24 07:46 3.605 MLS/HR Enoxaparin Sodium 70 mg DAILY SC 05/03/24 10:00 05/07/24 07:48 70 MG Piperacillin Sod/ Tazobactam Sod 100 ml @ 25 mls/hr BID IV 05/03/24 10:00 05/07/24 07:47 25 MLS/HR Furosemide 40 mg DAILY IV 05/05/24 10:00 05/07/24 07:47 40 MG Examination: LUNGS:Normal, CVS:Normal, MSK:Normal laboratory and microbiology Laboratory Tests 05/07/24 09:55 05/07/24 03:26 Test 05/07/24 03:26 Range/Units Serum Glucose 158 H 74-106 mg/dL Microbiology Date/Time Source Procedure Growth Status 04/18/24 01:00 Nose MRSA Screen - Final Complete 04/17/24 13:00 Blood Blood Culture - Final NO GROWTH AFTER 5 DAYS OF INCUBATION. Complete 04/17/24 01:05 Sputum Gram Stain - Final Complete 04/17/24 01:05 Respiratory Culture - Final Streptococcus Group F Complete Problem List/Assessment/Plan Problem List/Assessment/Plan Nurse ANDREA secondary hemodynamic mediated, FeNa < 1% , oliguric requirin intermittent hemodialysis Acute hypoxic respiratory failure, intubated on ventilator CKD stage IIIB Acute PE NSTEMI Congestive heart failure, ejection fraction 20% coronary artery disease Diabetes mellitus type 2 Anemia of chronic kidney disease Hypokalemia Recommendation Continue with UF to 3 L as tolerated, use no heparin Epogen 88825 IV post hemodialysis Albumin 25% IV piggyback p.r.n. hemodialysis IV Levophed blood pressure support p.r.n. hemodialysis Low-dose dopamine DC IV fluid KCL replacement Mack catheter Strict I&Os We will continue to follow up Plan discussed with: Other (Nurse) My Orders My Orders Orders - MANAV RITTER MD Procedure Category Date Status Time Albumin 25% (Albutein) PHA 05/07/24 Logged 13:15 Albumin 25% (Albutein) PHA 05/07/24 Logged 13:15 Dietary Evaluation Review Comments: current TF is providing adequate amount of protein and energy to pt. Need to continue monitor the nepro support vs updated lab values, d/t his ckd-3b status and not on HD. Expected Outcomes/Goals: meeting pt's estimated needs for both protein and energy at 75% or higher. MANAV RITTER MD May 07, 2024 13:11
[2024-05-07] MEDS ORDERED: ALBUMIN 25% 100 ML IV ONE (13:15)
[2024-05-07] MEDS: CATHFLO ACTIVASE (ALTEPLASE) 2 MG VIAL IV ONE (20:30)
[2024-05-07] MEDS: ALBUMIN 25% 100 ML IV ONE (21:00)
[2024-05-07] MEDS: EPOETIN ALFA-EPBX 10,000 UNIT/1ML VIAL SC ONE (21:00)
[2024-05-07] MEDS: SODIUM CHL 0.9% 1000 ML BAG XX ONE (21:00)
[2024-05-08] VITALS (109 sets, daily range): BP systolic 79–164; BP diastolic 42–87; PULSE 65–110; RESP 23–42; TEMP 97.8–99.2; O2SAT 91–100
[2024-05-08 04:18] LABS: Basophils # (auto) 0 10 ^3/uL (0-0.2); Basophils % (auto) 0.2 % (0.0-2.0); Eosinophils # (auto) 0 10 ^3/uL (0-0.8); Eosinophils % (auto) 0.1 % (0.0-7.0); Hematocrit 26.2 % (41.0-53.0); Hemoglobin 8.6 g/dL (13.5-17.5); Lymphocytes # (auto) 0.2 10 ^3/uL (0.4-5.4); Lymphocytes % (auto) 1.6 % (10.0-50.0); Mean Corpuscular Hemoglobin 29.1 pg (28.0-32.0); Mean Corpuscular Hgb Conc. 32.9 g/dL (32.0-36.0); Mean Corpuscular Volume 88.5 fL (80.0-100.0); Monocytes # (auto) 0.8 10 ^3/uL (0-1.3); Monocytes % (auto) 5.3 % (0.0-12.0); Neutrophils % (auto) 92.8 % (37.0-80.0); Nucleated Red Blood Cells % 0.1 %; Platelet Count (auto) 279 10^3/uL (140-450); Red Blood Cells 2.96 10^6/uL (4.5-5.90); Red Cell Distribution Width 14.9 % (11.8-14.3); White Blood Cell 15.1 10^3/uL (4.4-10.8)
[2024-05-08 04:20] LABS: Albumin 3.8 g/dL (3.2-4.8); Anion Gap 20 (5-15); BUN/Creatinine Ratio 18.3 (10.0-20.0); Sodium 136 mmol/L (136-145)
[2024-05-08 04:36] LABS: Alanine Aminotransferase 389 U/L (7-40); Alkaline Phosphatase 127 U/L (46-116); Aspartate Aminotransferase 717 U/L (13-40); Bilirubin, Total 1.2 mg/dL (0.2-1.0); Blood Urea Nitrogen 62 mg/dL (9-23); Carbon Dioxide 19 mmol/L (20-31); Chloride 97 mmol/L (98-107); Glucose 159 mg/dL (74-106)
--- NOTE | 2024-05-08 05:12 | DVH ---
CHEST RADIOGRAPH Indication: resp failure Technique: Single frontal view of the chest was obtained Comparison: XY CHEST PORTABLE on DOS: 05/07/24 FINDINGS: Lines and Tubes: The endotracheal tube terminates above the mark. The enteric tube and left centra l venous catheter are unchanged in position. Right PICC terminates in the superior cavoatrial junctio n. Lungs: Bilateral opacities similar to prior study. Pleura: No effusion. No pneumothorax. Cardiomediastinal contours: Cardiomegaly. Bones: No acute osseous abnormality. IMPRESSION: 1. Stable position of the support lines and tubes. 2. Bilateral opacities similar to prior study. 3. Cardiomegaly.
[2024-05-08 08:10] LABS: Base Excess -6.9 mmol/L (-2.0-3.0)
--- NOTE | 2024-05-08 13:08 | DVHPN2 ---
Progress Note Date Seen: May 08, 2024 Medical Necessity Reason Pt with a Central, PICC or Fol: Yes The following are medically ne: PICC Line, Mack Catheter Reason for mack catheter: Strict I&O Subjective Patient reports: No new complaints Review of Systems: HEENT:Normal, CVS:Normal, RESPIRATORY:Normal, GI:Normal, :Normal, MSK:Normal, NEURO:Normal Objective vital signs Vital Sign Date Time Temp Pulse Resp B/P (MAP) Pulse Ox O2 Delivery O2 Flow Rate FiO2 05/08/24 12:45 91 32 143/86 (105) 100 05/08/24 12:30 30 05/08/24 12:00 98.4 98.4 05/08/24 12:00 Mechanical Ventilator+ Total Intake and Output 05/07/24 05/07/24 05/08/24 15:00 23:00 07:00 Intake Total 525.5 ml 491.5 ml 268.5 ml Output Total 250 ml 175 ml Balance 525.5 ml 241.5 ml 93.5 ml medications Current Medications Medications Dose Ordered Sig/Lulu Route Start Time Stop Time Status Last Admin Dose Admin Nitroglycerin 0.4 mg Q5MINP PRN SL 04/16/24 23:45 Albuterol 2.5 mg Q6HPRN PRN NEB 04/17/24 18:30 05/07/24 00:00 2.5 MG Levalbuterol HCl 1.25 mg Q6HR NEB 04/18/24 00:00 05/08/24 12:30 1.25 MG Norepinephrine Bitartrate 32 mg/ Sodium Chloride 250 ml @ 0.938 mls/ hr Q24H IV 04/18/24 11:45 04/20/24 16:11 2.813 MLS/HR Midazolam HCl 50 ml @ 1 mls/hr Q24H IV 04/20/24 14:45 05/07/24 22:30 3 MLS/HR Pantoprazole Sodium 40 mg DAILY IV 04/21/24 10:00 05/08/24 08:34 40 MG Enteral Nutritional Formula 1,000 ml 30ML/HR GT 04/20/24 16:45 Cancel Enteral Nutritional Formula 1,000 ml 30ML/HR GT 04/21/24 08:45 05/04/24 17:50 1,000 ML Diagnostic Test (Pha) 1 strip Q6HR 04/23/24 12:00 05/08/24 10:45 1 STRIP Insulin Human Regular Q6HR SC 04/23/24 12:00 05/08/24 10:45 6 UNITS Dextrose 50 ml UD PRN IV 04/23/24 11:15 Clopidogrel Bisulfate 75 mg DAILY PO 04/27/24 10:00 05/08/24 08:34 75 MG Atorvastatin Calcium 40 mg HS PO 04/27/24 22:00 05/07/24 22:58 40 MG Sodium Chloride 10 ml QSHIFT@10,22 IV 04/27/24 22:00 05/08/24 07:17 10 ML Doxycycline Hyclate 250 ml @ 125 mls/hr Q12H IV 04/29/24 15:30 05/08/24 03:58 125 MLS/HR Fentanyl Citrate 250 ml @ 2.5 mls/hr Q24H IV 04/30/24 18:15 05/07/24 22:31 12.5 MLS/HR Acetaminophen 650 mg Q6HP PRN GT 04/30/24 18:45 Amiodarone HCl 200 mg Q12HR PO 05/01/24 22:00 05/08/24 08:34 200 MG Dexmedetomidine HCl 400 mcg/ Dextrose 100 ml @ 3.605 mls/ hr Q24H IV 05/01/24 17:00 05/08/24 12:51 3.605 MLS/HR Enoxaparin Sodium 70 mg DAILY SC 05/03/24 10:00 05/08/24 08:35 70 MG Piperacillin Sod/ Tazobactam Sod 100 ml @ 25 mls/hr BID IV 05/03/24 10:00 05/08/24 08:34 25 MLS/HR Furosemide 40 mg DAILY IV 05/05/24 10:00 05/08/24 08:34 40 MG Examination: GENERAL:Normal, HEENT:Normal, NECK:Normal, LUNGS:Normal, LUNGS:Abnormal (intubated), CVS:Normal, ABDOMEN:Normal, MSK:Normal, SKIN:Normal, NEURO:Normal, :Normal laboratory and microbiology Laboratory Tests 05/08/24 03:21 05/08/24 03:05 Test 05/08/24 03:05 Range/Units Serum Glucose 159 H 74-106 mg/dL Microbiology Date/Time Source Procedure Growth Status 04/18/24 01:00 Nose MRSA Screen - Final Complete 04/17/24 13:00 Blood Blood Culture - Final NO GROWTH AFTER 5 DAYS OF INCUBATION. Complete 04/17/24 01:05 Sputum Gram Stain - Final Complete 04/17/24 01:05 Respiratory Culture - Final Streptococcus Group F Complete Problem List/Assessment/Plan Problem List/Assessment/Plan Neurology : - patient is sedated Cardiovascular : # Non ST elevation myocardial infarction # Acute on chronic decompensated HFrEF, NYHA Class IV, newly diagnosed: lasix iv # Echo on 04/18/2024 shows: Severely dilated left ventricle. Severely reduced left ventricular systolic function with estimated ejection fraction 25%. There is anterior anteroseptal anteroapical inferolateral wall severe hypokinesia- dobutamine drip # Severe coronary artery disease status post triple-vessel CABG, 2018 # Lower extremity DVT ruled out # Severe PVD status post left SFA ELLIOT x 1 # Hypertension # Dyslipidemia - cardiology on board - discontinue Lipitor for now - discontinue Plavix for now - patient is on heparin drip # a fib: on amiodarone Respiratory : # Septic shock due to pneumonia ?aspiration # Acute hypoxic respiratory failure secondary to possible pneumonia - patient is on mechanical ventilation with FiO2 30%, PEEP: 6, F 24, Vt 550 # Possible community-acquired pneumonia Gm +/- bacterial pneumonia - continue antibiotic, Zosyn, add doxy # RLL segmental pulmonary embolism with no evidence of right-heart strain # Bilateral pleural effusions, small - continue lovenox # cpap trial discussed with family regards trach GI: elevated lft: dc doxy, dc lipitor, usg liver Genitourinary : # ANDREA on CKD # Acute kidney injury due to ATN # ANDREA likely ischemic ATN in setting of shock # CKD stage IIIB -nephrology on board -continue Lasix 40 mg I/V daily. - s/p HD today Infectious Disease : # Septic shock due to pneumonia # possible community-acquired pneumonia gm+/- bacterial - patient is on pressor - continue IV antibiotics Endocrine : [id number] diabetes mellitus -HbA1c 7.1 - Continue ISS - monitor blood glucose Hematology : - leukocytosis due to septic shock - follow up morning labs - anemia- transfuse Nutrition : Glucerna Lines: Endotracheal tube: 04/18/2024 Right IG central line: 04/18/2024 Mack catheter: 04/18/2024 Left IG Pipo catheter: 04/20/2024 Drips : Fentanyl 75 Versed 5 Propofol 0 NE 0 Vasopressin 0 [id number] Prophylaxis for PUD : Protonix 40 mg IV daily Prophylaxis for DVT: Patient is on heparin drip long dw - explained treatment plan/trach Plan discussed with: Other (rn) My Orders My Orders Orders - ADRIA NASH MD Procedure Category Date Status Time Cleanse Wound With CHRISTINE 05/07/24 In Process Wound Clean 13:00 Dietary Evaluation Review Comments: current TF is providing adequate amount of protein and energy to pt. Need to continue monitor the nepro support vs updated lab values, d/t his ckd-3b status and not on HD. Expected Outcomes/Goals: meeting pt's estimated needs for both protein and energy at 75% or higher. Critical Care Time (mins): 81 (critical care time including cpap trial was 81 mins) Date of Service: May 08, 2024 Billing Provider: ADRIA NASH MD Common Visit Codes: 53078-ERXDIOOG CARE 30-74 MIN, 67748-[id number] CARE-EACH +30MIN ADRIA NASH MD May 08, 2024 13:08
--- NOTE | 2024-05-08 13:59 | DVH ---
ULTRASOUND ABDOMEN LIMITED INDICATION: elevated lft TECHNIQUE: Multiple real-time sonographic images of the abdomen were obtained. COMPARISON: None FINDINGS: The visualized liver parenchyma appears homogenous . The liver measures 16 cm. No discrete hep atic lesion or intrahepatic biliary ductal dilatation is identified. There is sludge seen within the gallbladder. There are no gallstones. Gallbladder wall measures 4 mm. There is trace pericholecystic fluid. The test desk trouble locator reports a negative Bashir's sign. Common bile duct is not dilated. The right kidney measures 11.2 cm length. No sonographic evidence of nephrolithiasis or hydronephro sis. Pancreas is obscured by bowel gas. IMPRESSION: 1. There is sludge seen in the gallbladder. The gallbladder wall appears mildly thickened and there i s trace pericholecystic fluid. The test desk trouble locator reports a negative Bashir's sign. HS:Y
--- NOTE | 2024-05-08 19:19 | DVHPN2 ---
Progress Note - Dictate Date Seen: May 08, 2024 Medical Necessity Reason Pt with a Central, PICC or Fol: Yes The following are medically ne: PICC Line, Mack Catheter Reason for mack catheter: Strict I&O Subjective remains intubated, oliguric vital signs Vital Sign Date Time Temp Pulse Resp B/P (MAP) Pulse Ox O2 Delivery O2 Flow Rate FiO2 05/08/24 18:30 76 24 130/72 (91) 100 05/08/24 18:06 30 05/08/24 17:34 Mechanical Ventilator+ 05/08/24 16:00 98.6 98.6 Total Intake and Output 05/07/24 05/07/24 05/08/24 15:00 23:00 07:00 Intake Total 525.5 ml 491.5 ml 268.5 ml Output Total 250 ml 175 ml Balance 525.5 ml 241.5 ml 93.5 ml medications Current Medications Medications Dose Ordered Sig/Lulu Route Start Time Stop Time Status Last Admin Dose Admin Nitroglycerin 0.4 mg Q5MINP PRN SL 04/16/24 23:45 Albuterol 2.5 mg Q6HPRN PRN NEB 04/17/24 18:30 05/07/24 00:00 2.5 MG Levalbuterol HCl 1.25 mg Q6HR NEB 04/18/24 00:00 05/08/24 18:05 1.25 MG Norepinephrine Bitartrate 32 mg/ Sodium Chloride 250 ml @ 0.938 mls/ hr Q24H IV 04/18/24 11:45 04/20/24 16:11 2.813 MLS/HR Midazolam HCl 50 ml @ 1 mls/hr Q24H IV 04/20/24 14:45 05/07/24 22:30 3 MLS/HR Pantoprazole Sodium 40 mg DAILY IV 04/21/24 10:00 05/08/24 08:34 40 MG Enteral Nutritional Formula 1,000 ml 30ML/HR GT 04/20/24 16:45 Cancel Enteral Nutritional Formula 1,000 ml 30ML/HR GT 04/21/24 08:45 05/04/24 17:50 1,000 ML Diagnostic Test (Pha) 1 strip Q6HR 04/23/24 12:00 05/08/24 17:25 1 STRIP Insulin Human Regular Q6HR SC 04/23/24 12:00 05/08/24 17:25 3 UNITS Dextrose 50 ml UD PRN IV 04/23/24 11:15 Clopidogrel Bisulfate 75 mg DAILY PO 04/27/24 10:00 05/08/24 08:34 75 MG Sodium Chloride 10 ml QSHIFT@10,22 IV 04/27/24 22:00 05/08/24 07:17 10 ML Fentanyl Citrate 250 ml @ 2.5 mls/hr Q24H IV 04/30/24 18:15 05/07/24 22:31 12.5 MLS/HR Acetaminophen 650 mg Q6HP PRN GT 04/30/24 18:45 Amiodarone HCl 200 mg Q12HR PO 05/01/24 22:00 05/08/24 08:34 200 MG Enoxaparin Sodium 70 mg DAILY SC 05/03/24 10:00 05/08/24 08:35 70 MG Piperacillin Sod/ Tazobactam Sod 100 ml @ 25 mls/hr BID IV 05/03/24 10:00 05/08/24 08:34 25 MLS/HR Furosemide 40 mg DAILY IV 05/05/24 10:00 05/08/24 08:34 40 MG Dexmedetomidine HCl 400 mcg/ Dextrose 100 ml @ 4.025 mls/ hr Q24H IV 05/08/24 17:45 objective gen: Intubated and sedated lungs: occasional rhonchi cvs: no rub ext: + edema laboratory and microbiology Laboratory Tests 05/08/24 03:21 05/08/24 03:05 Test 05/08/24 03:05 Range/Units Serum Glucose 159 H 74-106 mg/dL Assessment/Plan IMP: 1) Hemodynamically mediated ANDREA/ Ischemic ATN + contrast nephropathy 2) CKD IIIb 3) Acute PE 4) Acute hypoxemic resp failure 5) elevated troponin 6) Hx of CAD REC: - daily evaluation for kidney replacement therapy - Metabolic parameters acceptable today Dietary Evaluation Review Comments: current TF is providing adequate amount of protein and energy to pt. Need to continue monitor the nepro support vs updated lab values, d/t his ckd-3b status and not on HD. Expected Outcomes/Goals: meeting pt's estimated needs for both protein and energy at 75% or higher. Plan discussed with: Other KAROLINA THAPA MD May 08, 2024 19:19
[2024-05-09] VITALS (101 sets, daily range): BP systolic 90–156; BP diastolic 42–93; PULSE 64–105; RESP 20–41; TEMP 98.4–99.7; O2SAT 81–100
[2024-05-09 03:54] LABS: Basophils # (auto) 0.1 10 ^3/uL (0-0.2); Basophils % (auto) 0.6 % (0.0-2.0); Eosinophils # (auto) 0.1 10 ^3/uL (0-0.8); Eosinophils % (auto) 1.6 % (0.0-7.0); Hemoglobin 7.5 g/dL (13.5-17.5); Mean Corpuscular Hgb Conc. 34.1 g/dL (32.0-36.0); Neutrophils # (auto) 6.8 10 ^3/uL (1.6-8.6); Neutrophils % (auto) 85.4 % (37.0-80.0)
[2024-05-09 03:56] LABS: Lymphocytes # (auto) 0.4 10 ^3/uL (0.4-5.4); Lymphocytes % (auto) 5.4 % (10.0-50.0); Mean Corpuscular Hemoglobin 29.7 pg (28.0-32.0); Mean Corpuscular Volume 87.1 fL (80.0-100.0); Monocytes # (auto) 0.6 10 ^3/uL (0-1.3); Nucleated Red Blood Cells % 0.2 %; Platelet Count (auto) 247 10^3/uL (140-450); Red Blood Cells 2.53 10^6/uL (4.5-5.90); Red Cell Distribution Width 14.8 % (11.8-14.3)
[2024-05-09 04:20] LABS: Albumin 3.3 g/dL (3.2-4.8); Anion Gap 14 (5-15); BUN/Creatinine Ratio 18.1 (10.0-20.0); Carbon Dioxide 24 mmol/L (20-31); Chloride 98 mmol/L (98-107)
[2024-05-09 04:21] LABS: Bilirubin, Total 0.7 mg/dL (0.2-1.0); Total Protein 6.1 g/dL (5.7-8.2)
[2024-05-09 04:53] LABS: Alanine Aminotransferase 463 U/L (7-40); Alkaline Phosphatase 118 U/L (46-116); Aspartate Aminotransferase 507 U/L (13-40); Calcium 8.4 mg/dL (8.7-10.4); Glucose 212 mg/dL (74-106); Potassium 3.2 mmol/L (3.5-5.1); Sodium 136 mmol/L (136-145)
[2024-05-09 04:55] LABS: Blood Urea Nitrogen 84 mg/dL (9-23)
--- NOTE | 2024-05-09 05:26 | DVH ---
CHEST RADIOGRAPH Indication: resp failure Technique: Single frontal view of the chest was obtained COMPARISON: XY CHEST PORTABLE on DOS: 05/08/24, XY CHEST PORTABLE on DOS: 05/07/24, XY CHEST PORTABLE on DOS: 05/06/24, XY CHEST PORTABLE on DOS: 05/05/24, XY CHEST PORTABLE on DOS: 05/04/24, XY CHEST P ORTABLE on DOS: 05/07/24 FINDINGS: Lines and Tubes: Endotracheal tube, enteric catheter and left central venous catheter in satisfactory position. Median sternotomy. Lungs: Multifocal airspace disease. Pleura: No effusion. No pneumothorax. Cardiomediastinal contours: Unremarkable Bones: Unremarkable IMPRESSION: Lines and tubes in satisfactory position. No significant interval change.
[2024-05-09] MEDS: POTASSIUM CHL 20MEQ/100ML 100 ML IV ONE (06:26)
--- NOTE | 2024-05-09 19:57 | DVHPN2 ---
Progress Note - Dictate Date Seen: May 09, 2024 Medical Necessity Reason Pt with a Central, PICC or Fol: Yes The following are medically ne: PICC Line, Mack Catheter Reason for mack catheter: Strict I&O Subjective urine volumes remain oliguric, patient's and patient's daughter are at bedside vital signs Vital Sign Date Time Temp Pulse Resp B/P (MAP) Pulse Ox O2 Delivery O2 Flow Rate FiO2 05/09/24 19:05 96 Mechanical Ventilator+ 30 30 05/09/24 19:02 85 26 90/42 (58) 05/09/24 16:00 98.7 98.7 05/09/24 08:18 30.0 Total Intake and Output 05/08/24 05/08/24 05/09/24 15:00 23:00 07:00 Intake Total 113.723 ml 187.238 ml 405.204 ml Output Total 100 ml 200 ml Balance 113.723 ml 87.238 ml 205.204 ml medications Current Medications Medications Dose Ordered Sig/Lulu Route Start Time Stop Time Status Last Admin Dose Admin Nitroglycerin 0.4 mg Q5MINP PRN SL 04/16/24 23:45 Albuterol 2.5 mg Q6HPRN PRN NEB 04/17/24 18:30 05/07/24 00:00 2.5 MG Levalbuterol HCl 1.25 mg Q6HR NEB 04/18/24 00:00 05/09/24 19:02 1.25 MG Norepinephrine Bitartrate 32 mg/ Sodium Chloride 250 ml @ 0.938 mls/ hr Q24H IV 04/18/24 11:45 05/08/24 19:52 0.938 MLS/HR Midazolam HCl 50 ml @ 1 mls/hr Q24H IV 04/20/24 14:45 05/07/24 22:30 3 MLS/HR Pantoprazole Sodium 40 mg DAILY IV 04/21/24 10:00 05/09/24 08:13 40 MG Enteral Nutritional Formula 1,000 ml 30ML/HR GT 04/20/24 16:45 Cancel Enteral Nutritional Formula 1,000 ml 30ML/HR GT 04/21/24 08:45 05/04/24 17:50 1,000 ML Diagnostic Test (Pha) 1 strip Q6HR 04/23/24 12:00 05/09/24 17:04 1 STRIP Insulin Human Regular Q6HR SC 04/23/24 12:00 05/09/24 17:04 6 UNITS Dextrose 50 ml UD PRN IV 04/23/24 11:15 Clopidogrel Bisulfate 75 mg DAILY PO 04/27/24 10:00 05/09/24 08:14 75 MG Sodium Chloride 10 ml QSHIFT@10,22 IV 04/27/24 22:00 05/09/24 06:58 10 ML Fentanyl Citrate 250 ml @ 2.5 mls/hr Q24H IV 04/30/24 18:15 05/09/24 05:03 5 MLS/HR Acetaminophen 650 mg Q6HP PRN GT 04/30/24 18:45 Amiodarone HCl 200 mg Q12HR PO 05/01/24 22:00 05/09/24 08:14 200 MG Enoxaparin Sodium 70 mg DAILY SC 05/03/24 10:00 05/09/24 08:15 70 MG Piperacillin Sod/ Tazobactam Sod 100 ml @ 25 mls/hr BID IV 05/03/24 10:00 05/09/24 08:14 25 MLS/HR Furosemide 40 mg DAILY IV 05/05/24 10:00 05/09/24 08:14 40 MG Dexmedetomidine HCl 400 mcg/ Dextrose 100 ml @ 4.025 mls/ hr Q24H IV 05/08/24 17:45 05/09/24 12:24 14.088 MLS/HR objective gen: Intubated and sedated lungs: occasional rhonchi cvs: no rub ext: + edema laboratory and microbiology Laboratory Tests 05/09/24 10:22 05/09/24 03:00 Test 05/09/24 03:00 Range/Units Serum Glucose 212 H 74-106 mg/dL Assessment/Plan IMP: 1) Hemodynamically mediated ANDREA/ Ischemic ATN + contrast nephropathy 2) CKD IIIb 3) Acute PE 4) Acute hypoxemic resp failure 5) elevated troponin 6) Hx of CAD REC: - dialysis May 10 - Discussed overall prognosis with patient's family - We will continue current measures Dietary Evaluation Review Comments: current TF is providing adequate amount of protein and energy to pt. Need to continue monitor the nepro support vs updated lab values, d/t his ckd-3b status and not on HD. Expected Outcomes/Goals: meeting pt's estimated needs for both protein and energy at 75% or higher. Plan discussed with: Spouse, Daughter KAROLINA THAPA MD May 09, 2024 19:57
--- NOTE | 2024-05-09 22:44 | DVHPN2 ---
Progress Note - Dictate Date Seen: May 09, 2024 Medical Necessity Reason Pt with a Central, PICC or Fol: Yes The following are medically ne: PICC Line, Mack Catheter Reason for mack catheter: Strict I&O Subjective Patient seen and examined at bedside. Sedated, intubated on mechanical ventilator. Overnight events reviewed. vital signs Vital Sign Date Time Temp Pulse Resp B/P (MAP) Pulse Ox O2 Delivery O2 Flow Rate FiO2 05/09/24 22:07 71 24 119/60 (79) 100 30 05/09/24 21:45 99.7 99.7 05/09/24 20:00 Mechanical Ventilator+ 05/09/24 08:18 30.0 Total Intake and Output 05/08/24 05/08/24 05/09/24 15:00 23:00 07:00 Intake Total 113.723 ml 187.238 ml 405.204 ml Output Total 100 ml 200 ml Balance 113.723 ml 87.238 ml 205.204 ml medications Current Medications Medications Dose Ordered Sig/Lulu Route Start Time Stop Time Status Last Admin Dose Admin Nitroglycerin 0.4 mg Q5MINP PRN SL 04/16/24 23:45 Albuterol 2.5 mg Q6HPRN PRN NEB 04/17/24 18:30 05/07/24 00:00 2.5 MG Levalbuterol HCl 1.25 mg Q6HR NEB 04/18/24 00:00 05/09/24 19:02 1.25 MG Norepinephrine Bitartrate 32 mg/ Sodium Chloride 250 ml @ 0.938 mls/ hr Q24H IV 04/18/24 11:45 05/08/24 19:52 0.938 MLS/HR Midazolam HCl 50 ml @ 1 mls/hr Q24H IV 04/20/24 14:45 05/07/24 22:30 3 MLS/HR Pantoprazole Sodium 40 mg DAILY IV 04/21/24 10:00 05/09/24 08:13 40 MG Enteral Nutritional Formula 1,000 ml 30ML/HR GT 04/20/24 16:45 Cancel Enteral Nutritional Formula 1,000 ml 30ML/HR GT 04/21/24 08:45 05/09/24 21:28 1,000 ML Diagnostic Test (Pha) 1 strip Q6HR 04/23/24 12:00 05/09/24 17:04 1 STRIP Insulin Human Regular Q6HR SC 04/23/24 12:00 05/09/24 17:04 6 UNITS Dextrose 50 ml UD PRN IV 04/23/24 11:15 Clopidogrel Bisulfate 75 mg DAILY PO 04/27/24 10:00 05/09/24 08:14 75 MG Sodium Chloride 10 ml QSHIFT@10,22 IV 04/27/24 22:00 05/09/24 21:20 10 ML Acetaminophen 650 mg Q6HP PRN GT 04/30/24 18:45 Amiodarone HCl 200 mg Q12HR PO 05/01/24 22:00 05/09/24 21:22 200 MG Enoxaparin Sodium 70 mg DAILY SC 05/03/24 10:00 05/09/24 08:15 70 MG Piperacillin Sod/ Tazobactam Sod 100 ml @ 25 mls/hr BID IV 05/03/24 10:00 05/09/24 21:21 25 MLS/HR Furosemide 40 mg DAILY IV 05/05/24 10:00 05/09/24 08:14 40 MG Dexmedetomidine HCl 400 mcg/ Dextrose 100 ml @ 4.025 mls/ hr Q24H IV 05/08/24 17:45 05/09/24 20:08 14.088 MLS/HR Fentanyl Citrate 250 ml @ 2.5 mls/hr Q24H IV 05/09/24 21:45 objective Gen.: Patient lying in bed in medical ICU. Sedated, intubated on mechanical ventilator. Head: Normocephalic, atraumatic. Eyes: PERRLA. Ears: Normal external anatomy. Throat: Endotracheal tube and orogastric tube in place. Neck: Supple, trachea midline. Chest: Transmitted breath sounds bilaterally. Decreased air entry bilaterally. No wheezing. Bibasilar crackles. Cardiovascular: Positive S1, positive S2. Regular rate and rhythm. Abdomen: Positive bowel sounds in all 4 quadrants. Soft, nontender, nondistended. : Mack in place. Normal external genitalia. Rectal: Deferred. Skin: Warm, dry. Intact. Extremities: 2+ radial pulses bilaterally. No lower extremity edema. Neuro: Sedated. laboratory and microbiology Laboratory Tests 05/09/24 10:22 05/09/24 03:00 Test 05/09/24 03:00 Range/Units Serum Glucose 212 H 74-106 mg/dL Assessment/Plan Impression: Acute hypoxic respiratory failure On mechanical ventilator Non-ST elevation myocardial infarction Elevated troponin Acute kidney injury DM type II w/ hyperglycemia Nicotine dependence Marijuana abuse Pleural effusion Atelectasis Events: Remains on vent support On AC mode; RR 24, VT 500, PEEP 5, FiO2 30%. ABG reviewed. Alkalemia CXR demonstrates multifocal airspace disease. Devices in place Sedated on Fentanyl Off Precedex Continue antibiotics Monitor Hgb.- 7.5 g/dL Transfuse if less than 7.0 g/dL Monitor renal function Nephrology recommendations appreciated. Tube feeds for nutritional support. Awaiting for mentation to improve for CPAP Labs and imaging reviewed. Rest of plan as noted below. Plan: s/p intubation on mechanical ventilator. On AC mode; RR 24, VT 500, PEEP 5, FiO2 30%. Titrate FIO2 to keep O2 saturation above 90%. VAP bundle. Daily ABG and CXR while intubated Sedated for ventilator synchrony Elevated troponin Cardiology recommendations appreciated Continue bronchodilators. Possible BOOP - start stress dose steroids Continue antibiotics. F/u cultures. Leukocytosis - WBC wnl. Pressors if necessary for hemodynamic support Titrate to keep mean arterial pressure greater than 65 mmHg Monitor renal function Monitor electrolytes. Supplement as necessary. Monitor ins and outs. Maintain euvolemia. GI prophylaxis. DVT prophylaxis. Prognosis: Poor given patient's multiple co-morbidities. Condition: Critical Rest of plan per hospitalist and other consultants. A total of 35 minutes of critical care time was spent reviewing the patient record, examining the patient, making a diagnostic and therapeutic plan, discussing this plan with the medical personnel, following up on diagnostic studies and following the patient for clinical stability excluding any and all procedures. At least 50% of this time was spent in direct, [id number] contact. Thank you Dr. Korina Thakkar MD, for allowing me to participate in this patient's care. Further recommendations will depend on the patient's clinical course. Please do not hesitate to contact me if you have any questions or concerns. This medical document was created using an electronic medical record system with [employer] system. Although these documentations are being carefully reviewed, there may still be some phonetic and typographical changes. The errors are purely typographical, due to imperfection on the software program, and do not reflect any compromise in the patient's medical care. Dietary Evaluation Review Comments: current TF is providing adequate amount of protein and energy to pt. Need to continue monitor the nepro support vs updated lab values, d/t his ckd-3b status and not on HD. Expected Outcomes/Goals: meeting pt's estimated needs for both protein and energy at 75% or higher. Plan discussed with: Other (EL Ramirez) Critical Care Time(min): 35 NING GORE MD May 09, 2024 22:44
[2024-05-09] MEDS: fentaNYL Drip 2500mCg/250mlNS 250 ML IV SCH (23:21)
[2024-05-10] VITALS (108 sets, daily range): BP systolic 95–152; BP diastolic 50–95; PULSE 63–103; RESP 17–34; TEMP 97.7–99.3; O2SAT 81–100
[2024-05-10 04:22] LABS: Anion Gap 11 (5-15); BUN/Creatinine Ratio 19.7 (10.0-20.0); Calcium 8.8 mg/dL (8.7-10.4); Carbon Dioxide 26 mmol/L (20-31); Chloride 100 mmol/L (98-107); Magnesium 2.1 mg/dL (1.6-2.6); Sodium 137 mmol/L (136-145)
[2024-05-10 04:23] LABS: Albumin 3.4 g/dL (3.2-4.8); Bilirubin, Total 0.8 mg/dL (0.2-1.0); Total Protein 6.7 g/dL (5.7-8.2)
[2024-05-10 04:38] LABS: Basophils # (auto) 0.1 10 ^3/uL (0-0.2); Basophils % (auto) 0.7 % (0.0-2.0); Eosinophils # (auto) 0.4 10 ^3/uL (0-0.8); Eosinophils % (auto) 3.9 % (0.0-7.0); Hematocrit 25.3 % (41.0-53.0); Hemoglobin 8.6 g/dL (13.5-17.5); Lymphocytes % (auto) 9.9 % (10.0-50.0); Mean Corpuscular Hemoglobin 29.7 pg (28.0-32.0); Mean Corpuscular Hgb Conc. 33.8 g/dL (32.0-36.0); Mean Corpuscular Volume 87.9 fL (80.0-100.0); Monocytes # (auto) 0.9 10 ^3/uL (0-1.3); Monocytes % (auto) 9.7 % (0.0-12.0); Neutrophils # (auto) 7.3 10 ^3/uL (1.6-8.6); Neutrophils % (auto) 75.8 % (37.0-80.0); Nucleated Red Blood Cells % 0.1 %; Platelet Count (auto) 284 10^3/uL (140-450); Red Blood Cells 2.88 10^6/uL (4.5-5.90); Red Cell Distribution Width 14.8 % (11.8-14.3); White Blood Cell 9.7 10^3/uL (4.4-10.8)
[2024-05-10 05:06] LABS: Glucose 192 mg/dL (74-106); Potassium 3.3 mmol/L (3.5-5.1)
[2024-05-10 05:08] LABS: Alanine Aminotransferase 463 U/L (7-40); Alkaline Phosphatase 151 U/L (46-116); Aspartate Aminotransferase 302 U/L (13-40); Blood Urea Nitrogen 86 mg/dL (9-23)
--- NOTE | 2024-05-10 05:35 | DVH ---
EXAM: XY CHEST PORTABLE Indication: intubated Technique: Single frontal view of the chest was obtained Comparison: XY CHEST PORTABLE on DOS: 05/09/24, XY CHEST PORTABLE on DOS: 05/08/24, XY CHEST PORTABLE on DOS: 05/07/24, XY CHEST PORTABLE on DOS: 05/06/24, XY CHEST PORTABLE on DOS: 05/05/24, XY CHEST P ORTABLE on DOS: 05/09/24 FINDINGS: Lines and Tubes: Endotracheal tube, enteric catheter, right PICC and left central venous catheter in satisfactory position. Median sternotomy. Lungs: Multifocal airspace disease. Pleura: No effusion. No pneumothorax. Cardiomediastinal contours: Unremarkable Bones: Unremarkable IMPRESSION: Lines and tubes in satisfactory position. No significant interval change.
[2024-05-10 07:24] LABS: Base Excess -0.6 mmol/L (-2.0-3.0)
--- NOTE | 2024-05-10 09:18 | DVHPN2 ---
Subjective Patient chemically sedated Reviewed: Care Plan, H&P, Labs, Medications, Previous Orders, Radiology Changes from previous H/P or p: No Changes General: Per HPI Objective Vitals Vital Signs Date Time Temp Pulse Resp B/P (MAP) Pulse Ox O2 Delivery O2 Flow Rate FiO2 05/10/24 08:12 71 24 121/62 (81) 99 30 05/10/24 08:00 Mechanical Ventilator+ 05/10/24 04:30 98.6 98.6 05/09/24 08:18 30.0 Intake/Output Intake and Output 05/10/24 07:00 Intake Total 1158.024 ml Output Total 1275 ml Balance -116.976 ml Intake Oral 160 ml IV Total 998.024 ml Output Urine Total 1275 ml General Appearance: Other (Intubated, on vent,/sedated/does respond to noxious stimulii) HEENT: Atraumatic, Other (HD catheter) Neck: Supple Lungs: Clear to auscultation, Normal air movement Cardiovascular: Regular rate, Normal S1, Normal S2, No murmurs, Gallops, Rubs Abdomen: Normal bowel sounds, Soft, No tenderness Genitourinary: No Apparent Abnormalities (Baumann catheter) Neuro: Other (Intubated, on vent, unable to exam) Skin: Dry, Intact Psych/Mental Status: Other (Intubated, on vent, //sedated/does moveall four extrities spontaneously) Medications Current Medications Medications Dose Ordered Sig/Lulu Route Start Time Stop Time Status Last Admin Dose Admin Nitroglycerin 0.4 mg Q5MINP PRN SL 04/16/24 23:45 Albuterol 2.5 mg Q6HPRN PRN NEB 04/17/24 18:30 05/07/24 00:00 2.5 MG Levalbuterol HCl 1.25 mg Q6HR NEB 04/18/24 00:00 05/10/24 05:49 1.25 MG Norepinephrine Bitartrate 32 mg/ Sodium Chloride 250 ml @ 0.938 mls/ hr Q24H IV 04/18/24 11:45 05/08/24 19:52 0.938 MLS/HR Midazolam HCl 50 ml @ 1 mls/hr Q24H IV 04/20/24 14:45 05/10/24 04:38 1 MLS/HR Pantoprazole Sodium 40 mg DAILY IV 04/21/24 10:00 05/09/24 08:13 40 MG Enteral Nutritional Formula 1,000 ml 30ML/HR GT 04/20/24 16:45 Cancel Enteral Nutritional Formula 1,000 ml 30ML/HR GT 04/21/24 08:45 05/09/24 21:28 1,000 ML Diagnostic Test (Pha) 1 strip Q6HR 04/23/24 12:00 05/10/24 05:25 1 STRIP Insulin Human Regular Q6HR SC 04/23/24 12:00 05/10/24 05:25 3 UNITS Dextrose 50 ml UD PRN IV 04/23/24 11:15 Clopidogrel Bisulfate 75 mg DAILY PO 04/27/24 10:00 05/09/24 08:14 75 MG Sodium Chloride 10 ml QSHIFT@, IV 04/27/24 22:00 05/09/24 21:20 10 ML Acetaminophen 650 mg Q6HP PRN GT 04/30/24 18:45 Amiodarone HCl 200 mg Q12HR PO 05/01/24 22:00 05/09/24 21:22 200 MG Enoxaparin Sodium 70 mg DAILY SC 05/03/24 10:00 05/09/24 08:15 70 MG Piperacillin Sod/ Tazobactam Sod 100 ml @ 25 mls/hr BID IV 05/03/24 10:00 05/09/24 21:21 25 MLS/HR Furosemide 40 mg DAILY IV 05/05/24 10:00 05/09/24 08:14 40 MG Dexmedetomidine HCl 400 mcg/ Dextrose 100 ml @ 4.025 mls/ hr Q24H IV 05/08/24 17:45 05/10/24 04:31 14.088 MLS/HR Fentanyl Citrate 250 ml @ 2.5 mls/hr Q24H IV 05/09/24 21:45 05/10/24 07:12 27.5 MLS/HR Laboratory Results Laboratory Tests 05/10/24 03:31 Chemistry Test 05/10/24 03:31 Albumin 3.4 g/dL (3.2-4.8) Calcium Level 8.8 mg/dL (8.7-10.4) Magnesium Level 2.1 mg/dL (1.6-2.6) Total Protein 6.7 g/dL (5.7-8.2) LFT Test 05/10/24 03:31 Alanine Aminotransferase (ALT) 463 U/L (7-40) H Alkaline Phosphatase 151 U/L (46-116) H Aspartate Amino Transferase (AST) 302 U/L (13-40) H Total Bilirubin 0.8 mg/dL (0.2-1.0) Urinalysis Test 04/17/24 23:49 Urine Color Yellow (Yellow) Urine Clarity Turbid (Clear) H Urine pH 5.5 (5.0-9.0) Urine Specific [place] 1.037 (1.001-1.035) Urine Protein 2+ (Negative) H Urine Ketones Trace (Negative) Urine Blood 3+ /uL (Negative) H Urine Nitrite Negative (Negative) Urine Bilirubin Negative (Negative) Urine Urobilinogen Normal mg/dL (Negative) Urine Leukocyte Esterase Negative /uL (Negative) Urine RBC 138 /hpf (0 - 3) Urine WBC 12 /hpf (0 - 3) Urine Squamous Epithelial Cells Few /hpf (<5) Urine Bacteria None seen /hpf (None Seen) Urine Yeast (Budding) Occasional /hpf (None Urine Osmolality 380 mOsm/kg Urine Creatinine 158.36 mg/dL (30.0-125.0) H Urine Sodium 34 mmol/L (40-220) L Urine Glucose 1+ mg/dL (Normal) H Blood Gas Results Test 05/10/24 06:58 Arterial Blood pH 7.462 (7.350-7.450) FiO2 % 30.0 Microbiology Microbiology Date/Time Source Procedure Growth Status 04/18/24 01:00 Nose MRSA Screen - Final Complete 04/17/24 13:00 Blood Blood Culture - Final NO GROWTH AFTER 5 DAYS OF INCUBATION. Complete 04/17/24 01:05 Sputum Gram Stain - Final Complete 04/17/24 01:05 Respiratory Culture - Final Streptococcus Group F Complete Labs and/or images reviewed: Labs reviewed by me, Image(s) reviewed by me Assessment/Plan Assessment/Plan Impression: -acute hypoxic respiratory with mechanical ventilation -NSTEMI type 2 -community-acquired pneumonia, probable Gram-positive/Gram-negative etiology -septic shock -acute kidney injury, vasomotor nephropathy now with hemodialysis -history of CAD with CABG -severe dyslipidemia -peripheral vascular disease -diabetes mellitus -Anemia of chronic disease Plan: -patient on FiO2 at 30%. Apparently patient has been failing CPAP trials. Plans for hemodialysis today. Hold any weaning trials at this time. -nephrology consultation -pulmonary consultation -regular insulin sliding scale -continue current antibiotic therapy -continue full-dose anticoagulation -PUD prophylaxis -consider changing central venous lines. Patient may require tunneled HD cath -repeat labs and chest x-ray in a.m. Critical care time spent with patient discussing and formulating plan of care: 40 minutes. This does not include time spent performing procedures. This medical document was created using an electronic medical record system with [employer] dictation system. Although this document has been carefully reviewed, there may still be some phonetic and typographical errors. These areas are purely typographical due to imperfections of the software programs, and do not reflect any compromise in the patient's medical care. Plan discussed with: Patient, Other (RN) Date of Service: May 10, 2024 Billing Provider: CAMMY VERDUZCO NP Common Visit Codes: [id number] CARE 30-74 MIN CAMMY VERDUZCO NP May 10, 2024 09:18
[2024-05-10] MEDS ORDERED: SODIUM CHL 0.9% 1000 ML BAG XX ONE (13:45)
--- NOTE | 2024-05-10 16:01 | DVHPN2 ---
Progress Note - Dictate Date Seen: May 10, 2024 Medical Necessity Reason Pt with a Central, PICC or Fol: Yes The following are medically ne: PICC Line, Mack Catheter Reason for mack catheter: Strict I&O Subjective Urine output improved significantly over the previous 24 hours. Patient's family at the bedside vital signs Vital Sign Date Time Temp Pulse Resp B/P (MAP) Pulse Ox O2 Delivery O2 Flow Rate FiO2 05/10/24 14:00 30 05/10/24 14:00 88 26 134/73 (93) 99 05/10/24 14:00 Mechanical Ventilator+ 05/10/24 12:00 97.7 97.7 05/09/24 08:18 30.0 Total Intake and Output 05/09/24 05/09/24 05/10/24 15:00 23:00 07:00 Intake Total 290.204 ml 418.616 ml 449.204 ml Output Total 450 ml 825 ml Balance 290.204 ml -31.384 ml -375.796 ml medications Current Medications Medications Dose Ordered Sig/Lulu Route Start Time Stop Time Status Last Admin Dose Admin Nitroglycerin 0.4 mg Q5MINP PRN SL 04/16/24 23:45 Albuterol 2.5 mg Q6HPRN PRN NEB 04/17/24 18:30 05/07/24 00:00 2.5 MG Levalbuterol HCl 1.25 mg Q6HR NEB 04/18/24 00:00 05/10/24 12:18 1.25 MG Norepinephrine Bitartrate 32 mg/ Sodium Chloride 250 ml @ 0.938 mls/ hr Q24H IV 04/18/24 11:45 05/08/24 19:52 0.938 MLS/HR Midazolam HCl 50 ml @ 1 mls/hr Q24H IV 04/20/24 14:45 05/10/24 14:20 7 MLS/HR Pantoprazole Sodium 40 mg DAILY IV 04/21/24 10:00 05/10/24 09:41 40 MG Enteral Nutritional Formula 1,000 ml 30ML/HR GT 04/20/24 16:45 Cancel Enteral Nutritional Formula 1,000 ml 30ML/HR GT 04/21/24 08:45 05/09/24 21:28 1,000 ML Diagnostic Test (Pha) 1 strip Q6HR 04/23/24 12:00 05/10/24 11:22 1 STRIP Insulin Human Regular Q6HR SC 04/23/24 12:00 05/10/24 11:22 3 UNITS Dextrose 50 ml UD PRN IV 04/23/24 11:15 Clopidogrel Bisulfate 75 mg DAILY PO 04/27/24 10:00 05/10/24 09:42 75 MG Sodium Chloride 10 ml QSHIFT@10,22 IV 04/27/24 22:00 05/10/24 09:42 10 ML Acetaminophen 650 mg Q6HP PRN GT 04/30/24 18:45 Amiodarone HCl 200 mg Q12HR PO 05/01/24 22:00 05/10/24 09:42 200 MG Enoxaparin Sodium 70 mg DAILY SC 05/03/24 10:00 05/10/24 09:42 70 MG Piperacillin Sod/ Tazobactam Sod 100 ml @ 25 mls/hr BID IV 05/03/24 10:00 05/10/24 09:42 25 MLS/HR Furosemide 40 mg DAILY IV 05/05/24 10:00 05/10/24 09:41 40 MG Dexmedetomidine HCl 400 mcg/ Dextrose 100 ml @ 4.025 mls/ hr Q24H IV 05/08/24 17:45 05/10/24 04:31 14.088 MLS/HR Fentanyl Citrate 250 ml @ 2.5 mls/hr Q24H IV 05/09/24 21:45 05/10/24 15:40 27.5 MLS/HR objective gen: Intubated and sedated lungs: occasional rhonchi cvs: no rub ext: + edema laboratory and microbiology Laboratory Tests 05/10/24 03:31 Test 05/10/24 03:31 Range/Units Serum Glucose 192 H 74-106 mg/dL Assessment/Plan IMP: 1) Hemodynamically mediated ANDREA/ Ischemic ATN + contrast nephropathy 2) CKD IIIb 3) Acute PE 4) Acute hypoxemic resp failure 5) elevated troponin 6) Hx of CAD REC: - given improvement in urine output and downtrend to serum creatinine, will hold off on dialysis today - We will continue to monitor for signs of meaningful kidney recovery - Discussed with patient's and family Dietary Evaluation Review Comments: current TF is providing adequate amount of protein and energy to pt. Need to continue monitor the nepro support vs updated lab values, d/t his ckd-3b status and not on HD. Expected Outcomes/Goals: meeting pt's estimated needs for both protein and energy at 75% or higher. Plan discussed with: Spouse KAROLINA THAPA MD May 10, 2024 16:01
[2024-05-10] MEDS ORDERED: EPOETIN ALFA-EPBX 10,000 UNIT/1ML VIAL SC ONE (21:00)
--- NOTE | 2024-05-10 21:25 | DVHPN2 ---
Progress Note - Dictate Date Seen: May 10, 2024 Medical Necessity Reason Pt with a Central, PICC or Fol: Yes The following are medically ne: PICC Line, Mack Catheter Reason for mack catheter: Strict I&O Subjective Patient seen and examined at bedside. Sedated, intubated on mechanical ventilator. Overnight events reviewed. vital signs Vital Sign Date Time Temp Pulse Resp B/P (MAP) Pulse Ox O2 Delivery O2 Flow Rate FiO2 05/10/24 19:59 83 24 121/61 (81) 99 30 05/10/24 18:41 Mechanical Ventilator+ 05/10/24 16:00 98.4 98.4 05/09/24 08:18 30.0 Total Intake and Output 05/09/24 05/09/24 05/10/24 15:00 23:00 07:00 Intake Total 290.204 ml 418.616 ml 449.204 ml Output Total 450 ml 825 ml Balance 290.204 ml -31.384 ml -375.796 ml medications Current Medications Medications Dose Ordered Sig/Lulu Route Start Time Stop Time Status Last Admin Dose Admin Nitroglycerin 0.4 mg Q5MINP PRN SL 04/16/24 23:45 Albuterol 2.5 mg Q6HPRN PRN NEB 04/17/24 18:30 05/07/24 00:00 2.5 MG Levalbuterol HCl 1.25 mg Q6HR NEB 04/18/24 00:00 05/10/24 18:40 1.25 MG Norepinephrine Bitartrate 32 mg/ Sodium Chloride 250 ml @ 0.938 mls/ hr Q24H IV 04/18/24 11:45 05/08/24 19:52 0.938 MLS/HR Midazolam HCl 50 ml @ 1 mls/hr Q24H IV 04/20/24 14:45 05/10/24 18:11 10 MLS/HR Pantoprazole Sodium 40 mg DAILY IV 04/21/24 10:00 05/10/24 09:41 40 MG Enteral Nutritional Formula 1,000 ml 30ML/HR GT 04/20/24 16:45 Cancel Enteral Nutritional Formula 1,000 ml 30ML/HR GT 04/21/24 08:45 05/09/24 21:28 1,000 ML Diagnostic Test (Pha) 1 strip Q6HR 04/23/24 12:00 05/10/24 17:20 1 STRIP Insulin Human Regular Q6HR SC 04/23/24 12:00 05/10/24 17:20 3 UNITS Dextrose 50 ml UD PRN IV 04/23/24 11:15 Clopidogrel Bisulfate 75 mg DAILY PO 04/27/24 10:00 05/10/24 09:42 75 MG Sodium Chloride 10 ml QSHIFT@10,22 IV 04/27/24 22:00 05/10/24 09:42 10 ML Acetaminophen 650 mg Q6HP PRN GT 04/30/24 18:45 Amiodarone HCl 200 mg Q12HR PO 05/01/24 22:00 05/10/24 09:42 200 MG Enoxaparin Sodium 70 mg DAILY SC 05/03/24 10:00 05/10/24 09:42 70 MG Piperacillin Sod/ Tazobactam Sod 100 ml @ 25 mls/hr BID IV 05/03/24 10:00 05/10/24 09:42 25 MLS/HR Furosemide 40 mg DAILY IV 05/05/24 10:00 05/10/24 09:41 40 MG Dexmedetomidine HCl 400 mcg/ Dextrose 100 ml @ 4.025 mls/ hr Q24H IV 05/08/24 17:45 05/10/24 04:31 14.088 MLS/HR Fentanyl Citrate 250 ml @ 2.5 mls/hr Q24H IV 05/09/24 21:45 05/10/24 15:40 27.5 MLS/HR objective Gen.: Patient lying in bed in medical ICU. Sedated, intubated on mechanical ventilator. Head: Normocephalic, atraumatic. Eyes: PERRLA. Ears: Normal external anatomy. Throat: Endotracheal tube and orogastric tube in place. Neck: Supple, trachea midline. Chest: Transmitted breath sounds bilaterally. Decreased air entry bilaterally. No wheezing. Bibasilar crackles. Cardiovascular: Positive S1, positive S2. Regular rate and rhythm. Abdomen: Positive bowel sounds in all 4 quadrants. Soft, nontender, nondistended. : Mack in place. Normal external genitalia. Rectal: Deferred. Skin: Warm, dry. Intact. Extremities: 2+ radial pulses bilaterally. No lower extremity edema. Neuro: Sedated. laboratory and microbiology Laboratory Tests 05/10/24 03:31 Test 05/10/24 03:31 Range/Units Serum Glucose 192 H 74-106 mg/dL Assessment/Plan Impression: Acute hypoxic respiratory failure On mechanical ventilator Non-ST elevation myocardial infarction Elevated troponin Acute kidney injury DM type II w/ hyperglycemia Nicotine dependence Marijuana abuse Pleural effusion Atelectasis Events: Remains on vent support On AC mode; RR 24, VT 500, PEEP 5, FiO2 30%. ABG reviewed. Alkalemia CXR demonstrates multifocal airspace disease. Devices in place Sedated on Fentanyl, Versed Off Precedex Continue antibiotics Hgb trending up; 7.5 --> 8.6 g/dL Transfuse if less than 7.0 g/dL Monitor renal function Nephrology recommendations appreciated. Tube feeds for nutritional support. Awaiting for mentation to improve for CPAP Labs and imaging reviewed. Rest of plan as noted below. Plan: s/p intubation on mechanical ventilator. On AC mode; RR 24, VT 500, PEEP 5, FiO2 30%. Titrate FIO2 to keep O2 saturation above 90%. VAP bundle. Daily ABG and CXR while intubated Sedated for ventilator synchrony Elevated troponin Cardiology recommendations appreciated Continue bronchodilators. Possible BOOP - start stress dose steroids Continue antibiotics. F/u cultures. Leukocytosis - WBC wnl. Pressors if necessary for hemodynamic support Titrate to keep mean arterial pressure greater than 65 mmHg Monitor renal function Monitor electrolytes. Supplement as necessary. Monitor ins and outs. Maintain euvolemia. GI prophylaxis. DVT prophylaxis. Prognosis: Poor given patient's multiple co-morbidities. Condition: Critical Rest of plan per hospitalist and other consultants. A total of 35 minutes of critical care time was spent reviewing the patient record, examining the patient, making a diagnostic and therapeutic plan, discussing this plan with the medical personnel, following up on diagnostic studies and following the patient for clinical stability excluding any and all procedures. At least 50% of this time was spent in direct, [id number] contact. Thank you Dr. Korina Thakkar MD, for allowing me to participate in this patient's care. Further recommendations will depend on the patient's clinical course. Please do not hesitate to contact me if you have any questions or concerns. This medical document was created using an electronic medical record system with [employer] system. Although these documentations are being carefully reviewed, there may still be some phonetic and typographical changes. The errors are purely typographical, due to imperfection on the software program, and do not reflect any compromise in the patient's medical care. Dietary Evaluation Review Comments: current TF is providing adequate amount of protein and energy to pt. Need to continue monitor the nepro support vs updated lab values, d/t his ckd-3b status and not on HD. Expected Outcomes/Goals: meeting pt's estimated needs for both protein and energy at 75% or higher. Plan discussed with: Other (EL Candelario) Critical Care Time(min): 35 NING GORE MD May 10, 2024 21:25
[2024-05-11] VITALS (98 sets, daily range): BP systolic 79–140; BP diastolic 42–97; PULSE 68–118; RESP 17–34; TEMP 98.4–99.2; O2SAT 84–100
[2024-05-11 04:11] LABS: Basophils # (auto) 0.1 10 ^3/uL (0-0.2); Eosinophils # (auto) 0.5 10 ^3/uL (0-0.8); Eosinophils % (auto) 6.3 % (0.0-7.0); Hematocrit 24.8 % (41.0-53.0); Hemoglobin 8.3 g/dL (13.5-17.5); Lymphocytes # (auto) 0.6 10 ^3/uL (0.4-5.4); Lymphocytes % (auto) 7.9 % (10.0-50.0); Mean Corpuscular Hemoglobin 29.4 pg (28.0-32.0); Mean Corpuscular Hgb Conc. 33.5 g/dL (32.0-36.0); Mean Corpuscular Volume 87.9 fL (80.0-100.0); Monocytes # (auto) 0.7 10 ^3/uL (0-1.3); Neutrophils # (auto) 5.4 10 ^3/uL (1.6-8.6); Neutrophils % (auto) 74.8 % (37.0-80.0); Platelet Count (auto) 251 10^3/uL (140-450); Red Blood Cells 2.83 10^6/uL (4.5-5.90); Red Cell Distribution Width 15.1 % (11.8-14.3); White Blood Cell 7.2 10^3/uL (4.4-10.8)
[2024-05-11 04:20] LABS: Anion Gap 11 (5-15); Calcium 8.7 mg/dL (8.7-10.4); Carbon Dioxide 26 mmol/L (20-31); Chloride 103 mmol/L (98-107); Sodium 140 mmol/L (136-145)
[2024-05-11 04:26] LABS: BUN/Creatinine Ratio 23.3 (10.0-20.0)
[2024-05-11 04:43] LABS: Blood Urea Nitrogen 80 mg/dL (9-23); Glucose 182 mg/dL (74-106); Potassium 3.1 mmol/L (3.5-5.1)
--- NOTE | 2024-05-11 05:40 | DVH ---
CHEST RADIOGRAPH Indication: RESPIRATORY FAILURE Technique: Single frontal view of the chest was obtained Comparison: XY CHEST PORTABLE on DOS: 05/10/24, XY CHEST PORTABLE on DOS: 05/09/24, XY CHEST PORTABLE on DOS: 05/08/24 IMPRESSION: There is cardiomegaly with median sternotomy wires. Enteric tube tip is just beyond the gastroesophageal junction, consider advancement for at least 5 cm for more ideal positioning. The left-hand obscures evaluation of the left upper chest. Patchy airspace opacities are likely prese nt in the left lung base. The right lung appears mildly improved in aeration. No discrete pneumothor ax. Endotracheal tube and left catheter appear relatively stable.
[2024-05-11 08:23] LABS: Base Excess -0.2 mmol/L (-2.0-3.0)
[2024-05-11] MEDS: SODIUM CHL 0.9% 1000 ML BAG XX ONE (13:15)
[2024-05-11] MEDS: POTASSIUM CHL 20MEQ/100ML 100 ML IV SCH (13:15)
--- NOTE | 2024-05-11 13:49 | DVHPN2 ---
Progress Note Date Seen: May 11, 2024 Medical Necessity Reason Pt with a Central, PICC or Fol: Yes The following are medically ne: PICC Line, Mack Catheter Reason for mack catheter: Strict I&O Subjective Patient reports: No new complaints Review of Systems: HEENT:Normal, CVS:Normal, RESPIRATORY:Normal, GI:Normal, :Normal, MSK:Normal, NEURO:Normal Objective vital signs Vital Sign Date Time Temp Pulse Resp B/P (MAP) Pulse Ox O2 Delivery O2 Flow Rate FiO2 05/11/24 13:46 138/73 05/11/24 13:20 81 24 100 30 05/11/24 12:00 98.8 98.8 05/11/24 06:02 Mechanical Ventilator+ 05/09/24 08:18 30.0 Total Intake and Output 05/10/24 05/10/24 05/11/24 15:00 23:00 07:00 Intake Total 356.651 ml 577.0 ml 738.0 ml Output Total 925 ml 1050 ml Balance 356.651 ml -348.0 ml -312.0 ml medications Current Medications Medications Dose Ordered Sig/Lulu Route Start Time Stop Time Status Last Admin Dose Admin Nitroglycerin 0.4 mg Q5MINP PRN SL 04/16/24 23:45 Albuterol 2.5 mg Q6HPRN PRN NEB 04/17/24 18:30 05/07/24 00:00 2.5 MG Levalbuterol HCl 1.25 mg Q6HR NEB 04/18/24 00:00 05/11/24 13:20 1.25 MG Norepinephrine Bitartrate 32 mg/ Sodium Chloride 250 ml @ 0.938 mls/ hr Q24H IV 04/18/24 11:45 05/08/24 19:52 0.938 MLS/HR Midazolam HCl 50 ml @ 1 mls/hr Q24H IV 04/20/24 14:45 05/11/24 08:28 10 MLS/HR Pantoprazole Sodium 40 mg DAILY IV 04/21/24 10:00 05/11/24 10:15 40 MG Enteral Nutritional Formula 1,000 ml 30ML/HR GT 04/20/24 16:45 Cancel Enteral Nutritional Formula 1,000 ml 30ML/HR GT 04/21/24 08:45 05/10/24 22:50 1,000 ML Diagnostic Test (Pha) 1 strip Q6HR 04/23/24 12:00 05/11/24 12:00 1 STRIP Insulin Human Regular Q6HR SC 04/23/24 12:00 05/11/24 06:23 6 UNITS Dextrose 50 ml UD PRN IV 04/23/24 11:15 Clopidogrel Bisulfate 75 mg DAILY PO 04/27/24 10:00 05/11/24 10:29 75 MG Sodium Chloride 10 ml QSHIFT@10,22 IV 04/27/24 22:00 05/11/24 10:00 10 ML Acetaminophen 650 mg Q6HP PRN GT 04/30/24 18:45 Amiodarone HCl 200 mg Q12HR PO 05/01/24 22:00 05/11/24 10:29 200 MG Enoxaparin Sodium 70 mg DAILY SC 05/03/24 10:00 05/11/24 10:30 70 MG Piperacillin Sod/ Tazobactam Sod 100 ml @ 25 mls/hr BID IV 05/03/24 10:00 05/11/24 10:15 25 MLS/HR Furosemide 40 mg DAILY IV 05/05/24 10:00 05/11/24 13:46 40 MG Dexmedetomidine HCl 400 mcg/ Dextrose 100 ml @ 4.025 mls/ hr Q24H IV 05/08/24 17:45 05/10/24 04:31 14.088 MLS/HR Fentanyl Citrate 250 ml @ 2.5 mls/hr Q24H IV 05/09/24 21:45 05/11/24 09:23 25 MLS/HR Potassium Chloride 100 ml @ 50 mls/hr Q2H IV 05/11/24 12:00 05/11/24 15:59 05/11/24 13:15 50 MLS/HR Examination: GENERAL:Normal, HEENT:Normal, NECK:Normal, LUNGS:Normal, CVS:Normal, ABDOMEN:Normal, MSK:Normal, SKIN:Normal, NEURO:Normal, :Normal laboratory and microbiology Laboratory Tests 05/11/24 03:25 Test 05/11/24 03:25 Range/Units Serum Glucose 182 H 74-106 mg/dL Microbiology Date/Time Source Procedure Growth Status 04/18/24 01:00 Nose MRSA Screen - Final Complete 04/17/24 13:00 Blood Blood Culture - Final NO GROWTH AFTER 5 DAYS OF INCUBATION. Complete 04/17/24 01:05 Sputum Gram Stain - Final Complete 04/17/24 01:05 Respiratory Culture - Final Streptococcus Group F Complete Problem List/Assessment/Plan Problem List/Assessment/Plan Neurology : - patient is sedated Cardiovascular : # Non ST elevation myocardial infarction # Acute on chronic decompensated HFrEF, NYHA Class IV, newly diagnosed: lasix iv # Echo on 04/18/2024 shows: Severely dilated left ventricle. Severely reduced left ventricular systolic function with estimated ejection fraction 25%. There is anterior anteroseptal anteroapical inferolateral wall severe hypokinesia- dobutamine drip # Severe coronary artery disease status post triple-vessel CABG, 2018 # Lower extremity DVT ruled out # Severe PVD status post left SFA ELLIOT x 1 # Hypertension # Dyslipidemia - cardiology on board - discontinue Lipitor for now - discontinue Plavix for now - patient is on heparin drip # a fib: on amiodarone Respiratory : # Septic shock due to pneumonia ?aspiration # Acute hypoxic respiratory failure secondary to possible pneumonia - patient is on mechanical ventilation with FiO2 30%, PEEP: 6, F 24, Vt 550 # Possible community-acquired pneumonia Gm +/- bacterial pneumonia - continue antibiotic, Zosyn, add doxy # RLL segmental pulmonary embolism with no evidence of right-heart strain # Bilateral pleural effusions, small - continue lovenox # cpap trial discussed with family regards trach- do not wish trach GI: elevated lft: dc doxy, dc lipitor, usg liver Genitourinary : # ANDREA on CKD # Acute kidney injury due to ATN # ANDREA likely ischemic ATN in setting of shock # CKD stage IIIB -nephrology on board -continue Lasix 40 mg I/V daily. - HD today Infectious Disease : # Septic shock due to pneumonia # possible community-acquired pneumonia gm+/- bacterial - patient is on pressor - continue IV antibiotics Endocrine : [id number] diabetes mellitus -HbA1c 7.1 - Continue ISS - monitor blood glucose Hematology : - leukocytosis due to septic shock - follow up morning labs - anemia- transfuse Nutrition : Glucerna Lines: Endotracheal tube: 04/18/2024 Right IG central line: 04/18/2024 Mack catheter: 04/18/2024 Left IG Pipo catheter: 04/20/2024 Drips : Fentanyl 75 Versed 5 Propofol 0 NE 0 Vasopressin 0 [id number] Prophylaxis for PUD : Protonix 40 mg IV daily Prophylaxis for DVT: Patient is on heparin drip long dw - explained treatment plan Plan discussed with: Spouse, Daughter My Orders My Orders Orders - ADRIA NASH MD Procedure Category Date Status Time Cpap Trial For Am ORDERS 05/11/24 Verified 13:41 Complete Blood Count LAB 05/12/24 Verified 06:00 Comprehensive LAB 05/12/24 Verified Metabolic Panel 06:00 Chest Portable XY 05/12/24 Verified 06:00 Abg W/ Co-Ox RT 05/12/24 Verified 06:00 Dietary Evaluation Review Comments: current TF is providing adequate amount of protein and energy to pt. Need to continue monitor the nepro support vs updated lab values, d/t his ckd-3b status and not on HD. Expected Outcomes/Goals: meeting pt's estimated needs for both protein and energy at 75% or higher. Critical Care Time (mins): 58 (critical care time 58 mins) Date of Service: May 11, 2024 Billing Provider: ADRIA NASH MD Common Visit Codes: [id number] CARE 30-74 MIN ADRIA NASH MD May 11, 2024 13:49
[2024-05-11] MEDS: ALBUMIN 25% 100 ML IV ONE (14:25)
--- NOTE | 2024-05-11 15:24 | DVHPN2 ---
Progress Note Date Seen: May 11, 2024 Medical Necessity Reason Pt with a Central, PICC or Fol: Yes The following are medically ne: PICC Line, Mack Catheter Reason for mack catheter: Strict I&O Subjective Review of Systems: RESPIRATORY:Abnormal Other Systems: Patient seen and examined by myself today in f/u, he is intubated on ventilator Patient examined on HD, BP stable Objective vital signs Vital Sign Date Time Temp Pulse Resp B/P (MAP) Pulse Ox O2 Delivery O2 Flow Rate FiO2 05/11/24 15:00 100 21 113/56 (75) 97 05/11/24 13:20 30 05/11/24 12:00 98.8 98.8 05/11/24 08:00 Mechanical Ventilator+ 05/09/24 08:18 30.0 Total Intake and Output 05/10/24 05/10/24 05/11/24 14:59 22:59 06:59 Intake Total 363.739 ml 576.0 ml 737.0 ml Output Total 925 ml 1050 ml Balance 363.739 ml -349.0 ml -313.0 ml medications Current Medications Medications Dose Ordered Sig/Lulu Route Start Time Stop Time Status Last Admin Dose Admin Nitroglycerin 0.4 mg Q5MINP PRN SL 04/16/24 23:45 Albuterol 2.5 mg Q6HPRN PRN NEB 04/17/24 18:30 05/07/24 00:00 2.5 MG Levalbuterol HCl 1.25 mg Q6HR NEB 04/18/24 00:00 05/11/24 13:20 1.25 MG Norepinephrine Bitartrate 32 mg/ Sodium Chloride 250 ml @ 0.938 mls/ hr Q24H IV 04/18/24 11:45 05/08/24 19:52 0.938 MLS/HR Pantoprazole Sodium 40 mg DAILY IV 04/21/24 10:00 05/11/24 10:15 40 MG Enteral Nutritional Formula 1,000 ml 30ML/HR GT 04/20/24 16:45 Cancel Enteral Nutritional Formula 1,000 ml 30ML/HR GT 04/21/24 08:45 05/10/24 22:50 1,000 ML Diagnostic Test (Pha) 1 strip Q6HR 04/23/24 12:00 05/11/24 12:00 1 STRIP Insulin Human Regular Q6HR SC 04/23/24 12:00 05/11/24 14:29 6 UNITS Dextrose 50 ml UD PRN IV 04/23/24 11:15 Clopidogrel Bisulfate 75 mg DAILY PO 04/27/24 10:00 05/11/24 10:29 75 MG Sodium Chloride 10 ml QSHIFT@10,22 IV 04/27/24 22:00 05/11/24 10:00 10 ML Acetaminophen 650 mg Q6HP PRN GT 04/30/24 18:45 Amiodarone HCl 200 mg Q12HR PO 05/01/24 22:00 05/11/24 10:29 200 MG Enoxaparin Sodium 70 mg DAILY SC 05/03/24 10:00 05/11/24 10:30 70 MG Piperacillin Sod/ Tazobactam Sod 100 ml @ 25 mls/hr BID IV 05/03/24 10:00 05/11/24 10:15 25 MLS/HR Furosemide 40 mg DAILY IV 05/05/24 10:00 05/11/24 13:46 40 MG Dexmedetomidine HCl 400 mcg/ Dextrose 100 ml @ 4.025 mls/ hr Q24H IV 05/08/24 17:45 05/10/24 04:31 14.088 MLS/HR Fentanyl Citrate 250 ml @ 2.5 mls/hr Q24H IV 05/09/24 21:45 05/11/24 09:23 25 MLS/HR Potassium Chloride 100 ml @ 50 mls/hr Q2H IV 05/11/24 12:00 05/11/24 15:59 05/11/24 15:05 50 MLS/HR Examination: LUNGS:Normal, CVS:Normal, MSK:Normal laboratory and microbiology Laboratory Tests 05/11/24 03:25 Test 05/11/24 03:25 Range/Units Serum Glucose 182 H 74-106 mg/dL Microbiology Date/Time Source Procedure Growth Status 04/18/24 01:00 Nose MRSA Screen - Final Complete 04/17/24 13:00 Blood Blood Culture - Final NO GROWTH AFTER 5 DAYS OF INCUBATION. Complete 04/17/24 01:05 Sputum Gram Stain - Final Complete 04/17/24 01:05 Respiratory Culture - Final Streptococcus Group F Complete Problem List/Assessment/Plan Problem List/Assessment/Plan Nurse ANDREA secondary hemodynamic mediated, FeNa < 1% , oliguric requirin intermittent hemodialysis Acute hypoxic respiratory failure, intubated on ventilator CKD stage IIIB Acute PE NSTEMI Congestive heart failure, ejection fraction 20% coronary artery disease Diabetes mellitus type 2 Anemia of chronic kidney disease Hypokalemia Recommendation Continue with UF to 2-3 L as tolerated, use no heparin Epogen 33186 IV post hemodialysis Albumin 25% IV piggyback p.r.n. hemodialysis IV Levophed blood pressure support p.r.n. hemodialysis Low-dose dopamine DC IV fluid KCL replacement Mack catheter Strict I&Os We will continue to follow up Plan discussed with: Other (nurse) My Orders My Orders Orders - MANAV RITTER MD Procedure Category Date Status Time Potassium Chl PHA 05/11/24 In Process 20meq/100ml 12:00 Hemodialysis Orders ORDERS 05/11/24 Transmitted 13:15 Epoetin Perez-Epbx PHA 05/11/24 In Process (Retacrit) 21:00 Potassium Effervesent PHA 05/11/24 Transmitted Tab (Klor-Con/Ef) 15:30 Dietary Evaluation Review Comments: current TF is providing adequate amount of protein and energy to pt. Need to continue monitor the nepro support vs updated lab values, d/t his ckd-3b status and not on HD. Expected Outcomes/Goals: meeting pt's estimated needs for both protein and energy at 75% or higher. MANAV RITTER MD May 11, 2024 15:24
[2024-05-11] MEDS: POTASSIUM EFFERVESENT TAB 25 MEQ PO ONE (18:04)
[2024-05-11] MEDS ORDERED: EPOETIN ALFA-EPBX 4,000 UNIT/ML VIAL SC ONE (21:00)
[2024-05-11] MEDS: EPOETIN ALFA-EPBX 10,000 UNIT/1ML VIAL SC ONE (21:00)
[2024-05-12] VITALS (107 sets, daily range): BP systolic 12–146; BP diastolic 28–85; PULSE 7–116; RESP 16–38; TEMP 98.5–100.7; O2SAT 92–100
[2024-05-12] MEDS: ACETAMINOPHEN 650 mg PER 20.3 mL UD GT PRN (00:20)
[2024-05-12 04:10] LABS: Basophils # (auto) 0.1 10 ^3/uL (0-0.2); Basophils % (auto) 0.5 % (0.0-2.0); Eosinophils # (auto) 0.3 10 ^3/uL (0-0.8); Hemoglobin 8.4 g/dL (13.5-17.5); Lymphocytes # (auto) 0.6 10 ^3/uL (0.4-5.4); Lymphocytes % (auto) 4.5 % (10.0-50.0); White Blood Cell 12.8 10^3/uL (4.4-10.8)
[2024-05-12 04:12] LABS: Eosinophils % (auto) 2.5 % (0.0-7.0); Hematocrit 25.4 % (41.0-53.0); Mean Corpuscular Hemoglobin 29.2 pg (28.0-32.0); Mean Corpuscular Hgb Conc. 32.9 g/dL (32.0-36.0); Mean Corpuscular Volume 88.5 fL (80.0-100.0); Monocytes # (auto) 1.3 10 ^3/uL (0-1.3); Neutrophils # (auto) 10.5 10 ^3/uL (1.6-8.6); Neutrophils % (auto) 82.5 % (37.0-80.0); Nucleated Red Blood Cells % 0.1 %; Platelet Count (auto) 202 10^3/uL (140-450); Red Blood Cells 2.87 10^6/uL (4.5-5.90); Red Cell Distribution Width 15.4 % (11.8-14.3)
[2024-05-12 04:31] LABS: Albumin 3.7 g/dL (3.2-4.8); Calcium 9.1 mg/dL (8.7-10.4)
[2024-05-12 04:32] LABS: Anion Gap 12 (5-15); BUN/Creatinine Ratio 19.3 (10.0-20.0); Bilirubin, Total 0.8 mg/dL (0.2-1.0); Carbon Dioxide 25 mmol/L (20-31); Chloride 104 mmol/L (98-107); Potassium 4.4 mmol/L (3.5-5.1); Sodium 141 mmol/L (136-145); Total Protein 6.9 g/dL (5.7-8.2)
[2024-05-12 05:04] LABS: Alkaline Phosphatase 135 U/L (46-116); Blood Urea Nitrogen 50 mg/dL (9-23); Glucose 200 mg/dL (74-106)
[2024-05-12 05:05] LABS: Alanine Aminotransferase 375 U/L (7-40); Aspartate Aminotransferase 203 U/L (13-40)
--- NOTE | 2024-05-12 05:05 | DVH ---
CHEST RADIOGRAPH Indication: CHF Technique: Single frontal view of the chest was obtained COMPARISON: XY CHEST PORTABLE on DOS: 05/11/24, XY CHEST PORTABLE on DOS: 05/10/24, XY CHEST PORTABLE on DOS: 05/09/24, XY CHEST PORTABLE on DOS: 05/08/24, XY CHEST PORTABLE on DOS: 05/07/24, XY CHEST P ORTABLE on DOS: 05/10/24 FINDINGS: Lines and Tubes: Endotracheal tube, enteric catheter, right PICC and left central venous catheter in satisfactory position. Median sternotomy. Lungs: Multifocal airspace disease. Pleura: No effusion. No pneumothorax. Cardiomediastinal contours: Unremarkable Bones: Unremarkable IMPRESSION: Lines and tubes in satisfactory position. No significant interval change.
[2024-05-12 07:35] LABS: Base Excess 0.2 mmol/L (-2.0-3.0)
--- NOTE | 2024-05-12 10:56 | DVHPN2 ---
Progress Note Date Seen: May 12, 2024 Medical Necessity Reason Pt with a Central, PICC or Fol: Yes The following are medically ne: PICC Line, Mack Catheter Reason for mack catheter: Strict I&O Subjective Review of Systems: RESPIRATORY:Abnormal Other Systems: Patient seen and examined by myself today in follow-up, patient remained intubated on ventilator Objective vital signs Vital Sign Date Time Temp Pulse Resp B/P (MAP) Pulse Ox O2 Delivery O2 Flow Rate FiO2 05/12/24 10:30 106 26 123/59 (80) 100 05/12/24 10:00 Mechanical Ventilator+ 30 30 05/12/24 08:00 99.8 99.8 Total Intake and Output 05/11/24 05/11/24 05/12/24 15:00 23:00 07:00 Intake Total 479.5 ml 447.5 ml 290.163 ml Output Total 3475 ml 125 ml Balance 479.5 ml -3027.5 ml 165.163 ml medications Current Medications Medications Dose Ordered Sig/Lulu Route Start Time Stop Time Status Last Admin Dose Admin Nitroglycerin 0.4 mg Q5MINP PRN SL 04/16/24 23:45 Albuterol 2.5 mg Q6HPRN PRN NEB 04/17/24 18:30 05/07/24 00:00 2.5 MG Levalbuterol HCl 1.25 mg Q6HR NEB 04/18/24 00:00 05/12/24 06:16 1.25 MG Norepinephrine Bitartrate 32 mg/ Sodium Chloride 250 ml @ 0.938 mls/ hr Q24H IV 04/18/24 11:45 05/12/24 01:53 0.938 MLS/HR Pantoprazole Sodium 40 mg DAILY IV 04/21/24 10:00 05/12/24 09:46 40 MG Enteral Nutritional Formula 1,000 ml 30ML/HR GT 04/20/24 16:45 Cancel Enteral Nutritional Formula 1,000 ml 30ML/HR GT 04/21/24 08:45 05/10/24 22:50 1,000 ML Diagnostic Test (Pha) 1 strip Q6HR 04/23/24 12:00 05/12/24 06:03 1 STRIP Insulin Human Regular Q6HR SC 04/23/24 12:00 05/12/24 06:04 6 UNITS Dextrose 50 ml UD PRN IV 04/23/24 11:15 Clopidogrel Bisulfate 75 mg DAILY PO 04/27/24 10:00 05/12/24 09:50 75 MG Sodium Chloride 10 ml QSHIFT@10,22 IV 04/27/24 22:00 05/12/24 09:49 10 ML Acetaminophen 650 mg Q6HP PRN GT 04/30/24 18:45 05/12/24 00:20 650 MG Amiodarone HCl 200 mg Q12HR PO 05/01/24 22:00 05/12/24 09:50 200 MG Enoxaparin Sodium 70 mg DAILY SC 05/03/24 10:00 05/12/24 09:49 70 MG Piperacillin Sod/ Tazobactam Sod 100 ml @ 25 mls/hr BID IV 05/03/24 10:00 05/12/24 09:50 25 MLS/HR Furosemide 40 mg DAILY IV 05/05/24 10:00 05/12/24 09:47 40 MG Dexmedetomidine HCl 400 mcg/ Dextrose 100 ml @ 4.025 mls/ hr Q24H IV 05/08/24 17:45 05/11/24 23:22 4.025 MLS/HR Fentanyl Citrate 250 ml @ 2.5 mls/hr Q24H IV 05/09/24 21:45 05/11/24 09:23 25 MLS/HR Examination: LUNGS:Normal, CVS:Normal, MSK:Normal laboratory and microbiology Laboratory Tests 05/12/24 03:18 Test 05/12/24 03:18 Range/Units Serum Glucose 200 H 74-106 mg/dL Microbiology Date/Time Source Procedure Growth Status 04/18/24 01:00 Nose MRSA Screen - Final Complete 04/17/24 13:00 Blood Blood Culture - Final NO GROWTH AFTER 5 DAYS OF INCUBATION. Complete 04/17/24 01:05 Sputum Gram Stain - Final Complete 04/17/24 01:05 Respiratory Culture - Final Streptococcus Group F Complete Problem List/Assessment/Plan Problem List/Assessment/Plan Nurse ANDREA secondary hemodynamic mediated, FeNa < 1% , oliguric requirin intermittent hemodialysis Acute hypoxic respiratory failure, intubated on ventilator CKD stage IIIB Acute PE NSTEMI Congestive heart failure, ejection fraction 20% coronary artery disease Diabetes mellitus type 2 Anemia of chronic kidney disease Hypokalemia Recommendation Hemodialysis tomorrow, use no heparin Epogen 78612 IV post hemodialysis Albumin 25% IV piggyback p.r.n. hemodialysis IV Levophed blood pressure support p.r.n. hemodialysis Low-dose dopamine DC IV fluid KCL replacement Mack catheter Strict I&Os We will continue to follow up Plan discussed with: Other (Nurse) My Orders My Orders Orders - MANAV RITTER MD Procedure Category Date Status Time Hemodialysis Orders ORDERS 05/11/24 Transmitted 13:15 Dietary Evaluation Review Comments: current TF is providing adequate amount of protein and energy to pt. Need to continue monitor the nepro support vs updated lab values, d/t his ckd-3b status and not on HD. Expected Outcomes/Goals: meeting pt's estimated needs for both protein and energy at 75% or higher. MANAV RITTER MD May 12, 2024 10:56
[2024-05-12] MEDS: FUROSEMIDE 40 MG/4 ML VIAL IV ONE (12:13)
--- NOTE | 2024-05-12 14:54 | DVHPN2 ---
Progress Note Date Seen: May 12, 2024 Medical Necessity Reason Pt with a Central, PICC or Fol: Yes The following are medically ne: PICC Line, Mack Catheter Reason for mack catheter: Strict I&O Subjective Patient reports: No new complaints Review of Systems: HEENT:Normal, CVS:Normal, RESPIRATORY:Normal, GI:Normal, :Normal, MSK:Normal, NEURO:Normal Objective vital signs Vital Sign Date Time Temp Pulse Resp B/P (MAP) Pulse Ox O2 Delivery O2 Flow Rate FiO2 05/12/24 14:00 99.8 05/12/24 13:34 7 27 05/09 (23) 99 30 05/12/24 12:00 Mechanical Ventilator+ Total Intake and Output 05/11/24 05/11/24 05/12/24 15:00 23:00 07:00 Intake Total 479.5 ml 447.5 ml 290.163 ml Output Total 3475 ml 125 ml Balance 479.5 ml -3027.5 ml 165.163 ml medications Current Medications Medications Dose Ordered Sig/Lulu Route Start Time Stop Time Status Last Admin Dose Admin Nitroglycerin 0.4 mg Q5MINP PRN SL 04/16/24 23:45 Albuterol 2.5 mg Q6HPRN PRN NEB 04/17/24 18:30 05/07/24 00:00 2.5 MG Levalbuterol HCl 1.25 mg Q6HR NEB 04/18/24 00:00 05/12/24 12:06 1.25 MG Norepinephrine Bitartrate 32 mg/ Sodium Chloride 250 ml @ 0.938 mls/ hr Q24H IV 04/18/24 11:45 05/12/24 01:53 0.938 MLS/HR Pantoprazole Sodium 40 mg DAILY IV 04/21/24 10:00 05/12/24 09:46 40 MG Enteral Nutritional Formula 1,000 ml 30ML/HR GT 04/20/24 16:45 Cancel Enteral Nutritional Formula 1,000 ml 30ML/HR GT 04/21/24 08:45 05/10/24 22:50 1,000 ML Diagnostic Test (Pha) 1 strip Q6HR 04/23/24 12:00 05/12/24 12:06 1 STRIP Insulin Human Regular Q6HR SC 04/23/24 12:00 05/12/24 12:05 3 UNITS Dextrose 50 ml UD PRN IV 04/23/24 11:15 Clopidogrel Bisulfate 75 mg DAILY PO 04/27/24 10:00 05/12/24 09:50 75 MG Sodium Chloride 10 ml QSHIFT@10,22 IV 04/27/24 22:00 05/12/24 09:49 10 ML Acetaminophen 650 mg Q6HP PRN GT 04/30/24 18:45 05/12/24 12:13 650 MG Amiodarone HCl 200 mg Q12HR PO 05/01/24 22:00 05/12/24 09:50 200 MG Enoxaparin Sodium 70 mg DAILY SC 05/03/24 10:00 05/12/24 09:49 70 MG Piperacillin Sod/ Tazobactam Sod 100 ml @ 25 mls/hr BID IV 05/03/24 10:00 05/12/24 09:50 25 MLS/HR Furosemide 40 mg DAILY IV 05/05/24 10:00 05/12/24 09:47 40 MG Dexmedetomidine HCl 400 mcg/ Dextrose 100 ml @ 4.025 mls/ hr Q24H IV 05/08/24 17:45 05/11/24 23:22 4.025 MLS/HR Fentanyl Citrate 250 ml @ 2.5 mls/hr Q24H IV 05/09/24 21:45 05/11/24 09:23 25 MLS/HR Examination: GENERAL:Normal, HEENT:Normal, NECK:Normal, LUNGS:Normal, LUNGS:Abnormal (intubated), CVS:Normal, ABDOMEN:Normal, MSK:Normal, SKIN:Normal, NEURO:Normal, :Normal laboratory and microbiology Laboratory Tests 05/12/24 03:18 Test 05/12/24 03:18 Range/Units Serum Glucose 200 H 74-106 mg/dL Microbiology Date/Time Source Procedure Growth Status 04/18/24 01:00 Nose MRSA Screen - Final Complete 04/17/24 13:00 Blood Blood Culture - Final NO GROWTH AFTER 5 DAYS OF INCUBATION. Complete 04/17/24 01:05 Sputum Gram Stain - Final Complete 04/17/24 01:05 Respiratory Culture - Final Streptococcus Group F Complete Problem List/Assessment/Plan Problem List/Assessment/Plan Neurology : - patient is sedated Cardiovascular : # Non ST elevation myocardial infarction # Acute on chronic decompensated HFrEF, NYHA Class IV, newly diagnosed: lasix iv # Echo on 04/18/2024 shows: Severely dilated left ventricle. Severely reduced left ventricular systolic function with estimated ejection fraction 25%. There is anterior anteroseptal anteroapical inferolateral wall severe hypokinesia- dobutamine drip # Severe coronary artery disease status post triple-vessel CABG, 2018 # Lower extremity DVT ruled out # Severe PVD status post left SFA ELLIOT x 1 # Hypertension # Dyslipidemia - cardiology on board - discontinue Lipitor for now - discontinue Plavix for now - patient is on heparin drip # a fib: on amiodarone Respiratory : # Septic shock due to pneumonia ?aspiration # Acute hypoxic respiratory failure secondary to possible pneumonia - patient is on mechanical ventilation with FiO2 30%, PEEP: 6, F 24, Vt 550 # Possible community-acquired pneumonia Gm +/- bacterial pneumonia - continue antibiotic, Zosyn, add vanc # RLL segmental pulmonary embolism with no evidence of right-heart strain # Bilateral pleural effusions, small - continue lovenox # cpap trial-failed discussed with family regards trach- do not wish trach GI: elevated lft: dc doxy, dc lipitor, usg liver Genitourinary : # ANDREA on CKD # Acute kidney injury due to ATN # ANDREA likely ischemic ATN in setting of shock # CKD stage IIIB -nephrology on board -continue Lasix 40 mg I/V daily. - HD Infectious Disease : # Septic shock due to pneumonia # possible community-acquired pneumonia gm+/- bacterial - patient is on pressor - continue IV antibiotics Endocrine : [id number] diabetes mellitus -HbA1c 7.1 - Continue ISS - monitor blood glucose Hematology : - leukocytosis due to septic shock - follow up morning labs - anemia- transfuse Nutrition : Glucerna Lines: Endotracheal tube: 04/18/2024 Right IG central line: 04/18/2024 Mack catheter: 04/18/2024 Left IG Pipo catheter: 04/20/2024 Drips : Fentanyl 75 Versed 5 Propofol 0 NE 0 Vasopressin 0 [id number] Prophylaxis for PUD : Protonix 40 mg IV daily Prophylaxis for DVT: Patient is on heparin drip long dw - explained treatment plan Plan discussed with: Spouse My Orders My Orders Orders - ADRIA NASH MD Procedure Category Date Status Time Abg W/ Co-Ox RT 05/12/24 Logged 11:25 Respiratory Culture ERIBERTO 05/12/24 Verified W/ Gs 14:49 Vancomycin Per PHA 05/12/24 Verified Pharmacy 15:00 Ok To Change Mack ORDERS 05/12/24 Verified 14:49 Complete Blood Count LAB 05/13/24 Verified 06:00 Comprehensive LAB 05/13/24 Verified Metabolic Panel 06:00 Chest Portable XY 05/13/24 Verified 06:00 Abg W/ Co-Ox RT 05/13/24 Verified 06:00 Dietary Evaluation Review Comments: current TF is providing adequate amount of protein and energy to pt. Need to continue monitor the nepro support vs updated lab values, d/t his ckd-3b status and not on HD. Expected Outcomes/Goals: meeting pt's estimated needs for both protein and energy at 75% or higher. Critical Care Time (mins): 81 (critical care time including cpap trial is 81 mins) Date of Service: May 12, 2024 Billing Provider: ADRIA NASH MD Common Visit Codes: 88822-RSUEFOAA CARE 30-74 MIN, 30924-XGASWFOL CARE-EACH +30MIN ADRIA NASH MD May 12, 2024 14:54
[2024-05-12] MEDS ORDERED: VANCOMYCIN PER PHARMACY 0 MG IV SCH (15:00)
[2024-05-12] MEDS: PROPOFOL 100 ML IV SCH (15:55)
[2024-05-12] MEDS: VANCOMYCIN 1GM/250ML KIT 250 ML IV ONE (16:56)
[2024-05-13] VITALS (106 sets, daily range): BP systolic 79–164; BP diastolic 44–75; PULSE 62–87; RESP 16–39; TEMP 97.7–101.1; O2SAT 91–100
[2024-05-13 03:20] LABS: Basophils # (auto) 0.1 10 ^3/uL (0-0.2); Eosinophils # (auto) 0.5 10 ^3/uL (0-0.8); Lymphocytes # (auto) 0.6 10 ^3/uL (0.4-5.4); Platelet Count (auto) 202 10^3/uL (140-450)
[2024-05-13 03:23] LABS: Basophils % (auto) 0.6 % (0.0-2.0); Eosinophils % (auto) 3.6 % (0.0-7.0); Hematocrit 24.6 % (41.0-53.0); Lymphocytes % (auto) 4.3 % (10.0-50.0); Mean Corpuscular Hemoglobin 28.8 pg (28.0-32.0); Mean Corpuscular Hgb Conc. 32.4 g/dL (32.0-36.0); Mean Corpuscular Volume 89.1 fL (80.0-100.0); Monocytes % (auto) 7.4 % (0.0-12.0); Neutrophils % (auto) 84.1 % (37.0-80.0); Red Blood Cells 2.77 10^6/uL (4.5-5.90); White Blood Cell 13.1 10^3/uL (4.4-10.8)
[2024-05-13 03:38] LABS: Albumin 3.5 g/dL (3.2-4.8); Anion Gap 8 (5-15); BUN/Creatinine Ratio 18.7 (10.0-20.0); Calcium 9.1 mg/dL (8.7-10.4); Carbon Dioxide 28 mmol/L (20-31); Chloride 105 mmol/L (98-107); Sodium 141 mmol/L (136-145)
[2024-05-13 03:39] LABS: Bilirubin, Total 0.7 mg/dL (0.2-1.0); Total Protein 6.8 g/dL (5.7-8.2)
[2024-05-13 03:43] LABS: Alanine Aminotransferase 257 U/L (7-40); Alkaline Phosphatase 133 U/L (46-116); Aspartate Aminotransferase 75 U/L (13-40); Blood Urea Nitrogen 61 mg/dL (9-23); Glucose 268 mg/dL (74-106)
--- NOTE | 2024-05-13 06:24 | DVH ---
CHEST RADIOGRAPH Indication: RESP FAILURE Technique: Single frontal view of the chest was obtained Comparison: XY CHEST PORTABLE on DOS: 05/12/24, XY CHEST PORTABLE on DOS: 05/11/24, XY CHEST PORTABLE on DOS: 05/10/24 IMPRESSION: The cardiac silhouette is enlarged with median sternotomy wires. Support lines and tubes appear uncha nged in position. Patchy airspace opacities in the left lung persist with mild improvement in pulmona ry vascular congestion. No sizable effusion or pneumothorax.
[2024-05-13] MEDS: SODIUM CHL 0.9% 1000 ML BAG XX ONE (07:00)
[2024-05-13 08:13] LABS: Base Excess 0.9 mmol/L (-2.0-3.0)
--- NOTE | 2024-05-13 12:27 | DVHPN2 ---
Progress Note Date Seen: May 13, 2024 Medical Necessity Reason Pt with a Central, PICC or Fol: Yes The following are medically ne: PICC Line, Mack Catheter Reason for mack catheter: Strict I&O Subjective Patient reports: Other Review of Systems: RESPIRATORY:Abnormal, NEURO:Abnormal Objective vital signs Vital Sign Date Time Temp Pulse Resp B/P (MAP) Pulse Ox O2 Delivery O2 Flow Rate FiO2 05/13/24 10:03 82 24 148/70 (96) 100 30 05/13/24 10:01 98.4 209.1 05/13/24 10:00 Mechanical Ventilator+ 05/12/24 08:18 30.0 Total Intake and Output 05/12/24 05/12/24 05/13/24 15:00 23:00 07:00 Intake Total 44.277 ml 360.945 ml 442.3997 ml Output Total 370 ml 380 ml Balance 44.277 ml -9.055 ml 62.3997 ml medications Current Medications Medications Dose Ordered Sig/Lulu Route Start Time Stop Time Status Last Admin Dose Admin Nitroglycerin 0.4 mg Q5MINP PRN SL 04/16/24 23:45 Albuterol 2.5 mg Q6HPRN PRN NEB 04/17/24 18:30 05/07/24 00:00 2.5 MG Levalbuterol HCl 1.25 mg Q6HR NEB 04/18/24 00:00 05/13/24 06:41 1.25 MG Norepinephrine Bitartrate 32 mg/ Sodium Chloride 250 ml @ 0.938 mls/ hr Q24H IV 04/18/24 11:45 05/12/24 01:53 0.938 MLS/HR Pantoprazole Sodium 40 mg DAILY IV 04/21/24 10:00 05/13/24 11:38 40 MG Enteral Nutritional Formula 1,000 ml 30ML/HR GT 04/20/24 16:45 Cancel Enteral Nutritional Formula 1,000 ml 30ML/HR GT 04/21/24 08:45 05/10/24 22:50 1,000 ML Diagnostic Test (Pha) 1 strip Q6HR 04/23/24 12:00 05/13/24 05:03 1 STRIP Insulin Human Regular Q6HR SC 04/23/24 12:00 05/13/24 06:03 9 UNITS Dextrose 50 ml UD PRN IV 04/23/24 11:15 Clopidogrel Bisulfate 75 mg DAILY PO 04/27/24 10:00 05/13/24 11:40 75 MG Sodium Chloride 10 ml QSHIFT@10,22 IV 04/27/24 22:00 05/13/24 11:38 10 ML Acetaminophen 650 mg Q6HP PRN GT 04/30/24 18:45 05/13/24 03:13 650 MG Amiodarone HCl 200 mg Q12HR PO 05/01/24 22:00 05/13/24 11:40 200 MG Enoxaparin Sodium 70 mg DAILY SC 05/03/24 10:00 05/13/24 11:38 70 MG Piperacillin Sod/ Tazobactam Sod 100 ml @ 25 mls/hr BID IV 05/03/24 10:00 05/12/24 21:33 25 MLS/HR Furosemide 40 mg DAILY IV 05/05/24 10:00 05/12/24 09:47 40 MG Dexmedetomidine HCl 400 mcg/ Dextrose 100 ml @ 4.025 mls/ hr Q24H IV 05/08/24 17:45 05/11/24 23:22 4.025 MLS/HR Fentanyl Citrate 250 ml @ 2.5 mls/hr Q24H IV 05/09/24 21:45 05/12/24 21:44 7.5 MLS/HR Vancomycin HCl 0 ml @ 0 mls/hr UD IV 05/12/24 15:00 Propofol 100 ml @ 2.346 mls/ hr Q24H IV 05/12/24 15:00 05/13/24 00:18 9.384 MLS/HR Examination: GENERAL:Abnormal, LUNGS:Abnormal, NEURO:Abnormal laboratory and microbiology Laboratory Tests 05/13/24 03:00 Test 05/13/24 03:00 Range/Units Serum Glucose 268 H 74-106 mg/dL Microbiology Date/Time Source Procedure Growth Status 05/12/24 16:04 Urine - Mack [place] Urine Culture - Preliminary Resulted 05/12/24 15:58 Trachea Gram Stain - Final Resulted 05/12/24 15:58 Trachea Respiratory Culture - Preliminary Resulted 04/17/24 13:00 Blood Blood Culture - Final NO GROWTH AFTER 5 DAYS OF INCUBATION. Complete 04/17/24 01:05 Sputum Gram Stain - Final Complete 12/6/24 01:05 Respiratory Culture - Final Streptococcus Group F Complete Problem List/Assessment/Plan Problem List/Assessment/Plan ANDREA likely ischemic ATN in setting of shock previously needing dialysis CKD stage IIIB Acute PE Acute hypoxic respiratory failure NSTEMI History of coronary artery disease encephalopathy HD today rest of care as per primary team family declines to trach Plan discussed with: Other Dietary Evaluation Review Comments: current TF is providing adequate amount of protein and energy to pt. Need to continue monitor the nepro support vs updated lab values, d/t his ckd-3b status and not on HD. Expected Outcomes/Goals: meeting pt's estimated needs for both protein and energy at 75% or higher. ANN-MARIE OROZCO MD May 13, 2024 12:27
--- NOTE | 2024-05-13 14:18 | DVHPN2 ---
Progress Note Date Seen: May 13, 2024 Medical Necessity Reason Pt with a Central, PICC or Fol: Yes The following are medically ne: PICC Line, Mack Catheter Reason for mack catheter: Strict I&O Subjective Patient reports: No new complaints Review of Systems: HEENT:Normal, CVS:Normal, RESPIRATORY:Normal, GI:Normal, :Normal, MSK:Normal, NEURO:Normal Objective vital signs Vital Sign Date Time Temp Pulse Resp B/P (MAP) Pulse Ox O2 Delivery O2 Flow Rate FiO2 05/13/24 13:39 73 24 132/57 (82) 100 30 05/13/24 13:00 97.7 207.9 05/13/24 12:00 Mechanical Ventilator+ 05/12/24 08:18 30.0 Total Intake and Output 05/12/24 05/12/24 05/13/24 15:00 23:00 07:00 Intake Total 44.277 ml 360.945 ml 452.0917 ml Output Total 370 ml 380 ml Balance 44.277 ml -9.055 ml 72.0917 ml medications Current Medications Medications Dose Ordered Sig/Lulu Route Start Time Stop Time Status Last Admin Dose Admin Nitroglycerin 0.4 mg Q5MINP PRN SL 04/16/24 23:45 Albuterol 2.5 mg Q6HPRN PRN NEB 04/17/24 18:30 05/07/24 00:00 2.5 MG Levalbuterol HCl 1.25 mg Q6HR NEB 04/18/24 00:00 05/13/24 12:00 1.25 MG Norepinephrine Bitartrate 32 mg/ Sodium Chloride 250 ml @ 0.938 mls/ hr Q24H IV 04/18/24 11:45 05/12/24 01:53 0.938 MLS/HR Pantoprazole Sodium 40 mg DAILY IV 04/21/24 10:00 05/13/24 11:38 40 MG Enteral Nutritional Formula 1,000 ml 30ML/HR GT 04/20/24 16:45 Cancel Enteral Nutritional Formula 1,000 ml 30ML/HR GT 04/21/24 08:45 05/10/24 22:50 1,000 ML Diagnostic Test (Pha) 1 strip Q6HR 04/23/24 12:00 05/13/24 12:00 1 STRIP Insulin Human Regular Q6HR SC 04/23/24 12:00 05/13/24 13:00 3 UNITS Dextrose 50 ml UD PRN IV 04/23/24 11:15 Clopidogrel Bisulfate 75 mg DAILY PO 04/27/24 10:00 05/13/24 11:40 75 MG Sodium Chloride 10 ml QSHIFT@10,22 IV 04/27/24 22:00 05/13/24 11:38 10 ML Acetaminophen 650 mg Q6HP PRN GT 04/30/24 18:45 05/13/24 03:13 650 MG Amiodarone HCl 200 mg Q12HR PO 05/01/24 22:00 05/13/24 11:40 200 MG Enoxaparin Sodium 70 mg DAILY SC 05/03/24 10:00 05/13/24 11:38 70 MG Piperacillin Sod/ Tazobactam Sod 100 ml @ 25 mls/hr BID IV 05/03/24 10:00 05/13/24 12:57 25 MLS/HR Furosemide 40 mg DAILY IV 05/05/24 10:00 05/13/24 13:01 40 MG Dexmedetomidine HCl 400 mcg/ Dextrose 100 ml @ 4.025 mls/ hr Q24H IV 05/08/24 17:45 05/11/24 23:22 4.025 MLS/HR Fentanyl Citrate 250 ml @ 2.5 mls/hr Q24H IV 05/09/24 21:45 05/12/24 21:44 7.5 MLS/HR Vancomycin HCl 0 ml @ 0 mls/hr UD IV 05/12/24 15:00 Propofol 100 ml @ 2.346 mls/ hr Q24H IV 05/12/24 15:00 05/13/24 00:18 9.384 MLS/HR Examination: GENERAL:Normal, HEENT:Normal, NECK:Normal, LUNGS:Normal, LUNGS:Abnormal (INTUBATED), CVS:Normal, ABDOMEN:Normal, MSK:Normal, SKIN:Normal, NEURO:Normal, NEURO:Abnormal (INTUBATED), :Normal laboratory and microbiology Laboratory Tests 05/13/24 03:00 Test 05/13/24 03:00 Range/Units Serum Glucose 268 H 74-106 mg/dL Microbiology Date/Time Source Procedure Growth Status 05/12/24 16:04 Urine - Mack [place] Urine Culture - Preliminary Resulted 05/12/24 15:58 Trachea Gram Stain - Final Resulted 05/12/24 15:58 Trachea Respiratory Culture - Preliminary Resulted 04/17/24 13:00 Blood Blood Culture - Final NO GROWTH AFTER 5 DAYS OF INCUBATION. Complete 04/17/24 01:05 Sputum Gram Stain - Final Complete 04/17/24 01:05 Respiratory Culture - Final Streptococcus Group F Complete Problem List/Assessment/Plan Problem List/Assessment/Plan Neurology : - patient is sedated Cardiovascular : # Non ST elevation myocardial infarction # Acute on chronic decompensated HFrEF, NYHA Class IV, newly diagnosed: lasix iv # Echo on 04/18/2024 shows: Severely dilated left ventricle. Severely reduced left ventricular systolic function with estimated ejection fraction 25%. There is anterior anteroseptal anteroapical inferolateral wall severe hypokinesia- dobutamine drip # Severe coronary artery disease status post triple-vessel CABG, 2018 # Lower extremity DVT ruled out # Severe PVD status post left SFA ELLIOT x 1 # Hypertension # Dyslipidemia - cardiology on board - discontinue Lipitor for now - discontinue Plavix for now - patient is on heparin drip # a fib: on amiodarone Respiratory : # Septic shock due to pneumonia ?aspiration # Acute hypoxic respiratory failure secondary to possible pneumonia - patient is on mechanical ventilation with FiO2 30%, PEEP: 6, F 24, Vt 550 # Possible community-acquired pneumonia Gm +/- bacterial pneumonia - continue antibiotic, Zosyn, add vanc # RLL segmental pulmonary embolism with no evidence of right-heart strain # Bilateral pleural effusions, small - continue lovenox # cpap trial in am discussed with family regards trach- do not wish trach GI: elevated lft: dc doxy, dc lipitor, usg liver Genitourinary : # ANDREA on CKD # Acute kidney injury due to ATN # ANDREA likely ischemic ATN in setting of shock # CKD stage IIIB -nephrology on board -continue Lasix 40 mg I/V daily. - HD Infectious Disease : # Septic shock due to pneumonia # possible community-acquired pneumonia gm+/- bacterial - patient is on pressor - continue IV antibiotics Endocrine : Zwo-mcmejdq-bjvdmufor diabetes mellitus -HbA1c 7.1 - Continue ISS - monitor blood glucose Hematology : - leukocytosis due to septic shock - follow up morning labs - anemia- transfuse Nutrition : Glucerna Lines: Endotracheal tube: 04/18/2024 Right IG central line: 04/18/2024 Mack catheter: 04/18/2024 Left IG Pipo catheter: 04/20/2024 Drips : Fentanyl 75 Versed 5 Propofol 0 NE 0 Vasopressin 0 [id number] Prophylaxis for PUD : Protonix 40 mg IV daily Prophylaxis for DVT: Patient is on heparin drip long dw - explained treatment plan Plan discussed with: Spouse, Daughter My Orders My Orders Orders - ADRIA NASH MD Procedure Category Date Status Time Respiratory Culture ERIBERTO 05/12/24 In Process W/ Gs 14:49 Vancomycin Per PHA 05/12/24 In Process Pharmacy 15:00 Ok To Change Mack ORDERS 05/12/24 Transmitted 14:49 Chest Portable XY 05/13/24 Resulted 06:00 Abg W/ Co-Ox RT 05/13/24 Logged 06:00 Propofol (Diprivan) PHA 05/12/24 In Process 15:00 Urine Bacterial ERIBERTO 05/12/24 In Process Culture 14:56 Meropenem 1gm Ivpb X PHA 05/13/24 Transmitted ONE 14:15 Meropenem 1gm PHA 05/13/24 Transmitted Q8h(Gfr>50) 22:00 Complete Blood Count LAB 05/14/24 Verified 06:00 Comprehensive LAB 05/14/24 Verified Metabolic Panel 06:00 Chest Portable XY 05/14/24 Transmitted 06:00 Abg W/ Co-Ox RT 05/14/24 Transmitted 06:00 Cpap Trial For Am ORDERS 05/13/24 Verified 14:10 Dietary Evaluation Review Comments: current TF is providing adequate amount of protein and energy to pt. Need to continue monitor the nepro support vs updated lab values, d/t his ckd-3b status and not on HD. Expected Outcomes/Goals: meeting pt's estimated needs for both protein and energy at 75% or higher. Critical Care Time (mins): 82 (critical care time including dw family was 81 mins) Date of Service: May 13, 2024 Billing Provider: ADRIA NASH MD Common Visit Codes: [id number] CARE 30-74 MIN, [id number] CARE-EACH +30MIN ADRIA NASH MD May 13, 2024 14:18
--- NOTE | 2024-05-13 14:59 | ECG ---
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
--- NOTE | 2024-05-13 15:22 | ECG ---
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
[2024-05-13] MEDS: VANCOMYCIN 750MG KIT 100 ML IV ONE (16:03)
[2024-05-13] MEDS: MEROPENEM 1GM IVPB 50 ML IV ONE (16:04)
[2024-05-13] MEDS: EPOETIN ALFA-EPBX 10,000 UNIT/1ML VIAL SC ONE (23:24)
[2024-05-13] MEDS: MEROPENEM 1GM IVPB 50 ML IV SCH (23:25)
[2024-05-14] VITALS (53 sets, daily range): BP systolic 85–152; BP diastolic 41–88; PULSE 48–137; RESP 12–43; TEMP 98.4–100.8; O2SAT 65–100
[2024-05-14 03:59] LABS: Basophils # (auto) 0.1 10 ^3/uL (0-0.2); Basophils % (auto) 0.7 % (0.0-2.0); Eosinophils # (auto) 0.7 10 ^3/uL (0-0.8); Eosinophils % (auto) 4.7 % (0.0-7.0); Hematocrit 28.3 % (41.0-53.0); Lymphocytes # (auto) 0.7 10 ^3/uL (0.4-5.4); Lymphocytes % (auto) 4.6 % (10.0-50.0); Mean Corpuscular Hemoglobin 28.3 pg (28.0-32.0); Mean Corpuscular Hgb Conc. 31.7 g/dL (32.0-36.0); Mean Corpuscular Volume 89.2 fL (80.0-100.0); Monocytes # (auto) 1.2 10 ^3/uL (0-1.3); Monocytes % (auto) 7.9 % (0.0-12.0); Neutrophils # (auto) 12.7 10 ^3/uL (1.6-8.6); Neutrophils % (auto) 82.1 % (37.0-80.0); Platelet Count (auto) 170 10^3/uL (140-450); Red Blood Cells 3.18 10^6/uL (4.5-5.90); Red Cell Distribution Width 16.3 % (11.8-14.3); White Blood Cell 15.5 10^3/uL (4.4-10.8)
[2024-05-14 04:15] LABS: Anion Gap 9 (5-15); Aspartate Aminotransferase 39 U/L (13-40); BUN/Creatinine Ratio 16.9 (10.0-20.0); Calcium 8.9 mg/dL (8.7-10.4); Carbon Dioxide 29 mmol/L (20-31); Chloride 101 mmol/L (98-107); Potassium 3.9 mmol/L (3.5-5.1); Sodium 139 mmol/L (136-145)
[2024-05-14 04:16] LABS: Albumin 3.5 g/dL (3.2-4.8); Bilirubin, Total 0.7 mg/dL (0.2-1.0); Total Protein 6.8 g/dL (5.7-8.2)
[2024-05-14 04:35] LABS: Alanine Aminotransferase 196 U/L (7-40); Alkaline Phosphatase 141 U/L (46-116); Blood Urea Nitrogen 40 mg/dL (9-23); Glucose 228 mg/dL (74-106)
--- NOTE | 2024-05-14 05:31 | DVH ---
CHEST RADIOGRAPH Indication: CHF Technique: Single frontal view of the chest was obtained COMPARISON: XY CHEST PORTABLE on DOS: 05/13/24, XY CHEST PORTABLE on DOS: 05/12/24, XY CHEST PORTABLE o n DOS: 05/11/24, XY CHEST PORTABLE on DOS: 05/10/24, XY CHEST PORTABLE on DOS: 05/09/24, XY CHEST POR TABLE on DOS: 05/09/24 FINDINGS: Lines and Tubes: Endotracheal tube, enteric catheter and left central venous catheter in satisfactory position. Median sternotomy. Lungs: Multifocal airspace disease. Pleura: No effusion. No pneumothorax. Cardiomediastinal contours: Unremarkable Bones: Unremarkable IMPRESSION: Lines and tubes in satisfactory position. No significant interval change.
--- NOTE | 2024-05-14 09:47 | DVHPN2 ---
Progress Note Date Seen: May 14, 2024 Medical Necessity Reason Pt with a Central, PICC or Fol: Yes The following are medically ne: PICC Line, Mack Catheter Reason for mack catheter: Strict I&O Subjective Patient reports: No new complaints Review of Systems: HEENT:Normal, CVS:Normal, RESPIRATORY:Normal, GI:Normal, :Normal, MSK:Normal, NEURO:Normal Objective vital signs Vital Sign Date Time Temp Pulse Resp B/P (MAP) Pulse Ox O2 Delivery O2 Flow Rate FiO2 05/14/24 08:30 100.0 88 22 147/73 (97) 100 212.0 05/14/24 08:00 30 05/14/24 08:00 Mechanical Ventilator+ 05/12/24 08:18 30.0 Total Intake and Output 05/13/24 05/13/24 05/14/24 15:00 23:00 07:00 Intake Total 139.138 ml 534.754 ml 479.782 ml Output Total 250 ml 175 ml Balance 139.138 ml 284.754 ml 304.782 ml medications Current Medications Medications Dose Ordered Sig/Lulu Route Start Time Stop Time Status Last Admin Dose Admin Nitroglycerin 0.4 mg Q5MINP PRN SL 04/16/24 23:45 Albuterol 2.5 mg Q6HPRN PRN NEB 04/17/24 18:30 05/07/24 00:00 2.5 MG Levalbuterol HCl 1.25 mg Q6HR NEB 04/18/24 00:00 05/14/24 07:03 1.25 MG Norepinephrine Bitartrate 32 mg/ Sodium Chloride 250 ml @ 0.938 mls/ hr Q24H IV 04/18/24 11:45 05/12/24 01:53 0.938 MLS/HR Pantoprazole Sodium 40 mg DAILY IV 04/21/24 10:00 05/13/24 11:38 40 MG Enteral Nutritional Formula 1,000 ml 30ML/HR GT 04/20/24 16:45 Cancel Enteral Nutritional Formula 1,000 ml 30ML/HR GT 04/21/24 08:45 05/10/24 22:50 1,000 ML Diagnostic Test (Pha) 1 strip Q6HR 04/23/24 12:00 05/14/24 05:27 1 STRIP Insulin Human Regular Q6HR SC 04/23/24 12:00 05/14/24 05:29 6 UNITS Dextrose 50 ml UD PRN IV 04/23/24 11:15 Clopidogrel Bisulfate 75 mg DAILY PO 04/27/24 10:00 05/13/24 11:40 75 MG Sodium Chloride 10 ml QSHIFT@10,22 IV 04/27/24 22:00 05/13/24 23:25 10 ML Acetaminophen 650 mg Q6HP PRN GT 04/30/24 18:45 05/13/24 03:13 650 MG Amiodarone HCl 200 mg Q12HR PO 05/01/24 22:00 05/13/24 23:35 200 MG Enoxaparin Sodium 70 mg DAILY SC 05/03/24 10:00 05/13/24 11:38 70 MG Furosemide 40 mg DAILY IV 05/05/24 10:00 05/13/24 13:01 40 MG Dexmedetomidine HCl 400 mcg/ Dextrose 100 ml @ 4.025 mls/ hr Q24H IV 05/08/24 17:45 05/11/24 23:22 4.025 MLS/HR Fentanyl Citrate 250 ml @ 2.5 mls/hr Q24H IV 05/09/24 21:45 05/14/24 06:23 2.5 MLS/HR Vancomycin HCl 0 ml @ 0 mls/hr UD IV 05/12/24 15:00 Propofol 100 ml @ 2.346 mls/ hr Q24H IV 05/12/24 15:00 05/14/24 06:21 4.692 MLS/HR Meropenem 50 ml @ 17 mls/hr Q12HR IV 05/13/24 22:00 05/13/24 23:25 17 MLS/HR Examination: GENERAL:Normal, HEENT:Normal, NECK:Normal, LUNGS:Normal, LUNGS:Abnormal (intubated), CVS:Normal, ABDOMEN:Normal, MSK:Normal, SKIN:Normal, NEURO:Normal, :Normal laboratory and microbiology Laboratory Tests 05/14/24 03:40 Test 05/14/24 03:40 Range/Units Serum Glucose 228 H 74-106 mg/dL Microbiology Date/Time Source Procedure Growth Status 05/12/24 16:04 Urine - Mack [place] Urine Culture - Preliminary Resulted 05/12/24 15:58 Trachea Gram Stain - Final Resulted 05/12/24 15:58 Trachea Respiratory Culture - Preliminary Resulted 04/17/24 13:00 Blood Blood Culture - Final NO GROWTH AFTER 5 DAYS OF INCUBATION. Complete 04/17/24 01:05 Sputum Gram Stain - Final Complete 04/17/24 01:05 Respiratory Culture - Final Streptococcus Group F Complete Problem List/Assessment/Plan Problem List/Assessment/Plan Neurology : - patient is sedated Cardiovascular : # Non ST elevation myocardial infarction # Acute on chronic decompensated HFrEF, NYHA Class IV, newly diagnosed: lasix iv # Echo on 04/18/2024 shows: Severely dilated left ventricle. Severely reduced left ventricular systolic function with estimated ejection fraction 25%. There is anterior anteroseptal anteroapical inferolateral wall severe hypokinesia- dobutamine drip # Severe coronary artery disease status post triple-vessel CABG, 2018 # Lower extremity DVT ruled out # Severe PVD status post left SFA ELLIOT x 1 # Hypertension # Dyslipidemia - cardiology on board - discontinue Lipitor for now - discontinue Plavix for now - patient is on heparin drip # a fib: on amiodarone Respiratory : # Septic shock due to pneumonia ?aspiration # Acute hypoxic respiratory failure secondary to possible pneumonia - patient is on mechanical ventilation with FiO2 30%, PEEP: 6, F 24, Vt 550 # Possible community-acquired pneumonia Gm +/- bacterial pneumonia - continue antibiotic, Zosyn, add vanc # RLL segmental pulmonary embolism with no evidence of right-heart strain # Bilateral pleural effusions, small - continue lovenox # cpap trial in am discussed with family regards trach- do not wish trach GI: elevated lft: dc doxy, dc lipitor, usg liver Genitourinary : # ANDREA on CKD # Acute kidney injury due to ATN # ANDREA likely ischemic ATN in setting of shock # CKD stage IIIB -nephrology on board -continue Lasix 40 mg I/V daily. - HD Infectious Disease : # Septic shock due to pneumonia # possible community-acquired pneumonia gm+/- bacterial - patient is on pressor - continue IV antibiotics Endocrine : Ezi-gferkoj-mrhzbqouv diabetes mellitus -HbA1c 7.1 - Continue ISS - monitor blood glucose Hematology : - leukocytosis due to septic shock - follow up morning labs - anemia- transfuse Nutrition : Glucerna Lines: Endotracheal tube: 04/18/2024 Right IG central line: 04/18/2024 Mack catheter: 04/18/2024 Left IG Pipo catheter: 04/20/2024 Drips : Fentanyl 75 Versed 5 Propofol 0 NE 0 Vasopressin 0 [id number] Prophylaxis for PUD : Protonix 40 mg IV daily Prophylaxis for DVT: Patient is on heparin drip long dw - explained treatment plan plan extubation and possible terminal wean Plan discussed with: Spouse My Orders My Orders Orders - ADRIA NASH MD Procedure Category Date Status Time Meropenem 1gm Ivpb PHA 05/13/24 In Process (Merrem 1gm/ Ns) 22:00 Chest Portable XY 05/14/24 Resulted 06:00 Abg W/ Co-Ox RT 05/14/24 Logged 06:00 Cpap Trial For Am ORDERS 05/13/24 Transmitted 14:10 Electrocardigram EKG 05/13/24 Resulted 14:56 Electrocardigram EKG 05/13/24 Resulted 15:17 Vancomycin,Random LAB 05/15/24 Verified 05:00 Basic Metabolic Panel LAB 05/15/24 Verified 05:00 Dietary Evaluation Review Comments: current TF is providing adequate amount of protein and energy to pt. Need to continue monitor the nepro support vs updated lab values, d/t his ckd-3b status and not on HD. Expected Outcomes/Goals: meeting pt's estimated needs for both protein and energy at 75% or higher. Critical Care Time (mins): 81 (critical care time 81 mins) Date of Service: May 14, 2024 Billing Provider: ADRIA NASH MD Common Visit Codes: [id number] CARE 30-74 MIN, [id number] CARE-EACH +30MIN Date of Service: May 14, 2024 Billing Provider: ADRIA NASH MD Common Visit Codes: [id number]-[id number] CARE 30-74 MIN, [id number] CARE-EACH +30MIN ADRIA NASH MD May 14, 2024 09:47
--- NOTE | 2024-05-14 11:24 | DVHPN2 ---
Progress Note Date Seen: May 14, 2024 Medical Necessity Reason Pt with a Central, PICC or Fol: Yes The following are medically ne: PICC Line, Mack Catheter Reason for mack catheter: Strict I&O Subjective Patient reports: Other Review of Systems: RESPIRATORY:Abnormal Objective vital signs Vital Sign Date Time Temp Pulse Resp B/P (MAP) Pulse Ox O2 Delivery O2 Flow Rate FiO2 05/14/24 10:14 100.4 05/14/24 10:00 105 05/14/24 10:00 34 100 Nasal Cannula* 2 28 05/14/24 10:00 143/84 (103) Total Intake and Output 05/13/24 05/13/24 05/14/24 15:00 23:00 07:00 Intake Total 139.138 ml 534.754 ml 479.782 ml Output Total 250 ml 175 ml Balance 139.138 ml 284.754 ml 304.782 ml medications Current Medications Medications Dose Ordered Sig/Lulu Route Start Time Stop Time Status Last Admin Dose Admin Nitroglycerin 0.4 mg Q5MINP PRN SL 04/16/24 23:45 Albuterol 2.5 mg Q6HPRN PRN NEB 04/17/24 18:30 05/07/24 00:00 2.5 MG Levalbuterol HCl 1.25 mg Q6HR NEB 04/18/24 00:00 05/14/24 07:03 1.25 MG Norepinephrine Bitartrate 32 mg/ Sodium Chloride 250 ml @ 0.938 mls/ hr Q24H IV 04/18/24 11:45 05/12/24 01:53 0.938 MLS/HR Pantoprazole Sodium 40 mg DAILY IV 04/21/24 10:00 05/13/24 11:38 40 MG Enteral Nutritional Formula 1,000 ml 30ML/HR GT 04/20/24 16:45 Cancel Enteral Nutritional Formula 1,000 ml 30ML/HR GT 04/21/24 08:45 05/10/24 22:50 1,000 ML Diagnostic Test (Pha) 1 strip Q6HR 04/23/24 12:00 05/14/24 05:27 1 STRIP Insulin Human Regular Q6HR SC 04/23/24 12:00 05/14/24 05:29 6 UNITS Dextrose 50 ml UD PRN IV 04/23/24 11:15 Clopidogrel Bisulfate 75 mg DAILY PO 04/27/24 10:00 05/13/24 11:40 75 MG Sodium Chloride 10 ml QSHIFT@10,22 IV 04/27/24 22:00 05/13/24 23:25 10 ML Acetaminophen 650 mg Q6HP PRN GT 04/30/24 18:45 05/14/24 10:14 650 MG Amiodarone HCl 200 mg Q12HR PO 05/01/24 22:00 05/13/24 23:35 200 MG Enoxaparin Sodium 70 mg DAILY SC 05/03/24 10:00 05/13/24 11:38 70 MG Furosemide 40 mg DAILY IV 05/05/24 10:00 05/13/24 13:01 40 MG Dexmedetomidine HCl 400 mcg/ Dextrose 100 ml @ 4.025 mls/ hr Q24H IV 05/08/24 17:45 05/11/24 23:22 4.025 MLS/HR Fentanyl Citrate 250 ml @ 2.5 mls/hr Q24H IV 05/09/24 21:45 05/14/24 06:23 2.5 MLS/HR Vancomycin HCl 0 ml @ 0 mls/hr UD IV 05/12/24 15:00 Propofol 100 ml @ 2.346 mls/ hr Q24H IV 05/12/24 15:00 05/14/24 06:21 4.692 MLS/HR Meropenem 50 ml @ 17 mls/hr Q12HR IV 05/13/24 22:00 05/13/24 23:25 17 MLS/HR Examination: GENERAL:Abnormal, LUNGS:Abnormal, ABDOMEN:Abnormal, NEURO:Abnormal laboratory and microbiology Laboratory Tests 05/14/24 03:40 Test 05/14/24 03:40 Range/Units Serum Glucose 228 H 74-106 mg/dL Microbiology Date/Time Source Procedure Growth Status 05/12/24 16:04 Urine - Mack [place] Urine Culture - Preliminary Resulted 05/12/24 15:58 Trachea Gram Stain - Final Resulted 05/12/24 15:58 Trachea Respiratory Culture - Preliminary Resulted 04/17/24 13:00 Blood Blood Culture - Final NO GROWTH AFTER 5 DAYS OF INCUBATION. Complete 04/17/24 01:05 Sputum Gram Stain - Final Complete 04/17/24 01:05 Respiratory Culture - Final Streptococcus Group F Complete Problem List/Assessment/Plan Problem List/Assessment/Plan ANDREA likely ischemic ATN in setting of shock previously needing dialysis CKD stage IIIB Acute PE Acute hypoxic respiratory failure NSTEMI History of coronary artery disease encephalopathy tolerated HD yesterday no new renal recs at this time. will monitor and review labs and volume status rest of care as per primary team family declines to trach Plan discussed with: Spouse Dietary Evaluation Review Comments: current TF is providing adequate amount of protein and energy to pt. Need to continue monitor the nepro support vs updated lab values, d/t his ckd-3b status and not on HD. Expected Outcomes/Goals: meeting pt's estimated needs for both protein and energy at 75% or higher. ANN-MARIE OROZCO MD May 14, 2024 11:24
[2024-05-14] MEDS ORDERED: LORazepam 2MG/ML-1ML VIAL IV PRN (12:00)
[2024-05-14] MEDS: MORPHINE SULFATE INJ 2 MG/ml SYRG IV PRN (12:09)
[2024-05-14] MEDS ORDERED: LEVALBUTEROL HCL 1.25 MG/3 ML NEB ONE (12:12)
--- NOTE | 2024-05-14 17:04 | DVHDS ---
DATE OF DISCHARGE: 05/14/2024 SUMMARY DATE OF : 05/14/2024 HISTORY OF PRESENT ILLNESS: The patient is a 74-year-old gentleman who was admitted with history of worsening shortness of breath and fatigue, nausea and vomiting. The patient has previous history of coronary artery disease with bypass grafting, hypertension, diabetes, chronic kidney disease and hyperlipidemia. HOSPITAL COURSE: The patient had initial chest x-ray that showed evidence of congestive heart failure. The patient had a CT angiography that showed right lower lobe segmental embolism. The patient had Doppler of lower extremity that was negative for DVT. The patient was intubated and mechanically ventilated. The patient eventually went into worsening acute renal failure and was placed on hemodialysis. The patient was seen in Cardiology consult by Dr. Perales. Echocardiogram done showed ejection fraction of 25% with severely dilated left ventricle. The patient had blood cultures that grew Streptococcus and Enterobacter. The patient was on vasopressors. He was placed on broad-spectrum antibiotics. The patient was anemic and was transfused 2 units of blood. The patient failed multiple attempts at CPAP trial. Family did not wish tracheostomy placed and the patient was eventually made a comfort measures. The patient on 05/14/2024. FINAL DIAGNOSES: Therefore, * Jlz-YL-lqthevety acute myocardial infarction. * Fchsj-wm-azqdjlf systolic heart failure. * Severe coronary artery disease, status post coronary artery bypass graft. * History of severe peripheral vascular disease. * Hyperlipidemia. * Septic shock, questionably due to pneumonia. * Right lower lobe segmental pulmonary embolism. * Acute renal failure, status post dialysis/acute tubular necrosis. * Diabetes mellitus. * Anemia, status post transfusion. * Comfort care. MD LUCIAN Suggs/CRISTA TID: [id number] RECEIPT: [id number]
== END 2024-05-14 18:26 | DRG 870 ==
LOC: ER 19:58 → EDBD 19:58 → TELE 23:47 → TELE-CENTR 04-17 13:55 → ICU WEST 04-18 00:20
PROVIDERS: ADMIT Internal Medicine Pulmonary Disease; ATTEND Internal Medicine
PROC: 5A09357 Assistance with Respiratory Ventilation, Less than 24 Consecutive Hours, Continuous Positive Airway Pressure (ICD-10-PCS; 2024-04-17)
PROC: 5A1955Z Respiratory Ventilation, Greater than 96 Consecutive Hours (ICD-10-PCS; principal; 2024-04-18)
PROC: 0BH17EZ Insertion of Endotracheal Airway into Trachea, Via Natural or Artificial Opening (ICD-10-PCS; 2024-04-18)
PROC: 05HM33Z Insertion of Infusion Device into Right Internal Jugular Vein, Percutaneous Approach (ICD-10-PCS; 2024-04-18)
PROC: 02HV33Z Insertion of Infusion Device into Superior Vena Cava, Percutaneous Approach (ICD-10-PCS; 2024-04-20)
PROC: B548ZZA Ultrasonography of Superior Vena Cava, Guidance (ICD-10-PCS; 2024-04-20)
PROC: 5A1D70Z Performance of Urinary Filtration, Intermittent, Less than 6 Hours Per Day (ICD-10-PCS; 2024-04-20)
PROC: 30233N1 Transfusion of Nonautologous Red Blood Cells into Peripheral Vein, Percutaneous Approach (ICD-10-PCS; 2024-04-22)
PROC: 5A1D70Z Performance of Urinary Filtration, Intermittent, Less than 6 Hours Per Day (ICD-10-PCS; 2024-04-22)
PROC: 02HV33Z Insertion of Infusion Device into Superior Vena Cava, Percutaneous Approach (ICD-10-PCS; 2024-04-27)
PROC: B548ZZA Ultrasonography of Superior Vena Cava, Guidance (ICD-10-PCS; 2024-04-27)
PROC: 5A1D70Z Performance of Urinary Filtration, Intermittent, Less than 6 Hours Per Day (ICD-10-PCS; 2024-05-07)
PROC: 5A1D70Z Performance of Urinary Filtration, Intermittent, Less than 6 Hours Per Day (ICD-10-PCS; 2024-05-11)
PROC: 5A1D70Z Performance of Urinary Filtration, Intermittent, Less than 6 Hours Per Day (ICD-10-PCS; 2024-05-13)
DX: A41.50 Gram-negative sepsis, unspecified (principal); N17.0 Acute kidney failure with tubular necrosis; I50.23 Acute on chronic systolic (congestive) heart failure; I26.99 Other pulmonary embolism without acute cor pulmonale; J96.01 Acute respiratory failure with hypoxia; R65.21 Severe sepsis with septic shock; J15.69 Pneumonia due to other Gram-negative bacteria; J15.9 Unspecified bacterial pneumonia; I21.A1 Myocardial infarction type 2; I13.0 Hypertensive heart and chronic kidney disease with heart failure and stage 1 through stage 4 chronic kidney disease, or unspecified chronic kidney disease; E87.20 Acidosis, unspecified; J98.11 Atelectasis; N18.4 Chronic kidney disease, stage 4 (severe); Z99.11 Dependence on respirator [ventilator] status; Z20.822 Contact with and (suspected) exposure to COVID-19; E11.65 Type 2 diabetes mellitus with hyperglycemia; F12.10 Cannabis abuse, uncomplicated; I25.10 Atherosclerotic heart disease of native coronary artery without angina pectoris; E11.51 Type 2 diabetes mellitus with diabetic peripheral angiopathy without gangrene; T50.8X5A Adverse effect of diagnostic agents, initial encounter; N14.11 Contrast-induced nephropathy; I34.0 Nonrheumatic mitral (valve) insufficiency; E87.5 Hyperkalemia; E78.5 Hyperlipidemia, unspecified; F17.210 Nicotine dependence, cigarettes, uncomplicated; N40.0 Benign prostatic hyperplasia without lower urinary tract symptoms; E11.22 Type 2 diabetes mellitus with diabetic chronic kidney disease; D63.1 Anemia in chronic kidney disease; E87.6 Hypokalemia; I48.0 Paroxysmal atrial fibrillation; I25.5 Ischemic cardiomyopathy; R57.0 Cardiogenic shock; Z95.1 Presence of aortocoronary bypass graft; Z82.49 Family history of ischemic heart disease and other diseases of the circulatory system; Z79.84 Long term (current) use of oral hypoglycemic drugs; Z79.899 Other long term (current) drug therapy; Z99.2 Dependence on renal dialysis; Z86.711 Personal history of pulmonary embolism; Z51.5 Encounter for palliative care; Z79.82 Long term (current) use of aspirin
CPT/HCPCS: 36415; 36556; 36569; 36600; 70450; 71045; 71275; 76705; 76937; 80048; 80053; 80061; 80074; 80202; 80307; 81001; 82570; 82805; 82962; 83036; 83735; 83880; 83935; 84100; 84132; 84300; 84443; 84484; 85025; 85379; 85610; 85730; 86850; 86900; 86901; 86920; 87040; 87070; 87077; 87081; 87086; 87186; 87205; 87426; 87804; 87807; 90935; 93005; 93306; 93970; 94002; 94003; 94640; 94660; 96361; 96374; 99291; G0378; J1642; J1815; J2185; J2470; J2543; J2704; J3480; J3490; J7060; P9047